=== PATIENT | male | born 1985 | race Caucasian/White ===

== ENCOUNTER 2017-03-15 08:56 | Inpatient (IN) | payer OTHER ==
[2017-03-15 09:21] VITALS: BMI 23.6
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
[2017-03-15] MEDS ORDERED: hydrOXYzine PAMOATE 50 MG CAPSULE (FP) PO PRN (11:52)
[2017-03-15] MEDS ORDERED: ACETAMINOPHEN 325 MG TABLET (FP) PO PRN (11:52)
[2017-03-15] MEDS ORDERED: NICOTINE POLACRILEX 2 MG GUM BC PRN (11:52)
[2017-03-15] MEDS ORDERED: P-EPHED 60MG/TRIPROLIDI 2.5MG TABLET PO PRN (11:52)
[2017-03-15] MEDS ORDERED: IBUPROFEN 400 MG TABLET (FP) PO PRN (11:52)
[2017-03-15] MEDS ORDERED: LOPERAMIDE HCL 2 MG CAPSULE PO PRN (11:52)
[2017-03-15] MEDS ORDERED: guaiFENesin/D-METHORPHAN HB 10 ML UNIT-DOSE CUPS PO PRN (11:52)
[2017-03-15] MEDS ORDERED: MAGNESIUM CITRATE 300 ML BOTTLE PO PRN (11:52)
[2017-03-15] MEDS ORDERED: MENTHOL/PHENOL 1 EACH UD MM PRN (11:52)
[2017-03-15] MEDS ORDERED: MAGNESIUM HYDROX 2400MG/30ML ORAL SUSPENSION 30 ML CUP PO PRN (11:52)
[2017-03-15] MEDS ORDERED: chlordiazePOXIDE HCL 25 MG CAPSULE PO ONE (14:15)
[2017-03-15] MEDS: METHYL SALICYLATE/MENTHOL OINT 30 GM TUBE TP SCH ×2 (14:48→23:38)
[2017-03-15] MEDS: PANTOPRAZOLE 40 MG TABLET (FP) PO SCH (14:48)
[2017-03-15] MEDS: NICOTINE 14 MG/24 HOURS TOPICAL PATCH TD SCH (14:48)
[2017-03-15] MEDS: chlordiazePOXIDE HCL 25 MG CAPSULE PO SCH ×2 (17:28→22:38)
[2017-03-15 21:17] LABS: URINE APPEARANCE SLCLOUDY; URINE BILIRUBIN NEGATIVE (NEGATIVE); URINE BLOOD NEGATIVE (NEGATIVE); URINE COLOR AMBER; URINE GLUCOSE (UA) NEGATIVE (NEGATIVE); URINE KETONE NEGATIVE (NEGATIVE); URINE LEUK ESTERASE NEGATIVE (NEGATIVE); URINE NITRITE NEGATIVE (NEGATIVE); URINE PROTEIN NEGATIVE (NEGATIVE)
[2017-03-15] MEDS: diphenhydrAMINE HCL 50 MG CAPSULE PO PRN (22:39)
[2017-03-15] MEDS: THIAMINE HCL 100 MG TABLET (FP) PO SCH (22:39)
[2017-03-16] MEDS: chlordiazePOXIDE HCL 25 MG CAPSULE PO PRN (03:40)
[2017-03-16] MEDS: chlordiazePOXIDE HCL 25 MG CAPSULE PO SCH ×4 (05:18→22:11)
[2017-03-16] MEDS: ONDANSETRON *ODT* 4 MG TABLET SL PRN (09:47)
--- NOTE | 2017-03-16 10:06 | PN ---
S CIWA - CIWA Score Nausea/Vomitin Muscle Tremors: 3 Anxiety: 3 Agitation: 3 Paroxysmal Sweats: 2 Orientation: 0-Oriented Tacttile Disturbances: 1-Very Mild Itch/Numbness Auditory Disturbances: 1-Very Mild Visual Disturbances: 1-Very Mild Sensitivity Headache: 2-Mild CIWA-Ar Total Score: 19 BHS Progress Note (SOAP) Subjective: ALERT,IRRITABLE,ANXIOUS,INTERRUPTED SLEEP,TREMOR,NAUSEA,VOMITING Objective: 03/16/17 10:03 Vital Signs Temperature 98.1 F 03/16/17 06:21 Pulse Rate 70 03/16/17 06:21 Respiratory Rate 18 03/16/17 06:21 Blood Pressure 122/76 03/16/17 06:21 O2 Sat by Pulse Oximetry (%) Laboratory Last Values Urine Color Ashlie 03/15/17 20:59 Urine Appearance Slcloudy 03/15/17 20:59 Urine pH 5.0 (5.0-8.0) 03/15/17 20:59 Urine Protein Negative (NEGATIVE) 03/15/17 20:59 Urine Glucose (UA) Negative (NEGATIVE) 03/15/17 20:59 Urine Ketones Negative (NEGATIVE) 03/15/17 20:59 Urine Blood Negative (NEGATIVE) 03/15/17 20:59 Urine Nitrite Negative (NEGATIVE) 03/15/17 20:59 Urine Bilirubin Negative (NEGATIVE) 03/15/17 20:59 Urine Urobilinogen 2.0 mg/dL (0.2-1.0) 03/15/17 20:59 Ur Leukocyte Esterase Negative (NEGATIVE) 03/15/17 20:59 LABS PENDING Assessment: 03/16/17 10:04 WITHDRAWAL SYMPTOM Plan: CONTINUE DETOX,ZOFRAN 4 MGS SL FOR NAUSEA AND VOMITING PRN Q 6HRS
[2017-03-16 10:19] LABS: MCH 28.1 pg (25.7-33.7); MCHC 32.3 g/dl (32.0-35.9); MEAN CELL VOLUME 87.2 fl (80-96); MEAN PLT VOLUME 8.1 fl (7.5-11.1); PLATELET COUNT 92 K/MM3 (134-434); RDW 21.6 % (11.9-15.9); WHITE BLOOD COUNT 2.6 K/mm3 (4.0-10.0)
[2017-03-16] MEDS: METHYL SALICYLATE/MENTHOL OINT 30 GM TUBE TP SCH ×2 (10:22→22:10)
[2017-03-16] MEDS: NICOTINE 14 MG/24 HOURS TOPICAL PATCH TD SCH (10:23)
[2017-03-16] MEDS: PRENATAL VITAMINS W/ FOLIC ACID TABLET (FP) PO SCH (10:23)
[2017-03-16] MEDS: PANTOPRAZOLE 40 MG TABLET (FP) PO SCH (10:23)
[2017-03-16 10:46] LABS: ALBUMIN 3.2 g/dl (3.4-5.0); ALK PHOS 152 U/L (45-117); ANION GAP 8 (8-16); BILIRUBIN,TOTAL 1.5 mg/dL (0.2-1.0); CALCIUM 8.3 mg/dL (8.5-10.1); CO2 27 mmol/L (21-32); CREATININE 0.9 mg/dL (0.7-1.3); GLUCOSE,RANDOM 111 mg/dL (74-106); SGOT/AST 262 U/L (15-37); SGPT/ALT 95 U/L (12-78); TOT PROT 6.9 g/dl (6.4-8.2)
[2017-03-16] MEDS: MAG HYDROX/AL HYDROX/SIMETH 30 ML UNIT-DOSE CUP PO PRN ×2 (11:09→22:12)
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
[2017-03-16 14:01] LABS: ANISOCYTOSIS 2+; MACROCYTOSIS 1+; MICROCYTOSIS FEW
[2017-03-16] MEDS: CYCLOBENZAPRINE HCL 10 MG TABLET (FP) PO PRN ×2 (17:20→22:11)
[2017-03-16] MEDS: traZODone HCL 100 MG TABLET (FP) PO SCH (22:11)
[2017-03-16] MEDS: THIAMINE HCL 100 MG TABLET (FP) PO SCH (22:11)
[2017-03-17] MEDS: chlordiazePOXIDE HCL 25 MG CAPSULE PO SCH ×2 (05:28→10:29)
[2017-03-17] MEDS: CYCLOBENZAPRINE HCL 10 MG TABLET (FP) PO PRN ×3 (06:08→22:33)
--- NOTE | 2017-03-17 10:06 | PN ---
S CIWA - CIWA Score Nausea/Vomitin Muscle Tremors: 3 Anxiety: 2 Agitation: 3 Paroxysmal Sweats: 1-Minimal Palms Moist Orientation: 0-Oriented Tacttile Disturbances: 1-Very Mild Itch/Numbness Auditory Disturbances: 1-Very Mild Visual Disturbances: 1-Very Mild Sensitivity Headache: 2-Mild CIWA-Ar Total Score: 17 BHS Progress Note (SOAP) Subjective: ALERT,IRRITABLE,ANXIOUS,INTERRUPTED SLEEP,TREMOR Objective: 03/17/17 10:03 Vital Signs Temperature 97.3 F L 03/17/17 06:12 Pulse Rate 60 03/17/17 06:12 Respiratory Rate 16 03/17/17 06:12 Blood Pressure 101/57 03/17/17 06:12 O2 Sat by Pulse Oximetry (%) Laboratory Last Values WBC 2.6 K/mm3 (4.0-10.0) L 03/16/17 05:45 RBC 2.89 M/mm3 (4.00-5.60) L 03/16/17 05:45 Hgb 8.1 GM/dL (11.7-16.9) L 03/16/17 05:45 Hct 25.2 % (35.4-49) L 03/16/17 05:45 MCV 87.2 fl (80-96) 03/16/17 05:45 MCH 28.1 pg (25.7-33.7) 03/16/17 05:45 MCHC 32.3 g/dl (32.0-35.9) 03/16/17 05:45 RDW 21.6 % (11.9-15.9) H 03/16/17 05:45 Plt Count 92 K/MM3 (134-434) L 03/16/17 05:45 MPV 8.1 fl (7.5-11.1) 03/16/17 05:45 Nucleated RBC % No Result Required. 03/16/17 05:45 Toxic Granulation No Result Required. 03/16/17 05:45 [place] Bodies No Result Required. 03/16/17 05:45 [place] Rods No Result Required. 03/16/17 05:45 Platelet Estimate No Result Required. 03/16/17 05:45 Basophilic Stippling 1+ 03/16/17 05:45 Anisocytosis 2+ 03/16/17 05:45 Microcytosis Few 03/16/17 05:45 Macrocytosis 1+ 03/16/17 05:45 Tear Drop Cells No Result Required. 03/16/17 05:45 Ovalocytes No Result Required. 03/16/17 05:45 [place] Bodies No Result Required. 03/16/17 05:45 [place] Rings No Result Required. 03/16/17 05:45 Acanthocytes (Spur) No Result Required. 03/16/17 05:45 Morphology Comment No Result Required. 03/16/17 05:45 Sodium 146 mmol/L (136-145) H 03/16/17 05:45 Potassium 3.6 mmol/L (3.5-5.1) 03/16/17 05:45 Chloride 111 mmol/L (98-107) H 03/16/17 05:45 Carbon Dioxide 27 mmol/L (21-32) 03/16/17 05:45 Anion Gap 8 (8-16) 03/16/17 05:45 BUN 15 mg/dL (7-18) 03/16/17 05:45 Creatinine 0.9 mg/dL (0.7-1.3) 03/16/17 05:45 Creat Clearance w eGFR > 60 (>60) 03/16/17 05:45 Random Glucose 111 mg/dL (74-106) H 03/16/17 05:45 Calcium 8.3 mg/dL (8.5-10.1) L 03/16/17 05:45 Total Bilirubin 1.5 mg/dL (0.2-1.0) H 03/16/17 05:45 AST 262 U/L (15-37) H 03/16/17 05:45 ALT 95 U/L (12-78) H 03/16/17 05:45 Alkaline Phosphatase 152 U/L (45-117) H 03/16/17 05:45 Total Protein 6.9 g/dl (6.4-8.2) 03/16/17 05:45 Albumin 3.2 g/dl (3.4-5.0) L 03/16/17 05:45 Urine Color Ashlie 03/15/17 20:59 Urine Appearance Slcloudy 03/15/17 20:59 Urine pH 5.0 (5.0-8.0) 03/15/17 20:59 Ur Specific [place] 1.025 (1.005-1.025) 03/15/17 20:59 Urine Protein Negative (NEGATIVE) 03/15/17 20:59 Urine Glucose (UA) Negative (NEGATIVE) 03/15/17 20:59 Urine Ketones Negative (NEGATIVE) 03/15/17 20:59 Urine Blood Negative (NEGATIVE) 03/15/17 20:59 Urine Nitrite Negative (NEGATIVE) 03/15/17 20:59 Urine Bilirubin Negative (NEGATIVE) 03/15/17 20:59 Urine Urobilinogen 2.0 mg/dL (0.2-1.0) 03/15/17 20:59 Ur Leukocyte Esterase Negative (NEGATIVE) 03/15/17 20:59 RPR Titer Nonreactive (NONREACTIVE) 03/16/17 05:45 Assessment: 03/17/17 10:04 WITHDRAWAL SYMPTOM Plan: CONTINUE DETOX,PANCYTOPENIA PROBABLY RELATED TO ALCOHOL,START ON FERROUS SLFATE 325 MGS PO TID, PEPEAT CBC,CMP,INR IN AM
[2017-03-17] MEDS: PANTOPRAZOLE 40 MG TABLET (FP) PO SCH (10:29)
[2017-03-17] MEDS: PRENATAL VITAMINS W/ FOLIC ACID TABLET (FP) PO SCH (10:29)
[2017-03-17] MEDS: METHYL SALICYLATE/MENTHOL OINT 30 GM TUBE TP SCH ×2 (10:29→22:45)
[2017-03-17] MEDS: NICOTINE 14 MG/24 HOURS TOPICAL PATCH TD SCH (10:31)
[2017-03-17] MEDS: FERROUS SO4 325 MG TABLET (FP) PO SCH ×2 (16:34→17:25)
[2017-03-17] MEDS: chlordiazePOXIDE 5 MG CAPSULE PO SCH ×2 (17:26→22:33)
--- NOTE | 2017-03-17 20:03 | EKG ---
Test Reason : Blood Pressure : / mmHG Vent. Rate : 065 BPM Atrial Rate : 065 BPM P-R Int : 190 ms QRS Dur : 118 ms QT Int : 452 ms P-R-T Axes : 039 021 043 degrees QTc Int : 470 ms NORMAL SINUS RHYTHM NON-SPECIFIC INTRA-VENTRICULAR CONDUCTION DELAY BORDERLINE ECG NO PREVIOUS ECGS AVAILABLE Confirmed by MIRANDA NEVES MD ([id number]) on 03/17/2017 8:02:46 PM Referred By: Confirmed By:MIRANDA NEVES MD
[2017-03-17] MEDS: THIAMINE HCL 100 MG TABLET (FP) PO SCH (22:32)
[2017-03-17] MEDS: traZODone HCL 100 MG TABLET (FP) PO SCH (22:33)
[2017-03-18] MEDS: diphenhydrAMINE HCL 50 MG CAPSULE PO PRN (01:23)
[2017-03-18] MEDS: chlordiazePOXIDE HCL 25 MG CAPSULE PO PRN (03:23)
[2017-03-18] MEDS: chlordiazePOXIDE 5 MG CAPSULE PO SCH ×2 (06:12→10:42)
[2017-03-18] MEDS: FERROUS SO4 325 MG TABLET (FP) PO SCH ×3 (07:01→18:14)
[2017-03-18 10:18] LABS: ALBUMIN 2.7 g/dl (3.4-5.0); ALK PHOS 123 U/L (45-117); ANION GAP 6 (8-16); BILIRUBIN,TOTAL 1.7 mg/dL (0.2-1.0); CALCIUM 8.3 mg/dL (8.5-10.1); CO2 25 mmol/L (21-32); CREATININE 0.9 mg/dL (0.7-1.3); GLUCOSE,RANDOM 91 mg/dL (74-106); SGOT/AST 106 U/L (15-37); SGPT/ALT 58 U/L (12-78); TOT PROT 5.9 g/dl (6.4-8.2)
[2017-03-18 10:39] LABS: INR 1.37 (0.82-1.09); PROTHROMBIN TIME (PATIENT) 15.2 SEC (9.98-11.88)
[2017-03-18] MEDS: ONDANSETRON *ODT* 4 MG TABLET SL PRN (10:42)
[2017-03-18] MEDS: CYCLOBENZAPRINE HCL 10 MG TABLET (FP) PO PRN (10:42)
[2017-03-18] MEDS: PANTOPRAZOLE 40 MG TABLET (FP) PO SCH (10:42)
[2017-03-18] MEDS: METHYL SALICYLATE/MENTHOL OINT 30 GM TUBE TP SCH ×2 (10:42→23:40)
[2017-03-18] MEDS: PRENATAL VITAMINS W/ FOLIC ACID TABLET (FP) PO SCH (10:42)
[2017-03-18] MEDS: NICOTINE 14 MG/24 HOURS TOPICAL PATCH TD SCH (10:43)
--- NOTE | 2017-03-18 11:46 | PN ---
S Progress Note (SOAP) Subjective: ALERT,IRRITABLE,ANXIOUS,INTERRUPTED SLEEP Objective: 03/18/17 11:44 Vital Signs Temperature 97.8 F 03/18/17 10:19 Pulse Rate 86 03/18/17 10:19 Respiratory Rate 18 03/18/17 10:19 Blood Pressure 109/58 03/18/17 10:19 O2 Sat by Pulse Oximetry (%) Laboratory Results - last 24 hr 03/18/17 03/18/17 07:00 07:00 INR 1.37 H Sodium 140 Potassium 4.4 D Chloride 109 H Carbon Dioxide 25 Anion Gap 6 L BUN 15 Creatinine 0.9 Creat Clearance w eGFR > 60 Random Glucose 91 Calcium 8.3 L Total Bilirubin 1.7 H AST 106 H D ALT 58 D Alkaline Phosphatase 123 H Total Protein 5.9 L Albumin 2.7 L 03/18/17 11:45 REPEAT CBC PENDING Assessment: 03/18/17 11:45 WITHDRAWAL SYMPTOM Plan: CONTINUE DETOX,DISCHARGE IN AM
[2017-03-18] MEDS: chlordiazePOXIDE HCL 10 MG CAPSULE PO SCH ×2 (18:14→22:29)
[2017-03-18] MEDS: traZODone HCL 100 MG TABLET (FP) PO SCH (22:29)
[2017-03-18] MEDS: THIAMINE HCL 100 MG TABLET (FP) PO SCH (22:29)
[2017-03-19] MEDS: diphenhydrAMINE HCL 50 MG CAPSULE PO PRN (01:14)
[2017-03-19] MEDS: chlordiazePOXIDE HCL 10 MG CAPSULE PO SCH (05:19)
[2017-03-19] MEDS: MAG HYDROX/AL HYDROX/SIMETH 30 ML UNIT-DOSE CUP PO PRN (05:35)
[2017-03-19 06:13] VITALS: TEMP 97.7
[2017-03-19] MEDS: FERROUS SO4 325 MG TABLET (FP) PO SCH (07:21)
--- NOTE | 2017-03-19 08:02 | DS ---
[facility] Detox Discharge Summary Admission Date: 03/15/17 Discharge Date: 03/19/17 - History Present History: Alcohol Dependence Pertinent Past History: OLD FRACTURE OF LEFT SHOULDER HISTORY OF ANEMIA - Physical Exam Results Vital Signs: Vital Signs Temperature 97.7 F 03/19/17 06:00 Pulse Rate 62 03/19/17 06:00 Respiratory Rate 18 03/19/17 06:00 Blood Pressure 115/59 03/19/17 06:00 O2 Sat by Pulse Oximetry (%) Pertinent Admission Physical Exam Findings: WITHDRAWAL SYMPTOM - Treatment Hospital Course: Detox Protocol Followed, Detoxed Safely, Responded well, Discharged Condition Good Patient has Accepted a Rehab Referral to: [facility] - Medication Discharge Medications: Ambulatory Orders NK [No Known Home Medication] 03/15/17 - Diagnosis (1) Alcohol dependence with uncomplicated withdrawal Current Visit: Yes Status: Acute (2) Pancytopenia Current Visit: Yes Status: Acute (3) Insomnia Current Visit: Yes Status: Acute (4) Nicotine dependence Current Visit: Yes Status: Acute (5) History of anemia Current Visit: Yes Status: Chronic (6) History of fracture of left shoulder Current Visit: Yes Status: Chronic - AMA Did Patient Leave Against Medical Advice: No
[2017-03-19] MEDS: PRENATAL VITAMINS W/ FOLIC ACID TABLET (FP) PO SCH (09:20)
[2017-03-19] MEDS: PANTOPRAZOLE 40 MG TABLET (FP) PO SCH (09:21)
[2017-03-19 10:15] VITALS: BP 121/63; PULSE 82
== END 2017-03-19 09:25 | disposition home or self-care (01) | DRG 775 ==
LOC: YASAS 08:56 → Y6N 13:17
PROVIDERS: ADMIT Internal Medicine; ATTEND Internal Medicine
PROC: HZ2ZZZZ Detoxification Services for Substance Abuse Treatment (ICD-10-PCS; principal; 2017-03-15)
DX: F10.230 Alcohol dependence with withdrawal, uncomplicated (principal); F17.210 Nicotine dependence, cigarettes, uncomplicated; D61.818 Other pancytopenia; G47.00 Insomnia, unspecified; D64.9 Anemia, unspecified; K21.9 Gastro-esophageal reflux disease without esophagitis; M25.512 Pain in left shoulder; Z87.81 Personal history of (healed) traumatic fracture; Z86.69 Personal history of other diseases of the nervous system and sense organs; Z87.19 Personal history of other diseases of the digestive system; Z91.5 Personal history of self-harm; Z59.0 Homelessness
CPT/HCPCS: 36415; 80053; 81003; 85027; 85610; 86593; 93005; 93010

== ENCOUNTER 2017-07-04 13:21 | Inpatient (IN) | payer OTHER ==
[2017-07-04 13:52] VITALS: BMI 25.7
--- NOTE | 2017-07-04 15:00 | HP ---
CIWA Score - CIWA Score Nausea/Vomitin-Mild Nausea/No Vomiting Muscle Tremors: 3 Anxiety: 4-Mod. Anxious/Guarded Agitation: 3 Paroxysmal Sweats: 3 Orientation: 0-Oriented Tacttile Disturbances: 0-None Auditory Disturbances: 0-None Visual Disturbances: 0-None Headache: 2-Mild CIWA-Ar Total Score: 16 Admission ROS BHS - HPI Chief Complaint: Withdrawal sx. Allergies/Adverse Reactions: Allergies Allergy/AdvReac Type Severity Reaction Status Date / Time No Known Allergies Allergy Verified 07/04/17 13:54 History of Present Illness: 32 y/o man with along hx. of alcoholism is admitted for detox. Pt. has been in previous detox denies significant sobriety. Exam Limitations: No Limitations - Ebola screening Have you traveled outside of the country in the last 21 days: No (N) Have you had contact with anyone from an Ebola affected area: No Have you been sick,other than usual withdrawal symptoms: No Do you have a fever: No - Review of Systems Constitutional: Diaphoresis EENT: reports: Nose Congestion, Other (swollen nose, fracture nasal septum) Respiratory: reports: No Symptoms reported Cardiac: reports: No Symptoms Reported GI: reports: Nausea, Abdominal cramping : reports: No Symptoms Reported Musculoskeletal: reports: Joint Pain, Other (ecchymosis lt. knee) Integumentary: reports: Sweating Neuro: reports: Tremors Endocrine: reports: No Symptoms Reported Hematology: reports: No Symptoms Reported Psychiatric: reports: No Sypmtoms Reported Other Systems: Reviewed and Negative Patient History - Patient Medical History Hx Anemia: Yes (TRANSFUSED in 03/2017) Hx Asthma: No Hx Chronic Obstructive Pulmonary Disease (COPD): No Hx Cancer: No Hx Cardiac Disorders: No Hx Congestive Heart Failure: No Hx Hypertension: No Hx Hypercholesterolemia: No Hx Pacemaker: No HX Cerebrovascular Accident: No Hx Seizures: No Hx Dementia: No Hx Diabetes: No Hx Gastrointestinal Disorders: Yes (acid reflux) Hx Liver Disease: Yes (early cirrhosis) Hx Genitourinary Disorders: No Hx Sexually Transmitted Disorders: No Hx Renal Disease (ESRD): No Hx Thyroid Disease: No Hx Human Immunodeficiency Virus (HIV): No (NEGATIVE HX) Hx Hepatitis C: No Hx Depression: Yes Hx Suicide Attempt: Yes (Pt [place] train [place].) Hx Bipolar Disorder: No Hx Schizophrenia: No - Patient Surgical History Past Surgical History: Yes Hx Neurologic Surgery: No Hx Cataract Extraction: No Hx Cardiac Surgery: No Hx Lung Surgery: No Hx Breast Surgery: No Hx Breast Biopsy: No Hx Abdominal Surgery: No Hx Appendectomy: Yes (2011) Hx Orthopedic Surgery: Yes (L shoulder sx in 2013-METAL PLATE IN SHOULDER) Other Surgical History: Sx L wrist 3 years ago. Anesthesia Reaction: No - PPD History Previous Implant?: Yes Documented Results: Negative w/proof Date: 03/17/17 Results: 0 mm PPD to be Administered?: No - Smoking Cessation Smoking history: Former smoker Have you smoked in the past 12 months: Yes Aproximately how many cigarettes per day: 0 (last smoked 6 months ago) Cigars Per Day: 0 Hx Chewing Tobacco Use: No Initiated information on smoking cessation: No - Substance & Tx. History Hx Alcohol Use: Yes Hx Substance Use: No Substance Use Type: Alcohol Hx Substance Use Treatment: Yes ([facility] detox 03/2017) - Substances Abused Alcohol Route: Oral Frequency: Daily Amount used: Vodka 2 pints, beer- 1 six pack Age of first use: 19 Date of Last Use: 07/04/17 Family Disease History - Family Disease History Family Disease History: Other: Father (heroin addict) Admission Physical Exam [facility] - Vital Signs Vital Signs: Vital Signs - 24 hr 07/04/17 13:50 Temperature 97.8 F Pulse Rate 98 H Respiratory 20 Rate Blood Pressure 106/66 - Physical General Appearance: Yes: Alcohol on Breath, Tremorous, Sweating, Anxious HEENTM: Yes: Nasal Congestion Respiratory: Yes: Chest Non-Tender, Lungs Clear, Normal Breath Sounds Neck: Yes: Supple Breast: Yes: Breast Exam Deferred Cardiology: Yes: Regular Rhythm, Regular Rate, S1, S2 Abdominal: Yes: Normal Bowel Sounds, Non Tender Genitourinary: Yes: Within Normal Limits Back: Yes: Within Normal Limits Musculoskeletal: Yes: Within Normal Limits Extremities: Yes: Tremors Neurological: Yes: Fully Oriented, Alert Integumentary: Yes: Diaphoresis Lymphatic: Yes: Within Normal Limits - Diagnostic (1) Alcohol dependence with uncomplicated withdrawal Current Visit: Yes Status: Acute (2) History of anemia Current Visit: Yes Status: Chronic Comment: LABS PENDING Cleared for Admission [facility] - Detox or Rehab [facility] Level of Care: Medically Managed Detox Regimen/Protocol: Librium S Breath Alcohol Content Breath Alcohol Content: 0.436 Urine Drug Screen - Results Drug Screen Negative: No Urine Drug Screen Results: BZO-Benzodiazepines
[2017-07-04] MEDS ORDERED: hydrOXYzine PAMOATE 50 MG CAPSULE (FP) PO PRN (15:14)
[2017-07-04] MEDS ORDERED: MENTHOL/PHENOL 1 EACH UD MM PRN (15:14)
[2017-07-04] MEDS ORDERED: chlordiazePOXIDE HCL 25 MG CAPSULE PO PRN (15:14)
[2017-07-04] MEDS ORDERED: NICOTINE POLACRILEX 2 MG GUM BC PRN (15:14)
[2017-07-04] MEDS ORDERED: MAGNESIUM CITRATE 300 ML BOTTLE PO PRN (15:14)
[2017-07-04] MEDS ORDERED: IBUPROFEN 400 MG TABLET (FP) PO PRN (15:14)
[2017-07-04] MEDS ORDERED: P-EPHED 60MG/TRIPROLIDI 2.5MG TABLET PO PRN (15:14)
[2017-07-04] MEDS ORDERED: ACETAMINOPHEN 325 MG TABLET (FP) PO PRN (15:14)
[2017-07-04] MEDS ORDERED: chlordiazePOXIDE HCL 25 MG CAPSULE PO ONE (15:14)
[2017-07-04] MEDS ORDERED: LOPERAMIDE HCL 2 MG CAPSULE PO PRN (15:14)
[2017-07-04] MEDS ORDERED: MAG HYDROX/AL HYDROX/SIMETH 30 ML UNIT-DOSE CUP PO PRN (15:14)
[2017-07-04] MEDS ORDERED: guaiFENesin/D-METHORPHAN HB 10 ML UNIT-DOSE CUPS PO PRN (15:14)
[2017-07-04] MEDS ORDERED: MAGNESIUM HYDROX 2400MG/30ML ORAL SUSPENSION 30 ML CUP PO PRN (15:14)
[2017-07-04] MEDS: chlordiazePOXIDE HCL 25 MG CAPSULE PO SCH ×2 (17:56→22:35)
[2017-07-04] MEDS: PANTOPRAZOLE 40 MG TABLET (FP) PO SCH (17:56)
[2017-07-04] MEDS: FERROUS SO4 325 MG TABLET (FP) PO SCH (17:56)
[2017-07-04] MEDS ORDERED: THIAMINE HCL 100 MG TABLET (FP) PO SCH (22:00)
[2017-07-04 22:54] LABS: URINE APPEARANCE CLEAR; URINE BILIRUBIN NEGATIVE (NEGATIVE); URINE BLOOD NEGATIVE (NEGATIVE); URINE COLOR YELLOW; URINE GLUCOSE (UA) NEGATIVE (NEGATIVE); URINE KETONE NEGATIVE (NEGATIVE); URINE NITRITE NEGATIVE (NEGATIVE); URINE PROTEIN NEGATIVE (NEGATIVE)
[2017-07-05] MEDS: chlordiazePOXIDE HCL 25 MG CAPSULE PO SCH ×2 (05:37→10:45)
--- NOTE | 2017-07-05 07:44 | CONSULT ---
[facility] Psychiatric Consult - Data Date of interview: 07/05/17 Admission source: [facility] Identifying data: This is 32 years old female with psychiatric hospitalization history intoxicated with: Alcohol Benzodiazepins Substance Abuse History: - Smoking Cessation. Smoking history: Former smoker. Have you smoked in the past 12 months: Yes. Aproximately how many cigarettes per day: 0 (last smoked 6 months ago). Cigars Per Day: 0. Hx Chewing Tobacco Use: No. Initiated information on smoking cessation: No. - Substance & Tx. History. Hx Alcohol Use: Yes. Hx Substance Use: No. Substance Use Type: Alcohol. Hx Substance Use Treatment: Yes ([facility] detox 03/2017). - Substances Abused. Alcohol. Route: Oral. Frequency: Daily. Amount used: Vodka 2 pints, beer- 1 six pack. Age of first use: 19. Date of Last Use: 07/04/17 Medical History: Anemia history, Psychiatric History: Patoenmt reports history of depression and anxiety, reports recent psychiatric admission at [facility] for [facility], reports taking prior to admission: Lexapro 20mg poqd Physical/Sexual Abuse/Trauma History: Denies Additional Comment: Lexapro 20mg poqd Mental Status Exam - Mental Status Exam Alert and Oriented to: Person Cognitive Function: Fair Patient Appearance: Unkempt Mood: Sad Affect: Flat Patient Behavior: Sedated, Cooperative Speech Pattern: Delayed Voice Loudness: Mildly Soft/Quiet Thought Process: Circumstantial Thought Disorder: Being Controlled Hallucinations: Denies Suicidal Ideation: Denies Homicidal Ideation: Denies Insight/Judgement: Fair Sleep: Difficulty falling asleep Appetite: Weight loss Muscle strength/Tone: Mild Hypotonicity Gait/Station: Shuffling Additional Comments: Lexapro 20mg poqd Psychiatric Findings - Problem List ([place] 1, 2,3) (1) Alcohol dependence with uncomplicated withdrawal Status: Acute (2) Alcoholic liver disease Status: Acute (3) Nicotine dependence Status: Acute (4) Substance induced mood disorder Status: Acute
[2017-07-05] MEDS: FERROUS SO4 325 MG TABLET (FP) PO SCH ×2 (07:56→12:06)
[2017-07-05 09:32] VITALS: BP 120/78; PULSE 89; TEMP 99
[2017-07-05 09:59] LABS: MCH 26.8 pg (25.7-33.7); MCHC 32.8 g/dl (32.0-35.9); MEAN CELL VOLUME 81.6 fl (80-96); MEAN PLT VOLUME 9.8 fl (7.5-11.1); RDW 18.7 % (11.9-15.9)
[2017-07-05] MEDS ORDERED: PRENATAL VITAMINS W/ FOLIC ACID TABLET (FP) PO SCH (10:00)
[2017-07-05] MEDS ORDERED: ESCITALOPRAM OXALATE 20 MG TABLET (FP) PO SCH (10:00)
[2017-07-05 10:06] LABS: PLATELET COUNT 17 K/MM3 (134-434)
[2017-07-05 10:17] LABS: ALBUMIN 2.8 g/dl (3.4-5.0); ALK PHOS 111 U/L (45-117); ANION GAP 7 (8-16); BILIRUBIN,TOTAL 1.4 mg/dL (0.2-1.0); CALCIUM 7.3 mg/dL (8.5-10.1); CO2 28 mmol/L (21-32); CREATININE 0.8 mg/dL (0.7-1.3); GLUCOSE,RANDOM 74 mg/dL (74-106); SGOT/AST 129 U/L (15-37); SGPT/ALT 36 U/L (12-78); TOT PROT 6.3 g/dl (6.4-8.2)
[2017-07-05] MEDS: PANTOPRAZOLE 40 MG TABLET (FP) PO SCH (10:45)
[2017-07-05 11:01] LABS: URINE LEUK ESTERASE Negative (NEGATIVE)
--- NOTE | 2017-07-05 11:14 | PN ---
S Progress Note Note: pt has come back with low critical lab values. pt states "I doesn't feel good:. called [facility] for evaluation report given to Dr. Simeon
[2017-07-05 11:22] LABS: ANISOCYTOSIS 3+; HYPOCHROMIA 2+; MICROCYTOSIS 2+; TOTAL CELLS COUNTED 100
--- NOTE | 2017-07-05 13:32 | EKG ---
Test Reason : Blood Pressure : / mmHG Vent. Rate : 078 BPM Atrial Rate : 078 BPM P-R Int : 186 ms QRS Dur : 110 ms QT Int : 414 ms P-R-T Axes : 038 015 049 degrees QTc Int : 471 ms NORMAL SINUS RHYTHM NORMAL ECG WHEN COMPARED WITH ECG OF 15-MAR-2017 13:56, T WAVE AMPLITUDE HAS DECREASED IN LATERAL LEADS Confirmed by ROSCOE GUIDRY MD ([id number]) on 07/05/2017 1:32:16 PM Referred By: Levy Zamorano Confirmed By:ROSCOE GUIDRY MD
[2017-07-05] MEDS ORDERED: chlordiazePOXIDE HCL 25 MG CAPSULE PO SCH (17:00)
--- NOTE | 2017-07-06 08:31 | DS ---
[facility] Detox Discharge Summary Admission Date: 07/04/17 Discharge Date: 07/05/17 - History Present History: Alcohol Dependence - Physical Exam Results Vital Signs: Vital Signs Temperature 99.0 F 07/05/17 09:31 Pulse Rate 89 07/05/17 09:31 Respiratory Rate 18 07/05/17 09:31 Blood Pressure 120/78 07/05/17 09:31 O2 Sat by Pulse Oximetry (%) - Treatment Hospital Course: Discharged Condition Good - Medication Discharge Medications: Ambulatory Orders Ferrous Sulfate [Feosol] 325 mg PO TIDCM #90 tab 03/19/17 Pantoprazole Sodium [Protonix -] 40 mg PO DAILY #30 tab 03/19/17 Escitalopram Oxalate [Lexapro -] 20 mg PO DAILY #30 tablet 07/05/17 - Diagnosis (1) Alcohol dependence with uncomplicated withdrawal Status: Acute (2) Pancytopenia Status: Acute (3) Insomnia Status: Acute (4) Nicotine dependence Status: Acute (5) Substance induced mood disorder Status: Acute (6) History of anemia Status: Chronic (7) History of fracture of left shoulder Status: Chronic (8) Pain of left shoulder joint on movement Status: Chronic - AMA Did Patient Leave Against Medical Advice: No (pt sent to [place] ED for further tx)
[2017-07-06] MEDS ORDERED: chlordiazePOXIDE 5 MG CAPSULE PO SCH (17:00)
[2017-07-07] MEDS ORDERED: chlordiazePOXIDE HCL 10 MG CAPSULE PO SCH (17:00)
== END 2017-07-05 17:00 | disposition short-term general hospital (02) | DRG 775 ==
LOC: YASAS 13:21 → Y6N 16:44
PROVIDERS: ADMIT Internal Medicine; ATTEND Internal Medicine
PROC: HZ2ZZZZ Detoxification Services for Substance Abuse Treatment (ICD-10-PCS; principal; 2017-07-04)
DX: F10.230 Alcohol dependence with withdrawal, uncomplicated (principal); F17.210 Nicotine dependence, cigarettes, uncomplicated; F19.24 Other psychoactive substance dependence with psychoactive substance-induced mood disorder; D61.818 Other pancytopenia; K70.9 Alcoholic liver disease, unspecified; Z87.81 Personal history of (healed) traumatic fracture; Z86.2 Personal history of diseases of the blood and blood-forming organs and certain disorders involving the immune mechanism; Z59.0 Homelessness
CPT/HCPCS: 36415; 80053; 81003; 85027; 86593; 93005; 93010

== ENCOUNTER 2017-07-05 12:18 | Inpatient (IN) | payer OTHER ==
[2017-07-05] MEDS ORDERED: FOLIC ACID INJECTION - 1 MG, THIAMINE HCL 100 MG, MULTIVIT INJECTION ADULT 10 ML in SOD... IVPB ONE (12:36)
--- NOTE | 2017-07-05 13:12 | EKG ---
Test Reason : Blood Pressure : / mmHG Vent. Rate : 077 BPM Atrial Rate : 077 BPM P-R Int : 178 ms QRS Dur : 108 ms QT Int : 430 ms P-R-T Axes : 031 019 050 degrees QTc Int : 486 ms NORMAL SINUS RHYTHM PROLONGED QT ABNORMAL ECG WHEN COMPARED WITH ECG OF 04-JUL-2017 18:04, NO SIGNIFICANT CHANGE WAS FOUND Confirmed by ROSCOE GUIDRY MD ([id number]) on 07/05/2017 1:12:12 PM Referred By: Confirmed By:ROSCOE GUIDRY MD
[2017-07-05 13:16] LABS: MCH 26.7 pg (25.7-33.7); MCHC 32.6 g/dl (32.0-35.9); MEAN CELL VOLUME 81.8 fl (80-96); MEAN PLT VOLUME 9.3 fl (7.5-11.1); RDW 18.7 % (11.9-15.9)
[2017-07-05 13:23] LABS: WHITE BLOOD COUNT 0.7 K/mm3 (4.0-10.0)
[2017-07-05 13:24] LABS: PLATELET COUNT 16 K/MM3 (134-434)
--- NOTE | 2017-07-05 13:38 | PDOC ---
History of Present Illness - General Chief Complaint: Revisit, Lab Variance Stated Complaint: Revisit, Lab Variance Time Seen by Provider: 07/05/17 12:22 History Source: Patient - History of Present Illness Associated Symptoms: reports: shortness of breath. denies: fever/chills, nausea /vomiting, weakness Past History - Past Medical History Allergies/Adverse Reactions: Allergies Allergy/AdvReac Type Severity Reaction Status Date / Time No Known Allergies Allergy Verified 07/05/17 13:14 Home Medications: Ambulatory Orders Ferrous Sulfate [Feosol] 325 mg PO TIDCM #90 tab 03/19/17 Pantoprazole Sodium [Protonix -] 40 mg PO DAILY #30 tab 03/19/17 Escitalopram Oxalate [Lexapro -] 20 mg PO DAILY #30 tablet 07/05/17 Anemia: Yes (TRANSFUSED in 03/2017) Asthma: No Cancer: No Cardiac Disorders: No CVA: No COPD: No CHF: No Dementia: No Diabetes: No GI Disorders: Yes (acid reflux) Disorders: No HTN: No Hypercholesterolemia: No Kidney Stones: No Liver Disease: Yes (early cirrhosis) Seizures: No Thyroid Disease: No - Surgical History Abdominal Surgery: No Appendectomy: Yes (2011) Cardiac Surgery: No Lung Surgery: No Neurologic Surgery: No Orthopedic Surgery: Yes (L shoulder sx in 2013-METAL PLATE IN SHOULDER) - Reproductive History Testicular Surgery: No - Suicide/Smoking/Psychosocial Hx Smoking History: Former smoker Have you smoked in the past 12 months: Yes Number of Cigarettes Smoked Daily: 0 (last smoked 6 months ago) Cigars Per Day: 0 'Breaking Loose' booklet given: 03/15/17 Hx Alcohol Use: Yes Drug/Substance Use Hx: No Substance Use Type: Alcohol Hx Substance Use Treatment: Yes ([facility] detox 03/2017) Review of Systems - Review of Systems Constitutional: No: Chills, Fever Respiratory: No: Shortness of Breath Cardiac (ROS): No: Chest Pain ABD/GI: No: Nausea, Vomiting, Abdominal cramping *Physical Exam - Physical Exam General Appearance: Yes: Appropriately Dressed. No: Apparent Distress HEENT: positive: Normal Voice Neck: positive: Supple Respiratory/Chest: positive: Lungs Clear, Normal Breath Sounds. negative: Respiratory Distress Cardiovascular: positive: Regular Rate, S1, S2 Gastrointestinal/Abdominal: positive: Soft. negative: Tender Rectal Exam: negative: heme negative stool Musculoskeletal: negative: CVA Tenderness Integumentary: positive: Dry, Warm Neurologic: positive: Fully Oriented, Alert, Normal Mood/Affect ED Treatment Course - LABORATORY CBC & Chemistry Diagram: 07/05/17 13:00 07/05/17 13:00 - ADDITIONAL ORDERS Additional order review: Laboratory Results 07/05/17 12:40 Stool Occult Blood Negative 07/05/17 13:00 RBC 2.47 L MCV 81.8 MCHC 32.6 RDW 18.7 H MPV 9.3 Neutrophils % No Result Required. Lymphocytes % No Result Required. - RADIOLOGY Radiology Studies Ordered: Category Date Time Status CHEST X-RAY PORTABLE* [RAD] Stat Radiology 07/05/17 13:24 Ordered Medical Decision Making - Medical Decision Making 07/05/17 13:34 32-year-old male history of alcohol abuse, currently at detox at [facility] for several days and sent in for multiple lab abnormalities including severe neutropenia to 1 with hemoglobin under 7, on routine lab work this a.m. Patient does states he has a history of anemia, most likely secondary to his alcohol abuse as per patient. Has had multiple transfusions in the past. Only complaint is of shortness of breath at this time. No dizziness, weakness, syncope, melena or bright blood per rectum. Patient denies any fever or chills at this time. States he tested negative for HIV in the past See exam Anemia HGB<7 w/ sob at [facility] today S/p multiple transfusions in past Anemia thought to be 2/2 ETOH abuse per pt Stable in ED Guaiac neg -labs -admit and transfuse Neutropenia No f/c Neg HIV tests in past per pt -will need further w/u while in house, i.e r/o malignancy, will rpt HIV in ED 07/05/17 14:28 07/05/17 14:29 Pancytopenia on labs, white blood count 0.7, hemoglobin less than 6, and platelet 16! No active bleed in ED. Blood transfusion pending. Will need malignancy workup while in-house. Will contact admitting team to arrange admission 07/05/17 14:44 Case d/w Dr Marks and pt admitted. Consult for Dr Jordan of oncology placed *DC/Admit/Observation/Transfer Diagnosis at time of Disposition: Pancytopenia, Alcohol dependence with uncomplicated withdrawal - Discharge Dispostion Condition at time of disposition: Fair Admit: Yes - Referrals - Patient Instructions - Post Discharge Activity
[2017-07-05 13:45] LABS: ALK PHOS 113 U/L (45-117); ANION GAP 9 (8-16); BILIRUBIN,TOTAL 1.4 mg/dL (0.2-1.0); CALCIUM 7.8 mg/dL (8.5-10.1); CO2 29 mmol/L (21-32); CREATININE 0.9 mg/dL (0.7-1.3); GLUCOSE,RANDOM 91 mg/dL (74-106); SGOT/AST 138 U/L (15-37); SGPT/ALT 37 U/L (12-78); TOT PROT 6.6 g/dl (6.4-8.2)
[2017-07-05 13:48] LABS: INR 1.41 (0.82-1.09); PROTHROMBIN TIME (PATIENT) 15.9 SEC (9.98-11.88)
--- NOTE | 2017-07-05 14:30 | PDOC ---
*Physical Exam - Vital Signs Last Vital Signs Temp Pulse Resp BP Pulse Ox 99 F 78 18 124/79 100 07/05/17 12:20 07/05/17 12:20 07/05/17 12:20 07/05/17 12:20 07/05/17 12:20 ED Treatment Course - LABORATORY CBC & Chemistry Diagram: 07/05/17 13:00 07/05/17 13:00 - ADDITIONAL ORDERS Additional order review: Laboratory Results 07/05/17 12:40 Stool Occult Blood Negative 07/05/17 13:00 RBC 2.47 L MCV 81.8 MCHC 32.6 RDW 18.7 H MPV 9.3 Neutrophils % No Result Required. Lymphocytes % No Result Required. Medical Decision Making - Medical Decision Making 07/05/17 14:29 Patient seen and evaluated with the nurse practitioner. I agree with the overall evaluation, assessment, and management with the following summary of visit: 32-year-old male with history of alcoholism sent from [facility] for further evaluation of pancytopenia. Has had multiple transfusions in the past, only complaint is of shortness of breath. Labs show severe therm cytopenia, hemodynamically stable. Labs Transfusion Hematology consult, Admission *DC/Admit/Observation/Transfer Diagnosis at time of Disposition: Pancytopenia, Alcohol dependence with uncomplicated withdrawal - Referrals - Patient Instructions - Post Discharge Activity
[2017-07-05 15:11] LABS: PLATELET ESTIMATE DECREASED; TOTAL CELLS COUNTED 100
[2017-07-05 16:08] LABS: URINE APPEARANCE CLEAR; URINE BILIRUBIN NEGATIVE (NEGATIVE); URINE BLOOD NEGATIVE (NEGATIVE); URINE COLOR LTYELLOW; URINE GLUCOSE (UA) NEGATIVE (NEGATIVE); URINE KETONE NEGATIVE (NEGATIVE); URINE NITRITE NEGATIVE (NEGATIVE); URINE PROTEIN NEGATIVE (NEGATIVE); URINE UROBILINOGEN 4.0 E.U/dl mg/dL (0.2-1.0)
[2017-07-05 16:47] VITALS: BMI 25.0
--- NOTE | 2017-07-05 20:24 | HP ---
Admitting History and Physical - Primary Care Physician PCP: Remigio Marks - Admission History of Present Illness: 32-year-old male history of alcohol abuse, currently at detox at [facility] for several days and sent in for multiple lab abnormalities including severe neutropenia to 1 with hemoglobin under 7, on routine lab work this a.m. Patient does states he has a history of anemia, most likely secondary to his alcohol abuse as per patient. Has had multiple transfusions in the past. Only complaint is of shortness of breath at this time. No dizziness, weakness, syncope, melena or bright blood per rectum. Patient denies any fever or chills at this time. States he tested negative for HIV in the past - Smoking History Smoking history: Former smoker Have you smoked in the past 12 months: Yes Aproximately how many cigarettes per day: 0 (last smoked 6 months ago) - Alcohol/Substance Use Hx Alcohol Use: Yes Home Medications - Allergies Allergies/Adverse Reactions: Allergies Allergy/AdvReac Type Severity Reaction Status Date / Time No Known Allergies Allergy Verified 07/05/17 13:14 - Home Medications Home Medications: Ambulatory Orders Ferrous Sulfate [Feosol] 325 mg PO TIDCM #90 tab 03/19/17 Pantoprazole Sodium [Protonix -] 40 mg PO DAILY #30 tab 03/19/17 Escitalopram Oxalate [Lexapro -] 20 mg PO DAILY #30 tablet 07/05/17 Family Disease History - Family Disease History Family Disease History: Other: Father (heroin addict) Physical Examination Vital Signs: Vital Signs Temperature 99 F 07/05/17 15:39 Pulse Rate 73 07/05/17 15:39 Respiratory Rate 18 07/05/17 15:39 Blood Pressure 101/53 07/05/17 15:39 O2 Sat by Pulse Oximetry (%) 100 07/05/17 15:39 Constitutional: Yes: No Distress HENT: Yes: Atraumatic Neck: Yes: Supple Cardiovascular: Yes: Regular Rate and Rhythm Respiratory: Yes: CTA Bilaterally Gastrointestinal: Yes: Normal Bowel Sounds Extremities: Yes: WNL Neurological: Yes: Alert, Oriented Labs: CBC, BMP 07/05/17 13:00 07/05/17 13:00 Problem List - Problems (1) Alcohol dependence with uncomplicated withdrawal Code(s): F10.230 - ALCOHOL DEPENDENCE WITH WITHDRAWAL, UNCOMPLICATED (2) Pancytopenia Code(s): D61.818 - OTHER PANCYTOPENIA (3) History of anemia Code(s): Z86.2 - PRSNL HISTORY OF DIS OF THE BLD/BLD-FORM ORG/IMMUN [facility] Assessment/Plan Laboratory Tests 07/05/17 07/05/17 07/05/17 12:40 13:00 13:00 WBC 0.7 L* RBC 2.47 L Hgb 6.6 L* Hct 20.2 L MCV 81.8 MCH 26.7 MCHC 32.6 RDW 18.7 H Plt Count 16 L* MPV 9.3 Total Counted 100 Neutrophils % No Result Required. Neutrophils % (Manual) 34.0 L Lymphocytes % No Result Required. Lymphocytes % (Manual) 60.0 H Monocytes % (Manual) 6 Platelet Estimate Decreased PT with INR 15.90 H INR 1.41 H Sodium Potassium Chloride Carbon Dioxide Anion Gap BUN Creatinine Creat Clearance w eGFR Random Glucose Calcium Total Bilirubin AST ALT Alkaline Phosphatase Total Protein Albumin Urine Color Urine Appearance Urine pH Ur Specific [place] Urine Protein Urine Glucose (UA) Urine Ketones Urine Blood Urine Nitrite Urine Bilirubin Urine Urobilinogen Stool Occult Blood Negative Blood Type Antibody Screen Crossmatch 07/05/17 07/05/17 07/05/17 13:00 13:04 15:54 WBC RBC Hgb Hct MCV MCH MCHC RDW Plt Count MPV Total Counted Neutrophils % Neutrophils % (Manual) Lymphocytes % Lymphocytes % (Manual) Monocytes % (Manual) Platelet Estimate PT with INR INR Sodium 140 Potassium 3.7 Chloride 102 Carbon Dioxide 29 Anion Gap 9 BUN 11 Creatinine 0.9 Creat Clearance w eGFR > 60 Random Glucose 91 D Calcium 7.8 L Total Bilirubin 1.4 H AST 138 H ALT 37 Alkaline Phosphatase 113 Total Protein 6.6 Albumin 3.0 L Urine Color Ltyellow Urine Appearance Clear Urine pH 9.0 H D Ur Specific [place] 1.009 Urine Protein Negative Urine Glucose (UA) Negative Urine Ketones Negative Urine Blood Negative Urine Nitrite Negative Urine Bilirubin Negative Urine Urobilinogen 4.0 e.u/dl Stool Occult Blood Blood Type O POSITIVE Antibody Screen Negative Crossmatch See Detail 07/05/17 17:10 WBC RBC Hgb Hct MCV MCH MCHC RDW Plt Count MPV Total Counted Neutrophils % Neutrophils % (Manual) Lymphocytes % Lymphocytes % (Manual) Monocytes % (Manual) Platelet Estimate PT with INR INR Sodium Potassium Chloride Carbon Dioxide Anion Gap BUN Creatinine Creat Clearance w eGFR Random Glucose Calcium Total Bilirubin AST ALT Alkaline Phosphatase Total Protein Albumin Urine Color Urine Appearance Urine pH Ur Specific [place] Urine Protein Urine Glucose (UA) Urine Ketones Urine Blood Urine Nitrite Urine Bilirubin Urine Urobilinogen Stool Occult Blood Blood Type O POSITIVE Antibody Screen Negative Crossmatch Active Medications Generic Name Dose Route Start Last Admin Trade Name Freq PRN Reason Stop Dose Admin Escitalopram Oxalate 20 mg 07/06/17 10:00 Lexapro - PO DAILY [facility] Folic Acid 1 mg/ Thiamine HCl 1,000 mls @ 125 mls/hr 07/05/17 12:36 07/05/17 14:44 100 mg/ Multivitamins/Minerals IVPB 07/05/17 20:35 125 mls/hr 10 ml/ Sodium Chloride ONCE ONE Administration Pantoprazole Sodium 40 mg 07/06/17 10:00 Protonix - PO DAILY [facility]
[2017-07-05 22:27] LABS: INR 1.43 (0.82-1.09); PROTHROMBIN TIME (PATIENT) 16.2 SEC (9.98-11.88)
[2017-07-05 22:42] LABS: URINE LEUK ESTERASE Negative (NEGATIVE)
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
[2017-07-05 22:55] LABS: HIV 1 & 2 AB NEGATIVE; HIV 1 AGp24 NEGATIVE
[2017-07-06] MEDS ORDERED: chlordiazePOXIDE HCL 25 MG CAPSULE PO ONE (06:15)
[2017-07-06 08:27] LABS: MCH 27.6 pg (25.7-33.7); MCHC 33.6 g/dl (32.0-35.9); MEAN CELL VOLUME 82.3 fl (80-96); MEAN PLT VOLUME 6.4 fl (7.5-11.1)
[2017-07-06 08:33] LABS: PLATELET COUNT 18 K/MM3 (134-434); WHITE BLOOD COUNT 1.1 K/mm3 (4.0-10.0)
[2017-07-06 09:01] LABS: ALBUMIN 3.1 g/dl (3.4-5.0); ANION GAP 11 (8-16); CALCIUM 8.2 mg/dL (8.5-10.1); CO2 23 mmol/L (21-32); CREATININE 0.7 mg/dL (0.7-1.3); GLUCOSE,RANDOM 79 mg/dL (74-106); SGOT/AST 101 U/L (15-37)
[2017-07-06 09:04] LABS: ALK PHOS 121 U/L (45-117); BILIRUBIN,TOTAL 2.3 mg/dL (0.2-1.0); LDH 266 U/L (87-241); SGPT/ALT 34 U/L (12-78); TOT PROT 6.7 g/dl (6.4-8.2)
[2017-07-06 09:08] LABS: THYROID STIMULATING HORMONE 2.16 uIU/ml (0.358-3.74)
--- NOTE | 2017-07-06 11:40 | CONSULT ---
Consult Detox [facility] Reason for Current Admission/Consult: evaluate for alcohol use disorder and alcohol detox regimen after transfer from [facility] Referred by:: melodie Hinds - History History of Present Illness: 32 o m known to me from recent admission to [facility] for alcohol detoxifiation - ws transferred to [facility] for evaluation of pancytopenia most likely 2/2 alcohol use and developed alcohol withdrawal sx requriing continuation of detox regimen while hospitalized at [facility] - History Source History Provided By: Patient, Medical Record, Caregiver Limitations to Obtaining History: No Limitations - Alcohol/Substance Use Hx Alcohol Use: Yes Hx Substance Use: Yes Hx Substance Use Treatment: Yes ([facility]) - Current Drug/Alcohol Use Alcohol Route: Oral Frequency: Daily Amount used: vodka 2 pints, beer 6 pack daily Age of first use: 18 Date of Last Use: 07/04/17 CIWA Score - CIWA Score Nausea/Vomitin Muscle Tremors: 3 Anxiety: 3 Agitation: 3 Paroxysmal Sweats: 3 Orientation: 0-Oriented Tacttile Disturbances: 1-Very Mild Itch/Numbness Auditory Disturbances: 0-None Visual Disturbances: 0-None Headache: 1-Very Mild CIWA-Ar Total Score: 17 Assessment Plan - Diagnosis (1) Alcohol dependence with uncomplicated withdrawal Status: Acute (2) Pancytopenia Status: Acute (3) Nicotine dependence Status: Acute (4) Substance induced mood disorder Status: Acute (5) Alcoholic liver disease Status: Acute - Plan Plan: 32 yo m trasnferred from [facility] mid detox for evaluation of pancytopenia no still exhibiting alchol withdrawal necessitating restarting alcohol detoxification regimen with librium. Orders placed. - Medication Detox Regimen/Protocol: Librium
[2017-07-06 11:44] LABS: TOTAL CELLS COUNTED 100
[2017-07-06 11:45] LABS: PLATELET ESTIMATE DECREASED
[2017-07-06] MEDS ORDERED: chlordiazePOXIDE HCL 25 MG CAPSULE PO PRN (11:47)
[2017-07-06] MEDS ORDERED: ZOLPIDEM TARTRATE 5 MG TABLET PO PRN (11:52)
[2017-07-06] MEDS ORDERED: ONDANSETRON *ODT* 4 MG TABLET SL PRN (11:53)
[2017-07-06] MEDS ORDERED: ESCITALOPRAM OXALATE 10 MG TABLET (FP) ONE (11:56)
[2017-07-06] MEDS: chlordiazePOXIDE HCL 25 MG CAPSULE PO SCH ×3 (11:58→23:47)
[2017-07-06] MEDS: ESCITALOPRAM OXALATE 20 MG TABLET (FP) PO SCH (11:58)
[2017-07-06] MEDS: PANTOPRAZOLE 40 MG TABLET (FP) PO SCH (11:58)
[2017-07-06] MEDS: THIAMINE HCL 100 MG TABLET (FP) PO SCH ×2 (11:58→20:59)
[2017-07-06] MEDS: PRENATAL VITAMINS W/ FOLIC ACID TABLET (FP) PO SCH (13:32)
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
[2017-07-06] MEDS: FOLIC ACID 1 MG TABLET (FP) PO SCH (15:42)
--- NOTE | 2017-07-06 16:39 | CON.GI ---
Consult Consult Specialty:: GI Reason for Consultation:: liver enzymes elevation, alcohol - History of Present Illness History of Present Illness: A 32 yom, admitted for evaluation of pancytopenia state that was noted while in acute detox. Hx of alcohol abuse. Was drinking alcohol up until 2 days ago. Tells me he was diagnosed with alcoholic liver cirrhosis 2 months ago while hospitalized in [place]. Had liver biopsy there and discharged on Protonix and Lactulose. An EGD was done there as well, the patient is not sure of the findings. Denies melena, hematochezia, hematemesisi, abdominal pain, nausea, or vomiting. Denies fluctuating abdominal girth, dysphagia, odynopjagia, jaundice , fever, chills. No significant changes in weight. As per records, had bone marrow biopsy recently and multiple blood transfusions in the last few years, however reports ho history of overt bleeding - History Source History Provided By: Patient, Medical Record - Alcohol/Substance Use Hx Alcohol Use: Yes - Smoking History Smoking history: Former smoker Have you smoked in the past 12 months: Yes Aproximately how many cigarettes per day: 0 (last smoked 6 months ago) Home Medications - Allergies Allergies/Adverse Reactions: Allergies Allergy/AdvReac Type Severity Reaction Status Date / Time No Known Allergies Allergy Verified 07/05/17 13:14 - Home Medications Home Medications: Ambulatory Orders Ferrous Sulfate [Feosol] 325 mg PO TIDCM #90 tab 03/19/17 Pantoprazole Sodium [Protonix -] 40 mg PO DAILY #30 tab 03/19/17 Escitalopram Oxalate [Lexapro -] 20 mg PO DAILY #30 tablet 07/05/17 Family Disease History - Family Disease History Family History: Unremarkable Family Disease History: Other: Father (heroin addict) Review of Systems Findings/Remarks: please refer to H&P Physical Exam-GI Vital Signs: Vital Signs Temperature 98.4 F 07/06/17 14:00 Pulse Rate 81 07/06/17 14:00 Respiratory Rate 21 07/06/17 14:00 Blood Pressure 124/78 07/06/17 14:00 O2 Sat by Pulse Oximetry (%) 100 07/06/17 12:00 Constitutional: Yes: Anxious, Pallor Eyes: Yes: Other (periorbital echyomosis). No: Sclera Icterus Neck: No: Supple Cardiovascular: Yes: Regular Rate and Rhythm Respiratory: Yes: Regular Gastrointestinal Inspection: No: Ascites, Distention ...Auscultate: Yes: Normoactive Bowel Sounds ...Palpate: Yes: Soft. No: Firm/Rigid, Guarding, Mass, Tenderness, Tenderness, Rebound ...Percussion: No: Fluid Wave ...Rectal Exam: Yes: WNL. No: Guaiac Positive Edema: No Integumentary: No: Jaundice Neurological: Yes: Alert, Oriented, Asterixis, Tremors Labs: CBC, BMP 07/06/17 07:20 07/06/17 07:20 INR, PTT INR 1.43 (0.82-1.09) H 07/05/17 21:00 Fibrinogen 185.0 mg/dL (238-498) L 07/05/17 21:00 Laboratory Results - last 24 hr 07/05/17 07/05/17 07/05/17 13:04 15:30 15:54 WBC RBC Hgb Hct MCV MCH MCHC RDW Plt Count MPV Total Counted Neutrophils % Neutrophils % (Manual) Lymphocytes % Lymphocytes % (Manual) Monocytes % (Manual) Platelet Estimate Retic Count PT with INR INR PTT (Actin FS) Fibrinogen Sodium Potassium Chloride Carbon Dioxide Anion Gap BUN Creatinine Creat Clearance w eGFR Random Glucose Calcium Total Bilirubin AST ALT Alkaline Phosphatase LD Total Total Protein Albumin Vitamin B12 TSH Free T4 Ur Leukocyte Esterase Negative Rheumatoid Factor HIV 1&2 Antibody Screen Negative HIV P24 Antigen Negative Blood Type O POSITIVE Antibody Screen Negative Crossmatch See Detail 07/05/17 07/05/17 07/05/17 21:00 21:00 21:00 WBC RBC Hgb Hct MCV MCH MCHC RDW Plt Count MPV Total Counted Neutrophils % Neutrophils % (Manual) Lymphocytes % Lymphocytes % (Manual) Monocytes % (Manual) Platelet Estimate Retic Count PT with INR 16.20 H INR 1.43 H PTT (Actin FS) 34.7 H Fibrinogen 185.0 L Sodium Potassium Chloride Carbon Dioxide Anion Gap BUN Creatinine Creat Clearance w eGFR Random Glucose Calcium Total Bilirubin AST ALT Alkaline Phosphatase LD Total Total Protein Albumin Vitamin B12 TSH Free T4 Ur Leukocyte Esterase Rheumatoid Factor HIV 1&2 Antibody Screen HIV P24 Antigen Blood Type Antibody Screen Crossmatch 07/06/17 07/06/17 07/06/17 07:20 07:20 07:20 WBC 1.1 L* D RBC 2.94 L Hgb 8.1 L D Hct 24.2 L D MCV 82.3 MCH 27.6 MCHC 33.6 RDW 18.0 H Plt Count 18 L* MPV 6.4 L D Total Counted 100 Neutrophils % No Result Required. Neutrophils % (Manual) 52.0 D Lymphocytes % No Result Required. Lymphocytes % (Manual) 36.0 D Monocytes % (Manual) 12 H D Platelet Estimate Decreased Retic Count 1.69 H PT with INR INR PTT (Actin FS) Fibrinogen Sodium 138 Potassium 3.6 Chloride 104 Carbon Dioxide 23 D Anion Gap 11 BUN 9 Creatinine 0.7 D Creat Clearance w eGFR > 60 Random Glucose 79 Calcium 8.2 L Total Bilirubin 2.3 H D AST 101 H D ALT 34 Alkaline Phosphatase 121 H LD Total 266 H Total Protein 6.7 Albumin 3.1 L Vitamin B12 TSH Free T4 Ur Leukocyte Esterase Rheumatoid Factor 105.1 H HIV 1&2 Antibody Screen HIV P24 Antigen Blood Type Antibody Screen Crossmatch 07/06/17 07/06/17 07:20 07:20 WBC RBC Hgb Hct MCV MCH MCHC RDW Plt Count MPV Total Counted Neutrophils % Neutrophils % (Manual) Lymphocytes % Lymphocytes % (Manual) Monocytes % (Manual) Platelet Estimate Retic Count PT with INR INR PTT (Actin FS) Fibrinogen Sodium Potassium Chloride Carbon Dioxide Anion Gap BUN Creatinine Creat Clearance w eGFR Random Glucose Calcium Total Bilirubin AST ALT Alkaline Phosphatase LD Total Total Protein Albumin Vitamin B12 843 TSH 2.16 Free T4 1.00 Ur Leukocyte Esterase Rheumatoid Factor HIV 1&2 Antibody Screen HIV P24 Antigen Blood Type Antibody Screen Crossmatch Laboratory Tests 07/05/17 07/05/17 07/05/17 12:40 13:00 13:00 WBC 0.7 L* RBC 2.47 L Hgb 6.6 L* Hct 20.2 L MCV 81.8 MCH 26.7 MCHC 32.6 RDW 18.7 H Plt Count 16 L* MPV 9.3 Total Counted 100 Neutrophils % No Result Required. Neutrophils % (Manual) 34.0 L Lymphocytes % No Result Required. Lymphocytes % (Manual) 60.0 H Monocytes % (Manual) 6 Platelet Estimate Decreased Retic Count PT with INR 15.90 H INR 1.41 H PTT (Actin FS) Fibrinogen Sodium Potassium Chloride Carbon Dioxide Anion Gap BUN Creatinine Creat Clearance w eGFR Random Glucose Calcium Total Bilirubin AST ALT Alkaline Phosphatase LD Total Total Protein Albumin Vitamin B12 TSH Free T4 Urine Color Urine Appearance Urine pH Ur Specific [place] Urine Protein Urine Glucose (UA) Urine Ketones Urine Blood Urine Nitrite Urine Bilirubin Urine Urobilinogen Ur Leukocyte Esterase Stool Occult Blood Negative Rheumatoid Factor HIV 1&2 Antibody Screen HIV P24 Antigen Blood Type Antibody Screen Crossmatch 07/05/17 07/05/17 07/05/17 13:00 13:04 15:30 WBC RBC Hgb Hct MCV MCH MCHC RDW Plt Count MPV Total Counted Neutrophils % Neutrophils % (Manual) Lymphocytes % Lymphocytes % (Manual) Monocytes % (Manual) Platelet Estimate Retic Count PT with INR INR PTT (Actin FS) Fibrinogen Sodium 140 Potassium 3.7 Chloride 102 Carbon Dioxide 29 Anion Gap 9 BUN 11 Creatinine 0.9 Creat Clearance w eGFR > 60 Random Glucose 91 D Calcium 7.8 L Total Bilirubin 1.4 H AST 138 H ALT 37 Alkaline Phosphatase 113 LD Total Total Protein 6.6 Albumin 3.0 L Vitamin B12 TSH Free T4 Urine Color Urine Appearance Urine pH Ur Specific [place] Urine Protein Urine Glucose (UA) Urine Ketones Urine Blood Urine Nitrite Urine Bilirubin Urine Urobilinogen Ur Leukocyte Esterase Stool Occult Blood Rheumatoid Factor HIV 1&2 Antibody Screen Negative HIV P24 Antigen Negative Blood Type O POSITIVE Antibody Screen Negative Crossmatch See Detail 07/05/17 07/05/17 07/05/17 15:54 17:10 21:00 WBC RBC Hgb Hct MCV MCH MCHC RDW Plt Count MPV Total Counted Neutrophils % Neutrophils % (Manual) Lymphocytes % Lymphocytes % (Manual) Monocytes % (Manual) Platelet Estimate Retic Count PT with INR INR PTT (Actin FS) 34.7 H Fibrinogen Sodium Potassium Chloride Carbon Dioxide Anion Gap BUN Creatinine Creat Clearance w eGFR Random Glucose Calcium Total Bilirubin AST ALT Alkaline Phosphatase LD Total Total Protein Albumin Vitamin B12 TSH Free T4 Urine Color Ltyellow Urine Appearance Clear Urine pH 9.0 H D Ur Specific [place] 1.009 Urine Protein Negative Urine Glucose (UA) Negative Urine Ketones Negative Urine Blood Negative Urine Nitrite Negative Urine Bilirubin Negative Urine Urobilinogen 4.0 e.u/dl Ur Leukocyte Esterase Negative Stool Occult Blood Rheumatoid Factor HIV 1&2 Antibody Screen HIV P24 Antigen Blood Type O POSITIVE Antibody Screen Negative Crossmatch 07/05/17 07/05/17 07/06/17 21:00 21:00 07:20 WBC RBC Hgb Hct MCV MCH MCHC RDW Plt Count MPV Total Counted Neutrophils % Neutrophils % (Manual) Lymphocytes % Lymphocytes % (Manual) Monocytes % (Manual) Platelet Estimate Retic Count 1.69 H PT with INR 16.20 H INR 1.43 H PTT (Actin FS) Fibrinogen 185.0 L Sodium Potassium Chloride Carbon Dioxide Anion Gap BUN Creatinine Creat Clearance w eGFR Random Glucose Calcium Total Bilirubin AST ALT Alkaline Phosphatase LD Total Total Protein Albumin Vitamin B12 TSH Free T4 Urine Color Urine Appearance Urine pH Ur Specific [place] Urine Protein Urine Glucose (UA) Urine Ketones Urine Blood Urine Nitrite Urine Bilirubin Urine Urobilinogen Ur Leukocyte Esterase Stool Occult Blood Rheumatoid Factor HIV 1&2 Antibody Screen HIV P24 Antigen Blood Type Antibody Screen Crossmatch 07/06/17 07/06/17 07/06/17 07:20 07:20 07:20 WBC 1.1 L* D RBC 2.94 L Hgb 8.1 L D Hct 24.2 L D MCV 82.3 MCH 27.6 MCHC 33.6 RDW 18.0 H Plt Count 18 L* MPV 6.4 L D Total Counted 100 Neutrophils % No Result Required. Neutrophils % (Manual) 52.0 D Lymphocytes % No Result Required. Lymphocytes % (Manual) 36.0 D Monocytes % (Manual) 12 H D Platelet Estimate Decreased Retic Count PT with INR INR PTT (Actin FS) Fibrinogen Sodium 138 Potassium 3.6 Chloride 104 Carbon Dioxide 23 D Anion Gap 11 BUN 9 Creatinine 0.7 D Creat Clearance w eGFR > 60 Random Glucose 79 Calcium 8.2 L Total Bilirubin 2.3 H D AST 101 H D ALT 34 Alkaline Phosphatase 121 H LD Total 266 H Total Protein 6.7 Albumin 3.1 L Vitamin B12 843 TSH 2.16 Free T4 Urine Color Urine Appearance Urine pH Ur Specific [place] Urine Protein Urine Glucose (UA) Urine Ketones Urine Blood Urine Nitrite Urine Bilirubin Urine Urobilinogen Ur Leukocyte Esterase Stool Occult Blood Rheumatoid Factor 105.1 H HIV 1&2 Antibody Screen HIV P24 Antigen Blood Type Antibody Screen Crossmatch 07/06/17 07:20 WBC RBC Hgb Hct MCV MCH MCHC RDW Plt Count MPV Total Counted Neutrophils % Neutrophils % (Manual) Lymphocytes % Lymphocytes % (Manual) Monocytes % (Manual) Platelet Estimate Retic Count PT with INR INR PTT (Actin FS) Fibrinogen Sodium Potassium Chloride Carbon Dioxide Anion Gap BUN Creatinine Creat Clearance w eGFR Random Glucose Calcium Total Bilirubin AST ALT Alkaline Phosphatase LD Total Total Protein Albumin Vitamin B12 TSH Free T4 1.00 Urine Color Urine Appearance Urine pH Ur Specific [place] Urine Protein Urine Glucose (UA) Urine Ketones Urine Blood Urine Nitrite Urine Bilirubin Urine Urobilinogen Ur Leukocyte Esterase Stool Occult Blood Rheumatoid Factor HIV 1&2 Antibody Screen HIV P24 Antigen Blood Type Antibody Screen Crossmatch Imaging - Results Ultrasound: Report Reviewed (gallstones, possible varices, hepacellular disease) Problem List - Problems (1) Alcoholic liver disease Code(s): K70.9 - ALCOHOLIC LIVER DISEASE, UNSPECIFIED (2) Alcohol dependence with uncomplicated withdrawal Code(s): F10.230 - ALCOHOL DEPENDENCE WITH WITHDRAWAL, UNCOMPLICATED (3) Pancytopenia Code(s): D61.818 - OTHER PANCYTOPENIA Assessment/Plan Pancytopenia and advanced liver disease w/o obvious ascites. Normal electrolytes , BUN, Cr Hematology work up ETOH withdrawal management Plan EGD to assess for varices and contributing to anemia causes such as alcoholic gastritis, GAVE, ulcers, duodenitis, esophagitis, etc. PLT transfusion, prior to EGD, to above ~50K. Continue PPI Lactulose bid Will follow
[2017-07-06] MEDS: ACETAMINOPHEN 325 MG TABLET (FP) PO PRN (17:10)
--- NOTE | 2017-07-06 21:15 | PN ---
Progress Note, Physician History of Present Illness: stable - Current Medication List Current Medications: Active Medications Acetaminophen (Tylenol -) 650 mg PO Q4H PRN PRN Reason: FEVER OR PAIN Last Admin: 07/06/17 17:10 Dose: 650 mg Chlordiazepoxide HCl (Librium -) 50 mg PO [id number] [facility] Stop: 07/07/17 05:01 Last Admin: 07/06/17 17:11 Dose: 50 mg Chlordiazepoxide HCl (Librium -) 25 mg PO [id number] [facility] Stop: 07/08/17 05:01 Chlordiazepoxide HCl (Librium -) 15 mg PO [id number] [facility] Stop: 07/09/17 05:01 Chlordiazepoxide HCl (Librium -) 25 mg PO Q4H PRN PRN Reason: WITHDRAWAL(CONT SUBST) Stop: 07/09/17 11:46 Last Admin: 07/06/17 13:38 Dose: 25 mg Escitalopram Oxalate (Lexapro -) 20 mg PO DAILY [facility] Last Admin: 07/06/17 11:58 Dose: 20 mg Folic Acid (Folic Acid -) 1 mg PO DAILY [facility] Last Admin: 07/06/17 15:42 Dose: 1 mg Lactulose (Cephulac (Oral Use)) 20 gm PO BID [facility] Ondansetron HCl (Zofran Odt -) 8 mg SL Q6H PRN PRN Reason: NAUSEA AND/OR VOMITING Pantoprazole Sodium (Protonix -) 40 mg PO DAILY [facility] Last Admin: 07/06/17 11:58 Dose: 40 mg Multivit/Folic Acid/Iron ( Vitamins (Sjr) -) 1 tab PO DAILY [facility] Last Admin: 07/06/17 13:32 Dose: 1 tab Thiamine HCl (Vitamin B1 -) 100 mg PO HS [facility] Last Admin: 07/06/17 20:59 Dose: 100 mg Zolpidem Tartrate (Ambien -) 10 mg PO HS PRN PRN Reason: INSOMNIA - Objective Vital Signs: Vital Signs Temperature 98.7 F 07/06/17 18:00 Pulse Rate 77 07/06/17 18:00 Respiratory Rate 21 07/06/17 18:00 Blood Pressure 133/77 07/06/17 18:00 O2 Sat by Pulse Oximetry (%) 100 07/06/17 12:00 Constitutional: Yes: No Distress HENT: Yes: Atraumatic Neck: Yes: Supple Cardiovascular: Yes: Regular Rate and Rhythm Respiratory: Yes: CTA Bilaterally Gastrointestinal: Yes: Normal Bowel Sounds Extremities: Yes: WNL Neurological: Yes: Alert, Oriented Labs: CBC, BMP 07/06/17 07:20 07/06/17 07:20 INR, PTT INR 1.43 (0.82-1.09) H 07/05/17 21:00 Fibrinogen 185.0 mg/dL (238-498) L 07/05/17 21:00 Problem List - Problems (1) Alcohol dependence with uncomplicated withdrawal Assessment/Plan: on librium protocol Code(s): F10.230 - ALCOHOL DEPENDENCE WITH WITHDRAWAL, UNCOMPLICATED (2) Pancytopenia Assessment/Plan: due to etoh heme consult Code(s): D61.818 - OTHER PANCYTOPENIA (3) History of anemia Assessment/Plan: s/p blood transfusion gi consult for egd Code(s): Z86.2 - PRSNL HISTORY OF DIS OF THE BLD/BLD-FORM ORG/IMMUN MECHNSM
[2017-07-06] MEDS: LACTULOSE 20 GM/30 ML UDC (FOR ORAL USE ONLY) PO SCH (23:48)
[2017-07-07] MEDS: chlordiazePOXIDE HCL 25 MG CAPSULE PO SCH ×4 (04:52→22:55)
[2017-07-07 08:09] LABS: BASOPHIL 0.9 % (0-2.0); EOSINOPHIL 2.4 % (0-4.5); MCH 27.2 pg (25.7-33.7); MCHC 32.9 g/dl (32.0-35.9); MEAN CELL VOLUME 82.7 fl (80-96); MEAN PLT VOLUME 8.3 fl (7.5-11.1); PLATELET COUNT 43 K/MM3 (134-434); RDW 18.4 % (11.9-15.9); WHITE BLOOD COUNT 2.8 K/mm3 (4.0-10.0)
--- NOTE | 2017-07-07 08:35 | PN ---
Progress Note (short form) - Note Progress Note: platelets 43K today Give One more SDU platelets prior to EGD RN aware order placed
--- NOTE | 2017-07-07 08:36 | PN ---
Progress Note, Physician History of Present Illness: No events. - Current Medication List Current Medications: Active Medications Acetaminophen (Tylenol -) 650 mg PO Q4H PRN PRN Reason: FEVER OR PAIN Last Admin: 07/06/17 17:10 Dose: 650 mg Chlordiazepoxide HCl (Librium -) 25 mg PO [id number] [facility] Stop: 07/08/17 05:01 Chlordiazepoxide HCl (Librium -) 15 mg PO [id number] [facility] Stop: 07/09/17 05:01 Chlordiazepoxide HCl (Librium -) 25 mg PO Q4H PRN PRN Reason: WITHDRAWAL(CONT SUBST) Stop: 07/09/17 11:46 Last Admin: 07/06/17 13:38 Dose: 25 mg Escitalopram Oxalate (Lexapro -) 20 mg PO DAILY [facility] Last Admin: 07/06/17 11:58 Dose: 20 mg Folic Acid (Folic Acid -) 1 mg PO DAILY [facility] Last Admin: 07/06/17 15:42 Dose: 1 mg Lactulose (Cephulac (Oral Use)) 20 gm PO BID [facility] Last Admin: 07/06/17 23:48 Dose: 20 gm Ondansetron HCl (Zofran Odt -) 8 mg SL Q6H PRN PRN Reason: NAUSEA AND/OR VOMITING Pantoprazole Sodium (Protonix -) 40 mg PO DAILY [facility] Last Admin: 07/06/17 11:58 Dose: 40 mg Multivit/Folic Acid/Iron ( Vitamins (Sjr) -) 1 tab PO DAILY [facility] Last Admin: 07/06/17 13:32 Dose: 1 tab Thiamine HCl (Vitamin B1 -) 100 mg PO HS [facility] Last Admin: 07/06/17 20:59 Dose: 100 mg Zolpidem Tartrate (Ambien -) 10 mg PO HS PRN PRN Reason: INSOMNIA - Objective Vital Signs: Vital Signs Temperature 98.5 F 07/07/17 08:07 Pulse Rate 90 07/07/17 08:07 Respiratory Rate 18 07/07/17 08:07 Blood Pressure 114/75 07/07/17 08:07 O2 Sat by Pulse Oximetry (%) 100 07/07/17 04:00 Constitutional: Yes: No Distress, Calm Eyes: Yes: Conjunctiva Clear Cardiovascular: Yes: Regular Rate and Rhythm Respiratory: Yes: Regular Gastrointestinal: Yes: Soft. No: Melena, Rectal Bleeding Neurological: Yes: Alert, Oriented. No: Asterixis Labs: CBC, BMP 07/07/17 07:20 INR, PTT INR 1.43 (0.82-1.09) H 07/05/17 21:00 Fibrinogen 185.0 mg/dL (238-498) L 07/05/17 21:00 Laboratory Results - last 24 hr 07/06/17 07/06/17 07/06/17 07:20 07:20 07:20 WBC 1.1 L* D RBC 2.94 L Hgb 8.1 L D Hct 24.2 L D MCV 82.3 MCH 27.6 MCHC 33.6 RDW 18.0 H Plt Count 18 L* MPV 6.4 L D Total Counted 100 Neutrophils % No Result Required. Neutrophils % (Manual) 52.0 D Lymphocytes % No Result Required. Lymphocytes % (Manual) 36.0 D Monocytes % Monocytes % (Manual) 12 H D Eosinophils % Basophils % Hypersegmented Neuts Toxic Granulation Dohle Bodies Contreras Rods Platelet Estimate Decreased Polychromasia Hypochromic-Microcytic Poikilocytosis Basophilic Stippling Anisocytosis Microcytosis Macrocytosis Spherocytes Siderocytes Sickle Cells Target Cells Tear Drop Cells Ovalocytes Stomatocytes Helmet Cells Castillo-Alexis Bodies [place] Rings María Elena Cells Acanthocytes (Spur) Rouleaux Fragmented RBCs Schistocytes Retic Count 1.69 H Sodium 138 Potassium 3.6 Chloride 104 Carbon Dioxide 23 D Anion Gap 11 BUN 9 Creatinine 0.7 D Creat Clearance w eGFR > 60 Random Glucose 79 Calcium 8.2 L Total Bilirubin 2.3 H D AST 101 H D ALT 34 Alkaline Phosphatase 121 H LD Total 266 H Total Protein 6.7 Albumin 3.1 L Vitamin B12 TSH Free T4 Rheumatoid Factor 105.1 H Hep B Core Ab Interpret Hepatitis C Antibody 07/06/17 07/06/17 07/06/17 07:20 07:20 07:20 WBC RBC Hgb Hct MCV MCH MCHC RDW Plt Count MPV Total Counted Neutrophils % Neutrophils % (Manual) Lymphocytes % Lymphocytes % (Manual) Monocytes % Monocytes % (Manual) Eosinophils % Basophils % Hypersegmented Neuts Toxic Granulation Dohle Bodies Contreras Rods Platelet Estimate Polychromasia Hypochromic-Microcytic Poikilocytosis Basophilic Stippling Anisocytosis Microcytosis Macrocytosis Spherocytes Siderocytes Sickle Cells Target Cells Tear Drop Cells Ovalocytes Stomatocytes Helmet Cells Castillo-Alexis Bodies [place] Rings María Elena Cells Acanthocytes (Spur) Rouleaux Fragmented RBCs Schistocytes Retic Count Sodium Potassium Chloride Carbon Dioxide Anion Gap BUN Creatinine Creat Clearance w eGFR Random Glucose Calcium Total Bilirubin AST ALT Alkaline Phosphatase LD Total Total Protein Albumin Vitamin B12 843 TSH 2.16 Free T4 1.00 Rheumatoid Factor Hep B Core Ab Interpret Negative Hepatitis C Antibody 0.2 07/07/17 07/07/17 07:20 07:20 WBC 2.8 L D RBC 3.54 L D Hgb 9.6 L D Hct 29.2 L D MCV 82.7 MCH 27.2 MCHC 32.9 RDW 18.4 H Plt Count 43 L D MPV 8.3 D Total Counted Neutrophils % 61.0 Neutrophils % (Manual) Lymphocytes % 21.7 Lymphocytes % (Manual) Monocytes % 14.0 H Monocytes % (Manual) Eosinophils % 2.4 Basophils % 0.9 Hypersegmented Neuts Cancelled Toxic Granulation Cancelled Dohle Bodies Cancelled Contreras Rods Cancelled Platelet Estimate Polychromasia Cancelled Hypochromic-Microcytic Cancelled Poikilocytosis Cancelled Basophilic Stippling Cancelled Anisocytosis Cancelled Microcytosis Cancelled Macrocytosis Cancelled Spherocytes Cancelled Siderocytes Cancelled Sickle Cells Cancelled Target Cells Cancelled Tear Drop Cells Cancelled Ovalocytes Cancelled Stomatocytes Cancelled Helmet Cells Cancelled Castillo-Alexis Bodies Cancelled [place] Rings Cancelled María Elena Cells Cancelled Acanthocytes (Spur) Cancelled Rouleaux Cancelled Fragmented RBCs Cancelled Schistocytes Cancelled Retic Count Sodium Potassium Chloride Carbon Dioxide Anion Gap BUN Creatinine Creat Clearance w eGFR Random Glucose Calcium Total Bilirubin AST ALT Alkaline Phosphatase LD Total Total Protein Albumin Vitamin B12 TSH Free T4 Rheumatoid Factor Hep B Core Ab Interpret Hepatitis C Antibody Problem List - Problems (1) Alcoholic liver disease Code(s): K70.9 - ALCOHOLIC LIVER DISEASE, UNSPECIFIED (2) Alcohol dependence with uncomplicated withdrawal Code(s): F10.230 - ALCOHOL DEPENDENCE WITH WITHDRAWAL, UNCOMPLICATED (3) Pancytopenia Code(s): D61.818 - OTHER PANCYTOPENIA Assessment/Plan PLT 40 Hematology work up ETOH withdrawal management Transfuse one more SDU PLT. Plan EGD to assess for varices and contributing to anemia causes such as alcoholic gastritis, GAVE, ulcers, duodenitis, esophagitis , etc. Continue PPI Lactulose bid Will follow
[2017-07-07 08:42] LABS: CALCIUM 8.3 mg/dL (8.5-10.1)
[2017-07-07 08:48] LABS: ALBUMIN 3.5 g/dl (3.4-5.0); ALK PHOS 146 U/L (45-117); ANION GAP 9 (8-16); BILIRUBIN,TOTAL 2.9 mg/dL (0.2-1.0); CO2 22 mmol/L (21-32); CREATININE 0.8 mg/dL (0.7-1.3); GLUCOSE,RANDOM 95 mg/dL (74-106); LDH 286 U/L (87-241); SGOT/AST 86 U/L (15-37); SGPT/ALT 35 U/L (12-78); TOT PROT 7.8 g/dl (6.4-8.2)
[2017-07-07] MEDS ORDERED: ESCITALOPRAM OXALATE 10 MG TABLET (FP) ONE (09:34)
[2017-07-07] MEDS ORDERED: PT OWN MED DRAWER 7, Y5N ONE (09:34)
[2017-07-07] MEDS: FOLIC ACID 1 MG TABLET (FP) PO SCH (09:39)
[2017-07-07] MEDS: LACTULOSE 20 GM/30 ML UDC (FOR ORAL USE ONLY) PO SCH ×2 (09:39→21:07)
[2017-07-07] MEDS: PANTOPRAZOLE 40 MG TABLET (FP) PO SCH (09:39)
[2017-07-07] MEDS: PRENATAL VITAMINS W/ FOLIC ACID TABLET (FP) PO SCH (09:40)
[2017-07-07] MEDS: ESCITALOPRAM OXALATE 20 MG TABLET (FP) PO SCH (09:40)
[2017-07-07] MEDS: MAG HYDROX/AL HYDROX/SIMETH 30 ML UNIT-DOSE CUP PO PRN (11:29)
--- NOTE | 2017-07-07 15:39 | PN ---
Progress Note (short form) - Note Progress Note: Pt seen and examined [facility] records reviewed in chart he feels well. did not get EGD for today Constitutional: Yes: No Distress HENT: Yes: +bruises. Neck: Yes: Supple Cardiovascular: Yes: Regular Rate and Rhythm Respiratory: Yes: CTA Bilaterally Gastrointestinal: Yes: Normal Bowel Sounds Extremities: Yes: WNL Neurological: Yes: Alert, Oriented Last Vital Signs Temp Pulse Resp BP Pulse Ox 98.6 F 80 17 120/80 100 07/07/17 14:00 07/07/17 14:00 07/07/17 14:00 07/07/17 14:00 07/07/17 12:00 CBC, BMP 07/07/17 07:20 07/07/17 07:20 Current Medications Generic Name Dose Route Start Last Admin Trade Name Freq PRN Reason Stop Dose Admin Acetaminophen 650 mg 07/06/17 16:59 07/06/17 17:10 Tylenol - PO 650 mg Q4H PRN Administration FEVER OR PAIN Al Hydroxide/Mg Hydroxide 30 ml 07/07/17 10:22 07/07/17 11:29 Mylanta Oral Suspension - PO 30 ml Q6H PRN Administration DYSPEPSIA Chlordiazepoxide HCl 25 mg 07/07/17 11:00 07/07/17 11:29 Librium - PO 07/08/17 05:01 25 mg [id number] RANDI Administration Chlordiazepoxide HCl 15 mg 07/08/17 11:00 Librium - PO 07/09/17 05:01 [id number] RANDI Chlordiazepoxide HCl 25 mg 07/06/17 11:47 07/06/17 13:38 Librium - PO 07/09/17 11:46 25 mg Q4H PRN Administration WITHDRAWAL(CONT SUBST) Escitalopram Oxalate 20 mg 07/06/17 10:00 07/07/17 09:40 Lexapro - PO 20 mg DAILY RANDI Administration Folic Acid 1 mg 07/06/17 15:30 07/07/17 09:39 Folic Acid - PO 1 mg DAILY RANDI Administration Lactulose 20 gm 07/06/17 22:00 07/07/17 09:39 Cephulac (Oral Use) PO 20 gm BID RANDI Administration Ondansetron HCl 8 mg 07/06/17 11:53 Zofran Odt - SL Q6H PRN NAUSEA AND/OR VOMITING Pantoprazole Sodium 40 mg 07/06/17 10:00 07/07/17 09:39 Protonix - PO 40 mg DAILY RANDI Administration Multivit/Folic Acid/Iron 1 tab 07/06/17 12:00 07/07/17 09:40 Vitamins (Sjr) - PO 1 tab DAILY RANDI Administration Thiamine HCl 100 mg 07/06/17 12:00 07/06/17 20:59 Vitamin B1 - PO 100 mg HS RANDI Administration Zolpidem Tartrate 10 mg 07/06/17 11:52 Ambien - PO HS PRN INSOMNIA Pancytopenia :improving ETOH abuse/WD ETOH detox Elevated RF Pt has been admitted in Numerous other hospitals as per records and also been evaluated for pancytopenia. The etiology is due to chronic ETOH abuse and also a component of cirrhosis and splenomegaly causing splenic sequestration. He also does have a component of hemolysis ( low hapto, in the setting of liver abn). will need to transfuse prn tomorrow am at 5:00am ,transfuse one SDU platelets and repeat the blood at 6: 00am to assess for response and also for the procedure (EGD). Unfortunately than supportive care for now and COMPLETE ETOH cessation, no real role for growth factor/TPO agents/prophylactic abx monitor fever curve negative HIV testing urine tox. appreciate GI/Rheum consults
--- NOTE | 2017-07-07 15:40 | CONSULT ---
Consult Consult Specialty:: Rheumatology - History of Present Illness History of Present Illness: 32-year-old male with history of alcohol abuse, currently at detox at [facility] for several days, admitted with pancytopenia (he had a bone marrow Bx at [place] 1 month ago) and found to have a positive rheumatoid factor. The patient reports he has had multiple echymosis for several months and has shortness of breath. He has history of surgery in the left shoulder and a 3 month history of pain in the left shoulder and left knee. He denies other joint involvement. On admission CBC with WBC of 1.1, Hgb 8.1 and platelets 18. Today WBC 2.8, Hgb 2.7 and platelets 43. Rheumatoid factor 107.1 and HCV negative. HIV negative in the past. - History Source History Provided By: Patient, Medical Record - Alcohol/Substance Use Hx Alcohol Use: Yes - Smoking History Smoking history: Former smoker Have you smoked in the past 12 months: Yes Aproximately how many cigarettes per day: 0 (last smoked 6 months ago) Home Medications - Allergies Allergies/Adverse Reactions: Allergies Allergy/AdvReac Type Severity Reaction Status Date / Time No Known Allergies Allergy Verified 07/05/17 13:14 - Home Medications Home Medications: Ambulatory Orders Ferrous Sulfate [Feosol] 325 mg PO TIDCM #90 tab 03/19/17 Pantoprazole Sodium [Protonix -] 40 mg PO DAILY #30 tab 03/19/17 Escitalopram Oxalate [Lexapro -] 20 mg PO DAILY #30 tablet 07/05/17 Family Disease History - Family Disease History Family Disease History: Other: Father (heroin addict) Review of Systems - Review of Systems Constitutional: reports: Malaise Eyes: reports: No Symptoms HENT: reports: No Symptoms Neck: reports: No Symptoms Cardiovascular: reports: No Symptoms Respiratory: reports: SOB Gastrointestinal: reports: No Symptoms Musculoskeletal: reports: Other (See HPI) Neurological: reports: No Symptoms Physical Exam Vital Signs: Vital Signs Temperature 98.6 F 07/07/17 14:00 Pulse Rate 80 07/07/17 14:00 Respiratory Rate 17 07/07/17 14:00 Blood Pressure 120/80 07/07/17 14:00 O2 Sat by Pulse Oximetry (%) 100 07/07/17 12:00 Constitutional: Yes: Mild Distress Eyes: Yes: WNL HENT: Yes: WNL Neck: Yes: WNL Cardiovascular: Yes: WNL Respiratory: Yes: WNL Gastrointestinal: Yes: WNL Musculoskeletal: Yes: Other (Mild tenderness in the left shoulder. No other tender or swollen joints.) Labs: CBC, BMP 07/07/17 07:20 07/07/17 07:20 Laboratory Tests 07/05/17 07/06/17 07/06/17 15:54 07:20 07:20 Retic Count 1.69 H TSH Urine Color Ltyellow Urine Appearance Clear Urine pH 9.0 H D Ur Specific [place] 1.009 Urine Protein Negative Urine Glucose (UA) Negative Urine Ketones Negative Urine Blood Negative Urine Nitrite Negative Urine Bilirubin Negative Urine Urobilinogen 4.0 e.u/dl Ur Leukocyte Esterase Negative Rheumatoid Factor 105.1 H Hep B Core Ab Interpret Hepatitis C Antibody 07/06/17 07/06/17 07:20 07:20 Retic Count TSH 2.16 Urine Color Urine Appearance Urine pH Ur Specific [place] Urine Protein Urine Glucose (UA) Urine Ketones Urine Blood Urine Nitrite Urine Bilirubin Urine Urobilinogen Ur Leukocyte Esterase Rheumatoid Factor Hep B Core Ab Interpret Negative Hepatitis C Antibody 0.2 Problem List - Problems (1) Raised antibody titer Assessment/Plan: Positive rheumatoid factor and no inflammatory arthritis. The patient does not have hepatitis C. Rule out paraproteinemia. No treatment is needed. Code(s): R76.0 - RAISED ANTIBODY TITER
[2017-07-07 17:45] LABS: URINE MARIJUANA THC NEGATIVE ng/ml (CUTOFF=50)
--- NOTE | 2017-07-07 19:06 | PN ---
Progress Note, Physician - Current Medication List Current Medications: Active Medications Acetaminophen (Tylenol -) 650 mg PO Q4H PRN PRN Reason: FEVER OR PAIN Last Admin: 07/06/17 17:10 Dose: 650 mg Al Hydroxide/Mg Hydroxide (Mylanta Oral Suspension -) 30 ml PO Q6H PRN PRN Reason: DYSPEPSIA Last Admin: 07/07/17 11:29 Dose: 30 ml Chlordiazepoxide HCl (Librium -) 25 mg PO [id number] [facility] Stop: 07/08/17 05:01 Last Admin: 07/07/17 17:03 Dose: 25 mg Chlordiazepoxide HCl (Librium -) 15 mg PO [id number] RANDI Stop: 07/09/17 05:01 Chlordiazepoxide HCl (Librium -) 25 mg PO Q4H PRN PRN Reason: WITHDRAWAL(CONT SUBST) Stop: 07/09/17 11:46 Last Admin: 07/06/17 13:38 Dose: 25 mg Escitalopram Oxalate (Lexapro -) 20 mg PO DAILY [facility] Last Admin: 07/07/17 09:40 Dose: 20 mg Folic Acid (Folic Acid -) 1 mg PO DAILY [facility] Last Admin: 07/07/17 09:39 Dose: 1 mg Lactulose (Cephulac (Oral Use)) 20 gm PO BID [facility] Last Admin: 07/07/17 09:39 Dose: 20 gm Ondansetron HCl (Zofran Odt -) 8 mg SL Q6H PRN PRN Reason: NAUSEA AND/OR VOMITING Pantoprazole Sodium (Protonix -) 40 mg PO DAILY [facility] Last Admin: 07/07/17 09:39 Dose: 40 mg Multivit/Folic Acid/Iron ( Vitamins (Sjr) -) 1 tab PO DAILY [facility] Last Admin: 07/07/17 09:40 Dose: 1 tab Thiamine HCl (Vitamin B1 -) 100 mg PO HS [facility] Last Admin: 07/06/17 20:59 Dose: 100 mg Zolpidem Tartrate (Ambien -) 10 mg PO HS PRN PRN Reason: INSOMNIA - Objective Vital Signs: Vital Signs Temperature 98.6 F 07/07/17 14:00 Pulse Rate 80 07/07/17 14:00 Respiratory Rate 17 07/07/17 14:00 Blood Pressure 120/80 07/07/17 14:00 O2 Sat by Pulse Oximetry (%) 100 07/07/17 12:00 Constitutional: Yes: No Distress HENT: Yes: Atraumatic Neck: Yes: Supple Cardiovascular: Yes: Regular Rate and Rhythm Respiratory: Yes: CTA Bilaterally Gastrointestinal: Yes: Normal Bowel Sounds Extremities: Yes: WNL Neurological: Yes: Alert, Oriented Labs: CBC, BMP 07/07/17 07:20 07/07/17 07:20 INR, PTT INR 1.43 (0.82-1.09) H 07/05/17 21:00 Fibrinogen 185.0 mg/dL (238-498) L 07/05/17 21:00 Problem List - Problems (1) Alcohol dependence with uncomplicated withdrawal Assessment/Plan: on [employer] protocol Code(s): F10.230 - ALCOHOL DEPENDENCE WITH WITHDRAWAL, UNCOMPLICATED (2) Pancytopenia Assessment/Plan: due to etoh heme consult Code(s): D61.818 - OTHER PANCYTOPENIA (3) History of anemia Assessment/Plan: s/p blood transfusion gi consult for egd Code(s): Z86.2 - PRSNL HISTORY OF DIS OF THE BLD/BLD-FORM ORG/IMMUN MECHNSM
[2017-07-07] MEDS: THIAMINE HCL 100 MG TABLET (FP) PO SCH (21:07)
[2017-07-08] MEDS: chlordiazePOXIDE HCL 25 MG CAPSULE PO SCH ×2 (05:41→06:13)
[2017-07-08 06:08] LABS: HAPTOGLOBIN < 10 mg/dL (34-200); SERUM IRON 101 ug/dL (38-169)
[2017-07-08 08:35] LABS: MCH 27.8 pg (25.7-33.7); MCHC 32.9 g/dl (32.0-35.9); MEAN CELL VOLUME 84.4 fl (80-96); MEAN PLT VOLUME 8.4 fl (7.5-11.1); PLATELET COUNT 54 K/MM3 (134-434); RDW 18.1 % (11.9-15.9); WHITE BLOOD COUNT 2.8 K/mm3 (4.0-10.0)
[2017-07-08 10:20] LABS: HEMATOCRIT 24.3 % (37.5-51.0)
[2017-07-08] MEDS ORDERED: PROPOFOL 20 ML ONE ×3 (10:20)
[2017-07-08] MEDS ORDERED: LIDOCAINE HCL/PF 2% SDV 5ML VIAL ONE (10:20)
--- NOTE | 2017-07-08 10:35 | PROC ---
Endoscopy Procedure Endoscopy procedure completed. Please see scanned procedure report. EGD: Gastritis was found in the body, cardia, and fundus. Biopsies taken. Normal proximal small bowel and esophagus. Exam is negative for esophageal, or gastric varices, PHG, GAVE, duodenitis. Resume previous diet No NSAIDs Follow biopsies
--- NOTE | 2017-07-08 10:59 | PN ---
[facility] Progress Note (SOAP) Subjective: Patient is upset over delay in returning to [facility] but has completed detox regimen without incident, feels ready to go to rehab Objective: 07/08/17 11:15 Vital Signs - 24 hr 07/07/17 07/07/17 07/07/17 12:00 14:00 18:00 Temperature 98.6 F 98.6 F 99.2 F Pulse Rate 82 80 78 Respiratory 17 17 20 Rate Blood Pressure 118/70 120/80 125/80 O2 Sat by Pulse 100 Oximetry (%) 07/07/17 07/07/17 07/08/17 20:00 22:00 03:37 Temperature 98.9 F Pulse Rate 72 Respiratory 20 Rate Blood Pressure 126/78 O2 Sat by Pulse 96 99 Oximetry (%) 07/08/17 07/08/17 07/08/17 06:06 08:00 09:00 Temperature 98.4 F 98.2 F Pulse Rate 76 87 Respiratory 18 18 Rate Blood Pressure 112/66 107/70 O2 Sat by Pulse 99 Oximetry (%) 07/08/17 07/08/17 07/08/17 10:36 10:58 11:12 Temperature 98.2 F Pulse Rate 89 89 86 Respiratory 16 18 18 Rate Blood Pressure 119/60 121/80 123/75 O2 Sat by Pulse 100 100 99 Oximetry (%) 07/08/17 11:17 medically stable, slight tremor noted when hand held, a and o x3 Laboratory Results - last 24 hr 07/06/17 07/06/17 07/06/17 07:20 07:20 07:20 WBC RBC Hgb Hct 24.3 L MCV MCH MCHC RDW Plt Count MPV ESR Haptoglobin Iron Ferritin Folate 1825 Folate Hemolysate 443.5 Opiates Screen Methadone Screen Barbiturate Screen Phencyclidine Screen Ur Amphetamines Screen MDMA (Ecstasy) Screen Benzodiazepines Screen Cocaine Screen U Marijuana (THC) Screen CHRISTIANO Screen Positive H CHRISTIANO Homogeneous Pattern TNP CHRISTIANO Nucleolar Pattern TNP CHRISTIANO Midbody Pattern TNP CHRISTIANO Speckled Pattern 1:80 CHRISTIANO Centromere Pattern TNP Free [place] LC, Quant 63.6 H Free Lambda LC, Quant 52.9 H Free [place]/Lambda Ratio 1.20 Hep Bs Antigen Hep Bs Antibody Hepatitis Be Antigen 07/07/17 07/07/17 07/07/17 06:00 07:20 07:20 WBC RBC Hgb Hct MCV MCH MCHC RDW Plt Count MPV ESR Haptoglobin < 10 L Iron 101 Ferritin 70.135 Folate Folate Hemolysate Opiates Screen Methadone Screen Barbiturate Screen Phencyclidine Screen Ur Amphetamines Screen MDMA (Ecstasy) Screen Benzodiazepines Screen Cocaine Screen U Marijuana (THC) Screen CHRISTIANO Screen CHRISTIANO Homogeneous Pattern CHRISTIANO Nucleolar Pattern CHRISTIANO Midbody Pattern CHRISTIANO Speckled Pattern CHRISTIANO Centromere Pattern Free [place] LC, Quant Free Lambda LC, Quant Free [place]/Lambda Ratio Hep Bs Antigen Negative Hep Bs Antibody Reactive Hepatitis Be Antigen Negative 07/07/17 07/08/17 07/08/17 13:45 07:45 07:45 WBC 2.8 L RBC 3.51 L Hgb 9.7 L Hct 29.6 L MCV 84.4 MCH 27.8 MCHC 32.9 RDW 18.1 H Plt Count 54 L D MPV 8.4 ESR 60 H Haptoglobin Iron Ferritin Folate Folate Hemolysate Opiates Screen Negative Methadone Screen Negative Barbiturate Screen Negative Phencyclidine Screen Negative Ur Amphetamines Screen Negative MDMA (Ecstasy) Screen Negative Benzodiazepines Screen Positive Cocaine Screen Negative U Marijuana (THC) Screen Negative CHRISTIANO Screen CHRISTIANO Homogeneous Pattern CHRISTIANO Nucleolar Pattern CHRISTIANO Midbody Pattern CHRISTIANO Speckled Pattern CHRISTIANO Centromere Pattern Free [place] LC, Quant Free Lambda LC, Quant Free [place]/Lambda Ratio Hep Bs Antigen Hep Bs Antibody Hepatitis Be Antigen Assessment: 07/08/17 11:16 chart reveiwd, labs reviewed, care discussed with medical staff on floor. alcohol withdrawal - completed detox, patient remains aggravated but can give libirum 50mg x1 dose now prior to transfer, pancytopenia stable. Rehab bed reserved at [facility] . Patient may be transferred as soon as he is ready to go. 07/08/17 11:17
[2017-07-08] MEDS ORDERED: chlordiazePOXIDE HCL 25 MG CAPSULE PO ONE (11:14)
[2017-07-08] MEDS ORDERED: PT OWN MED DRAWER 7, Y5N ONE (11:26)
[2017-07-08] MEDS ORDERED: ESCITALOPRAM OXALATE 10 MG TABLET (FP) ONE (11:26)
[2017-07-08] MEDS: PANTOPRAZOLE 40 MG TABLET (FP) PO SCH (11:29)
[2017-07-08] MEDS: FOLIC ACID 1 MG TABLET (FP) PO SCH (11:29)
[2017-07-08] MEDS: chlordiazePOXIDE 5 MG CAPSULE PO SCH ×3 (11:30→23:00)
[2017-07-08] MEDS: LACTULOSE 20 GM/30 ML UDC (FOR ORAL USE ONLY) PO SCH ×2 (11:30→21:56)
[2017-07-08] MEDS: PRENATAL VITAMINS W/ FOLIC ACID TABLET (FP) PO SCH (11:30)
[2017-07-08] MEDS: ESCITALOPRAM OXALATE 20 MG TABLET (FP) PO SCH (11:30)
--- NOTE | 2017-07-08 14:24 | PN ---
Progress Note (short form) - Note Progress Note: Pt seen and examined went to see the pt today. Pt visibly in tremors, had vomiting, looked dark and mixed with food contents. Constitutional: Yes: tremulous. HENT: Yes: +bruises. Neck: Yes: Supple Cardiovascular: Yes: Regular Rate and Rhythm Respiratory: Yes: CTA Bilaterally Gastrointestinal: Yes: Normal Bowel Sounds Extremities: Yes: WNL Neurological: Yes: Alert, Oriented Last Vital Signs Temp Pulse Resp BP Pulse Ox 100.3 F H 92 H 20 117/70 99 07/08/17 14:10 07/08/17 14:10 07/08/17 14:10 07/08/17 14:10 07/08/17 11:37 CBC, BMP 07/08/17 07:45 07/07/17 07:20 Current Medications Generic Name Dose Route Start Last Admin Trade Name Freq PRN Reason Stop Dose Admin Acetaminophen 650 mg 07/06/17 16:59 07/06/17 17:10 Tylenol - PO 650 mg Q4H PRN Administration FEVER OR PAIN Al Hydroxide/Mg Hydroxide 30 ml 07/07/17 10:22 07/07/17 11:29 Mylanta Oral Suspension - PO 30 ml Q6H PRN Administration DYSPEPSIA Chlordiazepoxide HCl 15 mg 07/08/17 11:00 07/08/17 11:30 Librium - PO 07/09/17 05:01 Not Given [id number] RANDI Escitalopram Oxalate 20 mg 07/06/17 10:00 07/08/17 11:30 Lexapro - PO 20 mg DAILY RANDI Administration Folic Acid 1 mg 07/06/17 15:30 07/08/17 11:29 Folic Acid - PO 1 mg DAILY RANDI Administration Lactulose 20 gm 07/06/17 22:00 07/08/17 11:30 Cephulac (Oral Use) PO Not Given BID RANDI Lorazepam 1 mg 07/08/17 14:30 Ativan Injection - IVPUSH 07/08/17 14:31 ONCE ONE Ondansetron HCl 8 mg 07/06/17 11:53 Zofran Odt - SL Q6H PRN NAUSEA AND/OR VOMITING Pantoprazole Sodium 40 mg 07/06/17 10:00 07/08/17 11:29 Protonix - PO 40 mg DAILY RANDI Administration Multivit/Folic Acid/Iron 1 tab 12/05/17 12:00 07/08/17 11:30 Vitamins (Sjr) - PO 1 tab DAILY RANDI Administration Sucralfate 1 gm 07/08/17 18:00 Carafate Oral Suspension - PO QID RANDI Thiamine HCl 100 mg 07/06/17 12:00 07/07/17 21:07 Vitamin B1 - PO 100 mg HS RANDI Administration Zolpidem Tartrate 10 mg 07/06/17 11:52 Ambien - PO HS PRN INSOMNIA Pancytopenia :improving/stable ETOH abuse/WD ETOH detox Elevated RF Today at the time of the visit, Pt in active alcohol WD, is tremulous, vomiting , 100.3 of temp: ordered a stat dose of IVP Ativan. also repeat CBC ordered. Pt has been admitted in Numerous other hospitals as per records and also been evaluated for pancytopenia. The etiology is due to chronic ETOH abuse and also a component of cirrhosis and splenomegaly causing splenic sequestration. He also does have a component of hemolysis ( low hapto, in the setting of liver abn). will need to transfuse prn. Unfortunately than supportive care for now and COMPLETE ETOH cessation, no real role for growth factor/TPO agents/prophylactic abx appreciate GI/Rheum consults [facility]
[2017-07-08] MEDS ORDERED: LORazepam 2 MG/ML SDV VIAL IVPUSH ONE (14:30)
[2017-07-08] MEDS: SUCRALFATE 1 GM/10 ML UNIT DOSE CUPS PO SCH ×3 (14:37→21:56)
[2017-07-08 15:38] LABS: BASOPHIL 0.8 % (0-2.0); EOSINOPHIL 0.8 % (0-4.5); MCH 28.7 pg (25.7-33.7); MCHC 34.1 g/dl (32.0-35.9); MEAN CELL VOLUME 84.2 fl (80-96); MEAN PLT VOLUME 8.8 fl (7.5-11.1); NEUTROPHILS 69.8 % (42.8-82.8); PLATELET COUNT 50 K/MM3 (134-434); RDW 19.1 % (11.9-15.9)
[2017-07-08] MEDS ORDERED: CEFEPIME HCL 1 GM VIAL (RESTRICTED TO ID) IVPB ONE (17:14)
[2017-07-08] MEDS ORDERED: CEFEPIME 1 GM in DEXTROSE 5%-WATER - 100 ML IVPB ONE (17:30)
[2017-07-08] MEDS ORDERED: SUCRALFATE 1 GM/10 ML UNIT DOSE CUPS PO SCH (18:00)
[2017-07-08] MEDS ORDERED: VANCOMYCIN 1,000 MG in DEXTROSE 5%-WATER - 250 ML IVPB ONE (18:00)
[2017-07-08] MEDS: ACETAMINOPHEN 325 MG TABLET (FP) PO PRN (18:08)
--- NOTE | 2017-07-08 18:19 | CON.ID ---
Consult Reason for Consultation:: fever - History of Present Illness History of Present Illness: 32 y.o male with history of - Alcohol/Substance Use Hx Alcohol Use: Yes - Smoking History Smoking history: Former smoker Have you smoked in the past 12 months: Yes Aproximately how many cigarettes per day: 0 (last smoked 6 months ago) Home Medications - Allergies Allergies/Adverse Reactions: Allergies Allergy/AdvReac Type Severity Reaction Status Date / Time No Known Allergies Allergy Verified 07/05/17 13:14 - Home Medications Home Medications: Ambulatory Orders Ferrous Sulfate [Feosol] 325 mg PO TIDCM #90 tab 03/19/17 Pantoprazole Sodium [Protonix -] 40 mg PO DAILY #30 tab 03/19/17 Escitalopram Oxalate [Lexapro -] 20 mg PO DAILY #30 tablet 07/05/17 Family Disease History - Family Disease History Family Disease History: Other: Father (heroin addict) Physical Exam Vital Signs: Vital Signs Temperature 100.3 F H 07/08/17 14:10 Pulse Rate 92 H 07/08/17 14:10 Respiratory Rate 20 07/08/17 14:10 Blood Pressure 117/70 07/08/17 14:10 O2 Sat by Pulse Oximetry (%) 99 07/08/17 14:20 Labs: CBC, BMP 07/08/17 14:15 07/07/17 07:20
--- NOTE | 2017-07-08 20:39 | PN ---
Progress Note, Physician History of Present Illness: EVENTS NOTED BETTER NOW - Current Medication List Current Medications: Active Medications Acetaminophen (Tylenol -) 650 mg PO Q4H PRN PRN Reason: FEVER OR PAIN Last Admin: 07/08/17 18:08 Dose: 650 mg Al Hydroxide/Mg Hydroxide (Mylanta Oral Suspension -) 30 ml PO Q6H PRN PRN Reason: DYSPEPSIA Last Admin: 07/07/17 11:29 Dose: 30 ml Chlordiazepoxide HCl (Librium -) 15 mg PO [id number] RANDI Stop: 07/09/17 05:01 Last Admin: 07/08/17 16:28 Dose: 15 mg Escitalopram Oxalate (Lexapro -) 20 mg PO DAILY RANDI Last Admin: 07/08/17 11:30 Dose: 20 mg Folic Acid (Folic Acid -) 1 mg PO DAILY [facility] Last Admin: 07/08/17 11:29 Dose: 1 mg Vancomycin HCl 1,000 mg/ (Dextrose) 250 mls @ 250 mls/hr IVPB BID RANDI PRN Reason: Protocol Stop: 07/09/17 21:59 Cefepime HCl 2 gm/ Dextrose 100 mls @ 200 mls/hr IVPB Q8H-IV RANDI Lactulose (Cephulac (Oral Use)) 20 gm PO BID RANDI Last Admin: 07/08/17 11:30 Dose: Not Given Ondansetron HCl (Zofran Odt -) 8 mg SL Q6H PRN PRN Reason: NAUSEA AND/OR VOMITING Pantoprazole Sodium (Protonix -) 40 mg PO DAILY [facility] Last Admin: 07/08/17 11:29 Dose: 40 mg Multivit/Folic Acid/Iron ( Vitamins (Sjr) -) 1 tab PO DAILY RANDI Last Admin: 07/08/17 11:30 Dose: 1 tab Sucralfate (Carafate Oral Suspension -) 1 gm PO QID RANDI Last Admin: 07/08/17 18:10 Dose: 1 gm Thiamine HCl (Vitamin B1 -) 100 mg PO HS [facility] Last Admin: 07/07/17 21:07 Dose: 100 mg Zolpidem Tartrate (Ambien -) 10 mg PO HS PRN PRN Reason: INSOMNIA - Objective Vital Signs: Vital Signs Temperature 102.3 F H 07/08/17 17:00 Pulse Rate 99 H 07/08/17 17:00 Respiratory Rate 20 07/08/17 17:00 Blood Pressure 107/99 07/08/17 17:00 O2 Sat by Pulse Oximetry (%) 99 07/08/17 14:20 Constitutional: Yes: Anxious HENT: Yes: Atraumatic Neck: Yes: Supple Cardiovascular: Yes: Regular Rate and Rhythm Respiratory: Yes: CTA Bilaterally Gastrointestinal: Yes: Normal Bowel Sounds Extremities: Yes: WNL Neurological: Yes: Alert, Oriented Labs: CBC, BMP 07/08/17 14:15 07/07/17 07:20 INR, PTT INR 1.43 (0.82-1.09) H 07/05/17 21:00 Fibrinogen 185.0 mg/dL (238-498) L 07/05/17 21:00 Problem List - Problems (1) Alcohol dependence with uncomplicated withdrawal Assessment/Plan: on librium protocol Code(s): F10.230 - ALCOHOL DEPENDENCE WITH WITHDRAWAL, UNCOMPLICATED (2) Pancytopenia Assessment/Plan: due to etoh heme consult Code(s): D61.818 - OTHER PANCYTOPENIA (3) History of anemia Assessment/Plan: s/p blood transfusion gi consult egd...done..gastritis Code(s): Z86.2 - PRSNL HISTORY OF DIS OF THE BLD/BLD-FORM ORG/IMMUN MECHNSM (4) Alcoholic liver disease Code(s): K70.9 - ALCOHOLIC LIVER DISEASE, UNSPECIFIED (5) Nicotine dependence Code(s): F17.200 - NICOTINE DEPENDENCE, UNSPECIFIED, UNCOMPLICATED (6) Substance induced mood disorder Code(s): F19.94 - OTH PSYCHOACTIVE SUBSTANCE USE, UNSP W MOOD DISORDER
[2017-07-08] MEDS: THIAMINE HCL 100 MG TABLET (FP) PO SCH (21:57)
[2017-07-09] MEDS: CEFEPIME 2 GM in DEXTROSE 5%-WATER - 100 ML IVPB SCH ×3 (01:06→17:28)
[2017-07-09] MEDS ORDERED: CEFEPIME HCL 2 GM VIAL (RESTRICTED TO ID) IVPB SCH (02:00)
[2017-07-09] MEDS: chlordiazePOXIDE 5 MG CAPSULE PO SCH (06:20)
[2017-07-09 09:14] LABS: BASOPHIL 0.1 % (0-2.0); EOSINOPHIL 0.5 % (0-4.5); MCH 28.3 pg (25.7-33.7); MCHC 33.5 g/dl (32.0-35.9); MEAN CELL VOLUME 84.4 fl (80-96); MEAN PLT VOLUME 8.3 fl (7.5-11.1); NEUTROPHILS 72.9 % (42.8-82.8); PLATELET COUNT 52 K/MM3 (134-434); RDW 19.2 % (11.9-15.9); WHITE BLOOD COUNT 5.4 K/mm3 (4.0-10.0)
[2017-07-09 09:41] LABS: ALBUMIN 3.4 g/dl (3.4-5.0); ANION GAP 9 (8-16); CALCIUM 7.9 mg/dL (8.5-10.1); CO2 23 mmol/L (21-32); CREATININE 0.9 mg/dL (0.7-1.3); GLUCOSE,RANDOM 88 mg/dL (74-106); SGOT/AST 39 U/L (15-37); SGPT/ALT 29 U/L (12-78)
[2017-07-09 09:43] LABS: ALK PHOS 127 U/L (45-117); TOT PROT 7.6 g/dl (6.4-8.2)
--- NOTE | 2017-07-09 09:54 | PN ---
Progress Note (short form) - Note Progress Note: Pt seen and examined Looks much better than yesterday Constitutional: Yes: HENT: Yes: +bruises. Neck: Yes: Supple Cardiovascular: Yes: Regular Rate and Rhythm Respiratory: Yes: CTA Bilaterally Gastrointestinal: Yes: Normal Bowel Sounds Extremities: Yes: WNL, has +bruises in the LLE Neurological: Yes: Alert, Oriented Last Vital Signs Temp Pulse Resp BP Pulse Ox 98.5 F 84 18 112/66 97 07/09/17 06:00 07/09/17 06:00 07/09/17 06:00 07/09/17 06:00 07/08/17 22:00 CBC, BMP 07/09/17 08:00 07/09/17 08:00 Current Medications Generic Name Dose Route Start Last Admin Trade Name Freq PRN Reason Stop Dose Admin Acetaminophen 650 mg 07/06/17 16:59 07/08/17 18:08 Tylenol - PO 650 mg Q4H PRN Administration FEVER OR PAIN Al Hydroxide/Mg Hydroxide 30 ml 07/07/17 10:22 07/07/17 11:29 Mylanta Oral Suspension - PO 30 ml Q6H PRN Administration DYSPEPSIA Escitalopram Oxalate 20 mg 07/06/17 10:00 07/09/17 10:48 Lexapro - PO 20 mg DAILY RANDI Administration Folic Acid 1 mg 07/06/17 15:30 07/09/17 10:48 Folic Acid - PO 1 mg DAILY RANDI Administration Vancomycin HCl 1,000 mg/ 250 mls @ 166.667 mls/hr 07/09/17 11:00 Dextrose IVPB BID [facility] Protocol Cefepime HCl 2 gm/ Dextrose 100 mls @ 200 mls/hr 07/09/17 02:00 07/09/17 10: 48 IVPB 200 mls/hr Q8H-IV RANDI Administration Lactulose 20 gm 07/06/17 22:00 07/09/17 10:47 Cephulac (Oral Use) PO 20 gm BID RANDI Administration Ondansetron HCl 8 mg 07/06/17 11:53 Zofran Odt - SL Q6H PRN NAUSEA AND/OR VOMITING Pantoprazole Sodium 40 mg 07/06/17 10:00 07/09/17 10:48 Protonix - PO 40 mg DAILY RANDI Administration Multivit/Folic Acid/Iron 1 tab 07/06/17 12:00 07/09/17 10:48 Vitamins (Sjr) - PO 1 tab DAILY RANDI Administration Sucralfate 1 gm 07/08/17 14:30 07/09/17 10:47 Carafate Oral Suspension - PO 1 gm QID RANDI Administration Thiamine HCl 100 mg 07/06/17 12:00 07/08/17 21:57 Vitamin B1 - PO 100 mg HS RANDI Administration Zolpidem Tartrate 10 mg 07/06/17 11:52 Ambien - PO HS PRN INSOMNIA Pancytopenia :improving/stable( commbination of chronic acute ETOH/Cirrhosis/ Splenic sequestration),. w/u at other hospitals. ETOH abuse/WD ETOH detox Elevated RF Positive CHRISTIANO Fevers K/L ratio normal Await SPEP Counts stable Abx per ID f/u micro-pending abn LFTS, stable/improving Rheum/GI/ID consults noted will continue to monitor for labs in the am
[2017-07-09] MEDS ORDERED: ESCITALOPRAM OXALATE 10 MG TABLET (FP) ONE (10:20)
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
[2017-07-09] MEDS: SUCRALFATE 1 GM/10 ML UNIT DOSE CUPS PO SCH ×4 (10:47→22:22)
[2017-07-09] MEDS: LACTULOSE 20 GM/30 ML UDC (FOR ORAL USE ONLY) PO SCH ×2 (10:47→22:22)
[2017-07-09] MEDS: ESCITALOPRAM OXALATE 20 MG TABLET (FP) PO SCH (10:48)
[2017-07-09] MEDS: PANTOPRAZOLE 40 MG TABLET (FP) PO SCH (10:48)
[2017-07-09] MEDS: PRENATAL VITAMINS W/ FOLIC ACID TABLET (FP) PO SCH (10:48)
[2017-07-09] MEDS: FOLIC ACID 1 MG TABLET (FP) PO SCH (10:48)
--- NOTE | 2017-07-09 11:43 | PATH ---
Surgical Pathology Report Patient Name: FRANCISCO NUÑEZ [facility]. Rec. #: [id number] /Age/Gender: 1985 (Age: 32) / M Account: [id number] Location: [address] [place] [address] Taken: 07/08/2017 Received: 07/08/2017 Reported: 07/09/2017 Physicians: Elio Turner M.D. Specimen(s) Received BX GASTRIC BODY/FUNDUS Clinical History Preoperative diagnosis: Anemia Postoperative diagnosis: Gastritis, no varices Final Diagnosis STOMACH, BODY/FUNDUS, BIOPSY: GASTRIC BODY MUCOSA WITH MILD CHRONIC GASTRITIS. IMMUNOHISTOCHEMICAL STAIN FOR H. PYLORI IS IS NEGATIVE. Electronically Signed Nay Campos M.D. Gross Description Received in formalin, labeled "biopsy gastric body/fundus" are 2 [place], irregular portions of soft tissue measuring 0.3 and 0.4 cm. in greatest dimension. The specimens are submitted in toto in one cassette. 07/08/201707/08/2017
[2017-07-09] MEDS: VANCOMYCIN 1,000 MG in DEXTROSE 5%-WATER - 250 ML IVPB SCH ×2 (12:04→22:56)
--- NOTE | 2017-07-09 12:27 | PN ---
S Progress Note (SOAP) Subjective: Patient was kept overnight because he spiked fever. has completed detox and awaiting rehab bed at [facility]. no complaints would like sleep medication at night oredered. Objective: 07/09/17 12:26 Vital Signs - 8 hr 07/09/17 07/09/17 06:00 10:00 Temperature 98.5 F Pulse Rate 84 83 Respiratory 18 18 Rate Blood Pressure 112/66 109/66 Laboratory Tests 07/05/17 07/05/17 07/05/17 12:40 13:00 13:00 WBC 0.7 L* RBC 2.47 L Hgb 6.6 L* Hct 20.2 L MCV 81.8 MCH 26.7 MCHC 32.6 RDW 18.7 H Plt Count 16 L* MPV 9.3 Total Counted 100 Neutrophils % No Result Required. Neutrophils % (Manual) 34.0 L Lymphocytes % No Result Required. Lymphocytes % (Manual) 60.0 H Monocytes % Monocytes % (Manual) 6 Eosinophils % Basophils % Hypersegmented Neuts Toxic Granulation Dohle Bodies Contreras Rods Platelet Estimate Decreased Polychromasia Hypochromic-Microcytic Poikilocytosis Basophilic Stippling Anisocytosis Microcytosis Macrocytosis Spherocytes Siderocytes Sickle Cells Target Cells Tear Drop Cells Ovalocytes Stomatocytes Helmet Cells Castillo-Cambria Bodies Tatum Rings [place] Cells Acanthocytes (Spur) Rouleaux Fragmented RBCs Schistocytes ESR Retic Count Haptoglobin PT with INR 15.90 H INR 1.41 H PTT (Actin FS) Fibrinogen Sodium Potassium Chloride Carbon Dioxide Anion Gap BUN Creatinine Creat Clearance w eGFR Random Glucose Calcium Iron Ferritin Total Bilirubin AST ALT Alkaline Phosphatase LD Total Total Protein Albumin Vitamin B12 Folate Folate Hemolysate TSH Free T4 Urine Color Urine Appearance Urine pH Ur Specific [place] Urine Protein Urine Glucose (UA) Urine Ketones Urine Blood Urine Nitrite Urine Bilirubin Urine Urobilinogen Ur Leukocyte Esterase Stool Occult Blood Negative Opiates Screen Methadone Screen Barbiturate Screen Phencyclidine Screen Ur Amphetamines Screen MDMA (Ecstasy) Screen Benzodiazepines Screen Cocaine Screen U Marijuana (THC) Screen Rheumatoid Factor CHRISTIANO Screen CHRISTIANO Homogeneous Pattern CHRISTIANO Nucleolar Pattern CHRISTIANO Midbody Pattern CHRISTIANO Speckled Pattern CHRISTIANO Centromere Pattern Free [place] LC, Quant Free Lambda LC, Quant Free [place]/Lambda Ratio Hep Bs Antigen Hep Bs Antibody Hep B Core Ab Interpret Hepatitis Be Antibody Hepatitis Be Antigen Hepatitis C Antibody HIV 1&2 Antibody Screen HIV P24 Antigen Blood Type Antibody Screen Crossmatch 07/05/17 07/05/17 07/05/17 13:00 13:04 15:30 WBC RBC Hgb Hct MCV MCH MCHC RDW Plt Count MPV Total Counted Neutrophils % Neutrophils % (Manual) Lymphocytes % Lymphocytes % (Manual) Monocytes % Monocytes % (Manual) Eosinophils % Basophils % Hypersegmented Neuts Toxic Granulation Dohle Bodies Contreras Rods Platelet Estimate Polychromasia Hypochromic-Microcytic Poikilocytosis Basophilic Stippling Anisocytosis Microcytosis Macrocytosis Spherocytes Siderocytes Sickle Cells Target Cells Tear Drop Cells Ovalocytes Stomatocytes Helmet Cells Castillo-Cambria Bodies Tatum Rings María Elena Cells Acanthocytes (Spur) Rouleaux Fragmented RBCs Schistocytes ESR Retic Count Haptoglobin PT with INR INR PTT (Actin FS) Fibrinogen Sodium 140 Potassium 3.7 Chloride 102 Carbon Dioxide 29 Anion Gap 9 BUN 11 Creatinine 0.9 Creat Clearance w eGFR > 60 Random Glucose 91 D Calcium 7.8 L Iron Ferritin Total Bilirubin 1.4 H AST 138 H ALT 37 Alkaline Phosphatase 113 LD Total Total Protein 6.6 Albumin 3.0 L Vitamin B12 Folate Folate Hemolysate TSH Free T4 Urine Color Urine Appearance Urine pH Ur Specific [place] Urine Protein Urine Glucose (UA) Urine Ketones Urine Blood Urine Nitrite Urine Bilirubin Urine Urobilinogen Ur Leukocyte Esterase Stool Occult Blood Opiates Screen Methadone Screen Barbiturate Screen Phencyclidine Screen Ur Amphetamines Screen MDMA (Ecstasy) Screen Benzodiazepines Screen Cocaine Screen U Marijuana (THC) Screen Rheumatoid Factor CHRISTIANO Screen CHRISTIANO Homogeneous Pattern CHRISTIANO Nucleolar Pattern CHRISTIANO Midbody Pattern CHRISTIANO Speckled Pattern CHRISTIANO Centromere Pattern Free [place] LC, Quant Free Lambda LC, Quant Free [place]/Lambda Ratio Hep Bs Antigen Hep Bs Antibody Hep B Core Ab Interpret Hepatitis Be Antibody Hepatitis Be Antigen Hepatitis C Antibody HIV 1&2 Antibody Screen Negative HIV P24 Antigen Negative Blood Type O POSITIVE Antibody Screen Negative Crossmatch See Detail 07/05/17 07/05/17 07/05/17 15:54 17:10 21:00 WBC RBC Hgb Hct MCV MCH MCHC RDW Plt Count MPV Total Counted Neutrophils % Neutrophils % (Manual) Lymphocytes % Lymphocytes % (Manual) Monocytes % Monocytes % (Manual) Eosinophils % Basophils % Hypersegmented Neuts Toxic Granulation Dohle Bodies Contreras Rods Platelet Estimate Polychromasia Hypochromic-Microcytic Poikilocytosis Basophilic Stippling Anisocytosis Microcytosis Macrocytosis Spherocytes Siderocytes Sickle Cells Target Cells Tear Drop Cells Ovalocytes Stomatocytes Helmet Cells Castillo-Cambria Bodies Tatum Rings [place] Cells Acanthocytes (Spur) Rouleaux Fragmented RBCs Schistocytes ESR Retic Count Haptoglobin PT with INR INR PTT (Actin FS) 34.7 H Fibrinogen Sodium Potassium Chloride Carbon Dioxide Anion Gap BUN Creatinine Creat Clearance w eGFR Random Glucose Calcium Iron Ferritin Total Bilirubin AST ALT Alkaline Phosphatase LD Total Total Protein Albumin Vitamin B12 Folate Folate Hemolysate TSH Free T4 Urine Color Ltyellow Urine Appearance Clear Urine pH 9.0 H D Ur Specific [place] 1.009 Urine Protein Negative Urine Glucose (UA) Negative Urine Ketones Negative Urine Blood Negative Urine Nitrite Negative Urine Bilirubin Negative Urine Urobilinogen 4.0 e.u/dl Ur Leukocyte Esterase Negative Stool Occult Blood Opiates Screen Methadone Screen Barbiturate Screen Phencyclidine Screen Ur Amphetamines Screen MDMA (Ecstasy) Screen Benzodiazepines Screen Cocaine Screen U Marijuana (THC) Screen Rheumatoid Factor CHRISTIANO Screen CHRISTIANO Homogeneous Pattern CHRISTIANO Nucleolar Pattern CHRISTIANO Midbody Pattern CHRISTIANO Speckled Pattern CHRISTIANO Centromere Pattern Free [place] LC, Quant Free Lambda LC, Quant Free [place]/Lambda Ratio Hep Bs Antigen Hep Bs Antibody Hep B Core Ab Interpret Hepatitis Be Antibody Hepatitis Be Antigen Hepatitis C Antibody HIV 1&2 Antibody Screen HIV P24 Antigen Blood Type O POSITIVE Antibody Screen Negative Crossmatch 07/05/17 07/05/17 07/06/17 21:00 21:00 07:20 WBC RBC Hgb Hct MCV MCH MCHC RDW Plt Count MPV Total Counted Neutrophils % Neutrophils % (Manual) Lymphocytes % Lymphocytes % (Manual) Monocytes % Monocytes % (Manual) Eosinophils % Basophils % Hypersegmented Neuts Toxic Granulation Dohle Bodies Contreras Rods Platelet Estimate Polychromasia Hypochromic-Microcytic Poikilocytosis Basophilic Stippling Anisocytosis Microcytosis Macrocytosis Spherocytes Siderocytes Sickle Cells Target Cells Tear Drop Cells Ovalocytes Stomatocytes Helmet Cells Castillo-Cambria Bodies Tatum Rings María Elena Cells Acanthocytes (Spur) Rouleaux Fragmented RBCs Schistocytes ESR Retic Count 1.69 H Haptoglobin PT with INR 16.20 H INR 1.43 H PTT (Actin FS) Fibrinogen 185.0 L Sodium Potassium Chloride Carbon Dioxide Anion Gap BUN Creatinine Creat Clearance w eGFR Random Glucose Calcium Iron Ferritin Total Bilirubin AST ALT Alkaline Phosphatase LD Total Total Protein Albumin Vitamin B12 Folate Folate Hemolysate TSH Free T4 Urine Color Urine Appearance Urine pH Ur Specific [place] Urine Protein Urine Glucose (UA) Urine Ketones Urine Blood Urine Nitrite Urine Bilirubin Urine Urobilinogen Ur Leukocyte Esterase Stool Occult Blood Opiates Screen Methadone Screen Barbiturate Screen Phencyclidine Screen Ur Amphetamines Screen MDMA (Ecstasy) Screen Benzodiazepines Screen Cocaine Screen U Marijuana (THC) Screen Rheumatoid Factor CHRISTIANO Screen CHRISTIANO Homogeneous Pattern CHRISTIANO Nucleolar Pattern CHRISTIANO Midbody Pattern CHRISTIANO Speckled Pattern CHRISTIANO Centromere Pattern Free [place] LC, Quant Free Lambda LC, Quant Free [place]/Lambda Ratio Hep Bs Antigen Hep Bs Antibody Hep B Core Ab Interpret Hepatitis Be Antibody Hepatitis Be Antigen Hepatitis C Antibody HIV 1&2 Antibody Screen HIV P24 Antigen Blood Type Antibody Screen Crossmatch 07/06/17 07/06/17 07/06/17 07:20 07:20 07:20 WBC 1.1 L* D RBC 2.94 L Hgb 8.1 L D Hct 24.2 L D MCV 82.3 MCH 27.6 MCHC 33.6 RDW 18.0 H Plt Count 18 L* MPV 6.4 L D Total Counted 100 Neutrophils % No Result Required. Neutrophils % (Manual) 52.0 D Lymphocytes % No Result Required. Lymphocytes % (Manual) 36.0 D Monocytes % Monocytes % (Manual) 12 H D Eosinophils % Basophils % Hypersegmented Neuts Toxic Granulation Dohle Bodies Contreras Rods Platelet Estimate Decreased Polychromasia Hypochromic-Microcytic Poikilocytosis Basophilic Stippling Anisocytosis Microcytosis Macrocytosis Spherocytes Siderocytes Sickle Cells Target Cells Tear Drop Cells Ovalocytes Stomatocytes Helmet Cells Castillo-Cambria Bodies Tatum Rings María Elena Cells Acanthocytes (Spur) Rouleaux Fragmented RBCs Schistocytes ESR Retic Count Haptoglobin PT with INR INR PTT (Actin FS) Fibrinogen Sodium 138 Potassium 3.6 Chloride 104 Carbon Dioxide 23 D Anion Gap 11 BUN 9 Creatinine 0.7 D Creat Clearance w eGFR > 60 Random Glucose 79 Calcium 8.2 L Iron Ferritin Total Bilirubin 2.3 H D AST 101 H D ALT 34 Alkaline Phosphatase 121 H LD Total 266 H Total Protein 6.7 Albumin 3.1 L Vitamin B12 Folate Folate Hemolysate TSH Free T4 Urine Color Urine Appearance Urine pH Ur Specific [place] Urine Protein Urine Glucose (UA) Urine Ketones Urine Blood Urine Nitrite Urine Bilirubin Urine Urobilinogen Ur Leukocyte Esterase Stool Occult Blood Opiates Screen Methadone Screen Barbiturate Screen Phencyclidine Screen Ur Amphetamines Screen MDMA (Ecstasy) Screen Benzodiazepines Screen Cocaine Screen U Marijuana (THC) Screen Rheumatoid Factor 105.1 H CHRISTIANO Screen Positive H CHRISTIANO Homogeneous Pattern TNP CHRISTIANO Nucleolar Pattern TNP CHRISTIANO Midbody Pattern TNP CHRISTIANO Speckled Pattern 1:80 CHRISTIANO Centromere Pattern TNP Free [place] LC, Quant Free Lambda LC, Quant Free [place]/Lambda Ratio Hep Bs Antigen Hep Bs Antibody Hep B Core Ab Interpret Hepatitis Be Antibody Hepatitis Be Antigen Hepatitis C Antibody HIV 1&2 Antibody Screen HIV P24 Antigen Blood Type Antibody Screen Crossmatch 07/06/17 07/06/17 07/06/17 07:20 07:20 07:20 WBC RBC Hgb Hct 24.3 L MCV MCH MCHC RDW Plt Count MPV Total Counted Neutrophils % Neutrophils % (Manual) Lymphocytes % Lymphocytes % (Manual) Monocytes % Monocytes % (Manual) Eosinophils % Basophils % Hypersegmented Neuts Toxic Granulation Dohle Bodies Contreras Rods Platelet Estimate Polychromasia Hypochromic-Microcytic Poikilocytosis Basophilic Stippling Anisocytosis Microcytosis Macrocytosis Spherocytes Siderocytes Sickle Cells Target Cells Tear Drop Cells Ovalocytes Stomatocytes Helmet Cells Castillo-Cambria Bodies Tatum Rings [place] Cells Acanthocytes (Spur) Rouleaux Fragmented RBCs Schistocytes ESR Retic Count Haptoglobin PT with INR INR PTT (Actin FS) Fibrinogen Sodium Potassium Chloride Carbon Dioxide Anion Gap BUN Creatinine Creat Clearance w eGFR Random Glucose Calcium Iron Ferritin Total Bilirubin AST ALT Alkaline Phosphatase LD Total Total Protein Albumin Vitamin B12 843 Folate 1825 Folate Hemolysate 443.5 TSH 2.16 Free T4 1.00 Urine Color Urine Appearance Urine pH Ur Specific [place] Urine Protein Urine Glucose (UA) Urine Ketones Urine Blood Urine Nitrite Urine Bilirubin Urine Urobilinogen Ur Leukocyte Esterase Stool Occult Blood Opiates Screen Methadone Screen Barbiturate Screen Phencyclidine Screen Ur Amphetamines Screen MDMA (Ecstasy) Screen Benzodiazepines Screen Cocaine Screen U Marijuana (THC) Screen Rheumatoid Factor CHRISTIANO Screen CHRISTIANO Homogeneous Pattern CHRISTIANO Nucleolar Pattern CHRISTIANO Midbody Pattern CHRISTIANO Speckled Pattern CHRISTIANO Centromere Pattern Free [place] LC, Quant Free Lambda LC, Quant Free [place]/Lambda Ratio Hep Bs Antigen Hep Bs Antibody Hep B Core Ab Interpret Hepatitis Be Antibody Hepatitis Be Antigen Hepatitis C Antibody HIV 1&2 Antibody Screen HIV P24 Antigen Blood Type Antibody Screen Crossmatch 12/12/1607/06/17 07/07/17 07:20 07:20 06:00 WBC RBC Hgb Hct MCV MCH MCHC RDW Plt Count MPV Total Counted Neutrophils % Neutrophils % (Manual) Lymphocytes % Lymphocytes % (Manual) Monocytes % Monocytes % (Manual) Eosinophils % Basophils % Hypersegmented Neuts Toxic Granulation Dohle Bodies Contreras Rods Platelet Estimate Polychromasia Hypochromic-Microcytic Poikilocytosis Basophilic Stippling Anisocytosis Microcytosis Macrocytosis Spherocytes Siderocytes Sickle Cells Target Cells Tear Drop Cells Ovalocytes Stomatocytes Helmet Cells Castillo-Cambria Bodies Tatum Rings María Elena Cells Acanthocytes (Spur) Rouleaux Fragmented RBCs Schistocytes ESR Retic Count Haptoglobin PT with INR INR PTT (Actin FS) Fibrinogen Sodium Potassium Chloride Carbon Dioxide Anion Gap BUN Creatinine Creat Clearance w eGFR Random Glucose Calcium Iron Ferritin 70.135 Total Bilirubin AST ALT Alkaline Phosphatase LD Total Total Protein Albumin Vitamin B12 Folate Folate Hemolysate TSH Free T4 Urine Color Urine Appearance Urine pH Ur Specific [place] Urine Protein Urine Glucose (UA) Urine Ketones Urine Blood Urine Nitrite Urine Bilirubin Urine Urobilinogen Ur Leukocyte Esterase Stool Occult Blood Opiates Screen Methadone Screen Barbiturate Screen Phencyclidine Screen Ur Amphetamines Screen MDMA (Ecstasy) Screen Benzodiazepines Screen Cocaine Screen U Marijuana (THC) Screen Rheumatoid Factor CHRISTIANO Screen CHRISTIANO Homogeneous Pattern CHRISTIANO Nucleolar Pattern CHRISTIANO Midbody Pattern CHRISTIANO Speckled Pattern CHRISTIANO Centromere Pattern Free [place] LC, Quant 63.6 H Free Lambda LC, Quant 52.9 H Free [place]/Lambda Ratio 1.20 Hep Bs Antigen Hep Bs Antibody Hep B Core Ab Interpret Negative Hepatitis Be Antibody Hepatitis Be Antigen Hepatitis C Antibody 0.2 HIV 1&2 Antibody Screen HIV P24 Antigen Blood Type Antibody Screen Crossmatch 07/07/17 07/07/17 07/07/17 07:20 07:20 07:20 WBC 2.8 L D RBC 3.54 L D Hgb 9.6 L D Hct 29.2 L D MCV 82.7 MCH 27.2 MCHC 32.9 RDW 18.4 H Plt Count 43 L D MPV 8.3 D Total Counted Neutrophils % 61.0 Neutrophils % (Manual) Lymphocytes % 21.7 Lymphocytes % (Manual) Monocytes % 14.0 H Monocytes % (Manual) Eosinophils % 2.4 Basophils % 0.9 Hypersegmented Neuts Toxic Granulation Dohle Bodies Contreras Rods Platelet Estimate Polychromasia Hypochromic-Microcytic Poikilocytosis Basophilic Stippling Anisocytosis Microcytosis Macrocytosis Spherocytes Siderocytes Sickle Cells Target Cells Tear Drop Cells Ovalocytes Stomatocytes Helmet Cells Castillo-Cambria Bodies Tatum Rings [place] Cells Acanthocytes (Spur) Rouleaux Fragmented RBCs Schistocytes ESR Retic Count Haptoglobin < 10 L PT with INR INR PTT (Actin FS) Fibrinogen Sodium 135 L Potassium 3.9 Chloride 104 Carbon Dioxide 22 Anion Gap 9 BUN 10 Creatinine 0.8 Creat Clearance w eGFR > 60 Random Glucose 95 D Calcium 8.3 L Iron 101 Ferritin Total Bilirubin 2.9 H D AST 86 H ALT 35 Alkaline Phosphatase 146 H D LD Total 286 H Total Protein 7.8 Albumin 3.5 Vitamin B12 Folate Folate Hemolysate TSH Free T4 Urine Color Urine Appearance Urine pH Ur Specific [place] Urine Protein Urine Glucose (UA) Urine Ketones Urine Blood Urine Nitrite Urine Bilirubin Urine Urobilinogen Ur Leukocyte Esterase Stool Occult Blood Opiates Screen Methadone Screen Barbiturate Screen Phencyclidine Screen Ur Amphetamines Screen MDMA (Ecstasy) Screen Benzodiazepines Screen Cocaine Screen U Marijuana (THC) Screen Rheumatoid Factor CHRISTIANO Screen CHRISTIANO Homogeneous Pattern CHRISTIANO Nucleolar Pattern CHRISTIANO Midbody Pattern CHRISTIANO Speckled Pattern CHRISTIANO Centromere Pattern Free [place] LC, Quant Free Lambda LC, Quant Free [place]/Lambda Ratio Hep Bs Antigen Hep Bs Antibody Hep B Core Ab Interpret Hepatitis Be Antibody Hepatitis Be Antigen Hepatitis C Antibody HIV 1&2 Antibody Screen HIV P24 Antigen Blood Type Antibody Screen Crossmatch 07/07/17 07/07/17 07/07/17 07:20 07:20 13:45 WBC RBC Hgb Hct MCV MCH MCHC RDW Plt Count MPV Total Counted Neutrophils % Neutrophils % (Manual) Lymphocytes % Lymphocytes % (Manual) Monocytes % Monocytes % (Manual) Eosinophils % Basophils % Hypersegmented Neuts Cancelled Toxic Granulation Cancelled Dohle Bodies Cancelled Contreras Rods Cancelled Platelet Estimate Polychromasia Cancelled Hypochromic-Microcytic Cancelled Poikilocytosis Cancelled Basophilic Stippling Cancelled Anisocytosis Cancelled Microcytosis Cancelled Macrocytosis Cancelled Spherocytes Cancelled Siderocytes Cancelled Sickle Cells Cancelled Target Cells Cancelled Tear Drop Cells Cancelled Ovalocytes Cancelled Stomatocytes Cancelled Helmet Cells Cancelled Castillo-Cambria Bodies Cancelled Tatum Rings Cancelled María Elena Cells Cancelled Acanthocytes (Spur) Cancelled Rouleaux Cancelled Fragmented RBCs Cancelled Schistocytes Cancelled ESR Retic Count Haptoglobin PT with INR INR PTT (Actin FS) Fibrinogen Sodium Potassium Chloride Carbon Dioxide Anion Gap BUN Creatinine Creat Clearance w eGFR Random Glucose Calcium Iron Ferritin Total Bilirubin AST ALT Alkaline Phosphatase LD Total Total Protein Albumin Vitamin B12 Folate Folate Hemolysate TSH Free T4 Urine Color Urine Appearance Urine pH Ur Specific [place] Urine Protein Urine Glucose (UA) Urine Ketones Urine Blood Urine Nitrite Urine Bilirubin Urine Urobilinogen Ur Leukocyte Esterase Stool Occult Blood Opiates Screen Negative Methadone Screen Negative Barbiturate Screen Negative Phencyclidine Screen Negative Ur Amphetamines Screen Negative MDMA (Ecstasy) Screen Negative Benzodiazepines Screen Positive Cocaine Screen Negative U Marijuana (THC) Screen Negative Rheumatoid Factor CHRISTIANO Screen CHRISTIANO Homogeneous Pattern CHRISTIANO Nucleolar Pattern CHRISTIANO Midbody Pattern CHRISTIANO Speckled Pattern CHRISTIANO Centromere Pattern Free [place] LC, Quant Free Lambda LC, Quant Free [place]/Lambda Ratio Hep Bs Antigen Negative Hep Bs Antibody Reactive Hep B Core Ab Interpret Hepatitis Be Antibody Negative Hepatitis Be Antigen Negative Hepatitis C Antibody HIV 1&2 Antibody Screen HIV P24 Antigen Blood Type Antibody Screen Crossmatch 07/08/17 07/08/17 07/08/17 07:45 07:45 14:15 WBC 2.8 L 2.0 L RBC 3.51 L 3.21 L Hgb 9.7 L 9.2 L Hct 29.6 L 27.0 L MCV 84.4 84.2 MCH 27.8 28.7 MCHC 32.9 34.1 RDW 18.1 H 19.1 H Plt Count 54 L D 50 L MPV 8.4 8.8 Total Counted Neutrophils % 69.8 Neutrophils % (Manual) Lymphocytes % 18.4 Lymphocytes % (Manual) Monocytes % 10.2 Monocytes % (Manual) Eosinophils % 0.8 Basophils % 0.8 Hypersegmented Neuts Toxic Granulation Dohle Bodies Contreras Rods Platelet Estimate Polychromasia Hypochromic-Microcytic Poikilocytosis Basophilic Stippling Anisocytosis Microcytosis Macrocytosis Spherocytes Siderocytes Sickle Cells Target Cells Tear Drop Cells Ovalocytes Stomatocytes Helmet Cells Castillo-Cambria Bodies Tatum Rings María Elena Cells Acanthocytes (Spur) Rouleaux Fragmented RBCs Schistocytes ESR 60 H Retic Count Haptoglobin PT with INR INR PTT (Actin FS) Fibrinogen Sodium Potassium Chloride Carbon Dioxide Anion Gap BUN Creatinine Creat Clearance w eGFR Random Glucose Calcium Iron Ferritin Total Bilirubin AST ALT Alkaline Phosphatase LD Total Total Protein Albumin Vitamin B12 Folate Folate Hemolysate TSH Free T4 Urine Color Urine Appearance Urine pH Ur Specific [place] Urine Protein Urine Glucose (UA) Urine Ketones Urine Blood Urine Nitrite Urine Bilirubin Urine Urobilinogen Ur Leukocyte Esterase Stool Occult Blood Opiates Screen Methadone Screen Barbiturate Screen Phencyclidine Screen Ur Amphetamines Screen MDMA (Ecstasy) Screen Benzodiazepines Screen Cocaine Screen U Marijuana (THC) Screen Rheumatoid Factor CHRISTIANO Screen CHRISTIANO Homogeneous Pattern CHRISTIANO Nucleolar Pattern CHRISTIANO Midbody Pattern CHRISTIANO Speckled Pattern CHRISTIANO Centromere Pattern Free [place] LC, Quant Free Lambda LC, Quant Free [place]/Lambda Ratio Hep Bs Antigen Hep Bs Antibody Hep B Core Ab Interpret Hepatitis Be Antibody Hepatitis Be Antigen Hepatitis C Antibody HIV 1&2 Antibody Screen HIV P24 Antigen Blood Type Antibody Screen Crossmatch 07/09/17 07/09/17 08:00 08:00 WBC 5.4 D RBC 3.16 L Hgb 8.9 L Hct 26.7 L MCV 84.4 MCH 28.3 MCHC 33.5 RDW 19.2 H Plt Count 52 L MPV 8.3 Total Counted Neutrophils % 72.9 Neutrophils % (Manual) Lymphocytes % 11.3 D Lymphocytes % (Manual) Monocytes % 15.2 H Monocytes % (Manual) Eosinophils % 0.5 Basophils % 0.1 Hypersegmented Neuts Toxic Granulation Dohle Bodies Contreras Rods Platelet Estimate Polychromasia Hypochromic-Microcytic Poikilocytosis Basophilic Stippling Anisocytosis Microcytosis Macrocytosis Spherocytes Siderocytes Sickle Cells Target Cells Tear Drop Cells Ovalocytes Stomatocytes Helmet Cells Castillo-Cambria Bodies Tatum Rings [place] Cells Acanthocytes (Spur) Rouleaux Fragmented RBCs Schistocytes ESR Retic Count Haptoglobin PT with INR INR PTT (Actin FS) Fibrinogen Sodium 135 L Potassium 3.8 Chloride 103 Carbon Dioxide 23 Anion Gap 9 BUN 24 H D Creatinine 0.9 Creat Clearance w eGFR > 60 Random Glucose 88 Calcium 7.9 L Iron Ferritin Total Bilirubin 3.0 H AST 39 H D ALT 29 Alkaline Phosphatase 127 H LD Total Total Protein 7.6 Albumin 3.4 Vitamin B12 Folate Folate Hemolysate TSH Free T4 Urine Color Urine Appearance Urine pH Ur Specific [place] Urine Protein Urine Glucose (UA) Urine Ketones Urine Blood Urine Nitrite Urine Bilirubin Urine Urobilinogen Ur Leukocyte Esterase Stool Occult Blood Opiates Screen Methadone Screen Barbiturate Screen Phencyclidine Screen Ur Amphetamines Screen MDMA (Ecstasy) Screen Benzodiazepines Screen Cocaine Screen U Marijuana (THC) Screen Rheumatoid Factor CHRISTIANO Screen CHRISTIANO Homogeneous Pattern CHRISTIANO Nucleolar Pattern CHRISTIANO Midbody Pattern CHRISTIANO Speckled Pattern CHRISTIANO Centromere Pattern Free [place] LC, Quant Free Lambda LC, Quant Free [place]/Lambda Ratio Hep Bs Antigen Hep Bs Antibody Hep B Core Ab Interpret Hepatitis Be Antibody Hepatitis Be Antigen Hepatitis C Antibody HIV 1&2 Antibody Screen HIV P24 Antigen Blood Type Antibody Screen Crossmatch pancytopenia, afebrile, a and ox3 Assessment: 07/09/17 12:26 completed detox, transfer to rehab at [facility] when medically stable and ebed avaiable.
--- NOTE | 2017-07-09 14:25 | PN ---
Progress Note, Physician - Current Medication List Current Medications: Active Medications Acetaminophen (Tylenol -) 650 mg PO Q4H PRN PRN Reason: FEVER OR PAIN Last Admin: 07/08/17 18:08 Dose: 650 mg Al Hydroxide/Mg Hydroxide (Mylanta Oral Suspension -) 30 ml PO Q6H PRN PRN Reason: DYSPEPSIA Last Admin: 07/07/17 11:29 Dose: 30 ml Chlordiazepoxide HCl (Librium -) 25 mg PO HS [facility] Escitalopram Oxalate (Lexapro -) 20 mg PO DAILY [facility] Last Admin: 07/09/17 10:48 Dose: 20 mg Folic Acid (Folic Acid -) 1 mg PO DAILY [facility] Last Admin: 07/09/17 10:48 Dose: 1 mg Vancomycin HCl 1,000 mg/ (Dextrose) 250 mls @ 166.667 mls/hr IVPB BID RANDI PRN Reason: Protocol Last Admin: 07/09/17 12:04 Dose: 166.667 mls/hr Cefepime HCl 2 gm/ Dextrose 100 mls @ 200 mls/hr IVPB Q8H-IV [facility]ANDI Last Admin: 07/09/17 10:48 Dose: 200 mls/hr Lactulose (Cephulac (Oral Use)) 20 gm PO BID [facility] Last Admin: 07/09/17 10:47 Dose: 20 gm Ondansetron HCl (Zofran Odt -) 8 mg SL Q6H PRN PRN Reason: NAUSEA AND/OR VOMITING Pantoprazole Sodium (Protonix -) 40 mg PO DAILY [facility] Last Admin: 07/09/17 10:48 Dose: 40 mg Multivit/Folic Acid/Iron ( Vitamins (Sjr) -) 1 tab PO DAILY [facility] Last Admin: 07/09/17 10:48 Dose: 1 tab Sucralfate (Carafate Oral Suspension -) 1 gm PO QID [facility] Last Admin: 07/09/17 10:47 Dose: 1 gm Thiamine HCl (Vitamin B1 -) 100 mg PO HS [facility] Last Admin: 07/08/17 21:57 Dose: 100 mg Zolpidem Tartrate (Ambien -) 10 mg PO HS PRN PRN Reason: INSOMNIA - Objective Vital Signs: Vital Signs Temperature 98.5 F 07/09/17 06:00 Pulse Rate 83 07/09/17 10:00 Respiratory Rate 18 07/09/17 10:00 Blood Pressure 109/66 07/09/17 10:00 O2 Sat by Pulse Oximetry (%) 97 07/08/17 22:00 Labs: CBC, BMP 07/09/17 08:00 07/09/17 08:00 INR, PTT INR 1.43 (0.82-1.09) H 07/05/17 21:00 Fibrinogen 185.0 mg/dL (238-498) L 07/05/17 21:00 Problem List - Problems (1) Alcoholic liver disease Code(s): K70.9 - ALCOHOLIC LIVER DISEASE, UNSPECIFIED (2) Alcohol dependence with uncomplicated withdrawal Code(s): F10.230 - ALCOHOL DEPENDENCE WITH WITHDRAWAL, UNCOMPLICATED (3) Pancytopenia Code(s): D61.818 - OTHER PANCYTOPENIA Assessment/Plan ETOH withdrawal management Diet as tolerated Continue PPI Lactulose qd-bid
--- NOTE | 2017-07-09 20:43 | PN ---
Progress Note, Physician History of Present Illness: stable - Current Medication List Current Medications: Active Medications Acetaminophen (Tylenol -) 650 mg PO Q4H PRN PRN Reason: FEVER OR PAIN Last Admin: 07/08/17 18:08 Dose: 650 mg Al Hydroxide/Mg Hydroxide (Mylanta Oral Suspension -) 30 ml PO Q6H PRN PRN Reason: DYSPEPSIA Last Admin: 07/07/17 11:29 Dose: 30 ml Chlordiazepoxide HCl (Librium -) 25 mg PO HS [facility] Escitalopram Oxalate (Lexapro -) 20 mg PO DAILY [facility] Last Admin: 07/09/17 10:48 Dose: 20 mg Folic Acid (Folic Acid -) 1 mg PO DAILY [facility] Last Admin: 07/09/17 10:48 Dose: 1 mg Vancomycin HCl 1,000 mg/ (Dextrose) 250 mls @ 166.667 mls/hr IVPB BID RANDI PRN Reason: Protocol Last Admin: 07/09/17 12:04 Dose: 166.667 mls/hr Cefepime HCl 2 gm/ Dextrose 100 mls @ 200 mls/hr IVPB Q8H-IV [facility]ANDI Last Admin: 07/09/17 17:28 Dose: 200 mls/hr Lactulose (Cephulac (Oral Use)) 20 gm PO BID [facility] Last Admin: 07/09/17 10:47 Dose: 20 gm Ondansetron HCl (Zofran Odt -) 8 mg SL Q6H PRN PRN Reason: NAUSEA AND/OR VOMITING Pantoprazole Sodium (Protonix -) 40 mg PO DAILY [facility] Last Admin: 07/09/17 10:48 Dose: 40 mg Multivit/Folic Acid/Iron ( Vitamins (Sjr) -) 1 tab PO DAILY [facility] Last Admin: 07/09/17 10:48 Dose: 1 tab Sucralfate (Carafate Oral Suspension -) 1 gm PO QID [facility] Last Admin: 07/09/17 17:28 Dose: 1 gm Thiamine HCl (Vitamin B1 -) 100 mg PO HS [facility] Last Admin: 07/08/17 21:57 Dose: 100 mg Zolpidem Tartrate (Ambien -) 10 mg PO HS PRN PRN Reason: INSOMNIA - Objective Vital Signs: Vital Signs Temperature 98.1 F 07/09/17 14:00 Pulse Rate 86 07/09/17 14:00 Respiratory Rate 20 12/08/17 14:00 Blood Pressure 105/67 07/09/17 14:00 O2 Sat by Pulse Oximetry (%) 97 07/08/17 22:00 Constitutional: Yes: No Distress HENT: Yes: Atraumatic Neck: Yes: Supple Cardiovascular: Yes: Regular Rate and Rhythm Respiratory: Yes: CTA Bilaterally Gastrointestinal: Yes: Normal Bowel Sounds Extremities: Yes: WNL Neurological: Yes: Alert, Oriented Labs: CBC, BMP 07/09/17 08:00 07/09/17 08:00 INR, PTT INR 1.43 (0.82-1.09) H 07/05/17 21:00 Fibrinogen 185.0 mg/dL (238-498) L 07/05/17 21:00 Problem List - Problems (1) Alcohol dependence with uncomplicated withdrawal Assessment/Plan: on librium protocol Code(s): F10.230 - ALCOHOL DEPENDENCE WITH WITHDRAWAL, UNCOMPLICATED (2) Pancytopenia Assessment/Plan: due to etoh heme consult Code(s): D61.818 - OTHER PANCYTOPENIA (3) History of anemia Assessment/Plan: s/p blood transfusion gi consult egd...done..gastritis Code(s): Z86.2 - PRSNL HISTORY OF DIS OF THE BLD/BLD-FORM ORG/IMMUN MECHNSM (4) Alcoholic liver disease Code(s): K70.9 - ALCOHOLIC LIVER DISEASE, UNSPECIFIED (5) Nicotine dependence Code(s): F17.200 - NICOTINE DEPENDENCE, UNSPECIFIED, UNCOMPLICATED (6) Substance induced mood disorder Code(s): F19.94 - OTH PSYCHOACTIVE SUBSTANCE USE, UNSP W MOOD DISORDER
[2017-07-09] MEDS ORDERED: PT OWN MED DRAWER 7, Y5N ONE (22:16)
[2017-07-09] MEDS: THIAMINE HCL 100 MG TABLET (FP) PO SCH (22:22)
[2017-07-09] MEDS: chlordiazePOXIDE HCL 25 MG CAPSULE PO SCH (22:22)
[2017-07-10 00:07] LABS: ALBUMIN 3.8 g/dL (2.9-4.4); ALPHA-1-GLOBULIN 0.3 g/dL (0.0-0.4); BETA GLOBULIN 1.2 g/dL (0.7-1.3); GAMMA GLOBULIN 2.2 g/dL (0.4-1.8); GLOBULIN, TOTAL 4.1 g/dL (2.2-3.9); M-SPIKE Not Observed g/dL (Not Observed); TOTAL PROTEIN 7.9 g/dL (6.0-8.5)
[2017-07-10] MEDS ORDERED: PT OWN MED DRAWER 7, Y5N ONE ×4 (01:20→21:40)
[2017-07-10] MEDS: CEFEPIME 2 GM in DEXTROSE 5%-WATER - 100 ML IVPB SCH ×3 (01:22→19:08)
[2017-07-10 07:15] LABS: BASOPHIL 0.3 % (0-2.0); EOSINOPHIL 1.6 % (0-4.5); MCH 28.5 pg (25.7-33.7); MCHC 33.8 g/dl (32.0-35.9); MEAN CELL VOLUME 84.2 fl (80-96); MEAN PLT VOLUME 8.8 fl (7.5-11.1); NEUTROPHILS 59.8 % (42.8-82.8); PLATELET COUNT 54 K/MM3 (134-434); RDW 19.9 % (11.9-15.9); WHITE BLOOD COUNT 3.2 K/mm3 (4.0-10.0)
[2017-07-10 07:36] LABS: INR 1.35 (0.82-1.09); PROTHROMBIN TIME (PATIENT) 15.3 SEC (9.98-11.88)
[2017-07-10 07:38] LABS: ACTIVATED PTT 31.2 SECONDS (26.9-34.4)
[2017-07-10 07:41] LABS: ALBUMIN 3.2 g/dl (3.4-5.0); ANION GAP 7 (8-16); CALCIUM 8.4 mg/dL (8.5-10.1); CO2 27 mmol/L (21-32); CREATININE 0.9 mg/dL (0.7-1.3); GLUCOSE,RANDOM 103 mg/dL (74-106); SGOT/AST 30 U/L (15-37); SGPT/ALT 24 U/L (12-78)
[2017-07-10 07:44] LABS: ALK PHOS 105 U/L (45-117); BILIRUBIN,TOTAL 1.7 mg/dL (0.2-1.0)
[2017-07-10] MEDS: ESCITALOPRAM OXALATE 20 MG TABLET (FP) PO SCH (10:40)
[2017-07-10] MEDS ORDERED: ESCITALOPRAM OXALATE 10 MG TABLET (FP) ONE (11:15)
[2017-07-10] MEDS: LACTULOSE 20 GM/30 ML UDC (FOR ORAL USE ONLY) PO SCH ×2 (11:26→22:49)
[2017-07-10] MEDS: FOLIC ACID 1 MG TABLET (FP) PO SCH (11:26)
[2017-07-10] MEDS: SUCRALFATE 1 GM/10 ML UNIT DOSE CUPS PO SCH ×4 (11:26→22:49)
[2017-07-10] MEDS: PRENATAL VITAMINS W/ FOLIC ACID TABLET (FP) PO SCH (11:28)
[2017-07-10] MEDS: PANTOPRAZOLE 40 MG TABLET (FP) PO SCH (11:29)
--- NOTE | 2017-07-10 13:11 | PN ---
Progress Note, Physician - Current Medication List Current Medications: Active Medications Acetaminophen (Tylenol -) 650 mg PO Q4H PRN PRN Reason: FEVER OR PAIN Last Admin: 07/08/17 18:08 Dose: 650 mg Al Hydroxide/Mg Hydroxide (Mylanta Oral Suspension -) 30 ml PO Q6H PRN PRN Reason: DYSPEPSIA Last Admin: 07/07/17 11:29 Dose: 30 ml Chlordiazepoxide HCl (Librium -) 25 mg PO HS [facility] Last Admin: 07/09/17 22:22 Dose: 25 mg Escitalopram Oxalate (Lexapro -) 20 mg PO DAILY [facility] Last Admin: 07/10/17 10:40 Dose: 20 mg Folic Acid (Folic Acid -) 1 mg PO DAILY [facility] Last Admin: 07/10/17 11:26 Dose: 1 mg Vancomycin HCl 1,000 mg/ (Dextrose) 250 mls @ 166.667 mls/hr IVPB BID RANDI PRN Reason: Protocol Last Admin: 07/09/17 22:56 Dose: 166.667 mls/hr Cefepime HCl 2 gm/ Dextrose 100 mls @ 200 mls/hr IVPB Q8H-IV [facility]ANDI Last Admin: 07/10/17 11:26 Dose: 200 mls/hr Lactulose (Cephulac (Oral Use)) 20 gm PO BID [facility] Last Admin: 07/10/17 11:26 Dose: 20 gm Ondansetron HCl (Zofran Odt -) 8 mg SL Q6H PRN PRN Reason: NAUSEA AND/OR VOMITING Last Admin: 07/10/17 10:40 Dose: 8 mg Pantoprazole Sodium (Protonix -) 40 mg PO DAILY [facility] Last Admin: 07/10/17 11:29 Dose: 40 mg Multivit/Folic Acid/Iron ( Vitamins (Sjr) -) 1 tab PO DAILY [facility] Last Admin: 07/10/17 11:28 Dose: 1 tab Sucralfate (Carafate Oral Suspension -) 1 gm PO QID [facility] Last Admin: 07/10/17 11:26 Dose: 1 gm Thiamine HCl (Vitamin B1 -) 100 mg PO HS [facility] Last Admin: 07/09/17 22:22 Dose: 100 mg Zolpidem Tartrate (Ambien -) 10 mg PO HS PRN PRN Reason: INSOMNIA - Objective Vital Signs: Vital Signs Temperature 99.0 F 07/10/17 06:47 Pulse Rate 85 07/10/17 06:47 Respiratory Rate 20 07/10/17 06:47 Blood Pressure 102/61 07/10/17 06:47 O2 Sat by Pulse Oximetry (%) 96 07/09/17 21:00 Constitutional: Yes: Calm HENT: Yes: Atraumatic Cardiovascular: Yes: Regular Rate and Rhythm Respiratory: Yes: CTA Bilaterally Gastrointestinal: Yes: Normal Bowel Sounds Labs: CBC, BMP 07/10/17 06:30 07/10/17 06:30 INR, PTT INR 1.35 (0.82-1.09) H 07/10/17 06:30 Fibrinogen 254.0 mg/dL (238-498) D 07/10/17 06:30 Problem List - Problems (1) Alcohol dependence with uncomplicated withdrawal Assessment/Plan: on librium protocol Code(s): F10.230 - ALCOHOL DEPENDENCE WITH WITHDRAWAL, UNCOMPLICATED (2) Pancytopenia Assessment/Plan: due to etoh heme consult Code(s): D61.818 - OTHER PANCYTOPENIA (3) History of anemia Assessment/Plan: s/p blood transfusion gi consult egd...done..gastritis on protonix Code(s): Z86.2 - PRSNL HISTORY OF DIS OF THE BLD/BLD-FORM ORG/IMMUN MECHNSM (4) Alcoholic liver disease Code(s): K70.9 - ALCOHOLIC LIVER DISEASE, UNSPECIFIED (5) Nicotine dependence Code(s): F17.200 - NICOTINE DEPENDENCE, UNSPECIFIED, UNCOMPLICATED (6) Substance induced mood disorder Code(s): F19.94 - OTH PSYCHOACTIVE SUBSTANCE USE, UNSP W MOOD DISORDER
[2017-07-10] MEDS: VANCOMYCIN 1,000 MG in DEXTROSE 5%-WATER - 250 ML IVPB SCH ×2 (14:37→22:46)
--- NOTE | 2017-07-10 18:04 | PN ---
Progress Note, Physician History of Present Illness: Pt denies chills, abd pain, dysuria, cough, shortness of breath. Tmax 100F - Current Medication List Current Medications: Active Medications Acetaminophen (Tylenol -) 650 mg PO Q4H PRN PRN Reason: FEVER OR PAIN Last Admin: 07/08/17 18:08 Dose: 650 mg Al Hydroxide/Mg Hydroxide (Mylanta Oral Suspension -) 30 ml PO Q6H PRN PRN Reason: DYSPEPSIA Last Admin: 07/07/17 11:29 Dose: 30 ml Chlordiazepoxide HCl (Librium -) 25 mg PO HS [facility] Last Admin: 07/09/17 22:22 Dose: 25 mg Escitalopram Oxalate (Lexapro -) 20 mg PO DAILY [facility] Last Admin: 07/10/17 10:40 Dose: 20 mg Folic Acid (Folic Acid -) 1 mg PO DAILY [facility] Last Admin: 07/10/17 11:26 Dose: 1 mg Vancomycin HCl 1,000 mg/ (Dextrose) 250 mls @ 166.667 mls/hr IVPB BID RANDI PRN Reason: Protocol Last Admin: 07/10/17 14:37 Dose: 166.667 mls/hr Cefepime HCl 2 gm/ Dextrose 100 mls @ 200 mls/hr IVPB Q8H-IV [facility] Last Admin: 07/10/17 11:26 Dose: 200 mls/hr Lactulose (Cephulac (Oral Use)) 20 gm PO BID [facility] Last Admin: 07/10/17 11:26 Dose: 20 gm Ondansetron HCl (Zofran Odt -) 8 mg SL Q6H PRN PRN Reason: NAUSEA AND/OR VOMITING Last Admin: 07/10/17 10:40 Dose: 8 mg Pantoprazole Sodium (Protonix -) 40 mg PO DAILY [facility] Last Admin: 07/10/17 11:29 Dose: 40 mg Multivit/Folic Acid/Iron ( Vitamins (Sjr) -) 1 tab PO DAILY [facility] Last Admin: 07/10/17 11:28 Dose: 1 tab Sucralfate (Carafate Oral Suspension -) 1 gm PO QID [facility] Last Admin: 07/10/17 11:26 Dose: 1 gm Thiamine HCl (Vitamin B1 -) 100 mg PO HS [facility] Last Admin: 07/09/17 22:22 Dose: 100 mg Zolpidem Tartrate (Ambien -) 10 mg PO HS PRN PRN Reason: INSOMNIA - Objective Vital Signs: Vital Signs Temperature 100 F H 07/10/17 14:48 Pulse Rate 81 07/10/17 14:48 Respiratory Rate 20 07/10/17 14:48 Blood Pressure 107/60 07/10/17 14:48 O2 Sat by Pulse Oximetry (%) 96 07/09/17 21:00 Constitutional: Yes: No Distress, Calm HENT: Yes: Normocephalic Cardiovascular: Yes: Regular Rate and Rhythm Respiratory: Yes: CTA Bilaterally Gastrointestinal: Yes: Normal Bowel Sounds, Soft Labs: CBC, BMP 07/10/17 06:30 07/10/17 06:30 INR, PTT INR 1.35 (0.82-1.09) H 07/10/17 06:30 Fibrinogen 254.0 mg/dL (238-498) D 07/10/17 06:30 Microbiology 07/08/17 17:30 Blood - Peripheral Venous Blood Culture - Preliminary NO GROWTH OBTAINED AFTER 48 HOURS, INCUBATION TO CONTINUE FOR 3 DAYS. 07/08/17 17:30 Blood - Peripheral Venous Blood Culture - Preliminary NO GROWTH OBTAINED AFTER 48 HOURS, INCUBATION TO CONTINUE FOR 3 DAYS. 07/08/17 22:00 Urine - Urine Clean Catch Urine Culture - Final NO GROWTH OBTAINED 07/05/17 21:00 Blood - Peripheral Venous Blood Culture - Preliminary NO GROWTH OBTAINED AFTER 96 HOURS, INCUBATION TO CONTINUE FOR 1 DAYS. 07/05/17 21:00 Blood - Peripheral Venous Blood Culture - Preliminary NO GROWTH OBTAINED AFTER 96 HOURS, INCUBATION TO CONTINUE FOR 1 DAYS. Problem List - Problems (1) Alcohol dependence with uncomplicated withdrawal Code(s): F10.230 - ALCOHOL DEPENDENCE WITH WITHDRAWAL, UNCOMPLICATED (2) Alcoholic liver disease Code(s): K70.9 - ALCOHOLIC LIVER DISEASE, UNSPECIFIED (3) Pancytopenia Code(s): D61.818 - OTHER PANCYTOPENIA Assessment/Plan Fever - etiology unclear, routine cultures neg. - has no specific complaints - started on empiric antibiotics - continue for now, monitor for resolution of fever - cont monitor vitals, stable at this time - maintain precautions will f/u
--- NOTE | 2017-07-10 22:10 | PN ---
Progress Note (short form) - Note Progress Note: Patient seen and examined Denies any complaints Last Vital Signs Temp Pulse Resp BP Pulse Ox 98.8 F 85 20 104/60 96 07/10/17 20:16 07/10/17 20:16 07/10/17 20:16 07/10/17 20:16 07/09/17 21:00 Cor: RSR, No murmurs, No gallops Lungs: Clear to P&A Abd: Soft, Normal bowel sounds, No organomegaly Ext:No significant edema Abnormal Lab Results 07/08/17 07/10/17 07/10/17 07:45 06:30 06:30 WBC 3.2 L D RBC 2.77 L Hgb 7.9 L D Hct 23.3 L RDW 19.9 H Plt Count 54 L Monocytes % 20.3 H PT with INR 15.30 H INR 1.35 H Anion Gap BUN Calcium Total Bilirubin Albumin Globulin 4.1 H Gamma Globulins 2.2 H IgG 2037 H IgA 549 H IgM 332 H Tot Complement (CH50) > 63 H 07/10/17 06:30 WBC RBC Hgb Hct RDW Plt Count Monocytes % PT with INR INR Anion Gap 7 L BUN 30 H D Calcium 8.4 L Total Bilirubin 1.7 H D Albumin 3.2 L Globulin Gamma Globulins IgG IgA IgM Tot Complement (CH50) Active Medications Generic Name Dose Route Start Last Admin Trade Name Freq PRN Reason Stop Dose Admin Acetaminophen 650 mg 07/06/17 16:59 07/08/17 18:08 Tylenol - PO 650 mg Q4H PRN Administration FEVER OR PAIN Al Hydroxide/Mg Hydroxide 30 ml 07/07/17 10:22 07/07/17 11:29 Mylanta Oral Suspension - PO 30 ml Q6H PRN Administration DYSPEPSIA Chlordiazepoxide HCl 25 mg 07/09/17 22:00 07/09/17 22:22 Librium - PO 25 mg HS RANDI Administration Escitalopram Oxalate 20 mg 07/06/17 10:00 07/10/17 10:40 Lexapro - PO 20 mg DAILY RANDI Administration Folic Acid 1 mg 07/06/17 15:30 07/10/17 11:26 Folic Acid - PO 1 mg DAILY RANDI Administration Vancomycin HCl 1,000 mg/ 250 mls @ 166.667 mls/hr 07/09/17 11:00 07/10/17 14: 37 Dextrose IVPB 166.667 mls/hr BID RANDI Administration Protocol Cefepime HCl 2 gm/ Dextrose 100 mls @ 200 mls/hr 07/09/17 02:00 07/10/17 19: 08 IVPB 200 mls/hr Q8H-IV RANDI Administration Lactulose 20 gm 07/06/17 22:00 07/10/17 11:26 Cephulac (Oral Use) PO 20 gm BID RANDI Administration Ondansetron HCl 8 mg 07/06/17 11:53 07/10/17 10:40 Zofran Odt - SL 8 mg Q6H PRN Administration NAUSEA AND/OR VOMITING Pantoprazole Sodium 40 mg 07/06/17 10:00 07/10/17 11:29 Protonix - PO 40 mg DAILY [facility]I Administration Multivit/Folic Acid/Iron 1 tab 07/06/17 12:00 07/10/17 11:28 Vitamins (Sjr) - PO 1 tab DAILY [facility]I Administration Sucralfate 1 gm 07/08/17 14:30 07/10/17 19:09 Carafate Oral Suspension - PO 1 gm QID [facility]ANDI Administration Thiamine HCl 100 mg 07/06/17 12:00 07/09/17 22:22 Vitamin B1 - PO 100 mg HS RANDI Administration Zolpidem Tartrate 10 mg 07/06/17 11:52 Ambien - PO HS PRN INSOMNIA A/P 32 y/o patient with 32 y/o with alcoholic withdrawal/alcoholic liver disease/fevers Pancytopennia--due to marrow suppression + liver disease--improving On empiric vanco/cefepine etiology of fevers? aspiration monitor for now
[2017-07-10] MEDS: chlordiazePOXIDE HCL 25 MG CAPSULE PO SCH (22:49)
[2017-07-10] MEDS: THIAMINE HCL 100 MG TABLET (FP) PO SCH (22:49)
[2017-07-11] MEDS: CEFEPIME 2 GM in DEXTROSE 5%-WATER - 100 ML IVPB SCH ×3 (02:30→17:18)
[2017-07-11] MEDS ORDERED: PT OWN MED DRAWER 7, Y5N ONE ×4 (03:02→22:39)
[2017-07-11] MEDS ORDERED: ESCITALOPRAM OXALATE 10 MG TABLET (FP) ONE (10:17)
[2017-07-11] MEDS: LACTULOSE 20 GM/30 ML UDC (FOR ORAL USE ONLY) PO SCH ×2 (10:45→23:04)
[2017-07-11] MEDS: PANTOPRAZOLE 40 MG TABLET (FP) PO SCH (10:46)
[2017-07-11] MEDS: PRENATAL VITAMINS W/ FOLIC ACID TABLET (FP) PO SCH (10:46)
[2017-07-11] MEDS: FOLIC ACID 1 MG TABLET (FP) PO SCH (10:46)
[2017-07-11] MEDS: SUCRALFATE 1 GM/10 ML UNIT DOSE CUPS PO SCH ×4 (10:46→23:20)
[2017-07-11] MEDS: ESCITALOPRAM OXALATE 20 MG TABLET (FP) PO SCH (10:53)
[2017-07-11] MEDS: VANCOMYCIN 1,000 MG in DEXTROSE 5%-WATER - 250 ML IVPB SCH ×2 (10:54→23:04)
--- NOTE | 2017-07-11 15:42 | PN ---
Progress Note, Physician History of Present Illness: stable - Current Medication List Current Medications: Active Medications Acetaminophen (Tylenol -) 650 mg PO Q4H PRN PRN Reason: FEVER OR PAIN Last Admin: 07/08/17 18:08 Dose: 650 mg Al Hydroxide/Mg Hydroxide (Mylanta Oral Suspension -) 30 ml PO Q6H PRN PRN Reason: DYSPEPSIA Last Admin: 07/07/17 11:29 Dose: 30 ml Chlordiazepoxide HCl (Librium -) 25 mg PO HS [facility] Last Admin: 07/10/17 22:49 Dose: 25 mg Escitalopram Oxalate (Lexapro -) 20 mg PO DAILY [facility] Last Admin: 07/11/17 10:53 Dose: 20 mg Folic Acid (Folic Acid -) 1 mg PO DAILY [facility] Last Admin: 07/11/17 10:46 Dose: 1 mg Vancomycin HCl 1,000 mg/ (Dextrose) 250 mls @ 166.667 mls/hr IVPB BID RANDI PRN Reason: Protocol Last Admin: 07/11/17 10:54 Dose: 166.667 mls/hr Cefepime HCl 2 gm/ Dextrose 100 mls @ 200 mls/hr IVPB Q8H-IV [facility]I Last Admin: 07/11/17 10:25 Dose: 200 mls/hr Lactulose (Cephulac (Oral Use)) 20 gm PO BID [facility] Last Admin: 07/11/17 10:45 Dose: 20 gm Ondansetron HCl (Zofran Odt -) 8 mg SL Q6H PRN PRN Reason: NAUSEA AND/OR VOMITING Last Admin: 07/10/17 10:40 Dose: 8 mg Pantoprazole Sodium (Protonix -) 40 mg PO DAILY [facility] Last Admin: 07/11/17 10:46 Dose: 40 mg Multivit/Folic Acid/Iron ( Vitamins (Sjr) -) 1 tab PO DAILY [facility] Last Admin: 07/11/17 10:46 Dose: 1 tab Sucralfate (Carafate Oral Suspension -) 1 gm PO QID [facility] Last Admin: 07/11/17 14:34 Dose: 1 gm Thiamine HCl (Vitamin B1 -) 100 mg PO HS [facility] Last Admin: 07/10/17 22:49 Dose: 100 mg Zolpidem Tartrate (Ambien -) 10 mg PO HS PRN PRN Reason: INSOMNIA - Objective Vital Signs: Vital Signs Temperature 99.1 F 07/11/17 14:45 Pulse Rate 76 07/11/17 14:45 Respiratory Rate 18 07/11/17 14:45 Blood Pressure 104/52 07/11/17 14:45 O2 Sat by Pulse Oximetry (%) 98 07/11/17 09:00 Constitutional: Yes: No Distress HENT: Yes: Atraumatic Neck: Yes: Supple Cardiovascular: Yes: Regular Rate and Rhythm Respiratory: Yes: CTA Bilaterally Gastrointestinal: Yes: Normal Bowel Sounds Extremities: Yes: WNL Edema: No Neurological: Yes: Alert, Oriented Labs: CBC, BMP 07/10/17 06:30 07/10/17 06:30 INR, PTT INR 1.35 (0.82-1.09) H 07/10/17 06:30 Fibrinogen 254.0 mg/dL (238-498) D 07/10/17 06:30 Problem List - Problems (1) Alcohol dependence with uncomplicated withdrawal Assessment/Plan: on librium protocol Code(s): F10.230 - ALCOHOL DEPENDENCE WITH WITHDRAWAL, UNCOMPLICATED (2) Pancytopenia Assessment/Plan: due to etoh heme consult Code(s): D61.818 - OTHER PANCYTOPENIA (3) History of anemia Assessment/Plan: s/p blood transfusion gi consult egd...done..gastritis on protonix Code(s): Z86.2 - PRSNL HISTORY OF DIS OF THE BLD/BLD-FORM ORG/IMMUN MECHNSM (4) Alcoholic liver disease Code(s): K70.9 - ALCOHOLIC LIVER DISEASE, UNSPECIFIED (5) Nicotine dependence Code(s): F17.200 - NICOTINE DEPENDENCE, UNSPECIFIED, UNCOMPLICATED (6) Substance induced mood disorder Code(s): F19.94 - OTH PSYCHOACTIVE SUBSTANCE USE, UNSP W MOOD DISORDER Assessment/Plan DC PLANNING OFF OF ABX
--- NOTE | 2017-07-11 18:15 | PN ---
Progress Note (short form) - Note Progress Note: Patient seen and examined Denies any complaints Last Vital Signs Temp Pulse Resp BP Pulse Ox 99.1 F 76 18 104/52 98 07/11/17 14:45 07/11/17 14:45 07/11/17 14:45 07/11/17 14:45 07/11/17 09:00 Cor: RSR, No murmurs, No gallops Lungs: Clear to P&A Abd: Soft, Normal bowel sounds, No organomegaly Ext:No significant edema Active Medications Generic Name Dose Route Start Last Admin Trade Name Freq PRN Reason Stop Dose Admin Acetaminophen 650 mg 07/06/17 16:59 07/08/17 18:08 Tylenol - PO 650 mg Q4H PRN Administration FEVER OR PAIN Al Hydroxide/Mg Hydroxide 30 ml 07/07/17 10:22 07/07/17 11:29 Mylanta Oral Suspension - PO 30 ml Q6H PRN Administration DYSPEPSIA Chlordiazepoxide HCl 25 mg 07/09/17 22:00 07/10/17 22:49 Librium - PO 25 mg HS [facility]ANDI Administration Escitalopram Oxalate 20 mg 07/06/17 10:00 07/11/17 10:53 Lexapro - PO 20 mg DAILY [facility] Administration Folic Acid 1 mg 07/06/17 15:30 07/11/17 10:46 Folic Acid - PO 1 mg DAILY [facility] Administration Vancomycin HCl 1,000 mg/ 250 mls @ 166.667 mls/hr 07/09/17 11:00 07/11/17 10: 54 Dextrose IVPB 166.667 mls/hr BID RANDI Administration Protocol Cefepime HCl 2 gm/ Dextrose 100 mls @ 200 mls/hr 07/09/17 02:00 07/11/17 17: 18 IVPB 200 mls/hr Q8H-IV [facility]I Administration Lactulose 20 gm 07/06/17 22:00 07/11/17 10:45 Cephulac (Oral Use) PO 20 gm BID [facility]I Administration Ondansetron HCl 8 mg 07/06/17 11:53 07/10/17 10:40 Zofran Odt - SL 8 mg Q6H PRN Administration NAUSEA AND/OR VOMITING Pantoprazole Sodium 40 mg 07/06/17 10:00 07/11/17 10:46 Protonix - PO 40 mg DAILY [facility] Administration Multivit/Folic Acid/Iron 1 tab 07/06/17 12:00 07/11/17 10:46 Vitamins (Sjr) - PO 1 tab DAILY [facility] Administration Sucralfate 1 gm 07/08/17 14:30 07/11/17 17:18 Carafate Oral Suspension - PO 1 gm QID [facility]I Administration Thiamine HCl 100 mg 07/06/17 12:00 07/10/17 22:49 Vitamin B1 - PO 100 mg HS [facility]I Administration Zolpidem Tartrate 10 mg 07/06/17 11:52 Ambien - PO HS PRN INSOMNIA A/P 32 y/o with alcoholic withdrawal/alcoholic liver disease/fevers Pancytopennia--due to marrow suppression + liver disease--improving On empiric vanco/cefepine etiology of fevers? aspiration monitor for now on antibiotics clinically improved
[2017-07-11] MEDS: THIAMINE HCL 100 MG TABLET (FP) PO SCH (23:04)
[2017-07-11] MEDS: chlordiazePOXIDE HCL 25 MG CAPSULE PO SCH (23:04)
[2017-07-12 08:00] LABS: MCH 28.2 pg (25.7-33.7); MEAN CELL VOLUME 85.7 fl (80-96); MEAN PLT VOLUME 8.7 fl (7.5-11.1)
[2017-07-12 08:02] LABS: WHITE BLOOD COUNT 1.7 K/mm3 (4.0-10.0)
[2017-07-12 08:03] LABS: PLATELET COUNT 59 K/MM3 (134-434)
[2017-07-12 08:47] LABS: ALK PHOS 96 U/L (45-117); ANION GAP 7 (8-16); BILIRUBIN,TOTAL 1.5 mg/dL (0.2-1.0); CALCIUM 8.4 mg/dL (8.5-10.1); CO2 29 mmol/L (21-32); CREATININE 0.8 mg/dL (0.7-1.3); GLUCOSE,RANDOM 94 mg/dL (74-106); SGOT/AST 102 U/L (15-37); SGPT/ALT 62 U/L (12-78); TOT PROT 6.8 g/dl (6.4-8.2)
[2017-07-12] MEDS ORDERED: ESCITALOPRAM OXALATE 10 MG TABLET (FP) ONE (09:01)
[2017-07-12] MEDS: MAG HYDROX/AL HYDROX/SIMETH 30 ML UNIT-DOSE CUP PO PRN (09:08)
[2017-07-12] MEDS: LACTULOSE 20 GM/30 ML UDC (FOR ORAL USE ONLY) PO SCH ×2 (09:09→22:15)
[2017-07-12] MEDS: FOLIC ACID 1 MG TABLET (FP) PO SCH (09:09)
[2017-07-12] MEDS: PANTOPRAZOLE 40 MG TABLET (FP) PO SCH (09:09)
[2017-07-12] MEDS: SUCRALFATE 1 GM/10 ML UNIT DOSE CUPS PO SCH ×4 (09:09→22:15)
[2017-07-12] MEDS: ESCITALOPRAM OXALATE 20 MG TABLET (FP) PO SCH (09:10)
[2017-07-12] MEDS: PRENATAL VITAMINS W/ FOLIC ACID TABLET (FP) PO SCH (09:10)
[2017-07-12 09:57] LABS: ACANTHOCYTES 0; ANISOCYTOSIS 0; BURR CELLS 0; CABBOT RINGS 0; HELMET CELLS 0; HOWELL-JOLLY BODIES 0; HYPOCHROMIA 0; MACROCYTOSIS 0; METAMYELOCYTE 0 % (0-2); MICROCYTOSIS 0; MYELOCYTE 0 % (0-2); OVALOCYTE 0; POIKILOCYTOSIS 0; POLYCHROMASIA 0; REACTIVE LYMPHOCYTES 0 % (0-80); SCHISTOCYTES 0; SPHEROCYTE 0; STOMATOCYTE 0; TARGET CELLS 0; TEAR DROP CELLS 0; TOXIC GRANULATION 0
[2017-07-12] MEDS: VANCOMYCIN 1,000 MG in DEXTROSE 5%-WATER - 250 ML IVPB SCH (10:16)
[2017-07-12 10:26] LABS: PLATELET ESTIMATE DECREASED
[2017-07-12 11:33] LABS: TOTAL CELLS COUNTED 57
--- NOTE | 2017-07-12 12:12 | PN ---
Progress Note, Physician History of Present Illness: No events. Lab results noted no external signs of bleeding. Appears comfortable. - Current Medication List Current Medications: Active Medications Acetaminophen (Tylenol -) 650 mg PO Q4H PRN PRN Reason: FEVER OR PAIN Last Admin: 07/08/17 18:08 Dose: 650 mg Al Hydroxide/Mg Hydroxide (Mylanta Oral Suspension -) 30 ml PO Q6H PRN PRN Reason: DYSPEPSIA Last Admin: 07/12/17 09:08 Dose: 30 ml Chlordiazepoxide HCl (Librium -) 25 mg PO HS [facility] Last Admin: 07/11/17 23:04 Dose: 25 mg Escitalopram Oxalate (Lexapro -) 20 mg PO DAILY [facility] Last Admin: 07/12/17 09:10 Dose: 20 mg Folic Acid (Folic Acid -) 1 mg PO DAILY [facility] Last Admin: 07/12/17 09:09 Dose: 1 mg Lactulose (Cephulac (Oral Use)) 20 gm PO BID [facility] Last Admin: 07/12/17 09:09 Dose: 20 gm Ondansetron HCl (Zofran Odt -) 8 mg SL Q6H PRN PRN Reason: NAUSEA AND/OR VOMITING Last Admin: 07/10/17 10:40 Dose: 8 mg Pantoprazole Sodium (Protonix -) 40 mg PO DAILY [facility] Last Admin: 07/12/17 09:09 Dose: 40 mg Multivit/Folic Acid/Iron ( Vitamins (Sjr) -) 1 tab PO DAILY [facility] Last Admin: 07/12/17 09:10 Dose: 1 tab Sucralfate (Carafate Oral Suspension -) 1 gm PO QID [facility] Last Admin: 07/12/17 09:09 Dose: 1 gm Thiamine HCl (Vitamin B1 -) 100 mg PO HS [facility] Last Admin: 07/11/17 23:04 Dose: 100 mg Zolpidem Tartrate (Ambien -) 10 mg PO HS PRN PRN Reason: INSOMNIA - Objective Vital Signs: Vital Signs Temperature 98.3 F 07/12/17 06:00 Pulse Rate 65 07/12/17 06:00 Respiratory Rate 20 07/12/17 06:00 Blood Pressure 109/63 07/12/17 06:00 O2 Sat by Pulse Oximetry (%) 98 07/11/17 21:00 Constitutional: Yes: No Distress, Calm Eyes: Yes: Conjunctiva Clear Neck: Yes: Supple Respiratory: Yes: Regular Gastrointestinal: Yes: Normal Bowel Sounds, Soft. No: Melena, Rectal Bleeding, Tenderness, Vomiting Neurological: Yes: Alert, Oriented Labs: CBC, BMP 07/12/17 07:30 07/12/17 07:30 INR, PTT INR 1.35 (0.82-1.09) H 07/10/17 06:30 Fibrinogen 254.0 mg/dL (238-498) D 07/10/17 06:30 Laboratory Results - last 24 hr 07/12/17 07/12/17 07/12/17 07:30 07:30 09:30 WBC 1.7 L* D RBC 2.45 L Hgb 6.9 L* D Hct 21.0 L MCV 85.7 MCH 28.2 MCHC 33.0 RDW 20.0 H Plt Count 59 L MPV 8.7 Total Counted 57 Neutrophils % No Result Required. Neutrophils % (Manual) 50.9 Band Neutrophils % 0.0 Lymphocytes % No Result Required. Lymphocytes % (Manual) 17.5 D Monocytes % (Manual) 25 H* D Eosinophils % (Manual) 7.0 H D Basophils % (Manual) 0.0 Myelocytes % (Man) 0 Metamyelocytes 0 Hypochromia 0 Toxic Granulation 0 Dohle Bodies 0 Platelet Estimate Decreased Polychromasia 0 Poikilocytosis 0 Basophilic Stippling 0 Anisocytosis 0 Microcytosis 0 Macrocytosis 0 Spherocytes 0 Sickle Cells 0 Target Cells 0 Tear Drop Cells 0 Ovalocytes 0 Stomatocytes 0 Helmet Cells 0 [place] Bodies 0 [place] Rings 0 [place] Cells 0 Acanthocytes (Spur) 0 Fragmented RBCs 0 Schistocytes 0 Sodium 136 Potassium 3.7 Chloride 100 Carbon Dioxide 29 Anion Gap 7 L BUN 21 H D Creatinine 0.8 Creat Clearance w eGFR > 60 Random Glucose 94 Calcium 8.4 L Total Bilirubin 1.5 H AST 102 H D ALT 62 D Alkaline Phosphatase 96 Total Protein 6.8 Albumin 3.0 L Blood Type O POSITIVE Antibody Screen Negative Crossmatch See Detail Problem List - Problems (1) Alcoholic liver disease Code(s): K70.9 - ALCOHOLIC LIVER DISEASE, UNSPECIFIED (2) Alcohol dependence with uncomplicated withdrawal Code(s): F10.230 - ALCOHOL DEPENDENCE WITH WITHDRAWAL, UNCOMPLICATED (3) Pancytopenia Code(s): D61.818 - OTHER PANCYTOPENIA Assessment/Plan Diet as tolerated Pathology - mild chronic gastritis, negative for H. pylori. Continue PPI Lactulose qd-bid
--- NOTE | 2017-07-12 12:25 | PN ---
S Progress Note (SOAP) Subjective: no complaints, wants to leave - to go to rehab [facility] Objective: 07/12/17 12:23 Vital Signs - 8 hr 07/12/17 06:00 Temperature 98.3 F Pulse Rate 65 Respiratory 20 Rate Blood Pressure 109/63 Laboratory Results - last 24 hr 07/12/17 07/12/17 07/12/17 07:30 07:30 09:30 WBC 1.7 L* D RBC 2.45 L Hgb 6.9 L* D Hct 21.0 L MCV 85.7 MCH 28.2 MCHC 33.0 RDW 20.0 H Plt Count 59 L MPV 8.7 Total Counted 57 Neutrophils % No Result Required. Neutrophils % (Manual) 50.9 Band Neutrophils % 0.0 Lymphocytes % No Result Required. Lymphocytes % (Manual) 17.5 D Monocytes % (Manual) 25 H* D Eosinophils % (Manual) 7.0 H D Basophils % (Manual) 0.0 Myelocytes % (Man) 0 Metamyelocytes 0 Hypochromia 0 Toxic Granulation 0 Dohle Bodies 0 Platelet Estimate Decreased Polychromasia 0 Poikilocytosis 0 Basophilic Stippling 0 Anisocytosis 0 Microcytosis 0 Macrocytosis 0 Spherocytes 0 Sickle Cells 0 Target Cells 0 Tear Drop Cells 0 Ovalocytes 0 Stomatocytes 0 Helmet Cells 0 [place] Bodies 0 [place] Rings 0 [place] Cells 0 Acanthocytes (Spur) 0 Fragmented RBCs 0 Schistocytes 0 Sodium 136 Potassium 3.7 Chloride 100 Carbon Dioxide 29 Anion Gap 7 L BUN 21 H D Creatinine 0.8 Creat Clearance w eGFR > 60 Random Glucose 94 Calcium 8.4 L Total Bilirubin 1.5 H AST 102 H D ALT 62 D Alkaline Phosphatase 96 Total Protein 6.8 Albumin 3.0 L Blood Type O POSITIVE Antibody Screen Negative Crossmatch See Detail still pancytopenic, on antibioitics, bruising on face healing well. Assessment: 07/12/17 12:24 consider transfusion, transfer to [facility] rehab when medicallys table, completed , detox, no further medication requried.
--- NOTE | 2017-07-12 16:33 | PN ---
Progress Note, Physician History of Present Illness: Pt afebrile, alert. Has no specific complaints. Denies fever,chills, shortness of breath, cough, abd pain/n/v/d, dysuria. Receiving blood transfusion. - Current Medication List Current Medications: Active Medications Acetaminophen (Tylenol -) 650 mg PO Q4H PRN PRN Reason: FEVER OR PAIN Last Admin: 07/08/17 18:08 Dose: 650 mg Al Hydroxide/Mg Hydroxide (Mylanta Oral Suspension -) 30 ml PO Q6H PRN PRN Reason: DYSPEPSIA Last Admin: 07/12/17 09:08 Dose: 30 ml Escitalopram Oxalate (Lexapro -) 20 mg PO DAILY [facility] Last Admin: 07/12/17 09:10 Dose: 20 mg Folic Acid (Folic Acid -) 1 mg PO DAILY [facility] Last Admin: 07/12/17 09:09 Dose: 1 mg Lactulose (Cephulac (Oral Use)) 20 gm PO BID [facility] Last Admin: 07/12/17 09:09 Dose: 20 gm Ondansetron HCl (Zofran Odt -) 8 mg SL Q6H PRN PRN Reason: NAUSEA AND/OR VOMITING Last Admin: 07/10/17 10:40 Dose: 8 mg Pantoprazole Sodium (Protonix -) 40 mg PO DAILY [facility] Last Admin: 07/12/17 09:09 Dose: 40 mg Multivit/Folic Acid/Iron ( Vitamins (Sjr) -) 1 tab PO DAILY [facility] Last Admin: 07/12/17 09:10 Dose: 1 tab Sucralfate (Carafate Oral Suspension -) 1 gm PO QID [facility] Last Admin: 07/12/17 14:36 Dose: 1 gm Thiamine HCl (Vitamin B1 -) 100 mg PO HS [facility] Last Admin: 07/11/17 23:04 Dose: 100 mg - Objective Vital Signs: Vital Signs Temperature 98.6 F 07/12/17 15:00 Pulse Rate 74 07/12/17 15:00 Respiratory Rate 20 07/12/17 15:00 Blood Pressure 110/59 07/12/17 15:00 O2 Sat by Pulse Oximetry (%) 98 07/12/17 09:00 Constitutional: Yes: No Distress Cardiovascular: Yes: Regular Rate and Rhythm Respiratory: Yes: CTA Bilaterally Gastrointestinal: Yes: Normal Bowel Sounds, Soft Genitourinary: Yes: WNL Extremities: Yes: WNL Neurological: Yes: Alert, Oriented Labs: CBC, BMP 07/12/17 07:30 07/12/17 07:30 INR, PTT INR 1.35 (0.82-1.09) H 07/10/17 06:30 Fibrinogen 254.0 mg/dL (238-498) D 07/10/17 06:30 Microbiology 07/08/17 17:30 Blood - Peripheral Venous Blood Culture - Preliminary NO GROWTH OBTAINED AFTER 72 HOURS, INCUBATION TO CONTINUE FOR 2 DAYS. 07/08/17 17:30 Blood - Peripheral Venous Blood Culture - Preliminary NO GROWTH OBTAINED AFTER 72 HOURS, INCUBATION TO CONTINUE FOR 2 DAYS. 07/05/17 21:00 Blood - Peripheral Venous Blood Culture - Final NO GROWTH AFTER 5 DAYS INCUBATION 07/05/17 21:00 Blood - Peripheral Venous Blood Culture - Final NO GROWTH AFTER 5 DAYS INCUBATION 07/08/17 22:00 Urine - Urine Clean Catch Urine Culture - Final NO GROWTH OBTAINED Problem List - Problems (1) Alcohol dependence with uncomplicated withdrawal Code(s): F10.230 - ALCOHOL DEPENDENCE WITH WITHDRAWAL, UNCOMPLICATED (2) Alcoholic liver disease Code(s): K70.9 - ALCOHOLIC LIVER DISEASE, UNSPECIFIED (3) Pancytopenia Code(s): D61.818 - OTHER PANCYTOPENIA (4) Fever and neutropenia Code(s): D70.9 - NEUTROPENIA, UNSPECIFIED; R50.81 - FEVER PRESENTING WITH CONDITIONS CLASSIFIED ELSEWHERE Assessment/Plan Fever - pt without specific complaints - afebrile 48hrs - monitor off antibiotics - cont monitor vitals, stable at this time
--- NOTE | 2017-07-12 22:00 | PN ---
Progress Note, Physician - Current Medication List Current Medications: Active Medications Acetaminophen (Tylenol -) 650 mg PO Q4H PRN PRN Reason: FEVER OR PAIN Last Admin: 07/08/17 18:08 Dose: 650 mg Al Hydroxide/Mg Hydroxide (Mylanta Oral Suspension -) 30 ml PO Q6H PRN PRN Reason: DYSPEPSIA Last Admin: 07/12/17 09:08 Dose: 30 ml Escitalopram Oxalate (Lexapro -) 20 mg PO DAILY [facility] Last Admin: 07/12/17 09:10 Dose: 20 mg Folic Acid (Folic Acid -) 1 mg PO DAILY [facility] Last Admin: 07/12/17 09:09 Dose: 1 mg Lactulose (Cephulac (Oral Use)) 20 gm PO BID [facility] Last Admin: 07/12/17 09:09 Dose: 20 gm Ondansetron HCl (Zofran Odt -) 8 mg SL Q6H PRN PRN Reason: NAUSEA AND/OR VOMITING Last Admin: 07/10/17 10:40 Dose: 8 mg Pantoprazole Sodium (Protonix -) 40 mg PO DAILY [facility] Last Admin: 07/12/17 09:09 Dose: 40 mg Multivit/Folic Acid/Iron ( Vitamins (Sjr) -) 1 tab PO DAILY [facility] Last Admin: 07/12/17 09:10 Dose: 1 tab Sucralfate (Carafate Oral Suspension -) 1 gm PO QID [facility] Last Admin: 07/12/17 17:30 Dose: 1 gm Thiamine HCl (Vitamin B1 -) 100 mg PO HS [facility] Last Admin: 07/11/17 23:04 Dose: 100 mg - Objective Vital Signs: Vital Signs Temperature 98.6 F 07/12/17 15:00 Pulse Rate 74 07/12/17 15:00 Respiratory Rate 20 07/12/17 15:00 Blood Pressure 110/59 07/12/17 15:00 O2 Sat by Pulse Oximetry (%) 98 07/12/17 09:00 Constitutional: Yes: No Distress HENT: Yes: Atraumatic Neck: Yes: Supple Cardiovascular: Yes: Regular Rate and Rhythm Respiratory: Yes: CTA Bilaterally Gastrointestinal: Yes: Normal Bowel Sounds Extremities: Yes: WNL Neurological: Yes: Alert, Oriented Labs: CBC, BMP 07/12/17 07:30 07/12/17 07:30 INR, PTT INR 1.35 (0.82-1.09) H 07/10/17 06:30 Fibrinogen 254.0 mg/dL (238-498) D 07/10/17 06:30 Problem List - Problems (1) Alcohol dependence with uncomplicated withdrawal Assessment/Plan: on librium protocol...completed Code(s): F10.230 - ALCOHOL DEPENDENCE WITH WITHDRAWAL, UNCOMPLICATED (2) Pancytopenia Assessment/Plan: due to etoh heme consult much improved Code(s): D61.818 - OTHER PANCYTOPENIA (3) History of anemia Assessment/Plan: s/p blood transfusion gi consult egd...done..gastritis on protonix s/p blood transfusion Code(s): Z86.2 - PRSNL HISTORY OF DIS OF THE BLD/BLD-FORM ORG/IMMUN MECHNSM (4) Alcoholic liver disease Code(s): K70.9 - ALCOHOLIC LIVER DISEASE, UNSPECIFIED (5) Nicotine dependence Code(s): F17.200 - NICOTINE DEPENDENCE, UNSPECIFIED, UNCOMPLICATED (6) Substance induced mood disorder Code(s): F19.94 - OTH PSYCHOACTIVE SUBSTANCE USE, UNSP W MOOD DISORDER
[2017-07-12] MEDS: THIAMINE HCL 100 MG TABLET (FP) PO SCH (22:15)
--- NOTE | 2017-07-12 22:18 | PN ---
Progress Note (short form) - Note Progress Note: Patient seen and examined Denies any complaints Last Vital Signs Temp Pulse Resp BP Pulse Ox 98.2 F 75 18 125/71 98 07/12/17 19:00 07/12/17 19:00 07/12/17 19:00 07/12/17 19:00 07/12/17 09:00 Cor: RSR, No murmurs, No gallops Lungs: Clear to P&A Abd: Soft, Normal bowel sounds, No organomegaly Ext:No significant edema Abnormal Lab Results 07/12/17 07/12/17 07/12/17 07:30 07:30 09:30 WBC 1.7 L* D RBC 2.45 L Hgb 6.9 L* D Hct 21.0 L RDW 20.0 H Plt Count 59 L Monocytes % (Manual) 25 H* D Eosinophils % (Manual) 7.0 H D Anion Gap 7 L BUN 21 H D Calcium 8.4 L Total Bilirubin 1.5 H AST 102 H D Albumin 3.0 L Crossmatch See Detail Active Medications Generic Name Dose Route Start Last Admin Trade Name Freq PRN Reason Stop Dose Admin Acetaminophen 650 mg 07/06/17 16:59 07/08/17 18:08 Tylenol - PO 650 mg Q4H PRN Administration FEVER OR PAIN Al Hydroxide/Mg Hydroxide 30 ml 07/07/17 10:22 07/12/17 09:08 Mylanta Oral Suspension - PO 30 ml Q6H PRN Administration DYSPEPSIA Escitalopram Oxalate 20 mg 07/06/17 10:00 07/12/17 09:10 Lexapro - PO 20 mg DAILY [facility] Administration Folic Acid 1 mg 07/06/17 15:30 07/12/17 09:09 Folic Acid - PO 1 mg DAILY [facility] Administration Lactulose 20 gm 07/06/17 22:00 07/12/17 22:15 Cephulac (Oral Use) PO 20 gm BID [facility] Administration Ondansetron HCl 8 mg 07/06/17 11:53 07/10/17 10:40 Zofran Odt - SL 8 mg Q6H PRN Administration NAUSEA AND/OR VOMITING Pantoprazole Sodium 40 mg 07/06/17 10:00 07/12/17 09:09 Protonix - PO 40 mg DAILY [facility] Administration Multivit/Folic Acid/Iron 1 tab 07/06/17 12:00 12/11/17 09:10 Vitamins (Sjr) - PO 1 tab DAILY [facility] Administration Sucralfate 1 gm 07/08/17 14:30 07/12/17 22:15 Carafate Oral Suspension - PO 1 gm QID [facility] Administration Thiamine HCl 100 mg 07/06/17 12:00 07/12/17 22:15 Vitamin B1 - PO 100 mg HS [facility] Administration A/P 32 y/o with alcoholic withdrawal/alcoholic liver disease/fevers Pancytopennia--due to marrow suppression + liver disease s/p empiric cefepime/vancomycin etiology of fevers? aspiration hgb dropped today. no over bleeding. transfuse 1 unit of PRBCS. suspect component of hemolysis due to liver disease given low haptoglobin. check angel/ LDH Low WBC--check flowytrometry/PNH w/u--resending specimen
[2017-07-13 06:04] VITALS: TEMP 98.3
[2017-07-13] MEDS ORDERED: ESCITALOPRAM OXALATE 10 MG TABLET (FP) ONE (09:08)
[2017-07-13 09:17] LABS: MCHC 33.1 g/dl (32.0-35.9); MEAN CELL VOLUME 84.7 fl (80-96); MEAN PLT VOLUME 8.8 fl (7.5-11.1); PLATELET COUNT 77 K/MM3 (134-434); RDW 20.2 % (11.9-15.9)
[2017-07-13] MEDS: LACTULOSE 20 GM/30 ML UDC (FOR ORAL USE ONLY) PO SCH (09:17)
[2017-07-13] MEDS: MAG HYDROX/AL HYDROX/SIMETH 30 ML UNIT-DOSE CUP PO PRN (09:18)
[2017-07-13] MEDS: SUCRALFATE 1 GM/10 ML UNIT DOSE CUPS PO SCH (09:18)
[2017-07-13] MEDS: PANTOPRAZOLE 40 MG TABLET (FP) PO SCH (09:18)
[2017-07-13] MEDS: FOLIC ACID 1 MG TABLET (FP) PO SCH (09:18)
[2017-07-13] MEDS: ESCITALOPRAM OXALATE 20 MG TABLET (FP) PO SCH (09:18)
[2017-07-13] MEDS: PRENATAL VITAMINS W/ FOLIC ACID TABLET (FP) PO SCH (09:18)
[2017-07-13 09:24] LABS: WHITE BLOOD COUNT 1.6 K/mm3 (4.0-10.0)
[2017-07-13 11:41] VITALS: BP 104/61; PULSE 73
[2017-07-13 14:39] LABS: ANISOCYTOSIS 1+; HYPOCHROMIA 0; MACROCYTOSIS 0; METAMYELOCYTE 0 % (0-2); MICROCYTOSIS 2+; MYELOCYTE 1 % (0-2); POIKILOCYTOSIS 1+; POLYCHROMASIA 0; REACTIVE LYMPHOCYTES 0 % (0-80); TEAR DROP CELLS 1+
[2017-07-13 15:30] LABS: TOTAL CELLS COUNTED 99
--- NOTE | 2017-07-13 23:03 | DS ---
Physical Examination Vital Signs: Vital Signs Temperature 98.3 F 07/13/17 06:00 Pulse Rate 73 07/13/17 10:00 Respiratory Rate 18 07/13/17 10:00 Blood Pressure 104/61 07/13/17 10:00 O2 Sat by Pulse Oximetry (%) 99 07/13/17 09:00 Labs: CBC, BMP 07/13/17 07:45 07/12/17 07:30 Discharge Summary Reason For Visit: PANCYTOPENIA Condition: Fair - Instructions Disposition: [facility] - Home Medications Comprehensive Discharge Medication List: Ambulatory Orders Ferrous Sulfate [Feosol] 325 mg PO TIDCM #90 tab 03/19/17 Pantoprazole Sodium [Protonix -] 40 mg PO DAILY #30 tab 03/19/17 Escitalopram Oxalate [Lexapro -] 20 mg PO DAILY #30 tablet 07/05/17 Folic Acid - 1 mg PO DAILY #30 tablet 07/11/17 Vitamins (Sjr) - 1 tab PO DAILY #30 tablet 07/11/17 dc to [facility]
--- NOTE | 2017-07-14 16:54 | PATH ---
Surgical Pathology Report Patient Name: FRANCISCO NUÑEZ Med. Rec. #: [id number] /Age/Gender: 1985 (Age: 32) / M Account: [id number] Location: [address] [place] [address] Taken: 07/13/2017 Received: 07/13/2017 Reported: 07/14/2017 Physicians: Fabiana Godinez M.D. Specimen(s) Received PERIPHERAL BLOOD 2 GREEN TOPS Clinical History Anemia Final Diagnosis Paroxysmal Nocturnal Hemoglobinuria Assay by Flow performed and reported by [facility], [place], [place] ([id number]) shows the following: RESULTS: No phenotypic evidence of Paroxysmal Nocturnal Hemoglobinuria (PN[facility]). See [facility] report ([id number]) for additional details. Electronically Signed Nay Campos M.D. Addendum Reported: 07/15/2017 Addendum Diagnosis MYELODYSPLASIA [facility] [place] ([id number]) shows the following: INTERPRETATION: No evidence of deletion 5q or monosomy 5 is present. No evidence of deletion 7q or monosomy 7 is present. No evidence of trisomy 8 (+8) is present. No evidence of deletion 13q14 is present. No evidence of rearrangement of 11q23. No evidence of a deletion of the p53 (17p13) locus. No evidence of deletion 20q12 is present See [facility] report ([id number]) for additional details. Cytogenetics studies pending and results will be reported separately. Nay Campos M.D. Gross Description Received are 2 green top tubes of peripheral blood which are sent to [facility]. /07/13/201707/13/2017
== END 2017-07-13 13:50 | disposition other institution (70) | DRG 660 ==
LOC: JER 12:18 → JERBED 14:43 → INTOOBSV 14:43 → J6S 16:24 → OBSVTOIN 07-07 19:00
PROVIDERS: ADMIT Internal Medicine; ATTEND Internal Medicine
PROC: 30233N1 Transfusion of Nonautologous Red Blood Cells into Peripheral Vein, Percutaneous Approach (ICD-10-PCS; 2017-07-05)
PROC: 30233R1 Transfusion of Nonautologous Platelets into Peripheral Vein, Percutaneous Approach (ICD-10-PCS; 2017-07-06)
PROC: 0DD68ZX Extraction of Stomach, Via Natural or Artificial Opening Endoscopic, Diagnostic (ICD-10-PCS; principal; 2017-07-08 09:30)
DX: D61.818 Other pancytopenia (principal); F10.230 Alcohol dependence with withdrawal, uncomplicated; K70.9 Alcoholic liver disease, unspecified; F19.94 Other psychoactive substance use, unspecified with psychoactive substance-induced mood disorder; D70.9 Neutropenia, unspecified; K29.50 Unspecified chronic gastritis without bleeding; D64.9 Anemia, unspecified
CPT/HCPCS: 36415; 36430; 36511; 70450-TC; 71010-TC; 73560-TC-LT; 76700-TC; 80053; 80307; 81003; 82272; 82607; 82728; 82747; 82784; 83010; 83540; 83615; 83883; 84155; 84165; 84439; 84443; 85014; 85025; 85027; 85044; 85384; 85610; 85651; 85730; 86038; 86162; 86334; 86431; 86704; 86707; 86803; 86850; 86880; 86900; 86901; 86922; 87040; 87086; 87340; 87350; 87389; 88300-TC; 88305-TC; 93005; 93010; 99284-25; G0378; P9034; P9038; P9058

== ENCOUNTER 2019-01-18 15:09 | Inpatient (IN) | payer OTHER ==
--- NOTE | 2019-01-18 15:22 | PDOC ---
History of Present Illness - General Stated Complaint: LOW BLOOD COUNT Time Seen by Provider: 01/18/19 15:22 Past History - Past Medical History Allergies/Adverse Reactions: Allergies Allergy/AdvReac Type Severity Reaction Status Date / Time No Known Allergies Allergy Verified 07/05/17 13:14 Home Medications: Ambulatory Orders Ferrous Sulfate [Feosol] 325 mg PO TIDCM #90 tab 03/19/17 Pantoprazole Sodium [Protonix -] 40 mg PO DAILY #30 tab 03/19/17 Escitalopram Oxalate [Lexapro -] 20 mg PO DAILY #30 tablet 07/05/17 Folic Acid - 1 mg PO DAILY #30 tablet 07/11/17 Vitamins (Sjr) - 1 tab PO DAILY #30 tablet 07/11/17 Fluoxetine HCl [Prozac] 40 mg PO DAILY 01/18/19 Quetiapine Fumarate [Seroquel -] 50 mg PO HS 01/18/19 Anemia: Yes (TRANSFUSED in 10/2018) Asthma: No Cancer: No Cardiac Disorders: No CVA: No COPD: No CHF: No Dementia: No Diabetes: No GI Disorders: Yes (GERD) Disorders: No HTN: No Hypercholesterolemia: No Kidney Stones: No 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 (etoh related (2 mos ago)) Thyroid Disease: No - Surgical History Abdominal Surgery: No Appendectomy: Yes (2011) Cardiac Surgery: No Lung Surgery: No Neurologic Surgery: No Orthopedic Surgery: Yes (L shoulder sx in 2013-METAL PLATE IN SHOULDER) - Reproductive History Testicular Surgery: No - Suicide/Smoking/Psychosocial Hx Smoking History: Current every day smoker Have you smoked in the past 12 months: Yes Number of Cigarettes Smoked Daily: 6 Cigars Per Day: 0 'Breaking Loose' booklet given: 01/18/19 Hx Alcohol Use: Yes Drug/Substance Use Hx: Yes Substance Use Type: Alcohol Hx Substance Use Treatment: No
--- NOTE | 2019-01-18 16:17 | PDOC ---
History of Present Illness - General Chief Complaint: Revisit, Lab Variance Stated Complaint: LOW BLOOD COUNT Time Seen by Provider: 01/18/19 15:22 History Source: Patient Exam Limitations: No Limitations - History of Present Illness Initial Comments: 01/18/19 16:12 33YOM with h/o heavy EtOH use (3 pints a day with last drink yesterday, multiple prior detox), prior pancytopenia (previously transfused multiple times , admitted in 2017, had heme consult at that time, thought to be related to heavy EtOH use) who p/w pancytopenia lab abnormality with WBC 0.9 as noted on his [facility]. He checked in to [facility] for EtOH detox early this morning. He notes tiredness and malaise similar to his prior EtOH withdrawal, and also SOB, but otherwise denies any new symptoms. He was given Ativan per [facility] protocol prior to being transported here from [facility]. Past History - Past Medical History Allergies/Adverse Reactions: Allergies Allergy/AdvReac Type Severity Reaction Status Date / Time No Known Allergies Allergy Verified 01/18/19 17:35 Home Medications: Ambulatory Orders Ferrous Sulfate [Feosol] 325 mg PO TIDCM #90 tab 03/19/17 Pantoprazole Sodium [Protonix -] 40 mg PO DAILY #30 tab 03/19/17 Escitalopram Oxalate [Lexapro -] 20 mg PO DAILY #30 tablet 07/05/17 Folic Acid - 1 mg PO DAILY #30 tablet 07/11/17 Vitamins (Sjr) - 1 tab PO DAILY #30 tablet 07/11/17 Fluoxetine HCl [Prozac] 40 mg PO DAILY 01/18/19 Quetiapine Fumarate [Seroquel -] 50 mg PO HS 01/18/19 Anemia: Yes (TRANSFUSED in 10/2018) Asthma: No Cancer: No Cardiac Disorders: No CVA: No COPD: No CHF: No Dementia: No Diabetes: No GI Disorders: Yes (GERD) Disorders: No HTN: No Hypercholesterolemia: No Kidney Stones: No 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 (etoh related (2 mos ago)) Thyroid Disease: No - Surgical History Abdominal Surgery: No Appendectomy: Yes (2011) Cardiac Surgery: No Lung Surgery: No Neurologic Surgery: No Orthopedic Surgery: Yes (L shoulder sx in 2013-METAL PLATE IN SHOULDER) - Reproductive History Testicular Surgery: No - Suicide/Smoking/Psychosocial Hx Smoking History: Former smoker Have you smoked in the past 12 months: No Number of Cigarettes Smoked Daily: 6 Cigars Per Day: 0 Information on smoking cessation initiated: No 'Breaking Loose' booklet given: 01/18/19 Hx Alcohol Use: Yes Drug/Substance Use Hx: Yes Substance Use Type: Alcohol Hx Substance Use Treatment: No Review of Systems - Review of Systems Able to Perform ROS?: Yes Comments:: GEN: fever, chills, malaise, generalized weakness, tiredness no weight change HEENT: no ear pain, sore throat, vision change, or eye pain CV: no chest pain, palpitations, lightheadedness, syncope, or edema RESP: SOB, no cough, or wheezing GI: no abdominal pain, nausea, vomiting, diarrhea, constipation, or white/black/ bloody stool : no dysuria, hematuria, incontinence, retention, bleeding, or discharge MSK: no neck/back pain, muscle weakness/pain, or joint swelling/pain NEURO: no headache, seizure, vertigo, numbness, tingling, or focal weakness PSYCH: substance use, no SI/HI SKIN: no jaundice, no rash ROS otherwise negative except as noted in HPI *Physical Exam - Vital Signs Last Vital Signs Temp Pulse Resp BP Pulse Ox 98.2 F 76 16 113/71 97 01/18/19 15:20 01/18/19 15:20 01/18/19 15:20 01/18/19 15:20 01/18/19 15:20 - Physical Exam Comments: GENERAL: sleepy but arousable, A/Ox4, no distress, answers questions appropriately, hot to the touch HEENT: PERRLA, EOMI, moist mucous membranes NECK/BACK: no midline ttp, no spinal stepoff or deformity, no hematoma, full ROM , neck supple CARDIOVASCULAR: regular rate/rhythm, fixes split S1, no MGR, strong peripheral pulses, capillary refill <2 seconds, extremities wwp, no edema LUNGS/RESPIRATORY: no respiratory distress, CTAB GI/ABDOMEN: symmetric [id number], normoactive BS, soft, no ttp, no midline pulsatile masses : no CVA tenderness EXTREMITIES: no muscle atrophy, no acute deformity SKIN: RLE>LLE abrasions and mild excoriations, skin otherwise warm and dry, a bit pale, no jaundice, no rash, no bruising, no skin breakdown, no cuts, no lesions NEUROLOGICAL: GCS 15, CN II-XII grossly intact, 5/5 strength proximally and distally, no facial droop Heart Score/ECG Review #1 Sinus rhythm, rate of 77, normal axis, CAa=829 and otherwise normal intervals, TWI in V2 and no ischemic ST-T changes ED Treatment Course - LABORATORY CBC & Chemistry Diagram: 01/20/19 06:45 01/20/19 06:45 Medical Decision Making - Medical Decision Making 33YOM with substance use disorder and prior pancytopenia p/w SOB, fever, tiredness, body aches. Initially was sent from [facility] because of leukocytopenia. Initial Vital Signs Temp Pulse Resp BP Pulse Ox 98.2 F 76 16 113/71 97 01/18/19 15:20 01/18/19 15:20 01/18/19 15:20 01/18/19 15:20 01/18/19 15:20 Exam: As noted in Physical Exam section. DDX IBNLT: neutropenic fever, PNA, bronchitis, cellulitis, UTI/pyelonephritis, COPD, asthma, CHF, other lung disease, viral URI (e.g. influenza), laryngitis, tracheitis, meningitis, etc. W/U ordered: CXR EKG labs as noted below TX ordered: Ofirmev IVF EKG: Reviewed; results as noted in ECG Review section. CXR: Nothing acute 01/18/19 17:44 CBCD hemolysed and re-ordered also with Ammonia. Laboratory Tests 01/18/19 01/18/19 01/18/19 16:50 16:55 16:55 WBC Cancelled Corrected WBC (auto) Cancelled RBC Cancelled Hgb Cancelled Hct Cancelled MCV Cancelled MCH Cancelled MCHC Cancelled RDW Cancelled Plt Count Cancelled MPV Cancelled Absolute Neuts (auto) Cancelled Neutrophils % Cancelled Neutrophils % (Manual) Band Neutrophils % Lymphocytes % Cancelled Lymphocytes % (Manual) Monocytes % Cancelled Monocytes % (Manual) Eosinophils % Cancelled Eosinophils % (Manual) Basophils % Cancelled Basophils % (Manual) Nucleated RBC % Cancelled Platelet Estimate Cancelled Platelet Comment Cancelled Anisocytosis PT with INR INR PTT (Actin FS) Sodium Potassium Chloride Carbon Dioxide Anion Gap BUN Creatinine Est GFR (CKD-EPI)AfAm Est GFR (CKD-EPI)NonAf Random Glucose Lactic Acid Calcium Magnesium Total Bilirubin AST ALT Alkaline Phosphatase Ammonia Creatine Kinase Creatine Kinase Index CK-MB (CK-2) Troponin I Total Protein Albumin Lipase TSH Urine Color Yellow Urine Appearance Clear Urine pH >= 9.0 H Ur Specific Procious 1.018 Urine Protein Trace Urine Glucose (UA) Negative Urine Ketones Negative Urine Blood Negative Urine Nitrite Negative Urine Bilirubin Negative Urine Urobilinogen 1.0 Ur Leukocyte Esterase Negative Opiates Screen Methadone Screen Barbiturate Screen Phencyclidine Screen Ur Amphetamines Screen MDMA (Ecstasy) Screen Benzodiazepines Screen Cocaine Screen U Marijuana (THC) Screen Blood Type O POSITIVE Antibody Screen Negative 01/18/19 01/18/19 01/18/19 16:55 16:55 16:55 WBC Corrected WBC (auto) RBC Hgb Hct MCV MCH MCHC RDW Plt Count MPV Absolute Neuts (auto) Neutrophils % Neutrophils % (Manual) Band Neutrophils % Lymphocytes % Lymphocytes % (Manual) Monocytes % Monocytes % (Manual) Eosinophils % Eosinophils % (Manual) Basophils % Basophils % (Manual) Nucleated RBC % Platelet Estimate Platelet Comment Anisocytosis PT with INR 13.50 H INR 1.14 H PTT (Actin FS) 23.2 L Sodium 142 Potassium 4.4 Chloride 106 Carbon Dioxide 29 Anion Gap 6 L BUN 11.6 Creatinine 0.7 Est GFR (CKD-EPI)AfAm 144.72 Est GFR (CKD-EPI)NonAf 124.87 Random Glucose 82 Lactic Acid 1.9 Calcium 8.4 L Magnesium 1.4 L Total Bilirubin 0.7 AST 133 H ALT 50 Alkaline Phosphatase 90 Ammonia Creatine Kinase 254 Creatine Kinase Index 0.6 CK-MB (CK-2) 1.6 Troponin I < 0.02 Total Protein 6.5 Albumin 3.0 L Lipase 220 TSH 1.26 D Urine Color Urine Appearance Urine pH Ur Specific Procious Urine Protein Urine Glucose (UA) Urine Ketones Urine Blood Urine Nitrite Urine Bilirubin Urine Urobilinogen Ur Leukocyte Esterase Opiates Screen Methadone Screen Barbiturate Screen Phencyclidine Screen Ur Amphetamines Screen MDMA (Ecstasy) Screen Benzodiazepines Screen Cocaine Screen U Marijuana (THC) Screen Blood Type Antibody Screen 01/18/19 01/18/19 01/18/19 18:45 18:45 18:45 WBC 1.1 L* Corrected WBC (auto) RBC 3.15 L Hgb 8.8 L Hct 26.7 L MCV 84.9 MCH 28.1 MCHC 33.1 RDW 20.0 H Plt Count 23 L* D MPV 8.4 Absolute Neuts (auto) 0.5 L Neutrophils % 42.5 L D Neutrophils % (Manual) 55.0 D Band Neutrophils % 1.0 Lymphocytes % 39.1 D Lymphocytes % (Manual) 37.0 Monocytes % 15.6 H Monocytes % (Manual) 4 Eosinophils % 2.2 Eosinophils % (Manual) 3.0 D Basophils % 0.6 Basophils % (Manual) 0.0 Nucleated RBC % 0 Platelet Estimate Decreased Platelet Comment No clumping noted Anisocytosis 1+ PT with INR INR PTT (Actin FS) Sodium Potassium Chloride Carbon Dioxide Anion Gap BUN Creatinine Est GFR (CKD-EPI)AfAm Est GFR (CKD-EPI)NonAf Random Glucose Lactic Acid Calcium Magnesium Total Bilirubin AST ALT Alkaline Phosphatase Ammonia 165.60 H Creatine Kinase Creatine Kinase Index CK-MB (CK-2) Troponin I Total Protein Albumin Lipase TSH Urine Color Urine Appearance Urine pH Ur Specific Procious Urine Protein Urine Glucose (UA) Urine Ketones Urine Blood Urine Nitrite Urine Bilirubin Urine Urobilinogen Ur Leukocyte Esterase Opiates Screen Negative Methadone Screen Negative Barbiturate Screen Negative Phencyclidine Screen Negative Ur Amphetamines Screen Negative MDMA (Ecstasy) Screen Negative Benzodiazepines Screen Positive A* Cocaine Screen Negative U Marijuana (THC) Screen Negative Blood Type Antibody Screen 01/18/19 19:26 The Pt is unsafe for discharge at this time. They require further hospital observation, workup, and treatment. [facility] has been contacted for admission and sign-out given. Decision to Admit order was placed to Dr. oBss. Patient has been properly antibiosed with vancomycin and Zosyn. *DC/Admit/Observation/Transfer Diagnosis at time of Disposition: Neutropenic fever, Pancytopenia Alcohol withdrawal Qualifiers: Complication of substance-induced condition: with unspecified complication Qualified Code(s): F10.239 - Alcohol dependence with withdrawal, unspecified - Discharge Dispostion Condition at time of disposition: Guarded Decision to Admit order: Yes - Referrals - Patient Instructions - Post Discharge Activity
[2019-01-18] MEDS ORDERED: FOLIC ACID INJECTION - 1 MG, THIAMINE HCL 100 MG, MULTIVIT INJECTION ADULT 10 ML in SOD... IVPB ONE (16:38)
[2019-01-18] MEDS ORDERED: PIPERACILLIN/TAZOB 4.5 GM 4.5 GM in DEXTROSE 5%-WATER 100 ML IVPB ONE (16:38)
[2019-01-18] MEDS ORDERED: VANCOMYCIN 1 GM in D5W (PRE-DOCKED) 1,000 MG/250 ML IVPB ONE (16:38)
--- NOTE | 2019-01-18 16:49 | PDOC ---
Documentation entered by Brittany Oscar SCRIBE, acting as scribe for Becky Cordero DO. Becky Cordero DO: This documentation has been prepared by the maria doloresibe, Brittany Oscar SCRIBE, under my direction and personally reviewed by me in its entirety. I confirm that the documentation accurately reflects all work, treatment, procedures, and medical decision making performed by me. Attending Attestation - Resident Resident Name: EboniLucita - ED Attending Attestation I have performed the following: I have examined & evaluated the patient, The case was reviewed & discussed with the resident, I agree w/resident's findings & plan, Exceptions are as noted - HPI HPI: 01/18/19 16:33 The patient is a 33-year-old male, with a past medical history of EtOH abuse, who was sent to the ED from [facility] for neutropenia to 1 and a hemoglobin <7. Patient reports having a history of anemia with multiple transfusions in the past. Patient is complaining of shortness of breath. The patient denies fevers, chills, nausea, vomiting, diarrhea, or abdominal pain. Denies any chest pain or palpitations. Denies any weakness, dizziness, or changes in strength or sensation. Allergies: NKA - Physicial Exam PE: 01/18/19 16:35 GENERAL: (+)Warm to touch. Awake, alert, and fully oriented, in no acute distress HEAD: No signs of trauma EYES: PERRLA, EOMI, sclera anicteric, conjunctiva clear ENT: Auricles normal inspection, hearing grossly normal, nares patent, oropharynx clear without exudates. Moist mucosa. Patient does not have poor dentition. No signs oral abscess NECK: Normal ROM, supple, no lymphadenopathy, JVD, or masses LUNGS: Breath sounds equal, clear to auscultation bilaterally. No wheezes, and no crackles HEART: (+)Split S1 on heart exam that is fixed. Regular rate and rhythm, normal S2, no murmurs, rubs or gallops ABDOMEN: Soft, nontender, normoactive bowel sounds. No guarding, no rebound. No masses EXTREMITIES: (+)Scratches noted to RLE but no signs of cellulitis. Normal range of motion, no edema. No clubbing or cyanosis. No cords or tenderness NEUROLOGICAL: Cranial nerves II through XII grossly intact. Normal speech. Neurologically intact. SKIN: Warm, Dry, normal turgor, no rashes or lesions noted - Medical Decision Making 01/18/19 16:42 I, Dr. Becky Cordero, DO, attest that this document has been prepared under my direction and personally reviewed by me in its entirety. I further attest, that it accurately reflects all work, treatment, procedures and medical decision -making performed by me. 01/18/19 16:42 a/p: 33yo male with hx of etoh abuse - last use yesterday, 3 pints/day and remote hx of ivda -heroin/cocaine 13 years ago sent from [facility] for eval of panyctopenia -pt arrives with oral temp 99 -wbc from [facility] shows pancytpenia with severe leukopenia and thrombocytpenia -pt denies recent cough, rhinorrhea, sore throat, no cp/sob, no abd pain, no n/v /d, no dysuria -pt denies rash, but has redness and scratch barclay to RLE -pt denies ivda recently -pt denies palpitations -pt with tongue fasciculations/mild tremors -will consult heme/onc, concern given oral temp of 99 for neutropenic fever, no rectal temp given pt with sever leukopenia -will send cultures -will need admission 01/18/19 16:[address] 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
[2019-01-18] MEDS ORDERED: PIPERACILLIN/TAZOB 4.5 GM 4.5 GM/100 ML BAG IVPB ONE (17:23)
[2019-01-18] MEDS ORDERED: VANCOMYCIN 1 GRAM (PRE-DOCKED) 1,000 MG/250 ML BAG IVPB ONE (17:24)
[2019-01-18 17:34] LABS: PH,URINE >= 9.0 (5.0-8.0); URINE APPEARANCE CLEAR; URINE BILIRUBIN NEGATIVE (NEGATIVE); URINE COLOR YELLOW; URINE GLUCOSE (UA) NEGATIVE (NEGATIVE); URINE KETONE NEGATIVE (NEGATIVE); URINE LEUK ESTERASE NEGATIVE (NEGATIVE); URINE NITRITE NEGATIVE (NEGATIVE); URINE PROTEIN TRACE (NEGATIVE)
[2019-01-18 17:38] LABS: INR 1.14 (0.83-1.09); PROTHROMBIN TIME (PATIENT) 13.5 SEC (9.7-13.0)
[2019-01-18 17:41] LABS: ACTIVATED PTT 23.2 SECONDS (25.2-36.5)
[2019-01-18 18:03] LABS: ALK PHOS 90 U/L (45-117); ANION GAP 6 MMOL/L (8-16); BILIRUBIN,TOTAL 0.7 mg/dL (0.2-1); BLOOD UREA NITROGEN 11.6 mg/dL (7-18); CALCIUM 8.4 mg/dL (8.5-10.1); CHLORIDE 106 mmol/L (98-107); CO2 29 mmol/L (21-32); CREATININE 0.7 mg/dL (0.55-1.3); GLUCOSE,RANDOM 82 mg/dL (74-106); LIPASE 220 U/L (73-393); MAGNESIUM 1.4 mg/dL (1.8-2.4); POTASSIUM 4.4 mmol/L (3.5-5.1); SGOT/AST 133 U/L (15-37); SGPT/ALT 50 U/L (13-61); SODIUM 142 mmol/L (136-145); TOT PROT 6.5 g/dl (6.4-8.2)
[2019-01-18] MEDS ORDERED: MAGNESIUM SULF 50% (8.12 MEQ/2 ML-1 GM VIAL) IVPB ONE (18:27)
[2019-01-18] MEDS ORDERED: MAGNESIUM 1GM/D5W - 2 GM/200 ML IVPB IVPB ONE (18:48)
[2019-01-18 19:07] LABS: BASO % 0.6 % (0-2.0); COCAINE, UR NEGATIVE ng/ml (CUTOFF=300); EOS % 2.2 % (0-4.5); HEMATOCRIT 26.7 % (35.4-49); HEMOGLOBIN 8.8 GM/dL (11.7-16.9); LYMPH % 39.1 % (8-40); MCH 28.1 pg (25.7-33.7); MCHC 33.1 g/dl (32.0-35.9); MEAN CELL VOLUME 84.9 fl (80-96); MEAN PLT VOLUME 8.4 fl (7.5-11.1); METHADONE, UR NEGATIVE ng/ml (CUTOFF=300); MONO % 15.6 % (3.8-10.2); NEUT % 42.5 % (42.8-82.8); OPIATES, URI NEGATIVE ng/ml (CUTOFF=300); PHENCYCLIDINE,URINE NEGATIVE ng/ml (CUTOFF=25); RBC 3.15 M/mm3 (4.00-5.60); URINE AMPHETAMINES NEGATIVE ng/ml (CUTOFF=500); URINE BARBITURATES NEGATIVE ng/ml (CUTOFF=200)
[2019-01-18 19:12] LABS: WHITE BLOOD COUNT 1.1 K/mm3 (4.0-10.0)
[2019-01-18 19:13] LABS: PLATELET COUNT 23 K/MM3 (134-434)
[2019-01-18 19:22] LABS: URINE BENZODIAZEPINES POSITIVE ng/ml (CUTOFF=200)
--- NOTE | 2019-01-18 20:03 | PN ---
Teaching Attending Note Name of Resident: Matt Andino ATTENDING PHYSICIAN STATEMENT I saw and evaluated the patient. I reviewed the resident's note and discussed the case with the resident. I agree with the resident's findings and plan as documented. SUBJECTIVE: Patient is a 33 year old man with PMH of alcoholic liver cirrhosis (had a liver biopsy in [facility] in late 2017), suicide attempts, depression, alcohol abuse (3 pints a day with last drink yesterday, multiple prior detox), pancytopenia (previously transfused multiple times, admitted in 2017, had heme consult at that time, thought to be related to heavy alcohol use) and remote IVDA (heroin, cocaine) who presents with pancytopenia. WBC of "0.9" was noted on his CBC drawn at [facility] this morning. He checked into [facility] for alcohol detox early this morning. He notes tiredness and malaise similar to his prior alcohol withdrawal epsiodes. Also has SOB, but otherwise denies any new symptoms. He denies fevers, chills, nausea, vomiting, diarrhea, abdominal pain, chest pain or palpitations. He denies headache, dizziness, suicidal or homicidal ideations. He was given Ativan per [facility] protocol prior to being transported to the ER from [facility]. OBJECTIVE: Alert Vital Signs Period Temp Pulse Resp BP Sys/Sanchez Pulse Ox Last 24 Hr 98.0 F-98.2 F 63-89 16-19 108-113/71-74 97-100 HEENT: No Jaundice, eye redness or discharge, PERRLA, EOMI. Normocephalic, atraumatic. External ears are normal and hearing is grossly intact. No nasal discharge. Neck: Supple, nontender. No palpable adenopathy or thyromegaly. No JVD Chest: Good effort. Clear to auscultation and percussion. Heart: Regular. No S3, rub or murmur Abdomen: Not distended, soft, nontender and no HSM. No rebound or guarding. Normal bowel sounds. Ext: Peripheral pulses intact. No leg edema. Skin: Warm and dry. No petechiae, rash or ecchymosis. Neuro: Alert. Oriented x3. Tremulous. CN 2-12 grossly intact. Sensation grossly intact in all four extremities and DTR are symmetric. Psych: Appropriate mood and affect. Good insight. Current Medications Generic Name Dose Route Start Last Admin Trade Name Maura PRN Reason Stop Dose Admin Folic Acid 1 mg/ Thiamine HCl 1,000 mls @ 125 mls/hr 01/18/19 16:38 01/18/19 17:33 100 mg/ Multivitamins/Minerals IVPB 01/19/19 00:37 125 mls/hr 10 ml/ Sodium Chloride ONCE ONE Administration Home Medications Medication Instructions Recorded Ferrous Sulfate [Feosol] 325 mg PO TIDCM #90 tab 03/19/17 Pantoprazole Sodium [Protonix -] 40 mg PO DAILY #30 tab 03/19/17 Escitalopram Oxalate [Lexapro -] 20 mg PO DAILY #30 tablet 07/05/17 Folic Acid - 1 mg PO DAILY #30 tablet 07/11/17 Vitamins (Sjr) - 1 tab PO DAILY #30 tablet 07/11/17 Fluoxetine HCl [Prozac] 40 mg PO DAILY 01/18/19 Quetiapine Fumarate [Seroquel -] 50 mg PO HS 01/18/19 Abnormal Lab Results 01/18/19 01/18/19 01/18/19 16:50 16:55 16:55 WBC RBC Hgb Hct RDW Plt Count Absolute Neuts (auto) Neutrophils % Monocytes % PT with INR 13.50 H INR 1.14 H PTT (Actin FS) 23.2 L Anion Gap 6 L Calcium 8.4 L Magnesium 1.4 L AST 133 H Albumin 3.0 L Urine pH >= 9.0 H Benzodiazepines Screen 01/18/19 01/18/19 18:45 18:45 WBC 1.1 L* RBC 3.15 L Hgb 8.8 L Hct 26.7 L RDW 20.0 H Plt Count 23 L* D Absolute Neuts (auto) 0.5 L Neutrophils % 42.5 L D Monocytes % 15.6 H PT with INR INR PTT (Actin FS) Anion Gap Calcium Magnesium AST Albumin Urine pH Benzodiazepines Screen Positive A* ASSESSMENT AND PLAN: 1. Pancytopenia - Likely due to bone marrow suppression by alcohol, but will benefit from a bone marrow biopsy to rule out primary bone marrow disease. During the day will contact the hospital where he had a liver biopsy in [place] to find out if he also had a bone marrow biopsy. No obvious evidence of infection. Sepsis work up done and will continue IV zosyn and vancomycin and implement reverse isolation. Will treat with lactulose and rifaximin and continue comprehensive care of all his comorbid conditions. Getting IV MgSO4 and banana bag. EKG shows NSR with new T wave inversion in V2-3 , but initial troponin is negative - will monitor on telemetry overnight and rule out ACS. CXR shows pulmonary congestion - will get ECHO. Consult ID and hematology. No evidence of active bleeding - will do basic anemia work up including serial stool guaiacs, reticulocyte count and iron studies. Will implement CIWA ativan alcohol withdrawal protocol and do neurochecks. Implement seizure, fall and aspiration precautions. Treat with thiamine and folic acid and monitor electrolytes (Ca,Mg,K,P). Counseled patient about abstaining from alcohol. Will consult test specialist and refer to alcohol detox upon discharge. 2. Tobacco Use Counseled on risks associated with tobacco use. We will provide patient all the necessary assistance to facilitate smoking cessation and prescribe Nicotine patch. 3. Hypoalbuminemia - Possibly due to combined effects of malnutrition and inflammation associated with comorbid chronic conditions. Will ensure adequate dietary protein intake and also consult bods developer. 4. DVT prophylaxis - Lovenox 40 mg SQ q 24 hours. 5. Advance directives - Full code
[2019-01-18 20:10] LABS: PLATELET ESTIMATE DECREASED
[2019-01-18 20:11] LABS: ANISOCYTOSIS 1+
--- NOTE | 2019-01-18 21:32 | CONS ---
DATE OF CONSULTATION: 01/18/2019 This 33-year-old is seen in the emergency room. He is seen with pancytopenia. He has a history of alcohol abuse, drinking 3 pints of vodka and 5 to 6 beers daily. He has a history of smoking. He denies drugs. He has been previously noted to have pancytopenia on July 12, 2017. WBC was 1.7. On January 18, currently 0.9. Hematocrit currently is 26.7, platelets currently 23,000. INR is 1.14, PTT is 23. Patient describes shaking chills upon entering the emergency room, but does not have documented fever. Patient currently is lethargic, having been given Ativan. Patient denies headaches, diplopia, epistaxis and does complain of nausea, abdominal pain. Does complain of vomiting previously. No diarrhea or constipation. No dysuria. Current laboratory reveals WBC 900, hematocrit 28, platelets 32,000. Sodium 143, potassium 3.5, chloride 107, CO2 26, BUN 11, creatinine 0.9, calcium 7.8. AST 88, ALT 45, alkaline phosphatase 92. Protein 7, albumin 3.3, RPR negative. PHYSICAL EXAMINATION: General: Patient is lethargic. Vital Signs: Blood pressure 109/65, pulse 92, temperature 97.3, respiratory rate 18. HEENT: No icterus. No thrush. Lungs: Scattered rhonchi. Poor inspiratory effort. Cardiac: RSR. Abdomen: Soft. No organomegaly. Extremities: No significant edema. LABORATORY: Aforementioned. IMPRESSION: 1. Substance abuse with alcohol; vodka and beer. Three pints of vodka and 5 to 6 beers daily. History of smoke ingestion. 2. History of delirium tremens. 3. History of pancreatitis. 4. Shaking chills on admission despite afebrile. 5. Pancytopenia. 6. Chart suggests history of cirrhosis. PLAN: In view of shaking chills, despite afebrile and in view of low white count, it is not unreasonable to panculture and start the patient on empiric antibiotics pending cultures. Would monitor platelet and white count. May be a candidate for Neupogen and/or platelet transfusions in the future. Suspect etiology of underlying pancytopenia secondary to chronic and acute EtOH with direct effect of alcohol on bone marrow. Cannot exclude currently superimposed infection in view of shaking chills. ZACHARY ARCOS M.D. ZACHARY/[id number]
--- NOTE | 2019-01-18 21:58 | HP ---
CHIEF COMPLAINT: Pancytopenia PCP: None HISTORY OF PRESENT ILLNESS: Pt. is a 33 y.o. M w/ PMHx. of pancytopenia, stage 2 cirrhosis of the liver, GERD, Depression (suicide attempts in 2015 and 2018), and EtOH abuse presents from [facility] for having a WBC count of 0.9k. Pt. states that he is known to have pancytopenia but does not follow with an chief operator reformer/oncologist or a primary care physician because he is homeless. Pt. endorses tiredness and fatigue that he believes is due to receiving Ativan. Pt. denies any other complaints including abdominal pain, chest pain, lightheadedness, dizziness, constipation, diarrhea, numbness tingling, or any suicidal ideation. ER course was notable for: (1) Montague-culture, Neutropenic precautions, Telemetry, (2)Heme/Onc consult, NH4 level, Vanc/Zosyn, CXR (3) Mag Sulfate Recent Travel: No PAST MEDICAL HISTORY: As above PAST SURGICAL HISTORY: L. Shoulder Surgery, Appendectomy, L. Wrist Social History: Smokin PPD x 20 years Alcohol: 3 pints /day ; 5 beers/day Drugs: Denies Family History: Father- from heroin OD, Mother- EtOH abuse Allergies No Known Allergies Allergy (Verified 01/18/19 17:35) HOME MEDICATIONS: Home Medications Medication Instructions Recorded Ferrous Sulfate [Feosol] 325 mg PO TIDCM #90 tab 03/19/17 Pantoprazole Sodium [Protonix -] 40 mg PO DAILY #30 tab 03/19/17 Escitalopram Oxalate [Lexapro -] 20 mg PO DAILY #30 tablet 07/05/17 Folic Acid - 1 mg PO DAILY #30 tablet 07/11/17 Vitamins (Sjr) - 1 tab PO DAILY #30 tablet 07/11/17 Fluoxetine HCl [Prozac] 40 mg PO DAILY 01/18/19 Quetiapine Fumarate [Seroquel -] 50 mg PO HS 01/18/19 REVIEW OF SYSTEMS As above PHYSICAL EXAMINATION Vital Signs - 24 hr 01/18/19 01/18/19 01/18/19 15:20 19:01 19:06 Temperature 98.2 F 98.0 F Pulse Rate 76 Pulse Rate [ 89 63 Apical] Respiratory 16 18 19 Rate Blood Pressure 113/71 Blood Pressure 108/74 [Left Arm] Blood Pressure 108/74 [Right Arm] O2 Sat by Pulse 97 100 Oximetry (%) GENERAL: Awake, alert, and fully oriented, in no acute distress. HEAD: Normal with no signs of trauma. EYES: Extraocular movements intact, sclera anicteric, conjunctiva clear. EARS, NOSE, THROAT: Ears normal, nares patent, oropharynx clear without exudates. Moist mucous membranes. NECK: Normal range of motion, supple without lymphadenopathy, JVD, or masses. LUNGS: Breath sounds equal, clear to auscultation bilaterally. No wheezes, and no crackles. No accessory muscle use. HEART: Regular rate and rhythm, normal S1 and S2 without murmur ABDOMEN: Soft, nontender, not distended, normoactive bowel sounds, no guarding UPPER EXTREMITIES: Warm, well-perfused. No cyanosis. No clubbing. No peripheral edema. LOWER EXTREMITIES: 2+ dorsal pedal pulses, warm, well-perfused. No calf tenderness. No peripheral edema. NEUROLOGICAL: Normal speech. Gait not assessed. Heel to peerz and Dysmetria intact. Tremor with hands extended PSYCHIATRIC: Cooperative. Good eye contact. Appropriate mood and affect. SKIN: Warm, dry, normal turgor, no rashes or lesions noted, normal capillary refill. Laboratory Results - last 24 hr 01/18/19 01/18/19 01/18/19 16:50 16:55 16:55 WBC Cancelled Corrected WBC (auto) Cancelled RBC Cancelled Hgb Cancelled Hct Cancelled MCV Cancelled MCH Cancelled MCHC Cancelled RDW Cancelled Plt Count Cancelled MPV Cancelled Absolute Neuts (auto) Cancelled Neutrophils % Cancelled Neutrophils % (Manual) Band Neutrophils % Lymphocytes % Cancelled Lymphocytes % (Manual) Monocytes % Cancelled Monocytes % (Manual) Eosinophils % Cancelled Eosinophils % (Manual) Basophils % Cancelled Basophils % (Manual) Nucleated RBC % Cancelled Platelet Estimate Cancelled Platelet Comment Cancelled Anisocytosis PT with INR INR PTT (Actin FS) Sodium Potassium Chloride Carbon Dioxide Anion Gap BUN Creatinine Est GFR (CKD-EPI)AfAm Est GFR (CKD-EPI)NonAf Random Glucose Lactic Acid Calcium Magnesium Total Bilirubin AST ALT Alkaline Phosphatase Ammonia Creatine Kinase Creatine Kinase Index CK-MB (CK-2) Troponin I Total Protein Albumin Lipase TSH Urine Color Yellow Urine Appearance Clear Urine pH >= 9.0 H Ur Specific [place] 1.018 Urine Protein Trace Urine Glucose (UA) Negative Urine Ketones Negative Urine Blood Negative Urine Nitrite Negative Urine Bilirubin Negative Urine Urobilinogen 1.0 Ur Leukocyte Esterase Negative Opiates Screen Methadone Screen Barbiturate Screen Phencyclidine Screen Ur Amphetamines Screen MDMA (Ecstasy) Screen Benzodiazepines Screen Cocaine Screen U Marijuana (THC) Screen Blood Type O POSITIVE Antibody Screen Negative 01/18/19 01/18/19 01/18/19 16:55 16:55 16:55 WBC Corrected WBC (auto) RBC Hgb Hct MCV MCH MCHC RDW Plt Count MPV Absolute Neuts (auto) Neutrophils % Neutrophils % (Manual) Band Neutrophils % Lymphocytes % Lymphocytes % (Manual) Monocytes % Monocytes % (Manual) Eosinophils % Eosinophils % (Manual) Basophils % Basophils % (Manual) Nucleated RBC % Platelet Estimate Platelet Comment Anisocytosis PT with INR 13.50 H INR 1.14 H PTT (Actin FS) 23.2 L Sodium 142 Potassium 4.4 Chloride 106 Carbon Dioxide 29 Anion Gap 6 L BUN 11.6 Creatinine 0.7 Est GFR (CKD-EPI)AfAm 144.72 Est GFR (CKD-EPI)NonAf 124.87 Random Glucose 82 Lactic Acid 1.9 Calcium 8.4 L Magnesium 1.4 L Total Bilirubin 0.7 AST 133 H ALT 50 Alkaline Phosphatase 90 Ammonia Creatine Kinase 254 Creatine Kinase Index 0.6 CK-MB (CK-2) 1.6 Troponin I < 0.02 Total Protein 6.5 Albumin 3.0 L Lipase 220 TSH 1.26 D Urine Color Urine Appearance Urine pH Ur Specific [place] Urine Protein Urine Glucose (UA) Urine Ketones Urine Blood Urine Nitrite Urine Bilirubin Urine Urobilinogen Ur Leukocyte Esterase Opiates Screen Methadone Screen Barbiturate Screen Phencyclidine Screen Ur Amphetamines Screen MDMA (Ecstasy) Screen Benzodiazepines Screen Cocaine Screen U Marijuana (THC) Screen Blood Type Antibody Screen 01/18/19 01/18/19 01/18/19 18:45 18:45 18:45 WBC 1.1 L* Corrected WBC (auto) RBC 3.15 L Hgb 8.8 L Hct 26.7 L MCV 84.9 MCH 28.1 MCHC 33.1 RDW 20.0 H Plt Count 23 L* D MPV 8.4 Absolute Neuts (auto) 0.5 L Neutrophils % 42.5 L D Neutrophils % (Manual) 55.0 D Band Neutrophils % 1.0 Lymphocytes % 39.1 D Lymphocytes % (Manual) 37.0 Monocytes % 15.6 H Monocytes % (Manual) 4 Eosinophils % 2.2 Eosinophils % (Manual) 3.0 D Basophils % 0.6 Basophils % (Manual) 0.0 Nucleated RBC % 0 Platelet Estimate Decreased Platelet Comment No clumping noted Anisocytosis 1+ PT with INR INR PTT (Actin FS) Sodium Potassium Chloride Carbon Dioxide Anion Gap BUN Creatinine Est GFR (CKD-EPI)AfAm Est GFR (CKD-EPI)NonAf Random Glucose Lactic Acid Calcium Magnesium Total Bilirubin AST ALT Alkaline Phosphatase Ammonia 165.60 H Creatine Kinase Creatine Kinase Index CK-MB (CK-2) Troponin I Total Protein Albumin Lipase TSH Urine Color Urine Appearance Urine pH Ur Specific [place] Urine Protein Urine Glucose (UA) Urine Ketones Urine Blood Urine Nitrite Urine Bilirubin Urine Urobilinogen Ur Leukocyte Esterase Opiates Screen Negative Methadone Screen Negative Barbiturate Screen Negative Phencyclidine Screen Negative Ur Amphetamines Screen Negative MDMA (Ecstasy) Screen Negative Benzodiazepines Screen Positive A* Cocaine Screen Negative U Marijuana (THC) Screen Negative Blood Type Antibody Screen ASSESSMENT/PLAN: Pt. is a 33 y.o. M w/ PMHx. of pancytopenia, stage 2 cirrhosis of the liver, GERD, Depression (suicide attempts in 2015 and 2018), and EtOH abuse presents from [facility] for having a WBC count of 0.9k. #Pancytopenia likely 2/2 EtOH abuse- however Etoh causes thrombocytosis acutely usually and thrombocytopenia chronically. Heme/Onc consult (Dr. Jordan) appreciated--> would likely benefit form bone marrow biopsy given the severity of pancytopenia and the lack of severity of alcoholism will hold off on transfusion at this time Plts : 23k; Hgb: 8.8; WBC: 1.1k c/w daily CBCs f/u Iron studies, reticuocyte count to assess for proper response from bone marrow and to calculate Reticulocyte production index c/w empiric broad spectrum Abx. for protection against possible infection pending montague-culture results. #EtOH Abuse and Nicotine Dependance CIWA: 16-->5(but had received Ativan prior to my assessment) c/w Ativan protocol as Pt. was initiated on this at [facility] Fall risk precautions Thiamin Folic Acid IVF #FEN LR @ 100ml/hr monitor electrolytes and replete as needed; repleted Mg2+ Regular Diet #DVT Ppx. No AC, given low Plts. TEDs/ SCDs. Visit type - Emergency Visit Emergency Visit: Yes ED Registration Date: 01/18/19 Care time: The patient presented to the Emergency Department on the above date and was hospitalized for further evaluation of their emergent condition. - New Patient This patient is new to me today: Yes Date on this admission: 01/18/19 - Critical Care Critical Care patient: No
[2019-01-18] MEDS: SODIUM CHLORIDE 1,000 ML IV SCH (22:37)
[2019-01-18] MEDS: RIFAXIMIN 550 MG TABLET (UD) PO SCH (23:30)
[2019-01-19 03:25] VITALS: BMI 24.3
[2019-01-19] MEDS ORDERED: LORazepam 1 MG TABLET PO PRN (03:37)
[2019-01-19 08:31] LABS: INR 1.27 (0.83-1.09)
[2019-01-19 08:40] LABS: ALBUMIN 2.9 g/dl (3.4-5.0); ALK PHOS 94 U/L (45-117); ANION GAP 5 MMOL/L (8-16); BILIRUBIN,TOTAL 1.4 mg/dL (0.2-1); CALCIUM 7.8 mg/dL (8.5-10.1); CHLORIDE 108 mmol/L (98-107); CO2 25 mmol/L (21-32); CREATININE 0.7 mg/dL (0.55-1.3); GLUCOSE,RANDOM 82 mg/dL (74-106); MAGNESIUM 1.9 mg/dL (1.8-2.4); PHOSPHOROUS 2.7 mg/dL (2.5-4.9); POTASSIUM 3.9 mmol/L (3.5-5.1); SGOT/AST 86 U/L (15-37); SGPT/ALT 44 U/L (13-61); SODIUM 138 mmol/L (136-145); TOT PROT 6.1 g/dl (6.4-8.2)
[2019-01-19 08:48] LABS: BASO % 0.6 % (0-2.0); EOS % 5.2 % (0-4.5); HEMATOCRIT 28.9 % (35.4-49); HEMOGLOBIN 9.7 GM/dL (11.7-16.9); LYMPH % 40.1 % (8-40); MCH 28.6 pg (25.7-33.7); MCHC 33.6 g/dl (32.0-35.9); MEAN PLT VOLUME 10.1 fl (7.5-11.1); MONO % 12.6 % (3.8-10.2); NEUT % 41.5 % (42.8-82.8); RETICULOCYTES 0.79 % (0.5-1.5)
[2019-01-19 08:55] LABS: PLATELET COUNT 27 K/MM3 (134-434); WHITE BLOOD COUNT 0.9 K/mm3 (4.0-10.0)
[2019-01-19] MEDS: FERROUS SO4 325 MG TABLET (FP) PO SCH ×3 (10:12→16:58)
[2019-01-19] MEDS: FOLIC ACID 1 MG TABLET (FP) PO SCH (10:12)
[2019-01-19] MEDS: PANTOPRAZOLE 40 MG TABLET (FP) PO SCH (10:12)
[2019-01-19] MEDS: RIFAXIMIN 550 MG TABLET (UD) PO SCH ×2 (10:12→21:40)
[2019-01-19] MEDS: THIAMINE HCL 200 MG/2 ML VIAL IVPB SCH (10:13)
[2019-01-19 10:43] LABS: ANISOCYTOSIS 1+; MACROCYTOSIS 0; PLATELET ESTIMATE DECREASED
[2019-01-19] MEDS: SODIUM CHLORIDE 1,000 ML IV SCH ×3 (11:07→21:40)
--- NOTE | 2019-01-19 12:31 | EKG ---
Test Reason : Blood Pressure : / mmHG Vent. Rate : 075 BPM Atrial Rate : 075 BPM P-R Int : 176 ms QRS Dur : 096 ms QT Int : 428 ms P-R-T Axes : 053 020 056 degrees QTc Int : 477 ms NORMAL SINUS RHYTHM SEPTAL INFARCT , AGE UNDETERMINED ABNORMAL ECG WHEN COMPARED WITH ECG OF 18-JAN-2019 08:45, SEPTAL INFARCT IS NOW PRESENT Confirmed by CHRIS HOUSE, JAMES ([id number]) on 01/19/2019 12:30:47 PM Referred By: Confirmed By:JAMES PEREZ MD
--- NOTE | 2019-01-19 13:04 | PN ---
Physical Exam: SUBJECTIVE: Patient seen and examined at bedside. Denies any subjective fever. OBJECTIVE: Vital Signs Period Temp Pulse Resp BP Sys/Sanchez Pulse Ox Last 24 Hr 97.5 F-98.6 F 57-89 14-20 97-128/62-79 97-100 GENERAL: NAD HEAD: Normal with no signs of trauma. EYES: EOMI Sclera Clear ENT: MMM NECK: Trachea midline, full range of motion, supple. LUNGS: CTAB HEART: RRR S1S2 ABDOMEN: NDNT EXTREMITIES: No CCE. Mild hand tremor. NEUROLOGICAL: Cranial nerves II through XII grossly intact. PSYCH: Normal mood, normal affect. SKIN: Warm, dry, normal turgor, no rashes or lesions noted Laboratory Results - last 24 hr 01/18/19 01/18/19 01/18/19 16:50 16:55 16:55 WBC Cancelled Corrected WBC (auto) Cancelled RBC Cancelled Hgb Cancelled Hct Cancelled MCV Cancelled MCH Cancelled MCHC Cancelled RDW Cancelled Plt Count Cancelled MPV Cancelled Absolute Neuts (auto) Cancelled Neutrophils % Cancelled Neutrophils % (Manual) Band Neutrophils % Lymphocytes % Cancelled Lymphocytes % (Manual) Monocytes % Cancelled Monocytes % (Manual) Eosinophils % Cancelled Eosinophils % (Manual) Basophils % Cancelled Basophils % (Manual) Myelocytes % (Man) Promyelocytes % (Man) Blast Cells % (Manual) Nucleated RBC % Cancelled Metamyelocytes Hypochromia Platelet Estimate Cancelled Platelet Comment Cancelled Polychromasia Poikilocytosis Anisocytosis Microcytosis Macrocytosis Schistocytes Retic Count PT with INR INR PTT (Actin FS) Sodium Potassium Chloride Carbon Dioxide Anion Gap BUN Creatinine Est GFR (CKD-EPI)AfAm Est GFR (CKD-EPI)NonAf Random Glucose Lactic Acid Calcium Phosphorus Magnesium Ferritin Total Bilirubin AST ALT Alkaline Phosphatase Ammonia Creatine Kinase Creatine Kinase Index CK-MB (CK-2) Troponin I Total Protein Albumin Lipase TSH Urine Color Yellow Urine Appearance Clear Urine pH >= 9.0 H Ur Specific [place] 1.018 Urine Protein Trace Urine Glucose (UA) Negative Urine Ketones Negative Urine Blood Negative Urine Nitrite Negative Urine Bilirubin Negative Urine Urobilinogen 1.0 Ur Leukocyte Esterase Negative Opiates Screen Methadone Screen Barbiturate Screen Phencyclidine Screen Ur Amphetamines Screen MDMA (Ecstasy) Screen Benzodiazepines Screen Cocaine Screen U Marijuana (THC) Screen Blood Type O POSITIVE Antibody Screen Negative 01/18/19 01/18/19 01/18/19 16:55 16:55 16:55 WBC Corrected WBC (auto) RBC Hgb Hct MCV MCH MCHC RDW Plt Count MPV Absolute Neuts (auto) Neutrophils % Neutrophils % (Manual) Band Neutrophils % Lymphocytes % Lymphocytes % (Manual) Monocytes % Monocytes % (Manual) Eosinophils % Eosinophils % (Manual) Basophils % Basophils % (Manual) Myelocytes % (Man) Promyelocytes % (Man) Blast Cells % (Manual) Nucleated RBC % Metamyelocytes Hypochromia Platelet Estimate Platelet Comment Polychromasia Poikilocytosis Anisocytosis Microcytosis Macrocytosis Schistocytes Retic Count PT with INR 13.50 H INR 1.14 H PTT (Actin FS) 23.2 L Sodium 142 Potassium 4.4 Chloride 106 Carbon Dioxide 29 Anion Gap 6 L BUN 11.6 Creatinine 0.7 Est GFR (CKD-EPI)AfAm 144.72 Est GFR (CKD-EPI)NonAf 124.87 Random Glucose 82 Lactic Acid 1.9 Calcium 8.4 L Phosphorus Magnesium 1.4 L Ferritin Total Bilirubin 0.7 AST 133 H ALT 50 Alkaline Phosphatase 90 Ammonia Creatine Kinase 254 Creatine Kinase Index 0.6 CK-MB (CK-2) 1.6 Troponin I < 0.02 Total Protein 6.5 Albumin 3.0 L Lipase 220 TSH 1.26 D Urine Color Urine Appearance Urine pH Ur Specific [place] Urine Protein Urine Glucose (UA) Urine Ketones Urine Blood Urine Nitrite Urine Bilirubin Urine Urobilinogen Ur Leukocyte Esterase Opiates Screen Methadone Screen Barbiturate Screen Phencyclidine Screen Ur Amphetamines Screen MDMA (Ecstasy) Screen Benzodiazepines Screen Cocaine Screen U Marijuana (THC) Screen Blood Type Antibody Screen 01/18/19 01/18/19 01/18/19 18:45 18:45 18:45 WBC 1.1 L* Corrected WBC (auto) RBC 3.15 L Hgb 8.8 L Hct 26.7 L MCV 84.9 MCH 28.1 MCHC 33.1 RDW 20.0 H Plt Count 23 L* D MPV 8.4 Absolute Neuts (auto) 0.5 L Neutrophils % 42.5 L D Neutrophils % (Manual) 55.0 D Band Neutrophils % 1.0 Lymphocytes % 39.1 D Lymphocytes % (Manual) 37.0 Monocytes % 15.6 H Monocytes % (Manual) 4 Eosinophils % 2.2 Eosinophils % (Manual) 3.0 D Basophils % 0.6 Basophils % (Manual) 0.0 Myelocytes % (Man) Promyelocytes % (Man) Blast Cells % (Manual) Nucleated RBC % 0 Metamyelocytes Hypochromia Platelet Estimate Decreased Platelet Comment No clumping noted Polychromasia Poikilocytosis Anisocytosis 1+ Microcytosis Macrocytosis Schistocytes Retic Count PT with INR INR PTT (Actin FS) Sodium Potassium Chloride Carbon Dioxide Anion Gap BUN Creatinine Est GFR (CKD-EPI)AfAm Est GFR (CKD-EPI)NonAf Random Glucose Lactic Acid Calcium Phosphorus Magnesium Ferritin Total Bilirubin AST ALT Alkaline Phosphatase Ammonia 165.60 H Creatine Kinase Creatine Kinase Index CK-MB (CK-2) Troponin I Total Protein Albumin Lipase TSH Urine Color Urine Appearance Urine pH Ur Specific [place] Urine Protein Urine Glucose (UA) Urine Ketones Urine Blood Urine Nitrite Urine Bilirubin Urine Urobilinogen Ur Leukocyte Esterase Opiates Screen Negative Methadone Screen Negative Barbiturate Screen Negative Phencyclidine Screen Negative Ur Amphetamines Screen Negative MDMA (Ecstasy) Screen Negative Benzodiazepines Screen Positive A* Cocaine Screen Negative U Marijuana (THC) Screen Negative Blood Type Antibody Screen 01/19/19 01/19/19 01/19/19 00:05 00:05 07:09 WBC 0.9 L* Corrected WBC (auto) RBC 3.40 L Hgb 9.7 L Hct 28.9 L MCV 85.0 MCH 28.6 MCHC 33.6 RDW 20.0 H Plt Count 27 L* MPV 10.1 D Absolute Neuts (auto) 0.4 L Neutrophils % 41.5 L Neutrophils % (Manual) 36.7 L D Band Neutrophils % 0.0 Lymphocytes % 40.1 H Lymphocytes % (Manual) 48.6 H D Monocytes % 12.6 H Monocytes % (Manual) 11 H D Eosinophils % 5.2 H D Eosinophils % (Manual) 2.8 Basophils % 0.6 Basophils % (Manual) 0.0 Myelocytes % (Man) 0 D Promyelocytes % (Man) 0 Blast Cells % (Manual) 0 Nucleated RBC % 1 H Metamyelocytes 1 D Hypochromia 0 Platelet Estimate Decreased Platelet Comment Polychromasia 0 Poikilocytosis 1+ Anisocytosis 1+ Microcytosis 1+ Macrocytosis 0 Schistocytes 1+ Retic Count 0.79 D PT with INR INR PTT (Actin FS) Sodium Potassium Chloride Carbon Dioxide Anion Gap BUN Creatinine Est GFR (CKD-EPI)AfAm Est GFR (CKD-EPI)NonAf Random Glucose Lactic Acid Calcium Phosphorus Magnesium Ferritin 22.8 Total Bilirubin AST ALT Alkaline Phosphatase Ammonia Creatine Kinase Creatine Kinase Index CK-MB (CK-2) Troponin I < 0.02 Total Protein Albumin Lipase TSH Urine Color Urine Appearance Urine pH Ur Specific [place] Urine Protein Urine Glucose (UA) Urine Ketones Urine Blood Urine Nitrite Urine Bilirubin Urine Urobilinogen Ur Leukocyte Esterase Opiates Screen Methadone Screen Barbiturate Screen Phencyclidine Screen Ur Amphetamines Screen MDMA (Ecstasy) Screen Benzodiazepines Screen Cocaine Screen U Marijuana (THC) Screen Blood Type Antibody Screen 01/19/19 01/19/19 07:09 07:09 WBC Corrected WBC (auto) RBC Hgb Hct MCV MCH MCHC RDW Plt Count MPV Absolute Neuts (auto) Neutrophils % Neutrophils % (Manual) Band Neutrophils % Lymphocytes % Lymphocytes % (Manual) Monocytes % Monocytes % (Manual) Eosinophils % Eosinophils % (Manual) Basophils % Basophils % (Manual) Myelocytes % (Man) Promyelocytes % (Man) Blast Cells % (Manual) Nucleated RBC % Metamyelocytes Hypochromia Platelet Estimate Platelet Comment Polychromasia Poikilocytosis Anisocytosis Microcytosis Macrocytosis Schistocytes Retic Count PT with INR 15.00 H INR 1.27 H PTT (Actin FS) Sodium 138 Potassium 3.9 Chloride 108 H Carbon Dioxide 25 Anion Gap 5 L BUN 10.0 Creatinine 0.7 Est GFR (CKD-EPI)AfAm 144.72 Est GFR (CKD-EPI)NonAf 124.87 Random Glucose 82 Lactic Acid Calcium 7.8 L Phosphorus 2.7 Magnesium 1.9 Ferritin 25.4 Total Bilirubin 1.4 H AST 86 H ALT 44 Alkaline Phosphatase 94 Ammonia Creatine Kinase Creatine Kinase Index CK-MB (CK-2) Troponin I < 0.02 Total Protein 6.1 L Albumin 2.9 L Lipase TSH Urine Color Urine Appearance Urine pH Ur Specific [place] Urine Protein Urine Glucose (UA) Urine Ketones Urine Blood Urine Nitrite Urine Bilirubin Urine Urobilinogen Ur Leukocyte Esterase Opiates Screen Methadone Screen Barbiturate Screen Phencyclidine Screen Ur Amphetamines Screen MDMA (Ecstasy) Screen Benzodiazepines Screen Cocaine Screen U Marijuana (THC) Screen Blood Type Antibody Screen Active Medications Generic Name Dose Route Start Last Admin Trade Name Freq PRN Reason Stop Dose Admin Ferrous Sulfate 325 mg 01/19/19 08:00 01/19/19 10:12 Feosol - PO 325 mg TIDCM RANDI Administration Folic Acid 1 mg 01/19/19 10:00 01/19/19 10:12 Folic Acid - PO 1 mg DAILY RANDI Administration Sodium Chloride 1,000 mls @ 100 mls/hr 01/18/19 22:00 01/19/19 11:07 Normal Saline - IV 100 mls/hr ASDIR RANDI Administration Lactulose 20 gm 01/18/19 22:04 Cephulac (Oral Use) PO Q8H PRN CONSTIPATION Lorazepam 0.5 mg 01/21/19 05:00 Ativan - PO 01/22/19 05:01 Q6H RANDI Lorazepam 0.5 mg 01/21/19 05:00 Ativan - PO 01/22/19 05:00 Q4H PRN Symptoms of Withdrawal Lorazepam 1 mg 01/20/19 05:00 Ativan - PO 01/20/19 23:01 0500,1100,1700,2300 RANDI Lorazepam 1 mg 01/19/19 03:37 Ativan - PO 01/21/19 05:00 Q4H PRN Symptoms of Withdrawal Pantoprazole Sodium 40 mg 01/19/19 10:00 01/19/19 10:12 Protonix - PO 40 mg DAILY RANDI Administration Rifaximin 550 mg 01/18/19 22:15 01/19/19 10:12 Xifaxan - PO 550 mg BID RANDI Administration Thiamine HCl 200 mg 01/19/19 10:00 01/19/19 10:13 Vitamin B1 Injection - IVPB 200 mg DAILY RANDI Administration ASSESSMENT/PLAN: Pt. is a 33 y.o. M w/ PMHx. of pancytopenia, stage 2 cirrhosis of the liver, GERD, Depression (suicide attempts in 2015 and 2018), and EtOH abuse presents from [facility] for having a WBC count of 0.9k. #Pancytopenia likely 2/2 EtOH abuse Heme/Onc on board------> daily CBCs, f/u Iron studies, reticulocyte count , neutropenic precautions, empiric abx Plts : 23k; Hgb: 8.8; WBC: 1.1k. ID Consult. #EtOH Abuse and Nicotine Dependance c/w Ativan protocol as Pt. was initiated on this at [facility] Fall risk precautions Thiamine Folic Acid IVF #Stage 2 Cirrhosis - Lactulose, Rifaximin #FEN LR @ 100ml/hr monitor electrolytes Regular Diet #DVT Ppx. TEDs/ SCDs. Visit type - Emergency Visit Emergency Visit: Yes ED Registration Date: 01/18/19 Care time: The patient presented to the Emergency Department on the above date and was hospitalized for further evaluation of their emergent condition. - New Patient This patient is new to me today: Yes Date on this admission: 01/19/19 - Critical Care Critical Care patient: No - Discharge Referral Referred to [facility] Med [facility].C[facility] No
--- NOTE | 2019-01-19 14:02 | CONSULT ---
Consultation: REQUESTING PROVIDER: CONSULT REQUEST: We have been asked to medically evaluate this patient for pancytopenia. HISTORY OF PRESENT ILLNESS: The patient is a 33 y/o male with PMHx of pancytopenia, stage 2 liver cirrhosis , s/p biopsy x 2, GERD, depression and EtOH abuse,nicotine dependance, presents from [facility] for having a WBC count of 0.9. He states that he knows about pancytopenia for 5 years, but doesn't f/u with PCP, Hem/Onc. History of multiple blood transfusions, BM biopsy in 2017. Today he is complaining of weakness and fatigue, balance problems. In the past he tried to be on liver transplant list but was not able to be sober for at least 6 months. He denies abdominal pain, chest pain, lightheadedness, dizziness, constipation, diarrhea, dysuria, headaches, numbness tingling. PSH: L. Shoulder Surgery, Appendectomy, L. Wrist Social History: Smokin PPD x 20 years. Alcohol: 3 pints /day ; 5 beers/day. Drugs: Denies. He is homeless. Family History: Father- from heroin OD, Mother- EtOH abuse, brother heroin abuser, sister healthy, lives in [place], has 2 kids. REVIEW OF SYSTEMS: CONSTITUTIONAL: generalized weakness, Absent: fever, chills, diaphoresis, malaise, loss of appetite, weight change HEENT: Absent: rhinorrhea, nasal congestion, throat pain, visual changes CARDIOVASCULAR: Absent: chest pain, syncope, palpitations, irregular heart rate, lightheadedness , peripheral edema RESPIRATORY: Absent: cough, shortness of breath, dyspnea with exertion, orthopnea, wheezing, GASTROINTESTINAL: Absent: abdominal pain, abdominal distension, nausea, vomiting, diarrhea, constipation, GENITOURINARY: Absent: dysuria, frequency, urgency, hesitanc MUSCULOSKELETAL: Absent: myalgia, arthralgia, joint swelling, back pain, SKIN: Absent: rash, itching, pallor HEMATOLOGIC/IMMUNOLOGIC: Absent: easy bleeding, easy bruising, lymphadenopathy, frequent infections ENDOCRINE: Absent: unexplained weight gain, unexplained weight loss, NEUROLOGIC: unsteady gait, Absent: headache, focal weakness or paresthesias, dizziness, seizure PSYCHIATRIC: depression Absent: anxiety, hallucinations PHYSICAL EXAMINATION Vital Signs - 24 hr 01/18/19 01/18/19 01/18/19 15:20 19:01 19:06 Temperature 98.2 F 98.0 F Pulse Rate 76 Pulse Rate [ 89 63 Apical] Respiratory 16 18 19 Rate Blood Pressure 113/71 Blood Pressure 108/74 [Left Arm] Blood Pressure 108/74 [Right Arm] O2 Sat by Pulse 97 100 99 Oximetry (%) 01/18/19 01/18/19 01/18/19 19:10 19:26 21:00 Temperature 98.4 F 97.5 F L Pulse Rate 57 L Pulse Rate [ 67 Apical] Respiratory 20 18 Rate Blood Pressure 119/77 Blood Pressure 115/78 [Left Arm] Blood Pressure [Right Arm] O2 Sat by Pulse 99 98 98 Oximetry (%) 01/19/19 01/19/19 01/19/19 02:56 06:00 09:00 Temperature 97.9 F 98.1 F Pulse Rate 63 Pulse Rate [ 58 L Apical] Respiratory 14 18 18 Rate Blood Pressure 117/79 Blood Pressure 97/62 [Left Arm] Blood Pressure [Right Arm] O2 Sat by Pulse 98 98 Oximetry (%) 01/19/19 10:20 Temperature 98.6 F Pulse Rate 77 Pulse Rate [ Apical] Respiratory 20 Rate Blood Pressure 128/74 Blood Pressure [Left Arm] Blood Pressure [Right Arm] O2 Sat by Pulse Oximetry (%) GENERAL: Awake, alert, and fully oriented, in no acute distress. HEAD: Normal with no signs of trauma. EYES: Extraocular movements intact, sclera anicteric, conjunctiva clear. EARS, NOSE, THROAT: Ears normal, nares patent, oropharynx clear without exudates , missing teeth. Moist mucous membranes. NECK: Normal range of motion, supple without lymphadenopathy, JVD, or masses. LUNGS: Breath sounds equal, clear to auscultation bilaterally. No wheezes, and no crackles. No accessory muscle use. HEART: Regular rate and rhythm, normal S1 and S2 without murmur, rub or gallop. ABDOMEN: Soft, nontender, not distended, normoactive bowel sounds, no guarding, no rebound, no masses. No hepatomegaly. MUSCULOSKELETAL: No bony deformities or tenderness. UPPER EXTREMITIES: No peripheral edema. LOWER EXTREMITIES: 2+ pulses, warm. No peripheral edema. NEUROLOGICAL: Lethargic. Normal speech. PSYCHIATRIC: Cooperative. Good eye contact. SKIN: Warm, dry, normal turgor, no rashes. Laboratory Results - last 24 hr 01/18/19 01/18/19 01/18/19 16:50 16:55 16:55 WBC Cancelled Corrected WBC (auto) Cancelled RBC Cancelled Hgb Cancelled Hct Cancelled MCV Cancelled MCH Cancelled MCHC Cancelled RDW Cancelled Plt Count Cancelled MPV Cancelled Absolute Neuts (auto) Cancelled Neutrophils % Cancelled Neutrophils % (Manual) Band Neutrophils % Lymphocytes % Cancelled Lymphocytes % (Manual) Monocytes % Cancelled Monocytes % (Manual) Eosinophils % Cancelled Eosinophils % (Manual) Basophils % Cancelled Basophils % (Manual) Myelocytes % (Man) Promyelocytes % (Man) Blast Cells % (Manual) Nucleated RBC % Cancelled Metamyelocytes Hypochromia Platelet Estimate Cancelled Platelet Comment Cancelled Polychromasia Poikilocytosis Anisocytosis Microcytosis Macrocytosis Schistocytes Retic Count PT with INR INR PTT (Actin FS) Sodium Potassium Chloride Carbon Dioxide Anion Gap BUN Creatinine Est GFR (CKD-EPI)AfAm Est GFR (CKD-EPI)NonAf Random Glucose Lactic Acid Calcium Phosphorus Magnesium Ferritin Total Bilirubin AST ALT Alkaline Phosphatase Ammonia Creatine Kinase Creatine Kinase Index CK-MB (CK-2) Troponin I Total Protein Albumin Lipase TSH Urine Color Yellow Urine Appearance Clear Urine pH >= 9.0 H Ur Specific [place] 1.018 Urine Protein Trace Urine Glucose (UA) Negative Urine Ketones Negative Urine Blood Negative Urine Nitrite Negative Urine Bilirubin Negative Urine Urobilinogen 1.0 Ur Leukocyte Esterase Negative Opiates Screen Methadone Screen Barbiturate Screen Phencyclidine Screen Ur Amphetamines Screen MDMA (Ecstasy) Screen Benzodiazepines Screen Cocaine Screen U Marijuana (THC) Screen Blood Type O POSITIVE Antibody Screen Negative 01/18/19 01/18/19 01/18/19 16:55 16:55 16:55 WBC Corrected WBC (auto) RBC Hgb Hct MCV MCH MCHC RDW Plt Count MPV Absolute Neuts (auto) Neutrophils % Neutrophils % (Manual) Band Neutrophils % Lymphocytes % Lymphocytes % (Manual) Monocytes % Monocytes % (Manual) Eosinophils % Eosinophils % (Manual) Basophils % Basophils % (Manual) Myelocytes % (Man) Promyelocytes % (Man) Blast Cells % (Manual) Nucleated RBC % Metamyelocytes Hypochromia Platelet Estimate Platelet Comment Polychromasia Poikilocytosis Anisocytosis Microcytosis Macrocytosis Schistocytes Retic Count PT with INR 13.50 H INR 1.14 H PTT (Actin FS) 23.2 L Sodium 142 Potassium 4.4 Chloride 106 Carbon Dioxide 29 Anion Gap 6 L BUN 11.6 Creatinine 0.7 Est GFR (CKD-EPI)AfAm 144.72 Est GFR (CKD-EPI)NonAf 124.87 Random Glucose 82 Lactic Acid 1.9 Calcium 8.4 L Phosphorus Magnesium 1.4 L Ferritin Total Bilirubin 0.7 AST 133 H ALT 50 Alkaline Phosphatase 90 Ammonia Creatine Kinase 254 Creatine Kinase Index 0.6 CK-MB (CK-2) 1.6 Troponin I < 0.02 Total Protein 6.5 Albumin 3.0 L Lipase 220 TSH 1.26 D Urine Color Urine Appearance Urine pH Ur Specific [place] Urine Protein Urine Glucose (UA) Urine Ketones Urine Blood Urine Nitrite Urine Bilirubin Urine Urobilinogen Ur Leukocyte Esterase Opiates Screen Methadone Screen Barbiturate Screen Phencyclidine Screen Ur Amphetamines Screen MDMA (Ecstasy) Screen Benzodiazepines Screen Cocaine Screen U Marijuana (THC) Screen Blood Type Antibody Screen 01/18/19 01/18/19 01/18/19 18:45 18:45 18:45 WBC 1.1 L* Corrected WBC (auto) RBC 3.15 L Hgb 8.8 L Hct 26.7 L MCV 84.9 MCH 28.1 MCHC 33.1 RDW 20.0 H Plt Count 23 L* D MPV 8.4 Absolute Neuts (auto) 0.5 L Neutrophils % 42.5 L D Neutrophils % (Manual) 55.0 D Band Neutrophils % 1.0 Lymphocytes % 39.1 D Lymphocytes % (Manual) 37.0 Monocytes % 15.6 H Monocytes % (Manual) 4 Eosinophils % 2.2 Eosinophils % (Manual) 3.0 D Basophils % 0.6 Basophils % (Manual) 0.0 Myelocytes % (Man) Promyelocytes % (Man) Blast Cells % (Manual) Nucleated RBC % 0 Metamyelocytes Hypochromia Platelet Estimate Decreased Platelet Comment No clumping noted Polychromasia Poikilocytosis Anisocytosis 1+ Microcytosis Macrocytosis Schistocytes Retic Count PT with INR INR PTT (Actin FS) Sodium Potassium Chloride Carbon Dioxide Anion Gap BUN Creatinine Est GFR (CKD-EPI)AfAm Est GFR (CKD-EPI)NonAf Random Glucose Lactic Acid Calcium Phosphorus Magnesium Ferritin Total Bilirubin AST ALT Alkaline Phosphatase Ammonia 165.60 H Creatine Kinase Creatine Kinase Index CK-MB (CK-2) Troponin I Total Protein Albumin Lipase TSH Urine Color Urine Appearance Urine pH Ur Specific [place] Urine Protein Urine Glucose (UA) Urine Ketones Urine Blood Urine Nitrite Urine Bilirubin Urine Urobilinogen Ur Leukocyte Esterase Opiates Screen Negative Methadone Screen Negative Barbiturate Screen Negative Phencyclidine Screen Negative Ur Amphetamines Screen Negative MDMA (Ecstasy) Screen Negative Benzodiazepines Screen Positive A* Cocaine Screen Negative U Marijuana (THC) Screen Negative Blood Type Antibody Screen 01/19/19 01/19/19 01/19/19 00:05 00:05 07:09 WBC 0.9 L* Corrected WBC (auto) RBC 3.40 L Hgb 9.7 L Hct 28.9 L MCV 85.0 MCH 28.6 MCHC 33.6 RDW 20.0 H Plt Count 27 L* MPV 10.1 D Absolute Neuts (auto) 0.4 L Neutrophils % 41.5 L Neutrophils % (Manual) 36.7 L D Band Neutrophils % 0.0 Lymphocytes % 40.1 H Lymphocytes % (Manual) 48.6 H D Monocytes % 12.6 H Monocytes % (Manual) 11 H D Eosinophils % 5.2 H D Eosinophils % (Manual) 2.8 Basophils % 0.6 Basophils % (Manual) 0.0 Myelocytes % (Man) 0 D Promyelocytes % (Man) 0 Blast Cells % (Manual) 0 Nucleated RBC % 1 H Metamyelocytes 1 D Hypochromia 0 Platelet Estimate Decreased Platelet Comment Polychromasia 0 Poikilocytosis 1+ Anisocytosis 1+ Microcytosis 1+ Macrocytosis 0 Schistocytes 1+ Retic Count 0.79 D PT with INR INR PTT (Actin FS) Sodium Potassium Chloride Carbon Dioxide Anion Gap BUN Creatinine Est GFR (CKD-EPI)AfAm Est GFR (CKD-EPI)NonAf Random Glucose Lactic Acid Calcium Phosphorus Magnesium Ferritin 22.8 Total Bilirubin AST ALT Alkaline Phosphatase Ammonia Creatine Kinase Creatine Kinase Index CK-MB (CK-2) Troponin I < 0.02 Total Protein Albumin Lipase TSH Urine Color Urine Appearance Urine pH Ur Specific [place] Urine Protein Urine Glucose (UA) Urine Ketones Urine Blood Urine Nitrite Urine Bilirubin Urine Urobilinogen Ur Leukocyte Esterase Opiates Screen Methadone Screen Barbiturate Screen Phencyclidine Screen Ur Amphetamines Screen MDMA (Ecstasy) Screen Benzodiazepines Screen Cocaine Screen U Marijuana (THC) Screen Blood Type Antibody Screen 01/19/19 01/19/19 07:09 07:09 WBC Corrected WBC (auto) RBC Hgb Hct MCV MCH MCHC RDW Plt Count MPV Absolute Neuts (auto) Neutrophils % Neutrophils % (Manual) Band Neutrophils % Lymphocytes % Lymphocytes % (Manual) Monocytes % Monocytes % (Manual) Eosinophils % Eosinophils % (Manual) Basophils % Basophils % (Manual) Myelocytes % (Man) Promyelocytes % (Man) Blast Cells % (Manual) Nucleated RBC % Metamyelocytes Hypochromia Platelet Estimate Platelet Comment Polychromasia Poikilocytosis Anisocytosis Microcytosis Macrocytosis Schistocytes Retic Count PT with INR 15.00 H INR 1.27 H PTT (Actin FS) Sodium 138 Potassium 3.9 Chloride 108 H Carbon Dioxide 25 Anion Gap 5 L BUN 10.0 Creatinine 0.7 Est GFR (CKD-EPI)AfAm 144.72 Est GFR (CKD-EPI)NonAf 124.87 Random Glucose 82 Lactic Acid Calcium 7.8 L Phosphorus 2.7 Magnesium 1.9 Ferritin 25.4 Total Bilirubin 1.4 H AST 86 H ALT 44 Alkaline Phosphatase 94 Ammonia Creatine Kinase Creatine Kinase Index CK-MB (CK-2) Troponin I < 0.02 Total Protein 6.1 L Albumin 2.9 L Lipase TSH Urine Color Urine Appearance Urine pH Ur Specific [place] Urine Protein Urine Glucose (UA) Urine Ketones Urine Blood Urine Nitrite Urine Bilirubin Urine Urobilinogen Ur Leukocyte Esterase Opiates Screen Methadone Screen Barbiturate Screen Phencyclidine Screen Ur Amphetamines Screen MDMA (Ecstasy) Screen Benzodiazepines Screen Cocaine Screen U Marijuana (THC) Screen Blood Type Antibody Screen Active Medications Generic Name Dose Route Start Last Admin Trade Name Freq PRN Reason Stop Dose Admin Ferrous Sulfate 325 mg 01/19/19 08:00 01/19/19 13:32 Feosol - PO 325 mg TIDCM RANDI Administration Folic Acid 1 mg 01/19/19 10:00 01/19/19 10:12 Folic Acid - PO 1 mg DAILY RANDI Administration Sodium Chloride 1,000 mls @ 100 mls/hr 01/18/19 22:00 01/19/19 11:07 Normal Saline - IV 100 mls/hr ASDIR RANDI Administration Lactulose 20 gm 01/18/19 22:04 Cephulac (Oral Use) PO Q8H PRN CONSTIPATION Lorazepam 0.5 mg 01/21/19 05:00 Ativan - PO 01/22/19 05:01 Q6H RANDI Lorazepam 0.5 mg 01/21/19 05:00 Ativan - PO 01/22/19 05:00 Q4H PRN Symptoms of Withdrawal Lorazepam 1 mg 01/20/19 05:00 Ativan - PO 01/20/19 23:01 0500,1100,1700,2300 RANDI Lorazepam 1 mg 01/19/19 03:37 Ativan - PO 01/21/19 05:00 Q4H PRN Symptoms of Withdrawal Pantoprazole Sodium 40 mg 01/19/19 10:00 01/19/19 10:12 Protonix - PO 40 mg DAILY RANDI Administration Rifaximin 550 mg 01/18/19 22:15 01/19/19 10:12 Xifaxan - PO 550 mg BID RANDI Administration Thiamine HCl 200 mg 01/19/19 10:00 01/19/19 10:13 Vitamin B1 Injection - IVPB 200 mg DAILY RANDI Administration ASSESSMENT/PLAN: The patient is a 33 y/o male with PMHx of pancytopenia, stage 2 liver cirrhosis , s/p biopsy x 2, GERD, depression and EtOH abuse presents from [facility] for pancytopenia. Pancytopenia EtOH Abuse Depression Plan: likely due to liver cirrhosis daily CBCs f/u Iron studies, reticuocyte count neutropenic precautions empiric abx Dispo: We will continue to follow the patient. Thank you for this consultative opportunity. Problem List - Problems (1) Pancytopenia Code(s): D61.818 - OTHER PANCYTOPENIA (2) Anemia Code(s): D64.9 - ANEMIA, UNSPECIFIED (3) Alcohol dependence with uncomplicated withdrawal Code(s): F10.230 - ALCOHOL DEPENDENCE WITH WITHDRAWAL, UNCOMPLICATED (4) Alcoholic liver disease Code(s): K70.9 - ALCOHOLIC LIVER DISEASE, UNSPECIFIED (5) Nicotine dependence Code(s): F17.200 - NICOTINE DEPENDENCE, UNSPECIFIED, UNCOMPLICATED Qualifiers: Nicotine product type: cigarettes Substance use status: uncomplicated Qualified Code(s): F17.210 - Nicotine dependence, cigarettes, uncomplicated Visit type - Emergency Visit Emergency Visit: Yes ED Registration Date: 01/18/19 Care time: The patient presented to the Emergency Department on the above date and was hospitalized for further evaluation of their emergent condition. - New Patient This patient is new to me today: Yes Date on this admission: 01/19/19 - Critical Care Critical Care patient: No
--- NOTE | 2019-01-19 15:21 | CON.ID ---
Consult - Alcohol/Substance Use Hx Alcohol Use: Yes - Smoking History Smoking history: Former smoker Have you smoked in the past 12 months: No Aproximately how many cigarettes per day: 6 Home Medications - Allergies Allergies/Adverse Reactions: Allergies Allergy/AdvReac Type Severity Reaction Status Date / Time No Known Allergies Allergy Verified 01/18/19 17:35 - Home Medications Home Medications: Ambulatory Orders Ferrous Sulfate [Feosol] 325 mg PO TIDCM #90 tab 03/19/17 Pantoprazole Sodium [Protonix -] 40 mg PO DAILY #30 tab 03/19/17 Escitalopram Oxalate [Lexapro -] 20 mg PO DAILY #30 tablet 07/05/17 Folic Acid - 1 mg PO DAILY #30 tablet 07/11/17 Vitamins (Sjr) - 1 tab PO DAILY #30 tablet 07/11/17 Fluoxetine HCl [Prozac] 40 mg PO DAILY 01/18/19 Quetiapine Fumarate [Seroquel -] 50 mg PO HS 01/18/19 Family Disease History - Family Disease History Family Disease History: Other: Father (heroin addict) Physical Exam Vital Signs: Vital Signs Temperature 98.6 F 01/19/19 10:20 Pulse Rate 77 01/19/19 10:20 Respiratory Rate 20 01/19/19 10:20 Blood Pressure 128/74 01/19/19 10:20 O2 Sat by Pulse Oximetry (%) 98 01/19/19 09:00 Labs: CBC, BMP 01/19/19 07:09 01/19/19 07:09
[2019-01-19] MEDS: LACTULOSE 20 GM/30 ML UDC (FOR ORAL USE ONLY) PO PRN (16:58)
--- NOTE | 2019-01-19 18:22 | PN ---
Teaching Attending Note Name of Resident: Keron Scanlon ATTENDING PHYSICIAN STATEMENT I saw and evaluated the patient. I reviewed the resident's note and discussed the case with the resident. I agree with the resident's findings and plan as documented. SUBJECTIVE: Patient is feeling better with no acute distress. OBJECTIVE: Vital Signs Temperature 98.1 F 01/19/19 18:17 Pulse Rate 74 01/19/19 18:17 Respiratory Rate 20 01/19/19 18:17 Blood Pressure 118/64 01/19/19 18:17 O2 Sat by Pulse Oximetry (%) 98 01/19/19 09:00 GENERAL: NAD HEAD: Normal with no signs of trauma. EYES: EOMI Sclera Clear , ENT: MMM NECK: Trachea midline, full range of motion, supple. LUNGS: CTAB, HEART: RRR S1S2 ABDOMEN: ND, NT, positive for BS EXTREMITIES: No CCE. Mild hand tremor. NEUROLOGICAL: Cranial nerves II through XII grossly intact. PSYCH: Normal mood, normal affect. SKIN: Warm, dry, normal turgor, no rashes or lesions noted CBCD WBC 0.9 K/mm3 (4.0-10.0) L* 01/19/19 07:09 RBC 3.40 M/mm3 (4.00-5.60) L 01/19/19 07:09 Hgb 9.7 GM/dL (11.7-16.9) L 01/19/19 07:09 Hct 28.9 % (35.4-49) L 01/19/19 07:09 MCV 85.0 fl (80-96) 01/19/19 07:09 MCHC 33.6 g/dl (32.0-35.9) 01/19/19 07:09 RDW 20.0 % (11.9-15.9) H 01/19/19 07:09 Plt Count 27 K/MM3 (134-434) L* 01/19/19 07:09 MPV 10.1 fl (7.5-11.1) D 01/19/19 07:09 CMP Sodium 138 mmol/L (136-145) 01/19/19 07:09 Potassium 3.9 mmol/L (3.5-5.1) 01/19/19 07:09 Chloride 108 mmol/L (98-107) H 01/19/19 07:09 Carbon Dioxide 25 mmol/L (21-32) 01/19/19 07:09 Anion Gap 5 MMOL/L (8-16) L 01/19/19 07:09 BUN 10.0 mg/dL (7-18) 01/19/19 07:09 Creatinine 0.7 mg/dL (0.55-1.3) 01/19/19 07:09 Random Glucose 82 mg/dL (74-106) 01/19/19 07:09 Calcium 7.8 mg/dL (8.5-10.1) L 01/19/19 07:09 Total Bilirubin 1.4 mg/dL (0.2-1) H 01/19/19 07:09 AST 86 U/L (15-37) H 01/19/19 07:09 ALT 44 U/L (13-61) 01/19/19 07:09 Alkaline Phosphatase 94 U/L (45-117) 01/19/19 07:09 Total Protein 6.1 g/dl (6.4-8.2) L 01/19/19 07:09 Albumin 2.9 g/dl (3.4-5.0) L 01/19/19 07:09 CARDIAC ENZYMES Creatine Kinase 254 U/L (26-308) 01/18/19 16:55 Troponin I < 0.02 ng/ml (0.00-0.05) 01/19/19 07:09 Home Medications Medication Instructions Recorded Ferrous Sulfate [Feosol] 325 mg PO TIDCM #90 tab 03/19/17 Pantoprazole Sodium [Protonix -] 40 mg PO DAILY #30 tab 03/19/17 Escitalopram Oxalate [Lexapro -] 20 mg PO DAILY #30 tablet 07/05/17 Folic Acid - 1 mg PO DAILY #30 tablet 07/11/17 Vitamins (Sjr) - 1 tab PO DAILY #30 tablet 07/11/17 Fluoxetine HCl [Prozac] 40 mg PO DAILY 01/18/19 Quetiapine Fumarate [Seroquel -] 50 mg PO HS 01/18/19 Current Medications Generic Name Dose Route Start Last Admin Trade Name Freq PRN Reason Stop Dose Admin Ferrous Sulfate 325 mg 01/19/19 08:00 01/19/19 16:58 Feosol - PO 325 mg TIDCM RANDI Administration Folic Acid 1 mg 01/19/19 10:00 01/19/19 10:12 Folic Acid - PO 1 mg DAILY RANDI Administration Sodium Chloride 1,000 mls @ 100 mls/hr 01/18/19 22:00 01/19/19 17:00 Normal Saline - IV 100 mls/hr ASDIR RANDI Administration Lactulose 20 gm 01/18/19 22:04 01/19/19 16:58 Cephulac (Oral Use) PO 20 gm Q8H PRN Administration CONSTIPATION Lorazepam 0.5 mg 01/21/19 05:00 Ativan - PO 01/22/19 05:01 Q6H RANDI Lorazepam 0.5 mg 01/21/19 05:00 Ativan - PO 01/22/19 05:00 Q4H PRN Symptoms of Withdrawal Lorazepam 1 mg 01/20/19 05:00 Ativan - PO 01/20/19 23:01 0500,1100,1700,2300 RANDI Lorazepam 1 mg 01/19/19 03:37 Ativan - PO 01/21/19 05:00 Q4H PRN Symptoms of Withdrawal Pantoprazole Sodium 40 mg 01/19/19 10:00 01/19/19 10:12 Protonix - PO 40 mg DAILY RANDI Administration Rifaximin 550 mg 01/18/19 22:15 01/19/19 10:12 Xifaxan - PO 550 mg BID RANDI Administration Thiamine HCl 200 mg 01/19/19 10:00 01/19/19 10:13 Vitamin B1 Injection - IVPB 200 mg DAILY RANDI Administration ASSESSMENT AND PLAN: Pt. is a 33 y.o. M w/ PMHx. of pancytopenia, stage 2 cirrhosis of the liver, GERD, Depression (suicide attempts in 2014 and 2017), and EtOH abuse presents from [facility] for having a WBC count of 0.9k. #Pancytopenia with neutropenia : hem/onc for consult, will continue to monitor #EtOH Abuse and Nicotine Dependance; librium protocol #Stage 2 Cirrhosis : Lactulose, Rifaximin #DVT Ppx.tEDs/ SCDs.no ac since platelets are 27K
--- NOTE | 2019-01-19 23:32 | PN ---
Teaching Attending Note Name of Resident: Radha Alvarenga ATTENDING PHYSICIAN STATEMENT I saw and evaluated the patient. I reviewed the resident's note and discussed the case with the resident. I agree with the resident's findings and plan as documented. ASSESSMENT AND PLAN: 32 y/o with alcoholic withdrawal/alcoholic liver disease/encephalopathy Pancytopennia--due to marrow suppression from alcohol + liver disease--improving monior CBC/Coags Transfuse platelets if bleeding/prior to procedures
[2019-01-20] MEDS: SODIUM CHLORIDE 1,000 ML IV SCH ×2 (03:00→21:50)
[2019-01-20] MEDS: LORazepam 1 MG TABLET PO SCH ×4 (05:05→22:00)
[2019-01-20 07:38] LABS: HEMATOCRIT 29.4 % (35.4-49); HEMOGLOBIN 9.8 GM/dL (11.7-16.9); MCH 28.2 pg (25.7-33.7); MCHC 33.4 g/dl (32.0-35.9); MEAN CELL VOLUME 84.3 fl (80-96); MEAN PLT VOLUME 8.2 fl (7.5-11.1); RBC 3.49 M/mm3 (4.00-5.60); RDW 20.1 % (11.9-15.9)
[2019-01-20 07:56] LABS: BLOOD UREA NITROGEN 9.9 mg/dL (7-18); CREATININE 0.7 mg/dL (0.55-1.3); MAGNESIUM 1.8 mg/dL (1.8-2.4); PHOSPHOROUS 2.9 mg/dL (2.5-4.9)
[2019-01-20 08:12] LABS: PLATELET COUNT 24 K/MM3 (134-434); WHITE BLOOD COUNT 1.4 K/mm3 (4.0-10.0)
[2019-01-20] MEDS ORDERED: PT OWN MED DRAWER 7, Y5N ONE (09:03)
[2019-01-20] MEDS: THIAMINE HCL 200 MG/2 ML VIAL IVPB SCH (09:35)
[2019-01-20] MEDS: PANTOPRAZOLE 40 MG TABLET (FP) PO SCH (09:35)
[2019-01-20] MEDS: RIFAXIMIN 550 MG TABLET (UD) PO SCH ×2 (09:36→21:49)
[2019-01-20] MEDS: FERROUS SO4 325 MG TABLET (FP) PO SCH ×3 (09:36→17:41)
[2019-01-20] MEDS: FOLIC ACID 1 MG TABLET (FP) PO SCH (09:36)
[2019-01-20] MEDS: LACTULOSE 20 GM/30 ML UDC (FOR ORAL USE ONLY) PO PRN (09:37)
--- NOTE | 2019-01-20 12:46 | PN ---
Physical Exam: SUBJECTIVE: Patient seen and examined at bedside. No acute events overnight. OBJECTIVE: Vital Signs Period Temp Pulse Resp BP Sys/Sanchez Pulse Ox Last 24 Hr 98 F-98.8 F 64-74 18-20 115-118/64-72 98 GENERAL: No acute events HEAD: Normal with no signs of trauma. EYES: EOMI Sclera Clear ENT: MMM LUNGS: CTAB HEART: RRR S1S2 ABDOMEN: NDNT EXTREMITIES: No CCE. NEUROLOGICAL: Cranial nerves II through XII grossly intact. PSYCH: Normal mood, normal affect. SKIN: Warm, dry, normal turgor, no rashes or lesions noted Laboratory Results - last 24 hr 01/19/19 01/20/19 01/20/19 00:05 06:45 06:45 WBC 1.4 L* RBC 3.49 L Hgb 9.8 L Hct 29.4 L MCV 84.3 MCH 28.2 MCHC 33.4 RDW 20.1 H Plt Count 24 L* MPV 8.2 D Sodium 138 Potassium 4.0 Chloride 109 H Carbon Dioxide 22 Anion Gap 7 L BUN 9.9 Creatinine 0.7 Est GFR (CKD-EPI)AfAm 144.72 Est GFR (CKD-EPI)NonAf 124.87 Random Glucose 87 Calcium 8.0 L Phosphorus 2.9 Magnesium 1.8 Iron 78 Active Medications Generic Name Dose Route Start Last Admin Trade Name Freq PRN Reason Stop Dose Admin Ferrous Sulfate 325 mg 01/19/19 08:00 01/20/19 09:36 Feosol - PO 325 mg TIDCM RANDI Administration Folic Acid 1 mg 01/19/19 10:00 01/20/19 09:36 Folic Acid - PO 1 mg DAILY RANDI Administration Sodium Chloride 1,000 mls @ 100 mls/hr 01/18/19 22:00 01/20/19 03:00 Normal Saline - IV 100 mls/hr ASDIR RANDI Administration Lactulose 20 gm 01/18/19 22:04 01/20/19 09:37 Cephulac (Oral Use) PO 20 gm Q8H PRN Administration CONSTIPATION Lorazepam 0.5 mg 01/21/19 05:00 Ativan - PO 01/22/19 05:01 Q6H RANDI Lorazepam 0.5 mg 01/21/19 05:00 Ativan - PO 01/22/19 05:00 Q4H PRN Symptoms of Withdrawal Lorazepam 1 mg 01/20/19 05:00 01/20/19 05:05 Ativan - PO 01/20/19 23:01 1 mg 0500,1100,1700,2300 RANDI Administration Lorazepam 1 mg 01/19/19 03:37 Ativan - PO 01/21/19 05:00 Q4H PRN Symptoms of Withdrawal Pantoprazole Sodium 40 mg 01/19/19 10:00 01/20/19 09:35 Protonix - PO 40 mg DAILY RANDI Administration Rifaximin 550 mg 01/18/19 22:15 01/20/19 09:36 Xifaxan - PO 550 mg BID RANDI Administration Thiamine HCl 200 mg 01/19/19 10:00 01/20/19 09:35 Vitamin B1 Injection - IVPB 200 mg DAILY RANDI Administration ASSESSMENT/PLAN: Pt. is a 33 y/o M w/ PMHx. of pancytopenia, stage 2 cirrhosis of the liver, GERD , Depression (suicide attempts in 2014 and 2017), and EtOH abuse presents from [facility] for having a WBC count of 0.9k. #Pancytopenia likely 2/2 EtOH abuse Heme/Onc on board--> Awaiting recommendations Plts : 23k; Hgb: 8.8; WBC: 1.1k, today WBC 1.4, H/H 9.8/21/4 respectively ( 01/20/2019). #EtOH Abuse and Nicotine Dependance c/w Ativan protocol as Pt. was initiated on this at [facility] Fall risk precautions Thiamine Folic Acid IVF #Stage 2 Cirrhosis - Lactulose, Rifaximin #FEN LR @ 100ml/hr monitor electrolytes Regular Diet #DVT Ppx. TEDs/ SCDs. Waiting to get the medical records from [facility] in [place] Visit type - Emergency Visit Emergency Visit: Yes ED Registration Date: 01/18/19 Care time: The patient presented to the Emergency Department on the above date and was hospitalized for further evaluation of their emergent condition. - New Patient This patient is new to me today: No - Critical Care Critical Care patient: No - Discharge Referral Referred to [facility] Med [facility] No
--- NOTE | 2019-01-20 13:05 | PN ---
Progress Note, Physician History of Present Illness: patient stable wbc increasing - Current Medication List Current Medications: Active Medications Ferrous Sulfate (Feosol -) 325 mg PO TIDCM [facility] Last Admin: 01/20/19 12:47 Dose: 325 mg Folic Acid (Folic Acid -) 1 mg PO DAILY [facility] Last Admin: 01/20/19 09:36 Dose: 1 mg Sodium Chloride (Normal Saline -) 1,000 mls @ 100 mls/hr IV ASDIR [facility] Last Admin: 01/20/19 03:00 Dose: 100 mls/hr Lactulose (Cephulac (Oral Use)) 20 gm PO Q8H PRN PRN Reason: CONSTIPATION Last Admin: 01/20/19 09:37 Dose: 20 gm Lorazepam (Ativan -) 0.5 mg PO Q6H [facility] Stop: 01/22/19 05:01 Lorazepam (Ativan -) 0.5 mg PO Q4H PRN PRN Reason: Symptoms of Withdrawal Stop: 01/22/19 05:00 Lorazepam (Ativan -) 1 mg PO 0500,1100,1700,2300 [facility] Stop: 01/20/19 23:01 Last Admin: 01/20/19 12:47 Dose: 1 mg Lorazepam (Ativan -) 1 mg PO Q4H PRN PRN Reason: Symptoms of Withdrawal Stop: 01/21/19 05:00 Pantoprazole Sodium (Protonix -) 40 mg PO DAILY [facility] Last Admin: 01/20/19 09:35 Dose: 40 mg Rifaximin (Xifaxan -) 550 mg PO BID [facility] Last Admin: 01/20/19 09:36 Dose: 550 mg Thiamine HCl (Vitamin B1 Injection -) 200 mg IVPB DAILY [facility] Last Admin: 01/20/19 09:35 Dose: 200 mg - Objective Vital Signs: Vital Signs Temperature 98 F 01/20/19 04:00 Pulse Rate 64 01/20/19 04:00 Respiratory Rate 18 01/20/19 04:00 Blood Pressure 115/72 01/20/19 04:00 O2 Sat by Pulse Oximetry (%) 98 01/19/19 21:00 Constitutional: Yes: No Distress, Calm Cardiovascular: Yes: Regular Rate and Rhythm Respiratory: Yes: Regular, CTA Bilaterally Musculoskeletal: Yes: WNL Extremities: Yes: WNL Neurological: Yes: Alert, Oriented Psychiatric: Yes: Alert, Oriented Labs: CBC, BMP 01/20/19 06:45 01/20/19 06:45 INR, PTT INR 1.27 (0.83-1.09) H 01/19/19 07:09 Assessment/Plan ASSESSMENT/PLAN: Pt. is a 33 y.o. M w/ PMHx. of pancytopenia, stage 2 cirrhosis of the liver, GERD, Depression (suicide attempts in 2014 and 2017), and EtOH abuse presents from [facility] for having a WBC count of 0.9k. Pancytopenia EtOH Abuse Nicotine Dependance weakness plan continue to watch hydration rest as per the team
--- NOTE | 2019-01-20 17:39 | PN ---
Teaching Attending Note Name of Resident: Keron Scanlon ATTENDING PHYSICIAN STATEMENT I saw and evaluated the patient. I reviewed the resident's note and discussed the case with the resident. I agree with the resident's findings and plan as documented. SUBJECTIVE: Patient is comfortable with no acute distress. OBJECTIVE: Vital Signs Temperature 98 F 01/20/19 04:00 Pulse Rate 65 01/20/19 14:05 Respiratory Rate 18 01/20/19 14:05 Blood Pressure 115/65 01/20/19 14:05 O2 Sat by Pulse Oximetry (%) 98 01/20/19 09:00 GENERAL: NAD HEAD: Normal with no signs of trauma. EYES: EOMI Sclera Clear , ENT: MMM NECK: Trachea midline, full range of motion, supple. LUNGS: CTAB, HEART: RRR S1S2 ABDOMEN: ND, NT, positive for BS EXTREMITIES: No CCE. Mild hand tremor. NEUROLOGICAL: Cranial nerves II through XII grossly intact. PSYCH: Normal mood, normal affect. SKIN: Warm, dry, normal turgor, no rashes or lesions noted CBCD WBC 1.4 K/mm3 (4.0-10.0) L* 01/20/19 06:45 RBC 3.49 M/mm3 (4.00-5.60) L 01/20/19 06:45 Hgb 9.8 GM/dL (11.7-16.9) L 01/20/19 06:45 Hct 29.4 % (35.4-49) L 01/20/19 06:45 MCV 84.3 fl (80-96) 01/20/19 06:45 MCHC 33.4 g/dl (32.0-35.9) 01/20/19 06:45 RDW 20.1 % (11.9-15.9) H 01/20/19 06:45 Plt Count 24 K/MM3 (134-434) L* 01/20/19 06:45 MPV 8.2 fl (7.5-11.1) D 01/20/19 06:45 CMP Sodium 138 mmol/L (136-145) 01/20/19 06:45 Potassium 4.0 mmol/L (3.5-5.1) 01/20/19 06:45 Chloride 109 mmol/L (98-107) H 01/20/19 06:45 Carbon Dioxide 22 mmol/L (21-32) 01/20/19 06:45 Anion Gap 7 MMOL/L (8-16) L 01/20/19 06:45 BUN 9.9 mg/dL (7-18) 01/20/19 06:45 Creatinine 0.7 mg/dL (0.55-1.3) 01/20/19 06:45 Random Glucose 87 mg/dL (74-106) 01/20/19 06:45 Calcium 8.0 mg/dL (8.5-10.1) L 01/20/19 06:45 Total Bilirubin 1.4 mg/dL (0.2-1) H 01/19/19 07:09 AST 86 U/L (15-37) H 01/19/19 07:09 ALT 44 U/L (13-61) 01/19/19 07:09 Alkaline Phosphatase 94 U/L (45-117) 01/19/19 07:09 Total Protein 6.1 g/dl (6.4-8.2) L 01/19/19 07:09 Albumin 2.9 g/dl (3.4-5.0) L 01/19/19 07:09 CARDIAC ENZYMES Creatine Kinase 254 U/L (26-308) 01/18/19 16:55 Troponin I < 0.02 ng/ml (0.00-0.05) 01/19/19 07:09 Current Medications Generic Name Dose Route Start Last Admin Trade Name Freq PRN Reason Stop Dose Admin Ferrous Sulfate 325 mg 01/19/19 08:00 01/20/19 12:47 Feosol - PO 325 mg TIDCM RANDI Administration Folic Acid 1 mg 01/19/19 10:00 01/20/19 09:36 Folic Acid - PO 1 mg DAILY RANDI Administration Sodium Chloride 1,000 mls @ 100 mls/hr 01/18/19 22:00 01/20/19 03:00 Normal Saline - IV 100 mls/hr ASDIR RANDI Administration Lactulose 20 gm 01/18/19 22:04 01/20/19 09:37 Cephulac (Oral Use) PO 20 gm Q8H PRN Administration CONSTIPATION Lorazepam 0.5 mg 01/21/19 05:00 Ativan - PO 01/22/19 05:01 Q6H RANDI Lorazepam 0.5 mg 01/21/19 05:00 Ativan - PO 01/22/19 05:00 Q4H PRN Symptoms of Withdrawal Lorazepam 1 mg 01/20/19 05:00 01/20/19 12:47 Ativan - PO 01/20/19 23:01 1 mg 0500,1100,1700,2300 RANDI Administration Lorazepam 1 mg 01/19/19 03:37 Ativan - PO 01/21/19 05:00 Q4H PRN Symptoms of Withdrawal Pantoprazole Sodium 40 mg 01/19/19 10:00 01/20/19 09:35 Protonix - PO 40 mg DAILY RANDI Administration Rifaximin 550 mg 01/18/19 22:15 01/20/19 09:36 Xifaxan - PO 550 mg BID RANDI Administration Thiamine HCl 200 mg 01/19/19 10:00 01/20/19 09:35 Vitamin B1 Injection - IVPB 200 mg DAILY RANDI Administration Home Medications Medication Instructions Recorded Ferrous Sulfate [Feosol] 325 mg PO TIDCM #90 tab 03/19/17 Pantoprazole Sodium [Protonix -] 40 mg PO DAILY #30 tab 03/19/17 Escitalopram Oxalate [Lexapro -] 20 mg PO DAILY #30 tablet 07/05/17 Folic Acid - 1 mg PO DAILY #30 tablet 07/11/17 Vitamins (Sjr) - 1 tab PO DAILY #30 tablet 07/11/17 Fluoxetine HCl [Prozac] 40 mg PO DAILY 01/18/19 Quetiapine Fumarate [Seroquel -] 50 mg PO HS 01/18/19 ASSESSMENT AND PLAN: Pt. is a 33 y.o. M w/ PMHx. of pancytopenia, stage 2 cirrhosis of the liver, GERD, Depression (suicide attempts in 2014 and 2017), and EtOH abuse presents from [facility] for having a WBC count of 0.9k. #Pancytopenia with neutropenia : hem/onc consult appreciated , waiting for recommendation , will continue to monitor #EtOH Abuse and Nicotine Dependance; ativan protocol continue #Stage 2 Cirrhosis : Lactulose, Rifaximin #DVT Ppx: TEDs/ SCDs.no ac since platelets are 27K waiting to get the medical records from [facility] in [place]
[2019-01-20] MEDS: LACTULOSE 20 GM/30 ML UDC (FOR ORAL USE ONLY) PO SCH (21:49)
[2019-01-21] MEDS ORDERED: LORazepam 0.5 MG TABLET PO PRN (05:00)
[2019-01-21] MEDS: LACTULOSE 20 GM/30 ML UDC (FOR ORAL USE ONLY) PO SCH ×3 (05:06→23:48)
[2019-01-21] MEDS: LORazepam 0.5 MG TABLET PO SCH ×4 (05:07→23:48)
[2019-01-21 07:35] LABS: MCH 28.6 pg (25.7-33.7); MCHC 33.4 g/dl (32.0-35.9); MEAN CELL VOLUME 85.8 fl (80-96); MEAN PLT VOLUME 8.8 fl (7.5-11.1); RDW 20.7 % (11.9-15.9)
[2019-01-21 07:48] LABS: PLATELET COUNT 28 K/MM3 (134-434)
[2019-01-21 08:05] LABS: BLOOD UREA NITROGEN 16.2 mg/dL (7-18); CALCIUM 8.4 mg/dL (8.5-10.1); CREATININE 0.8 mg/dL (0.55-1.3); MAGNESIUM 1.7 mg/dL (1.8-2.4); POTASSIUM 4.1 mmol/L (3.5-5.1)
[2019-01-21] MEDS: FERROUS SO4 325 MG TABLET (FP) PO SCH ×3 (09:06→17:35)
[2019-01-21] MEDS: FOLIC ACID 1 MG TABLET (FP) PO SCH (10:58)
[2019-01-21] MEDS: PANTOPRAZOLE 40 MG TABLET (FP) PO SCH (10:58)
[2019-01-21] MEDS: THIAMINE HCL 200 MG/2 ML VIAL IVPB SCH (10:58)
[2019-01-21] MEDS: RIFAXIMIN 550 MG TABLET (UD) PO SCH ×2 (10:58→23:48)
--- NOTE | 2019-01-21 16:50 | PN ---
Progress Note (short form) - Note Progress Note: Patient is feeling better with no acute distress, no nausea or vomiting. Vital Signs Temperature 98 F 01/21/19 07:52 Pulse Rate 72 01/21/19 07:52 Respiratory Rate 20 01/21/19 07:52 Blood Pressure 120/74 01/21/19 07:52 O2 Sat by Pulse Oximetry (%) 98 01/20/19 21:00 GENERAL: NAD HEAD: Normal with no signs of trauma. EYES: EOMI Sclera Clear , ENT: MMM NECK: Trachea midline, full range of motion, supple. LUNGS: CTAB, HEART: RRR S1S2 ABDOMEN: ND, NT, positive for BS EXTREMITIES: No CCE. Mild hand tremor. NEUROLOGICAL: Cranial nerves II through XII grossly intact. PSYCH: Normal mood, normal affect. SKIN: Warm, dry, normal turgor, no rashes or lesions noted CBCD WBC 2.0 K/mm3 (4.0-10.0) L 01/21/19 06:05 RBC 3.50 M/mm3 (4.00-5.60) L 01/21/19 06:05 Hgb 10.0 GM/dL (11.7-16.9) L 01/21/19 06:05 Hct 30.0 % (35.4-49) L 01/21/19 06:05 MCV 85.8 fl (80-96) 01/21/19 06:05 MCHC 33.4 g/dl (32.0-35.9) 01/21/19 06:05 RDW 20.7 % (11.9-15.9) H 01/21/19 06:05 Plt Count 28 K/MM3 (134-434) L* 01/21/19 06:05 MPV 8.8 fl (7.5-11.1) 01/21/19 06:05 CMP Sodium 139 mmol/L (136-145) 01/21/19 06:05 Potassium 4.1 mmol/L (3.5-5.1) 01/21/19 06:05 Chloride 110 mmol/L (98-107) H 01/21/19 06:05 Carbon Dioxide 23 mmol/L (21-32) 01/21/19 06:05 Anion Gap 6 MMOL/L (8-16) L 01/21/19 06:05 BUN 16.2 mg/dL (7-18) 01/21/19 06:05 Creatinine 0.8 mg/dL (0.55-1.3) 01/21/19 06:05 Random Glucose 85 mg/dL (74-106) 01/21/19 06:05 Calcium 8.4 mg/dL (8.5-10.1) L 01/21/19 06:05 Total Bilirubin 1.4 mg/dL (0.2-1) H 01/19/19 07:09 AST 86 U/L (15-37) H 01/19/19 07:09 ALT 44 U/L (13-61) 01/19/19 07:09 Alkaline Phosphatase 94 U/L (45-117) 01/19/19 07:09 Total Protein 6.1 g/dl (6.4-8.2) L 01/19/19 07:09 Albumin 2.9 g/dl (3.4-5.0) L 01/19/19 07:09 CARDIAC ENZYMES Creatine Kinase 254 U/L (26-308) 01/18/19 16:55 Troponin I < 0.02 ng/ml (0.00-0.05) 01/19/19 07:09 Current Medications Generic Name Dose Route Start Last Admin Trade Name Freq PRN Reason Stop Dose Admin Ferrous Sulfate 325 mg 01/19/19 08:00 01/21/19 14:04 Feosol - PO 325 mg TIDCM RANDI Administration Folic Acid 1 mg 01/19/19 10:00 01/21/19 10:58 Folic Acid - PO 1 mg DAILY RANDI Administration Sodium Chloride 1,000 mls @ 100 mls/hr 01/18/19 22:00 01/20/19 21:50 Normal Saline - IV Not Given ASDIR ARNDI Lactulose 20 gm 01/20/19 22:00 01/21/19 14:04 Cephulac (Oral Use) PO 20 gm TID RANDI Administration Lorazepam 0.5 mg 01/21/19 05:00 01/21/19 10:58 Ativan - PO 01/22/19 05:01 0.5 mg Q6H RANDI Administration Lorazepam 0.5 mg 01/21/19 05:00 Ativan - PO 01/22/19 05:00 Q4H PRN Symptoms of Withdrawal Pantoprazole Sodium 40 mg 01/19/19 10:00 01/21/19 10:58 Protonix - PO 40 mg DAILY RANDI Administration Rifaximin 550 mg 01/18/19 22:15 01/21/19 10:58 Xifaxan - PO 550 mg BID RANDI Administration Thiamine HCl 200 mg 01/19/19 10:00 01/21/19 10:58 Vitamin B1 Injection - IVPB 200 mg DAILY RANDI Administration Home Medications Medication Instructions Recorded Ferrous Sulfate [Feosol] 325 mg PO TIDCM #90 tab 03/19/17 Pantoprazole Sodium [Protonix -] 40 mg PO DAILY #30 tab 03/19/17 Escitalopram Oxalate [Lexapro -] 20 mg PO DAILY #30 tablet 07/05/17 Folic Acid - 1 mg PO DAILY #30 tablet 07/11/17 Vitamins (Sjr) - 1 tab PO DAILY #30 tablet 07/11/17 Fluoxetine HCl [Prozac] 40 mg PO DAILY 01/18/19 Quetiapine Fumarate [Seroquel -] 50 mg PO HS 01/18/19 Assessment and plan: Pt. is a 33 y.o. M w/ PMHx. of pancytopenia, stage 2 cirrhosis of the liver, GERD, Depression (suicide attempts in 2014 and 2017), and EtOH abuse presents from [facility] for having a WBC count of 0.9k. #Pancytopenia with neutropenia : IMPROVING , hem/onc consult appreciated , waiting for recommendation , will continue to monitor #EtOH Abuse and Nicotine Dependance; ativan protocol continue , thiamine 100mg po bid continue #Stage 2 Cirrhosis : Lactulose, Rifaximin continue #DVT Ppx: TEDs/ SCDs.no ac since platelets are 27K waiting to get the medical records from [facility] in [place] Visit type - Emergency Visit Emergency Visit: Yes ED Registration Date: 01/18/19 Care time: The patient presented to the Emergency Department on the above date and was hospitalized for further evaluation of their emergent condition. - New Patient This patient is new to me today: No - Critical Care Critical Care patient: No - Discharge Referral Referred to [facility] No
--- NOTE | 2019-01-21 17:49 | PN ---
Progress Note, Physician History of Present Illness: Pt states he feels well. Has no specific complaints. Remains afebrile. - Current Medication List Current Medications: Active Medications Ferrous Sulfate (Feosol -) 325 mg PO TIDCM [facility] Last Admin: 01/21/19 17:35 Dose: 325 mg Folic Acid (Folic Acid -) 1 mg PO DAILY [facility] Last Admin: 01/21/19 10:58 Dose: 1 mg Sodium Chloride (Normal Saline -) 1,000 mls @ 100 mls/hr IV ASDIR [facility] Last Admin: 01/20/19 21:50 Dose: Not Given Lactulose (Cephulac (Oral Use)) 20 gm PO TID [facility] Last Admin: 01/21/19 14:04 Dose: 20 gm Lorazepam (Ativan -) 0.5 mg PO Q6H [facility] Stop: 01/22/19 05:01 Last Admin: 01/21/19 17:35 Dose: 0.5 mg Lorazepam (Ativan -) 0.5 mg PO Q4H PRN PRN Reason: Symptoms of Withdrawal Stop: 01/22/19 05:00 Pantoprazole Sodium (Protonix -) 40 mg PO DAILY [facility] Last Admin: 01/21/19 10:58 Dose: 40 mg Rifaximin (Xifaxan -) 550 mg PO BID [facility] Last Admin: 01/21/19 10:58 Dose: 550 mg Thiamine HCl (Vitamin B1 -) 100 mg PO BID [facility] - Objective Vital Signs: Vital Signs Temperature 97.9 F 01/21/19 15:00 Pulse Rate 70 01/21/19 15:00 Respiratory Rate 20 01/21/19 15:00 Blood Pressure 103/54 L 01/21/19 15:00 O2 Sat by Pulse Oximetry (%) 98 01/21/19 09:00 Constitutional: Yes: No Distress, Calm Cardiovascular: Yes: Regular Rate and Rhythm Respiratory: Yes: CTA Bilaterally Gastrointestinal: Yes: Normal Bowel Sounds, Soft Genitourinary: Yes: WNL Neurological: Yes: Alert, Oriented Labs: CBC, BMP 01/21/19 06:05 01/21/19 06:05 INR, PTT INR 1.27 (0.83-1.09) H 01/19/19 07:09 Microbiology 01/18/19 16:55 Blood - Peripheral Venous Blood Culture - Preliminary NO GROWTH OBTAINED AFTER 72 HOURS, INCUBATION TO CONTINUE FOR 2 DAYS. 01/18/19 16:55 Blood - Peripheral Venous Blood Culture - Preliminary NO GROWTH OBTAINED AFTER 72 HOURS, INCUBATION TO CONTINUE FOR 2 DAYS. 01/18/19 16:50 Urine - Urine Clean Catch Urine Culture - Final NO GROWTH OBTAINED Problem List - Problems (1) Alcohol withdrawal Code(s): F10.239 - ALCOHOL DEPENDENCE WITH WITHDRAWAL, UNSPECIFIED Qualifiers: Complication of substance-induced condition: with unspecified complication Qualified Code(s): F10.239 - Alcohol dependence with withdrawal, unspecified (2) Pancytopenia Code(s): D61.818 - OTHER PANCYTOPENIA (3) Anemia Code(s): D64.9 - ANEMIA, UNSPECIFIED (4) Alcoholic liver disease Code(s): K70.9 - ALCOHOLIC LIVER DISEASE, UNSPECIFIED Assessment/Plan Pancytopenia/Neutropenia ETOH abuse Cirrhosis -- pt remains afebrile, wbc increasing, vitals stable -- states he was tested for HIV/Hepatitis one month ago at [facility] and was negative continue monitor off antibiotics -- Hematology follow up
[2019-01-21] MEDS: SODIUM CHLORIDE 1,000 ML IV SCH (23:47)
[2019-01-21] MEDS: THIAMINE HCL 100 MG TABLET (FP) PO SCH (23:47)
[2019-01-22 00:46] VITALS: TEMP 98.1
[2019-01-22] MEDS ORDERED: MAG HYDROX/AL HYDROX/SIMETH 30 ML UNIT-DOSE CUP PO ONE (01:56)
[2019-01-22] MEDS: LORazepam 0.5 MG TABLET PO SCH (05:38)
[2019-01-22] MEDS: LACTULOSE 20 GM/30 ML UDC (FOR ORAL USE ONLY) PO SCH (05:38)
[2019-01-22 08:12] LABS: BASO % 0.4 % (0-2.0); EOS % 3.4 % (0-4.5); HEMATOCRIT 32.8 % (35.4-49); HEMOGLOBIN 10.8 GM/dL (11.7-16.9); LYMPH % 31.5 % (8-40); MCH 28.1 pg (25.7-33.7); MCHC 32.9 g/dl (32.0-35.9); MEAN CELL VOLUME 85.2 fl (80-96); MEAN PLT VOLUME 9.3 fl (7.5-11.1); NEUT % 51.7 % (42.8-82.8); PLATELET COUNT 45 K/MM3 (134-434); RBC 3.85 M/mm3 (4.00-5.60); RDW 21.1 % (11.9-15.9); WHITE BLOOD COUNT 2.3 K/mm3 (4.0-10.0)
[2019-01-22 08:37] LABS: ALBUMIN 3.5 g/dl (3.4-5.0); BILIRUBIN,TOTAL 1.4 mg/dL (0.2-1); BLOOD UREA NITROGEN 17.8 mg/dL (7-18); CALCIUM 8.7 mg/dL (8.5-10.1); CREATININE 0.8 mg/dL (0.55-1.3); PHOSPHOROUS 3.7 mg/dL (2.5-4.9); POTASSIUM 3.9 mmol/L (3.5-5.1); TOT PROT 7.5 g/dl (6.4-8.2)
[2019-01-22] MEDS: THIAMINE HCL 100 MG TABLET (FP) PO SCH (10:05)
[2019-01-22] MEDS: FOLIC ACID 1 MG TABLET (FP) PO SCH (10:05)
[2019-01-22] MEDS: PANTOPRAZOLE 40 MG TABLET (FP) PO SCH (10:05)
[2019-01-22] MEDS: RIFAXIMIN 550 MG TABLET (UD) PO SCH (10:05)
[2019-01-22] MEDS: FERROUS SO4 325 MG TABLET (FP) PO SCH (10:05)
[2019-01-22 11:31] LABS: ANISOCYTOSIS 2+; MACROCYTOSIS 0; PLATELET ESTIMATE DECREASED
[2019-01-22 13:03] VITALS: BP 112/65; PULSE 64
--- NOTE | 2019-01-22 15:42 | DS ---
Physical Exam: SUBJECTIVE: Patient seen and examined at bedside. No event overnight. no new complaints. WBC improved today. OBJECTIVE: Vital Signs Period Temp Pulse Resp BP Sys/Sanchez Pulse Ox Last 24 Hr 98 F-98.1 F 64-72 20-20 110-112/65-72 99-99 PHYSICAL EXAM GENERAL: The patient is awake, alert, and fully oriented, in no acute distress. HEAD: Normal with no signs of trauma. NECK: Trachea midline, full range of motion, supple. LUNGS: Breath sounds equal, clear to auscultation bilaterally, no wheezes, no crackles, no accessory muscle use. HEART: Regular rate and rhythm, S1, S2 without murmur, rub or gallop. ABDOMEN: Soft, nontender, nondistended, normoactive bowel sounds, no guarding, no rebound, no hepatosplenomegaly, no masses. EXTREMITIES: 2+ pulses, warm, well-perfused, no edema. NEUROLOGICAL: Cranial nerves II through X grossly intact. Normal speech, gait not observed. PSYCH: Normal mood, normal affect. SKIN: Warm, dry, normal turgor, no rashes or lesions noted. LABS Laboratory Results - last 24 hr 01/22/19 01/22/19 07:30 07:30 WBC 2.3 L RBC 3.85 L Hgb 10.8 L Hct 32.8 L MCV 85.2 MCH 28.1 MCHC 32.9 RDW 21.1 H Plt Count 45 L D MPV 9.3 Absolute Neuts (auto) 1.2 L Neutrophils % 51.7 D Lymphocytes % 31.5 D Monocytes % 13.0 H Eosinophils % 3.4 Basophils % 0.4 Nucleated RBC % 0 Hypochromia 0 Platelet Estimate Decreased Polychromasia 0 Poikilocytosis 1+ Anisocytosis 2+ Microcytosis 2+ Macrocytosis 0 Schistocytes 1+ Sodium 137 Potassium 3.9 Chloride 107 Carbon Dioxide 22 Anion Gap 8 BUN 17.8 Creatinine 0.8 Est GFR (CKD-EPI)AfAm 136.99 Est GFR (CKD-EPI)NonAf 118.20 Random Glucose 89 Calcium 8.7 Phosphorus 3.7 Magnesium 2.0 Total Bilirubin 1.4 H AST 63 H ALT 45 Alkaline Phosphatase 107 Total Protein 7.5 Albumin 3.5 HOSPITAL COURSE: Date of Admission:01/18/19 Pt. is a 33 y.o. M w/ PMHx. of pancytopenia, stage 2 cirrhosis of the liver, GERD, Depression (suicide attempts in 2015 and 2018), and EtOH abuse who presented from [facility] for having a WBC count of 0.9k. Pt. stated that he is known to have pancytopenia but does not follow with an technical sales consultant/oncologist or a primary care physician because he is homeless. Pt. endorsed tiredness and fatigue that he believes is due to receiving Ativan. Pt. denies any other complaints including abdominal pain, chest pain, lightheadedness, dizziness, constipation, diarrhea, numbness tingling, or any suicidal ideation. Patient was admitted for neutropenia and alcohol detox. ID was consulted. Hematology was consulted. Patient was detoxed on an ativan protocol. He was treated with thiamine, lactulose, rifaximin, vosyn and vancmycin. He improved on the above treatment and was discharged home without complication. Date of Discharge: 01/22/19 Minutes to complete discharge: 44 Discharge Summary Reason For Visit: FEBRILE NEUTROPENIA Condition: Improved - Instructions Diet, Activity, Other Instructions: You were admitted for your low white blood cell count and your fever. You also had alcohol detox while you were here. We are sending you home with a new medication to help with the ammonia in your body. Please take lactulose 20grams three times per day. You should continue to take the remainder of your medications as prescribed. Please refrain from taking alcohol, as this could lower your white blood cell count again as well as increase the amount of ammonia in your system, and drop your platelet's level. Please follow up with your primary care physician within one week of discharge home. If you do not have one, we have included a referral to our resident clinic in your discharge paperwork. If you begin to experience chest pain, shortness of breath, fevers, or if any of your symptoms get worse, please call your doctor or return to the emergency department. Referrals: [facility] [place] [facility] [place] [Provider Group] Garrett Jordan MD [Staff Physician] - Disposition: HOME - Home Medications Comprehensive Discharge Medication List: Ambulatory Orders Ferrous Sulfate [Feosol] 325 mg PO TIDCM #90 tab 03/19/17 Pantoprazole Sodium [Protonix -] 40 mg PO DAILY #30 tab 03/19/17 Escitalopram Oxalate [Lexapro -] 20 mg PO DAILY #30 tablet 07/05/17 Folic Acid - 1 mg PO DAILY #30 tablet 07/11/17 Vitamins (Sjr) - 1 tab PO DAILY #30 tablet 07/11/17 Fluoxetine HCl [Prozac] 40 mg PO DAILY 01/18/19 Quetiapine Fumarate [Seroquel -] 50 mg PO HS 01/18/19 Lactulose (Oral Use) [Cephulac -] 20 gm PO TID #90 udc 01/22/19 This patient is new to me today: Yes Date on this admission: 01/22/19 Emergency Visit: Yes ED Registration Date: 01/18/19 Care time: The patient presented to the Emergency Department on the above date and was hospitalized for further evaluation of their emergent condition. Critical Care patient: No - Discharge Referral Referred to [facility] Med P.C.: No
--- NOTE | 2019-01-22 19:27 | PN ---
Teaching Attending Note Name of Resident: Brian Ferreira ATTENDING PHYSICIAN STATEMENT I saw and evaluated the patient. I reviewed the resident's note and discussed the case with the resident. I agree with the resident's findings and plan as documented. SUBJECTIVE: Patient is comfortable with no acute distress. OBJECTIVE: Vital Signs Temperature 98.1 F 01/22/19 08:00 Pulse Rate 64 01/22/19 08:00 Respiratory Rate 20 01/22/19 09:00 Blood Pressure 112/65 01/22/19 08:00 O2 Sat by Pulse Oximetry (%) 99 01/22/19 09:00 GENERAL: NAD HEAD: Normal with no signs of trauma. EYES: EOMI Sclera Clear , ENT: MMM NECK: Trachea midline, full range of motion, supple. LUNGS: CTAB, HEART: RRR S1S2 ABDOMEN: ND, NT, positive for BS EXTREMITIES: No CCE. Mild hand tremor. NEUROLOGICAL: Cranial nerves II through XII grossly intact. PSYCH: Normal mood, normal affect. SKIN: Warm, dry, normal turgor, no rashes or lesions noted CBCD WBC 2.3 K/mm3 (4.0-10.0) L 01/22/19 07:30 RBC 3.85 M/mm3 (4.00-5.60) L 01/22/19 07:30 Hgb 10.8 GM/dL (11.7-16.9) L 01/22/19 07:30 Hct 32.8 % (35.4-49) L 01/22/19 07:30 MCV 85.2 fl (80-96) 01/22/19 07:30 MCHC 32.9 g/dl (32.0-35.9) 01/22/19 07:30 RDW 21.1 % (11.9-15.9) H 01/22/19 07:30 Plt Count 45 K/MM3 (134-434) L D 01/22/19 07:30 MPV 9.3 fl (7.5-11.1) 01/22/19 07:30 CMP Sodium 137 mmol/L (136-145) 01/22/19 07:30 Potassium 3.9 mmol/L (3.5-5.1) 01/22/19 07:30 Chloride 107 mmol/L (98-107) 01/22/19 07:30 Carbon Dioxide 22 mmol/L (21-32) 01/22/19 07:30 Anion Gap 8 MMOL/L (8-16) 01/22/19 07:30 BUN 17.8 mg/dL (7-18) 01/22/19 07:30 Creatinine 0.8 mg/dL (0.55-1.3) 01/22/19 07:30 Random Glucose 89 mg/dL (74-106) 01/22/19 07:30 Calcium 8.7 mg/dL (8.5-10.1) 01/22/19 07:30 Total Bilirubin 1.4 mg/dL (0.2-1) H 01/22/19 07:30 AST 63 U/L (15-37) H 01/22/19 07:30 ALT 45 U/L (13-61) 01/22/19 07:30 Alkaline Phosphatase 107 U/L (45-117) 01/22/19 07:30 Total Protein 7.5 g/dl (6.4-8.2) 01/22/19 07:30 Albumin 3.5 g/dl (3.4-5.0) 01/22/19 07:30 CARDIAC ENZYMES Creatine Kinase 254 U/L (26-308) 01/18/19 16:55 Troponin I < 0.02 ng/ml (0.00-0.05) 01/19/19 07:09 Home Medications Medication Instructions Recorded Ferrous Sulfate [Feosol] 325 mg PO TIDCM #90 tab 03/19/17 Pantoprazole Sodium [Protonix -] 40 mg PO DAILY #30 tab 03/19/17 Escitalopram Oxalate [Lexapro -] 20 mg PO DAILY #30 tablet 07/05/17 Folic Acid - 1 mg PO DAILY #30 tablet 07/11/17 Vitamins (Sjr) - 1 tab PO DAILY #30 tablet 07/11/17 Fluoxetine HCl [Prozac] 40 mg PO DAILY 01/18/19 Quetiapine Fumarate [Seroquel -] 50 mg PO HS 01/18/19 Lactulose (Oral Use) [Cephulac -] 20 gm PO TID #90 udc 01/22/19 Laboratory Tests 01/18/19 01/19/19 01/20/19 18:45 07:09 06:45 WBC 1.1 L* 0.9 L* 1.4 L* Plt Count 23 L* D 27 L* 24 L* 01/21/19 01/22/19 06:05 07:30 WBC 2.0 L 2.3 L Plt Count 28 L* 45 L D ASSESSMENT AND PLAN: Pt. is a 33 y.o. M w/ PMHx. of pancytopenia, stage 2 cirrhosis of the liver, GERD, Depression (suicide attempts in 2014 and 2017), and EtOH abuse presents from [facility] for having a WBC count of 0.9k. #Pancytopenia with neutropenia : IMPROVING , hem/onc consult appreciated , patient wants to go home, patient's WBC is1.1--> 2.3 today improved also platelets improved from 23-->45 improved, patient was recommended complete abstinence from alcohol since the cause of his pancytopenia with suppresive effect on Bone marrow. #EtOH Abuse and Nicotine Dependance; ativan protocol completed , thiamine 100mg po bid continue #Stage 2 Cirrhosis : Lactulose, Rifaximin continue dc patient home.
== END 2019-01-22 13:18 | disposition home or self-care (01) | DRG 660 ==
LOC: JER 15:09 → JERBED 19:26 → J8W 01-19 03:05
PROVIDERS: ADMIT Internal Medicine; ATTEND Internal Medicine
DX: D61.818 Other pancytopenia (principal); G93.40 Encephalopathy, unspecified; D70.8 Other neutropenia; R50.81 Fever presenting with conditions classified elsewhere; E88.09 Other disorders of plasma-protein metabolism, not elsewhere classified; F10.230 Alcohol dependence with withdrawal, uncomplicated; K70.30 Alcoholic cirrhosis of liver without ascites; Z91.5 Personal history of self-harm; F32.9 Major depressive disorder, single episode, unspecified; K21.9 Gastro-esophageal reflux disease without esophagitis; R53.1 Weakness; D64.9 Anemia, unspecified; Z59.0 Homelessness
CPT/HCPCS: 36415; 71045-TC-FY; 80048; 80053; 80307; 81003; 82140; 82272; 82550; 82553; 82728; 83540; 83550; 83605; 83690; 83735; 84100; 84443; 84484; 85025; 85027; 85044; 85610; 85730; 86850; 86900; 86901; 87040; 87086; 93005; 93010; 99284-25; J7030

== ENCOUNTER 2019-07-18 14:13 | Inpatient (IN) | payer OTHER ==
[2019-07-18 17:39] VITALS: BMI 22.4
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
[2019-07-18] MEDS ORDERED: hydrOXYzine PAMOATE 25 MG CAPSULE (FP) PO PRN (19:07)
[2019-07-18] MEDS ORDERED: MELATONIN 5 MG TABLETS PO PRN (19:07)
[2019-07-18] MEDS ORDERED: chlordiazePOXIDE HCL 25 MG CAPSULE PO PRN (19:07)
[2019-07-18] MEDS ORDERED: MENTHOL/PHENOL 1 EACH UD MM PRN (19:07)
[2019-07-18] MEDS ORDERED: MAGNESIUM HYDROX 2400MG/30ML ORAL SUSPENSION 30 ML CUP PO PRN (19:07)
[2019-07-18] MEDS ORDERED: METHOCARBAMOL 500 MG TABLET PO PRN (19:07)
[2019-07-18] MEDS ORDERED: IBUPROFEN 400 MG TABLET (FP) PO PRN (19:07)
[2019-07-18] MEDS ORDERED: MAGNESIUM CITRATE 300 ML BOTTLE PO PRN (19:07)
[2019-07-18] MEDS ORDERED: ACETAMINOPHEN 325 MG TABLET (FP) PO PRN ×2 (19:07)
[2019-07-18] MEDS ORDERED: BISMUTH SUBSALICYLATE 524 MG/30 ML UD PO PRN (19:07)
[2019-07-18] MEDS ORDERED: NICOTINE 14 MG/24 HOURS TOPICAL PATCH TD SCH (19:15)
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
[2019-07-18] MEDS: chlordiazePOXIDE HCL 25 MG CAPSULE PO SCH ×2 (20:12→23:17)
[2019-07-18] MEDS: THIAMINE HCL 100 MG TABLET (FP) PO SCH (23:17)
[2019-07-19] MEDS: MAG HYDROX/AL HYDROX/SIMETH 30 ML UNIT-DOSE CUP PO PRN ×2 (03:59→10:45)
[2019-07-19] MEDS: chlordiazePOXIDE HCL 25 MG CAPSULE PO SCH ×4 (05:35→22:48)
[2019-07-19 10:09] LABS: HEMATOCRIT 28.3 % (35.4-49); HEMOGLOBIN 9.5 GM/dL (11.7-16.9); MCH 30.9 pg (25.7-33.7); MCHC 33.6 g/dl (32.0-35.9); MEAN CELL VOLUME 91.7 fl (80-96); RBC 3.09 M/mm3 (4.00-5.60); RDW 16.4 % (11.9-15.9)
[2019-07-19 10:22] LABS: ALBUMIN 2.9 g/dl (3.4-5.0); BILIRUBIN,TOTAL 1.9 mg/dL (0.2-1); BLOOD UREA NITROGEN 12.6 mg/dL (7-18); CALCIUM 8.1 mg/dL (8.5-10.1); CREATININE 0.7 mg/dL (0.55-1.3); POTASSIUM 3.2 mmol/L (3.5-5.1); TOT PROT 6.4 g/dl (6.4-8.2)
[2019-07-19] MEDS: PRENATAL VITAMINS W/ FOLIC ACID TABLET (FP) PO SCH (10:41)
[2019-07-19 11:07] LABS: PLATELET COUNT 21 K/MM3 (134-434); WHITE BLOOD COUNT 0.9 K/mm3 (4.0-10.0)
--- NOTE | 2019-07-19 12:06 | PN ---
S CIWA - CIWA Score Nausea/Vomitin-Mild Nausea/No Vomiting Muscle Tremors: 2 Anxiety: 3 Agitation: 3 Paroxysmal Sweats: No Perspiration Orientation: 0-Oriented Tacttile Disturbances: 1-Very Mild Itch/Numbness Auditory Disturbances: 0-None Visual Disturbances: 0-None Headache: 2-Mild CIWA-Ar Total Score: 12 B[facility] Progress Note (SOAP) Subjective: alert,irritable,anxious,interrupted sleep,ecchymosis of right orbit,right face, no bleeding Objective: 07/19/19 12:04 Vital Signs Temperature 97.9 F 07/19/19 09:57 Pulse Rate 83 07/19/19 09:57 Respiratory Rate 18 07/19/19 09:57 Blood Pressure 127/72 07/19/19 09:57 O2 Sat by Pulse Oximetry (%) Laboratory Last Values WBC 0.9 K/mm3 (4.0-10.0) L* 07/19/19 07:50 RBC 3.09 M/mm3 (4.00-5.60) L 07/19/19 07:50 Hgb 9.5 GM/dL (11.7-16.9) L 07/19/19 07:50 Hct 28.3 % (35.4-49) L 07/19/19 07:50 MCV 91.7 fl (80-96) 07/19/19 07:50 MCH 30.9 pg (25.7-33.7) 07/19/19 07:50 MCHC 33.6 g/dl (32.0-35.9) 07/19/19 07:50 RDW 16.4 % (11.9-15.9) H 07/19/19 07:50 Plt Count 21 K/MM3 (134-434) L* D 07/19/19 07:50 MPV 9.0 fl (7.5-11.1) 07/19/19 07:50 Sodium 139 mmol/L (136-145) 07/19/19 07:50 Potassium 3.2 mmol/L (3.5-5.1) L 07/19/19 07:50 Chloride 102 mmol/L (98-107) 07/19/19 07:50 Carbon Dioxide 32 mmol/L (21-32) 07/19/19 07:50 Anion Gap 5 MMOL/L (8-16) L 07/19/19 07:50 BUN 12.6 mg/dL (7-18) 07/19/19 07:50 Creatinine 0.7 mg/dL (0.55-1.3) 07/19/19 07:50 Est GFR (CKD-EPI)AfAm 143.71 07/19/19 07:50 Est GFR (CKD-EPI)NonAf 123.99 07/19/19 07:50 Random Glucose 91 mg/dL (74-106) 07/19/19 07:50 Calcium 8.1 mg/dL (8.5-10.1) L 07/19/19 07:50 Total Bilirubin 1.9 mg/dL (0.2-1) H 07/19/19 07:50 AST 173 U/L (15-37) H 07/19/19 07:50 ALT 60 U/L (13-61) 07/19/19 07:50 Alkaline Phosphatase 96 U/L (45-117) 07/19/19 07:50 Total Protein 6.4 g/dl (6.4-8.2) 07/19/19 07:50 Albumin 2.9 g/dl (3.4-5.0) L 07/19/19 07:50 RPR Titer Nonreactive (NONREACTIVE) 07/19/19 07:50 pancytopenia probably due to chroinc alcoholism Assessment: 07/19/19 12:05 withdrawal symptom Plan: continue detox librim regimen,repeat cbc,cmp,inr in am
[2019-07-19] MEDS ORDERED: ONDANSETRON *ODT* 4 MG TABLET SL ONE (18:30)
[2019-07-19] MEDS ORDERED: ONDANSETRON 4 MG TABLET PO ONE (18:30)
[2019-07-19] MEDS: THIAMINE HCL 100 MG TABLET (FP) PO SCH (22:48)
[2019-07-20] MEDS: chlordiazePOXIDE HCL 25 MG CAPSULE PO SCH ×2 (05:39→10:17)
[2019-07-20 09:45] VITALS: BP 105/61; PULSE 78; TEMP 97.3
[2019-07-20 09:48] LABS: BASO % 0.9 % (0-2.0); EOS % 3.2 % (0-4.5); HEMATOCRIT 30.2 % (35.4-49); LYMPH % 33.4 % (8-40); MCH 30.6 pg (25.7-33.7); MCHC 33.2 g/dl (32.0-35.9); MEAN CELL VOLUME 92.4 fl (80-96); MEAN PLT VOLUME 8.9 fl (7.5-11.1); MONO % 15.6 % (3.8-10.2); NEUT % 46.9 % (42.8-82.8); RBC 3.27 M/mm3 (4.00-5.60); RDW 16.2 % (11.9-15.9)
[2019-07-20 10:04] LABS: BILIRUBIN,TOTAL 2.1 mg/dL (0.2-1); BLOOD UREA NITROGEN 13.4 mg/dL (7-18); CALCIUM 8.2 mg/dL (8.5-10.1); CREATININE 0.6 mg/dL (0.55-1.3); POTASSIUM 3.8 mmol/L (3.5-5.1); TOT PROT 6.3 g/dl (6.4-8.2)
[2019-07-20 10:14] LABS: PLATELET COUNT 19 K/MM3 (134-434)
[2019-07-20] MEDS: PRENATAL VITAMINS W/ FOLIC ACID TABLET (FP) PO SCH (10:17)
[2019-07-20] MEDS: POTASSIUM CHLORIDE TABS 20 MEQ TABLET.ER (FP) PO SCH ×2 (10:17→23:33)
[2019-07-20 10:27] LABS: INR 1.59 (0.83-1.09); PROTHROMBIN TIME (PATIENT) 18.9 SEC (9.7-13.0)
--- NOTE | 2019-07-20 10:30 | PN ---
S CIWA - CIWA Score Nausea/Vomitin-Mild Nausea/No Vomiting Muscle Tremors: 3 Anxiety: 3 Agitation: 2 Paroxysmal Sweats: No Perspiration Orientation: 0-Oriented Tacttile Disturbances: 1-Very Mild Itch/Numbness Auditory Disturbances: 0-None Visual Disturbances: 0-None Headache: 1-Very Mild CIWA-Ar Total Score: 11 S Progress Note (SOAP) Subjective: alert,irritable,anxious,interrupted sleep,tremor Objective: 07/20/19 10:28 Vital Signs Temperature 97.3 F L 07/20/19 09:45 Pulse Rate 78 07/20/19 09:45 Respiratory Rate 18 07/20/19 09:45 Blood Pressure 105/61 07/20/19 09:45 O2 Sat by Pulse Oximetry (%) Laboratory Last Values WBC 1.0 K/mm3 (4.0-10.0) L* 07/20/19 08:00 RBC 3.27 M/mm3 (4.00-5.60) L 07/20/19 08:00 Hgb 10.0 GM/dL (11.7-16.9) L 07/20/19 08:00 Hct 30.2 % (35.4-49) L 07/20/19 08:00 MCV 92.4 fl (80-96) 07/20/19 08:00 MCH 30.6 pg (25.7-33.7) 07/20/19 08:00 MCHC 33.2 g/dl (32.0-35.9) 07/20/19 08:00 RDW 16.2 % (11.9-15.9) H 07/20/19 08:00 Plt Count 19 K/MM3 (134-434) L* 07/20/19 08:00 MPV 8.9 fl (7.5-11.1) 07/20/19 08:00 Absolute Neuts (auto) 0.5 K/mm3 (1.5-8.0) L 07/20/19 08:00 Neutrophils % 46.9 % (42.8-82.8) 07/20/19 08:00 Lymphocytes % 33.4 % (8-40) 07/20/19 08:00 Monocytes % 15.6 % (3.8-10.2) H 07/20/19 08:00 Eosinophils % 3.2 % (0-4.5) 07/20/19 08:00 Basophils % 0.9 % (0-2.0) 07/20/19 08:00 Nucleated RBC % 0 % (0-0) 07/20/19 08:00 PT with INR 18.90 SEC (9.7-13.0) H 07/20/19 08:00 INR 1.59 (0.83-1.09) H 07/20/19 08:00 Sodium 139 mmol/L (136-145) 07/20/19 08:00 Potassium 3.8 mmol/L (3.5-5.1) 07/20/19 08:00 Chloride 106 mmol/L (98-107) 07/20/19 08:00 Carbon Dioxide 27 mmol/L (21-32) 07/20/19 08:00 Anion Gap 6 MMOL/L (8-16) L 07/20/19 08:00 BUN 13.4 mg/dL (7-18) 07/20/19 08:00 Creatinine 0.6 mg/dL (0.55-1.3) 07/20/19 08:00 Est GFR (CKD-EPI)AfAm 153.11 07/20/19 08:00 Est GFR (CKD-EPI)NonAf 132.10 07/20/19 08:00 Random Glucose 82 mg/dL (74-106) 07/20/19 08:00 Calcium 8.2 mg/dL (8.5-10.1) L 07/20/19 08:00 Total Bilirubin 2.1 mg/dL (0.2-1) H 07/20/19 08:00 AST 152 U/L (15-37) H 07/20/19 08:00 ALT 59 U/L (13-61) 07/20/19 08:00 Alkaline Phosphatase 99 U/L (45-117) 07/20/19 08:00 Total Protein 6.3 g/dl (6.4-8.2) L 07/20/19 08:00 Albumin 3.0 g/dl (3.4-5.0) L 07/20/19 08:00 RPR Titer Nonreactive (NONREACTIVE) 07/19/19 07:50 severe pancytopenia,thrombocytopenia Assessment: 07/20/19 10:29 withdrawal symptom Plan: to er for evaluation and treatment,regimen chage fro librium to ativan
[2019-07-20] MEDS ORDERED: LORazepam 1 MG TABLET PO PRN (10:31)
--- NOTE | 2019-07-20 10:34 | PN ---
[place] Progress Note Note: pancytopenia with severe leukopenia wbc 1000,paltelet count 19,000 to er for evaluation and treatment discussed with Lucita Lyn to be transported by [facility]
[2019-07-20 11:23] LABS: ANISOCYTOSIS 0; MACROCYTOSIS 0; PLATELET ESTIMATE DECREASED
[2019-07-20] MEDS: LORazepam 2 MG TABLET PO SCH ×2 (17:55→23:33)
[2019-07-20] MEDS: THIAMINE HCL 100 MG TABLET (FP) PO SCH (23:34)
[2019-07-21] MEDS ORDERED: chlordiazePOXIDE HCL 10 MG CAPSULE PO PRN
[2019-07-21] MEDS ORDERED: chlordiazePOXIDE HCL 10 MG CAPSULE PO SCH (05:00)
[2019-07-22] MEDS ORDERED: LORazepam 1 MG TABLET PO SCH (05:00)
[2019-07-22] MEDS ORDERED: chlordiazePOXIDE HCL 10 MG CAPSULE PO SCH (05:00)
[2019-07-23] MEDS ORDERED: chlordiazePOXIDE HCL 10 MG CAPSULE PO ONE (05:00)
[2019-07-23] MEDS ORDERED: LORazepam 0.5 MG TABLET PO SCH (05:00)
[2019-07-24] MEDS ORDERED: LORazepam 0.5 MG TABLET PO ONE (05:00)
== END 2019-07-20 12:00 | disposition short-term general hospital (02) | DRG 775 ==
LOC: YASAS 14:13 → Y6N 19:31
PROVIDERS: ADMIT Allergy & Immunology; ATTEND Allergy & Immunology
PROC: HZ2ZZZZ Detoxification Services for Substance Abuse Treatment (ICD-10-PCS; principal; 2019-07-18)
DX: F10.230 Alcohol dependence with withdrawal, uncomplicated (principal); F17.210 Nicotine dependence, cigarettes, uncomplicated; D64.9 Anemia, unspecified; D72.819 Decreased white blood cell count, unspecified; D69.6 Thrombocytopenia, unspecified; K70.30 Alcoholic cirrhosis of liver without ascites; K21.9 Gastro-esophageal reflux disease without esophagitis; Z86.69 Personal history of other diseases of the nervous system and sense organs; Z59.0 Homelessness; Y04.8XXA Assault by other bodily force, initial encounter; Y93.9 Activity, unspecified; Y92.9 Unspecified place or not applicable
CPT/HCPCS: 36415; 80053; 85025; 85027; 85610; 86593; Q0162

== ENCOUNTER 2019-07-18 21:11 | Emergency (ER) | payer OTHER ==
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
[2019-07-18 21:26] VITALS: BP 115/78; PULSE 68; TEMP 98.3; BMI 21.8
[2019-07-18] MEDS ORDERED: chlordiazePOXIDE HCL 25 MG CAPSULE PO ONE (21:33)
[2019-07-18] MEDS ORDERED: LORazepam 2 MG/ML SDV VIAL ONE (21:39)
[2019-07-18] MEDS ORDERED: chlordiazePOXIDE HCL 25 MG CAPSULE ONE ×2 (21:39→22:20)
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
== END 2019-07-18 22:38 | disposition short-term general hospital (02) ==
LOC: JER 21:11
PROC: 3E023NZ Introduction of Analgesics, Hypnotics, Sedatives into Muscle, Percutaneous Approach (ICD-10-PCS; principal; 2019-07-18)
PROC: 2W3KX1Z Immobilization of Left Finger using Splint (ICD-10-PCS; 2019-07-18)
PROC: 2W3KX1Z Immobilization of Left Finger using Splint (ICD-10-PCS; 2019-07-18)
DX: S69.81XD Other specified injuries of right wrist, hand and finger(s), subsequent encounter (principal); S69.82XD Other specified injuries of left wrist, hand and finger(s), subsequent encounter; Y04.0XXD Assault by unarmed brawl or fight, subsequent encounter; Y93.89 Activity, other specified; Y92.89 Other specified places as the place of occurrence of the external cause; Y99.8 Other external cause status; F10.10 Alcohol abuse, uncomplicated; D64.9 Anemia, unspecified; Z87.891 Personal history of nicotine dependence; K21.9 Gastro-esophageal reflux disease without esophagitis; K74.60 Unspecified cirrhosis of liver; G40.509 Epileptic seizures related to external causes, not intractable, without status epilepticus
CPT/HCPCS: 73130-TC-LT-FY; 73130-TC-RT-FY; 99283-25

== ENCOUNTER 2019-07-20 11:36 | Inpatient (IN) | payer OTHER ==
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
--- NOTE | 2019-07-20 13:36 | PDOC ---
Documentation entered by Fara Neumann SCRIBE, acting as scribe for Aniceto Best MD. Aniceto Best MD: This documentation has been prepared by the maria doloresibeThien Lincy, SCRIBE, under my direction and personally reviewed by me in its entirety. I confirm that the documentation accurately reflects all work, treatment, procedures, and medical decision making performed by me. Attending Attestation - Resident Resident Name: Valerie Cassidy - ED Attending Attestation I have performed the following: I have examined & evaluated the patient, The case was reviewed & discussed with the resident, I agree w/resident's findings & plan, Exceptions are as noted - HPI HPI: 07/20/19 13:05 The patient is a 34-year-old male with a past medical history significant for Alcohol cirrhosis and polysubstance abuse who presents to the emergency department via EMS from [facility] for abnormal lab values. Per [facility] records , the patient was noted to be pancytopenia and leukopenia with WBC of 1,000 and platelet count of 19,000. - Physicial Exam PE: 07/20/19 16:54 Vitals: Triage Vital signs reviewed swelling around right eye General Appearance: No acute distress, well nourished well developed, Head: Atraumatic, Eyes: Pupils equal reactive round, extraocular movement intact subconjunctival hemorrhage to right eye visual acuity 20/50 in affected eye Chest Wall: Nontender Cardiac: Regular rate and rhythym, no murmurs, no rubs, no gallops, Lungs: Clear to auscultation bilateral, good air movement bilaterally, Abdomen: Soft, non distended, normal bowel sounds, non tender to palpation Extremities: Full range of motion to all extremities, no cyanosis, clubbing, or edema Skin: Warm and dry, no rashes or lesions, no rash, no petechiae Neuro: AOX3; cranial Nerves 2-12 grossly intact, strength intact to all extremities, sensation intact to all extremities, Psych: Normal mood, normal affect - Medical Decision Making 07/20/19 16:55 Patient with known alcoholic cirrhosis known pancytopenia multiple admissions to multiple hospitals with hematology consultation presents from [facility] for alcohol detox with labs concerning for neutropenia Case discussed with Dr. Fabiana Regalado. We do not have 29-week events did you put this in you just do 1010 M EQ riders right and she is probably getting me 4 hours start probably for to start specimen Dr. Hampton at M side". Hematology recommends infectious work-up including chest x-ray blood cultures urine cultures We will reconsult when results are back Dr. Tate to follow-up labs and dispo.
[2019-07-20 14:30] LABS: MAGNESIUM 1.8 mg/dL (1.8-2.4); PHOSPHOROUS 1.9 mg/dL (2.5-4.9)
[2019-07-20 16:27] LABS: HYALINE CASTS 2 /lpf (0-8); PH,URINE >= 9.0 (5.0-8.0); URINE APPEARANCE CLEAR; URINE BACTERIA 3.8 /hpf (NEGATIVE); URINE BILIRUBIN 1+ (NEGATIVE); URINE COLOR DK YELLOW; URINE GLUCOSE (UA) NEGATIVE (NEGATIVE); URINE KETONE NEGATIVE (NEGATIVE); URINE LEUK ESTERASE NEGATIVE (NEGATIVE); URINE NITRITE NEGATIVE (NEGATIVE); URINE PROTEIN 1+ (NEGATIVE); URINE RBC 4 /hpf (0-4); URINE WBC 3 /hpf (0-5)
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
--- NOTE | 2019-07-20 20:07 | PDOC ---
*Physical Exam - Vital Signs Last Vital Signs Temp Pulse Resp BP Pulse Ox 98.9 F 69 18 102/54 L 99 07/20/19 11:55 07/20/19 11:55 07/20/19 11:55 07/20/19 11:55 07/20/19 11:55 ED Treatment Course - LABORATORY CBC & Chemistry Diagram: 07/23/19 05:40 07/23/19 05:40 - ADDITIONAL ORDERS Additional order review: Laboratory Results 07/20/19 07/20/19 07/20/19 16:00 13:37 13:37 Phosphorus 1.9 L Magnesium 1.8 Ammonia 112.20 H Lipase 207 Urine Color Dk yellow Urine Appearance Clear Urine pH >= 9.0 H Ur Specific [place] 1.020 Urine Protein 1+ H Urine Glucose (UA) Negative Urine Ketones Negative Urine Blood Negative Urine Nitrite Negative Urine Bilirubin 1+ H Urine Urobilinogen 1.0 Ur Leukocyte Esterase Negative Urine WBC (Auto) 3 Urine RBC (Auto) 4 Urine Casts (Auto) 2 U Epithel Cells (Auto) 1.0 Urine Bacteria (Auto) 3.8 Medical Decision Making - Medical Decision Making 07/20/19 20:02 sign out received from Dr. Cassidy 34M chronic pancytopenia, cirrhosis, mdd, polysubstance undomicilied [facility] for detox + epigastric pain + hematoma right orbit; subconjuntival hemorrhage R > L 20/50 R vs 20/20 L; EOMI, PERRLA CT Head and Orbit no acute pathology labs done at [facility] today plt 19 wbc 1 TO DO [x] EKG [x] T&S [x] PLTs per heme [x] protonix [x] Admit to hospitalists (microblog sent) Discharge - Discharge Information Problems reviewed: Yes Clinical Impression/Diagnosis: Pancytopenia Condition: Improved - Follow up/Referral - Patient Discharge Instructions - Post Discharge Activity
[2019-07-20] MEDS ORDERED: PANTOPRAZOLE SODIUM 40 MG VIAL IVPUSH ONE (20:39)
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
[2019-07-20] MEDS ORDERED: PANTOPRAZOLE SODIUM 40 MG VIAL ONE (20:48)
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
[2019-07-20] MEDS ORDERED: SODIUM CHLORIDE 1,000 ML IV SCH (23:30)
[2019-07-20] MEDS ORDERED: LACTULOSE 20 GM/30 ML UDC (FOR ORAL USE ONLY) PO PRN (23:33)
[2019-07-20] MEDS ORDERED: NAPH,MB-DB/K PH,MBDB POWDER PACKET PO ONE (23:55)
[2019-07-21 02:51] VITALS: BMI 22.8
[2019-07-21] MEDS: RIFAXIMIN 200 MG TABLET PO SCH ×3 (05:07→22:41)
[2019-07-21] MEDS ORDERED: LORazepam 1 MG TABLET PO PRN (05:32)
[2019-07-21] MEDS ORDERED: VANCOMYCIN 1,000 MG in DEXTROSE 5%-WATER - 250 ML IVPB SCH (05:45)
[2019-07-21] MEDS ORDERED: VANCOMYCIN 1 GRAM (PRE-DOCKED) 1,000 MG/250 ML BAG IVPB ONE (05:45)
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
[2019-07-21] MEDS ORDERED: FOLIC ACID INJECTION - 1 MG, THIAMINE HCL 100 MG, MULTIVIT INJECTION ADULT 10 ML in SOD... IVPB ONE ×3 (07:45)
[2019-07-21] MEDS ORDERED: NAPH,MB-DB/K PH,MBDB POWDER PACKET PO ONE (07:47)
[2019-07-21 08:13] LABS: BASO % 0.8 % (0-2.0); EOS % 4.5 % (0-4.5); HEMATOCRIT 29.9 % (35.4-49); HEMOGLOBIN 9.9 GM/dL (11.7-16.9); LYMPH % 28.3 % (8-40); MCH 30.8 pg (25.7-33.7); MCHC 33.2 g/dl (32.0-35.9); MEAN CELL VOLUME 92.7 fl (80-96); MEAN PLT VOLUME 8.5 fl (7.5-11.1); MONO % 17.3 % (3.8-10.2); NEUT % 49.1 % (42.8-82.8); PLATELET COUNT 39 K/MM3 (134-434); RBC 3.22 M/mm3 (4.00-5.60); RDW 16.1 % (11.9-15.9)
[2019-07-21 08:26] LABS: INR 1.47 (0.83-1.09); PROTHROMBIN TIME (PATIENT) 17.4 SEC (9.7-13.0)
[2019-07-21 08:29] LABS: ACTIVATED PTT 35.5 SECONDS (25.2-36.5)
[2019-07-21 08:35] LABS: WHITE BLOOD COUNT 1.4 K/mm3 (4.0-10.0)
[2019-07-21 08:43] LABS: BILIRUBIN,TOTAL 1.8 mg/dL (0.2-1); BLOOD UREA NITROGEN 12.1 mg/dL (7-18); CALCIUM 8.2 mg/dL (8.5-10.1); CREATININE 0.7 mg/dL (0.55-1.3); MAGNESIUM 1.7 mg/dL (1.8-2.4); PHOSPHOROUS 2.3 mg/dL (2.5-4.9); TOT PROT 6.4 g/dl (6.4-8.2)
[2019-07-21] MEDS: FOLIC ACID 1 MG TABLET (FP) PO SCH (09:18)
[2019-07-21] MEDS: MULTIVITAMINS (DAILY MVI) TABLET (FP) PO SCH (09:18)
[2019-07-21] MEDS: PANTOPRAZOLE 40 MG TABLET PO SCH (09:19)
[2019-07-21] MEDS: THIAMINE HCL 100 MG TABLET (FP) PO SCH (09:19)
--- NOTE | 2019-07-21 09:28 | PN ---
Physical Exam: SUBJECTIVE: Patient seen and examined at bed side , reports blurry vision but no fever or chills, wbc improving recieved 2 FFP last night Plt 39 today OBJECTIVE: Vital Signs Period Temp Pulse Resp BP Sys/Sanchez Pulse Ox Last 24 Hr 98.2 F-98.9 F 64-72 18-18 102-114/54-69 98-100 GENERAL: Awake, alert, and fully oriented, in no acute distress. HEAD: right raccone eye EYES: Pupils equal, round and reactive to light, extraocular movements intact, EARS, NOSE, THROAT: Moist mucous membranes. NECK: supple LUNGS: Breath sounds equal, clear to auscultation bilaterally. No wheezes, and no crackles. No accessory muscle use. HEART: Regular rate and rhythm, normal S1 and S2 without murmur, rub or gallop. ABDOMEN: Soft, nontender, not distended, normoactive bowel sounds, LOWER EXTREMITIES: 2+ pulses, warm, well-perfused. No calf tenderness. No peripheral edema. NEUROLOGICAL: Cranial nerves II-XII intact. Normal speech. PSYCHIATRIC: Cooperative. left thigh echymosis Laboratory Results - last 24 hr 07/20/19 07/20/19 07/20/19 13:37 13:37 16:00 WBC RBC Hgb Hct MCV MCH MCHC RDW Plt Count MPV Absolute Neuts (auto) Neutrophils % Lymphocytes % Monocytes % Eosinophils % Basophils % Nucleated RBC % Retic Count PT with INR INR PTT (Actin FS) Fibrinogen Sodium Potassium Chloride Carbon Dioxide Anion Gap BUN Creatinine Est GFR (CKD-EPI)AfAm Est GFR (CKD-EPI)NonAf Random Glucose Calcium Phosphorus 1.9 L Magnesium 1.8 Iron TIBC Iron Saturation Unsaturated IBC Total Bilirubin AST ALT Alkaline Phosphatase Ammonia 112.20 H Total Protein Albumin Lipase 207 Urine Color Dk yellow Urine Appearance Clear Urine pH >= 9.0 H Ur Specific [place] 1.020 Urine Protein 1+ H Urine Glucose (UA) Negative Urine Ketones Negative Urine Blood Negative Urine Nitrite Negative Urine Bilirubin 1+ H Urine Urobilinogen 1.0 Ur Leukocyte Esterase Negative Urine WBC (Auto) 3 Urine RBC (Auto) 4 Urine Casts (Auto) 2 U Epithel Cells (Auto) 1.0 Urine Bacteria (Auto) 3.8 Blood Type Antibody Screen 07/20/19 07/21/19 07/21/19 20:08 07:13 07:13 WBC RBC Hgb Hct MCV MCH MCHC RDW Plt Count MPV Absolute Neuts (auto) Neutrophils % Lymphocytes % Monocytes % Eosinophils % Basophils % Nucleated RBC % Retic Count 1.34 D PT with INR INR PTT (Actin FS) Fibrinogen Sodium 136 Potassium 4.0 Chloride 109 H Carbon Dioxide 20 L Anion Gap 7 L BUN 12.1 Creatinine 0.7 Est GFR (CKD-EPI)AfAm 143.71 Est GFR (CKD-EPI)NonAf 123.99 Random Glucose 98 Calcium 8.2 L Phosphorus 2.3 L Magnesium 1.7 L Iron TIBC Iron Saturation Unsaturated IBC Total Bilirubin 1.8 H AST 109 H ALT 53 Alkaline Phosphatase 102 Ammonia Total Protein 6.4 Albumin 3.0 L Lipase Urine Color Urine Appearance Urine pH Ur Specific [place] Urine Protein Urine Glucose (UA) Urine Ketones Urine Blood Urine Nitrite Urine Bilirubin Urine Urobilinogen Ur Leukocyte Esterase Urine WBC (Auto) Urine RBC (Auto) Urine Casts (Auto) U Epithel Cells (Auto) Urine Bacteria (Auto) Blood Type O POSITIVE Antibody Screen Negative 07/21/19 07/21/19 07/21/19 07:13 07:13 07:13 WBC 1.4 L* RBC 3.22 L Hgb 9.9 L Hct 29.9 L MCV 92.7 MCH 30.8 MCHC 33.2 RDW 16.1 H Plt Count 39 L D MPV 8.5 Absolute Neuts (auto) 0.7 L Neutrophils % 49.1 Lymphocytes % 28.3 Monocytes % 17.3 H Eosinophils % 4.5 Basophils % 0.8 Nucleated RBC % 0 Retic Count PT with INR 17.40 H INR 1.47 H PTT (Actin FS) 35.5 Fibrinogen Sodium Potassium Chloride Carbon Dioxide Anion Gap BUN Creatinine Est GFR (CKD-EPI)AfAm Est GFR (CKD-EPI)NonAf Random Glucose Calcium Phosphorus Magnesium Iron 123 TIBC 236 L Iron Saturation 52 H Unsaturated IBC 113 L Total Bilirubin AST ALT Alkaline Phosphatase Ammonia Total Protein Albumin Lipase Urine Color Urine Appearance Urine pH Ur Specific [place] Urine Protein Urine Glucose (UA) Urine Ketones Urine Blood Urine Nitrite Urine Bilirubin Urine Urobilinogen Ur Leukocyte Esterase Urine WBC (Auto) Urine RBC (Auto) Urine Casts (Auto) U Epithel Cells (Auto) Urine Bacteria (Auto) Blood Type Antibody Screen 07/21/19 07:13 WBC RBC Hgb Hct MCV MCH MCHC RDW Plt Count MPV Absolute Neuts (auto) Neutrophils % Lymphocytes % Monocytes % Eosinophils % Basophils % Nucleated RBC % Retic Count PT with INR INR PTT (Actin FS) Fibrinogen 212.0 L Sodium Potassium Chloride Carbon Dioxide Anion Gap BUN Creatinine Est GFR (CKD-EPI)AfAm Est GFR (CKD-EPI)NonAf Random Glucose Calcium Phosphorus Magnesium Iron TIBC Iron Saturation Unsaturated IBC Total Bilirubin AST ALT Alkaline Phosphatase Ammonia Total Protein Albumin Lipase Urine Color Urine Appearance Urine pH Ur Specific [place] Urine Protein Urine Glucose (UA) Urine Ketones Urine Blood Urine Nitrite Urine Bilirubin Urine Urobilinogen Ur Leukocyte Esterase Urine WBC (Auto) Urine RBC (Auto) Urine Casts (Auto) U Epithel Cells (Auto) Urine Bacteria (Auto) Blood Type Antibody Screen Active Medications Generic Name Dose Route Start Last Admin Trade Name Freq PRN Reason Stop Dose Admin Folic Acid 1 mg 07/21/19 10:00 07/21/19 09:18 Folic Acid - PO 1 mg DAILY RANDI Administration Vancomycin HCl 1,000 mg/ 250 mls @ 200 mls/hr 07/21/19 05:45 Dextrose IVPB Q24H RANDI Protocol Piperacillin Sod/Tazobactam 50 mls @ 100 mls/hr 07/21/19 10:00 Sod 3.375 gm/ Dextrose IVPB Q8H-IV RANDI Protocol Folic Acid 1 mg/ Thiamine HCl 1,000 mls @ 125 mls/hr 07/21/19 09:30 100 mg/ Sodium Chloride IVPB 07/21/19 17:29 ONCE ONE Lactulose 20 gm 07/20/19 23:33 Cephulac (Oral Use) PO TID PRN CONSTIPATION Lorazepam 2 mg 07/21/19 05:32 07/21/19 06:30 Ativan - PO 2 mg DAILY PRN Administration ANXIETY Lorazepam 0.5 mg 07/21/19 14:00 Ativan - PO 07/22/19 13:59 ONCE PRN WITHDRAWAL(CONT SUBST) Magnesium Sulfate 2 gm 07/21/19 09:30 Magnesium Sulfate IVPB 07/21/19 09:31 ONCE ONE Multivitamins/Minerals/Vitamin C 1 tab 07/21/19 10:00 07/21/19 09:18 Tab-A-Vit - PO 1 tab DAILY RANDI Administration Pantoprazole Sodium 40 mg 07/21/19 10:00 07/21/19 09:19 Protonix - PO 40 mg DAILY RANDI Administration Rifaximin 200 mg 07/21/19 06:00 07/21/19 05:07 Xifaxan - PO 200 mg TID RANDI Administration Thiamine HCl 100 mg 07/21/19 10:00 07/21/19 09:19 Vitamin B1 - PO 100 mg DAILY RANDI Administration CBC, BMP 07/21/19 07:13 07/21/19 07:13 ASSESSMENT/PLAN: Pt. is a 33 y.o. M w/ PMHx. of pancytopenia, stage 2 cirrhosis of the liver, GERD, Depression (suicide attempts in 2014 and 2017), and EtOH abuse presents from [facility] for having a WBC count of 0.9k. we were consulted for pancytopenia #Pancytopenia, chronic likely 2/2 bone marrow suppresion to alcohol abuse and liver cirrhosis # Neutropenia ANC below 500 # Thromocytopenia Plt 19 today 39 S/P 2 FFP * admit to inpatient sevices * monitor cbc with differential daily * monitor off abx per dr winchester and Dr hines * B12 and folic acid level * b12 and FA treatement * Irone studies , reticulocytes count * Vit K SQ daily for 3 days * US liver #EtOH Abuse and Nicotine Dependance Thiamin Folic Acid IVF per detox LR @ 100ml/hr monitor electrolytes and replete as needed Regular Diet #DVT Proph .no chemical prophylaxis TEDs/ SCDs. Visit type - Emergency Visit Emergency Visit: Yes ED Registration Date: 07/20/19 Care time: The patient presented to the Emergency Department on the above date and was hospitalized for further evaluation of their emergent condition. - New Patient This patient is new to me today: No - Critical Care Critical Care patient: No - Discharge Referral Referred to [facility] Med P.C.: No ATTENDING PHYSICIAN STATEMENT I saw and evaluated the patient. I reviewed the resident's note and discussed the case with the resident. I agree with the resident's findings and plan as documented. SUBJECTIVE: OBJECTIVE: ASSESSMENT AND PLAN:
[2019-07-21] MEDS ORDERED: FOLIC ACID INJECTION - 1 MG, THIAMINE HCL 100 MG in SODIUM CHLORIDE 998.8 ML IVPB ONE (09:30)
[2019-07-21] MEDS ORDERED: MAGNESIUM SULF 50% (8.12 MEQ/2 ML-1 GM VIAL) IVPB ONE (09:30)
[2019-07-21] MEDS ORDERED: PIPERACILLIN/TAZOB 3.375 GM 3.375 GM in DEXTROSE 5%-WATER - 50 ML IVPB SCH (10:00)
[2019-07-21] MEDS ORDERED: PANTOPRAZOLE 40 MG TABLET PO SCH (10:00)
[2019-07-21 10:25] LABS: ANISOCYTOSIS 1+; PLATELET ESTIMATE DECREASED
--- NOTE | 2019-07-21 10:51 | EKG ---
Test Reason : Blood Pressure : / mmHG Vent. Rate : 074 BPM Atrial Rate : 074 BPM P-R Int : 170 ms QRS Dur : 110 ms QT Int : 426 ms P-R-T Axes : 045 011 051 degrees QTc Int : 472 ms NORMAL SINUS RHYTHM POOR R WAVE PROGRESSION NONSPECIFIC ST ABNORMALITY Confirmed by BRENDAN OSBORNE MD ([id number]) on 07/21/2019 10:50:41 AM Referred By: Confirmed By:BRENDAN OSBORNE MD
--- NOTE | 2019-07-21 10:55 | PN ---
Progress Note (short form) - Note Progress Note: ID CONSULT DICTATED CHRONIC PANCYTOPENIA/ NEUTROPENIA AFEBRILE, NO EVIDENCE OF INFECTION CHRONIC ALCOHOLISM AWAIT C/S OBSERVE OFF ANTIBIOTICS HIV TEST
--- NOTE | 2019-07-21 11:52 | PN ---
Teaching Attending Note Name of Resident: Jarett Schreiber ATTENDING PHYSICIAN STATEMENT I saw and evaluated the patient. I reviewed the resident's note and discussed the case with the resident. I agree with the resident's findings and plan as documented. SUBJECTIVE: Patient seen and examined Reviewed with resident - Large ecchymoses right orbit and multiple ecchymoses on skeleton. Complains of blurry vision Last Vital Signs Temp Pulse Resp BP Pulse Ox 98.2 F 72 18 110/62 100 07/21/19 05:51 07/21/19 09:24 07/21/19 09:24 07/21/19 09:24 07/21/19 00:30 HEENT: CHLOE, EOM Intact, right orbital ecchymoses Cor: RSR, No murmurs, No gallops Lungs: Clear to P&A Abd: Soft, Normal bowel sounds, No organomegaly Ext:No significant edema, ecchymoses left lateral thigh Skin: No rashes, Integument intact CBC, BMP 07/21/19 07:13 07/21/19 07:13 Current Medications Generic Name Dose Route Start Last Admin Trade Name Freq PRN Reason Stop Dose Admin Folic Acid 1 mg 07/21/19 10:00 07/21/19 09:18 Folic Acid - PO 1 mg DAILY RANDI Administration Vancomycin HCl 1,000 mg/ 250 mls @ 200 mls/hr 07/21/19 05:45 Dextrose IVPB Q24H RANDI Protocol Piperacillin Sod/Tazobactam 50 mls @ 100 mls/hr 07/21/19 10:00 Sod 3.375 gm/ Dextrose IVPB Q8H-IV RANDI Protocol Folic Acid 1 mg/ Thiamine HCl 1,000 mls @ 125 mls/hr 07/21/19 09:30 07/21/19 10:36 100 mg/ Sodium Chloride IVPB 07/21/19 17:29 125 mls/hr ONCE ONE Administration Lactulose 20 gm 07/20/19 23:33 Cephulac (Oral Use) PO TID PRN CONSTIPATION Lorazepam 2 mg 07/21/19 05:32 07/21/19 06:30 Ativan - PO 2 mg DAILY PRN Administration ANXIETY Lorazepam 0.5 mg 07/21/19 14:00 Ativan - PO 07/22/19 13:59 ONCE PRN WITHDRAWAL(CONT SUBST) Multivitamins/Minerals/Vitamin C 1 tab 07/21/19 10:00 07/21/19 09:18 Tab-A-Vit - PO 1 tab DAILY RANDI Administration Pantoprazole Sodium 40 mg 07/21/19 10:00 07/21/19 09:19 Protonix - PO 40 mg DAILY RANDI Administration Phytonadione 5 mg 07/21/19 11:45 Aqua Mephyton Injection - SQ 07/23/19 11:45 DAILY RANDI Rifaximin 200 mg 07/21/19 06:00 07/21/19 05:07 Xifaxan - PO 200 mg TID RANDI Administration Thiamine HCl 100 mg 07/21/19 10:00 07/21/19 09:19 Vitamin B1 - PO 100 mg DAILY RANDI Administration OBJECTIVE: Impression: Pancytopenia secondary to liver disease and acute toxic efect of alcohol Alcoholic liver disease Right orbital ecchymoses Coagulopathy secondary to liver disease. Plan: Vitamin K - sub q optho consult -called Monitor CBC ASSESSMENT AND PLAN:
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
[2019-07-21] MEDS ORDERED: LORazepam 0.5 MG TABLET PO PRN (14:00)
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
[2019-07-21] MEDS ORDERED: PT OWN MED DRAWER 7, Y5N ONE ×2 (14:15→15:33)
[2019-07-21] MEDS: PHYTONADIONE 10 MG/1 ML AMP SQ SCH (14:20)
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
[2019-07-21] MEDS ORDERED: PHENYLEPHRINE 2.5% OPHTH SOLN 15 ML BOTTLE OD ONE (16:00)
[2019-07-21] MEDS ORDERED: TROPICAMIDE 1% OPHTH SOLN 15 ML BOTTLE OD ONE (16:00)
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
[2019-07-21] MEDS: LORazepam 1 MG TABLET PO SCH ×2 (18:18→22:41)
[2019-07-22] MEDS: LORazepam 1 MG TABLET PO SCH ×2 (05:39→10:49)
[2019-07-22] MEDS: RIFAXIMIN 200 MG TABLET PO SCH ×3 (05:39→22:37)
[2019-07-22 09:06] LABS: BASO % 0.6 % (0-2.0); EOS % 4.6 % (0-4.5); HEMATOCRIT 31.5 % (35.4-49); HEMOGLOBIN 10.4 GM/dL (11.7-16.9); LYMPH % 22.1 % (8-40); MCH 30.5 pg (25.7-33.7); MCHC 33.1 g/dl (32.0-35.9); MEAN CELL VOLUME 92.2 fl (80-96); MEAN PLT VOLUME 8.5 fl (7.5-11.1); MONO % 16.6 % (3.8-10.2); NEUT % 56.1 % (42.8-82.8); PLATELET COUNT 49 K/MM3 (134-434); RBC 3.41 M/mm3 (4.00-5.60); RDW 16.9 % (11.9-15.9)
[2019-07-22 09:14] LABS: WHITE BLOOD COUNT 1.8 K/mm3 (4.0-10.0)
[2019-07-22 09:18] LABS: INR 1.3 (0.83-1.09); PROTHROMBIN TIME (PATIENT) 15.4 SEC (9.7-13.0)
[2019-07-22 09:20] LABS: ACTIVATED PTT 34.2 SECONDS (25.2-36.5)
[2019-07-22] MEDS: PHYTONADIONE 10 MG/1 ML AMP SQ SCH (09:22)
[2019-07-22 09:23] LABS: BILIRUBIN,TOTAL 1.5 mg/dL (0.2-1); BLOOD UREA NITROGEN 12.4 mg/dL (7-18); CALCIUM 8.1 mg/dL (8.5-10.1); CREATININE 0.7 mg/dL (0.55-1.3); MAGNESIUM 1.8 mg/dL (1.8-2.4); POTASSIUM 4.1 mmol/L (3.5-5.1); TOT PROT 6.6 g/dl (6.4-8.2)
[2019-07-22] MEDS: PANTOPRAZOLE 40 MG TABLET PO SCH (09:23)
[2019-07-22] MEDS: FOLIC ACID 1 MG TABLET (FP) PO SCH (09:23)
[2019-07-22] MEDS: THIAMINE HCL 100 MG TABLET (FP) PO SCH (09:23)
[2019-07-22] MEDS: MULTIVITAMINS (DAILY MVI) TABLET (FP) PO SCH (09:23)
[2019-07-22 10:31] LABS: PHOSPHOROUS 2.4 mg/dL (2.5-4.9)
[2019-07-22 11:20] LABS: ANISOCYTOSIS 1+; MACROCYTOSIS 0; PLATELET ESTIMATE DECREASED
[2019-07-22] MEDS ORDERED: NAPH,MB-DB/K PH,MBDB POWDER PACKET PO ONE (11:30)
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
[2019-07-22] MEDS ORDERED: MAGNESIUM SULF 50% (8.12 MEQ/2 ML-1 GM VIAL) IVPB ONE (12:29)
[2019-07-22] MEDS ORDERED: SODIUM PHOSPHATE - 15 MM in SODIUM CHLORIDE 250 ML IVPB ONE (13:00)
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
[2019-07-22] MEDS: LORazepam 0.5 MG TABLET PO SCH ×2 (16:49→22:37)
--- NOTE | 2019-07-22 19:14 | PN ---
Progress Note, Physician History of Present Illness: AWAKE, RESPONSIVE OFFERS NO COMPLAINTS +BC NOTED ONE BOTTLE AFEBRILE REMAINS LEUKOPENIC - Current Medication List Current Medications: Active Medications Folic Acid (Folic Acid -) 1 mg PO DAILY [facility] Last Admin: 07/22/19 09:23 Dose: 1 mg Lactulose (Cephulac (Oral Use)) 20 gm PO TID PRN PRN Reason: CONSTIPATION Lorazepam (Ativan -) 0.5 mg PO Q6H [facility] Stop: 07/23/19 11:01 Last Admin: 07/22/19 16:49 Dose: 0.5 mg Lorazepam (Ativan -) 0.5 mg PO Q4H PRN PRN Reason: Symptoms of Withdrawal Stop: 07/25/19 00:00 Lorazepam (Ativan -) 0.5 mg PO ONCE ONE Stop: 07/23/19 17:01 Multivitamins/Minerals/Vitamin C (Tab-A-Vit -) 1 tab PO DAILY [facility] Last Admin: 07/22/19 09:23 Dose: 1 tab Pantoprazole Sodium (Protonix -) 40 mg PO DAILY [facility] Last Admin: 07/22/19 09:23 Dose: 40 mg Phytonadione (Aqua Mephyton Injection -) 5 mg SQ DAILY [facility] Stop: 07/23/19 11:45 Last Admin: 07/22/19 09:22 Dose: 5 mg Rifaximin (Xifaxan -) 200 mg PO TID [facility] Last Admin: 07/22/19 13:51 Dose: 200 mg Thiamine HCl (Vitamin B1 -) 100 mg PO DAILY [facility] Last Admin: 07/22/19 09:23 Dose: 100 mg - Objective Vital Signs: Vital Signs Temperature 97.4 F L 07/22/19 14:20 Pulse Rate 65 07/22/19 14:20 Respiratory Rate 20 07/22/19 14:20 Blood Pressure 97/51 L 07/22/19 14:20 O2 Sat by Pulse Oximetry (%) 96 07/22/19 09:00 Constitutional: Yes: No Distress Eyes: Yes: Other (+ PERIORBITAL ECCHYMOSIS) Cardiovascular: Yes: Regular Rate and Rhythm, S1, S2 Respiratory: Yes: CTA Bilaterally Gastrointestinal: Yes: Normal Bowel Sounds, Soft Labs: CBC, BMP 07/22/19 06:45 07/22/19 06:45 INR, PTT INR 1.30 (0.83-1.09) H 07/22/19 06:45 Fibrinogen 212.0 mg/dL (238-498) L 07/21/19 07:13 Assessment/Plan +BC ? SIGNIFICANCE CHRONIC LEUKOPENIA/ PANCYTOPENIA AWAIT IDENTIFICATION OF BLOOD ISOLATE OBSERVE OFF ANTIBIOTICS
[2019-07-23] MEDS ORDERED: LORazepam 0.5 MG TABLET PO PRN
[2019-07-23] MEDS ORDERED: LORazepam 1 MG TABLET PO SCH (05:00)
[2019-07-23] MEDS: LORazepam 0.5 MG TABLET PO SCH ×2 (06:01→11:53)
[2019-07-23] MEDS: RIFAXIMIN 200 MG TABLET PO SCH ×3 (06:01→21:20)
[2019-07-23 06:27] LABS: HEMATOCRIT 32.1 % (35.4-49); HEMOGLOBIN 10.8 GM/dL (11.7-16.9); MCH 30.8 pg (25.7-33.7); MCHC 33.5 g/dl (32.0-35.9); MEAN CELL VOLUME 91.9 fl (80-96); MEAN PLT VOLUME 8.8 fl (7.5-11.1); PLATELET COUNT 53 K/MM3 (134-434); RBC 3.49 M/mm3 (4.00-5.60); RDW 16.7 % (11.9-15.9)
[2019-07-23 06:50] LABS: WHITE BLOOD COUNT 1.7 K/mm3 (4.0-10.0)
[2019-07-23 06:58] LABS: ALBUMIN 3.2 g/dl (3.4-5.0); BILIRUBIN,TOTAL 1.4 mg/dL (0.2-1); BLOOD UREA NITROGEN 15.6 mg/dL (7-18); CALCIUM 8.4 mg/dL (8.5-10.1); CREATININE 0.7 mg/dL (0.55-1.3); MAGNESIUM 1.7 mg/dL (1.8-2.4); PHOSPHOROUS 2.8 mg/dL (2.5-4.9); POTASSIUM 4.1 mmol/L (3.5-5.1)
[2019-07-23] MEDS ORDERED: MAGNESIUM SULF 50% (8.12 MEQ/2 ML-1 GM VIAL) IVPB ONE (09:31)
[2019-07-23] MEDS: PANTOPRAZOLE 40 MG TABLET PO SCH (10:35)
[2019-07-23] MEDS: FOLIC ACID 1 MG TABLET (FP) PO SCH (10:35)
[2019-07-23] MEDS: MULTIVITAMINS (DAILY MVI) TABLET (FP) PO SCH (10:35)
[2019-07-23] MEDS: THIAMINE HCL 100 MG TABLET (FP) PO SCH (10:35)
[2019-07-23] MEDS: PHYTONADIONE 10 MG/1 ML AMP SQ SCH (10:35)
--- NOTE | 2019-07-23 14:36 | PN ---
Progress Note, Physician History of Present Illness: AWAKE,LETHARGIC OFFERS NO COMPLAINTS +BC ONE ANAEROBIC BOTTLE SCN, STREP SP AFEBRILE REMAINS LEUKOPENIC - Current Medication List Current Medications: Active Medications Folic Acid (Folic Acid -) 1 mg PO DAILY [facility] Last Admin: 07/23/19 10:35 Dose: 1 mg Lactulose (Cephulac (Oral Use)) 20 gm PO TID PRN PRN Reason: CONSTIPATION Lorazepam (Ativan -) 0.5 mg PO Q4H PRN PRN Reason: Symptoms of Withdrawal Stop: 07/25/19 00:00 Lorazepam (Ativan -) 0.5 mg PO ONCE ONE Stop: 07/23/19 17:01 Multivitamins/Minerals/Vitamin C (Tab-A-Vit -) 1 tab PO DAILY [facility] Last Admin: 07/23/19 10:35 Dose: 1 tab Pantoprazole Sodium (Protonix -) 40 mg PO DAILY [facility] Last Admin: 07/23/19 10:35 Dose: 40 mg Rifaximin (Xifaxan -) 200 mg PO TID [facility] Last Admin: 07/23/19 06:01 Dose: 200 mg Thiamine HCl (Vitamin B1 -) 100 mg PO DAILY [facility] Last Admin: 07/23/19 10:35 Dose: 100 mg - Objective Vital Signs: Vital Signs Temperature 97.9 F 07/22/19 22:00 Pulse Rate 66 07/22/19 22:00 Respiratory Rate 20 07/22/19 22:00 Blood Pressure 109/77 07/22/19 22:00 O2 Sat by Pulse Oximetry (%) 96 07/22/19 21:00 Constitutional: Yes: No Distress Cardiovascular: Yes: Regular Rate and Rhythm, S1, S2 Respiratory: Yes: CTA Bilaterally Gastrointestinal: Yes: Normal Bowel Sounds, Soft. No: Tenderness Peripheral Pulses WNL: No Labs: CBC, BMP 07/23/19 05:40 07/23/19 05:40 INR, PTT INR 1.30 (0.83-1.09) H 07/22/19 06:45 Fibrinogen 212.0 mg/dL (238-498) L 07/21/19 07:13 Assessment/Plan +BC TWO ORGANISMS, ONE ANAEROBIC BOTTLE C/W CONTAMINATION CHRONIC LEUKOPENIA/ PANCYTOPENIA HIV (-) OBSERVE OFF ANTIBIOTICS
[2019-07-23] MEDS ORDERED: LORazepam 0.5 MG TABLET PO ONE (17:00)
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
[2019-07-24] MEDS ORDERED: LORazepam 0.5 MG TABLET PO PRN
[2019-07-24] MEDS ORDERED: LORazepam 0.5 MG TABLET PO SCH (05:00)
[2019-07-24] MEDS: RIFAXIMIN 200 MG TABLET PO SCH ×2 (05:12→13:02)
[2019-07-24 07:50] LABS: BASO % 0.9 % (0-2.0); EOS % 2.5 % (0-4.5); HEMATOCRIT 34.1 % (35.4-49); HEMOGLOBIN 11.2 GM/dL (11.7-16.9); LYMPH % 29.1 % (8-40); MCH 30.8 pg (25.7-33.7); MEAN CELL VOLUME 93.4 fl (80-96); MEAN PLT VOLUME 8.5 fl (7.5-11.1); NEUT % 46.5 % (42.8-82.8); PLATELET COUNT 59 K/MM3 (134-434); RBC 3.65 M/mm3 (4.00-5.60); RDW 17.1 % (11.9-15.9)
[2019-07-24 08:27] LABS: ALBUMIN 3.4 g/dl (3.4-5.0); BILIRUBIN,TOTAL 1.4 mg/dL (0.2-1); BLOOD UREA NITROGEN 18.6 mg/dL (7-18); CALCIUM 8.9 mg/dL (8.5-10.1); CREATININE 0.8 mg/dL (0.55-1.3); PHOSPHOROUS 3.1 mg/dL (2.5-4.9); POTASSIUM 4.2 mmol/L (3.5-5.1); TOT PROT 7.6 g/dl (6.4-8.2)
[2019-07-24] MEDS: FOLIC ACID 1 MG TABLET (FP) PO SCH (09:00)
[2019-07-24] MEDS: PANTOPRAZOLE 40 MG TABLET PO SCH (09:00)
[2019-07-24] MEDS: MULTIVITAMINS (DAILY MVI) TABLET (FP) PO SCH (09:01)
[2019-07-24] MEDS: THIAMINE HCL 100 MG TABLET (FP) PO SCH (09:01)
[2019-07-24] MEDS ORDERED: PT OWN MED DRAWER 7, Y5N ONE (09:48)
[2019-07-24 10:13] VITALS: BP 99/71; PULSE 68; TEMP 98.3
[2019-07-24 10:37] LABS: INR 1.17 (0.83-1.09); PROTHROMBIN TIME (PATIENT) 13.8 SEC (9.7-13.0)
[2019-07-24 11:15] LABS: ANISOCYTOSIS 0; MACROCYTOSIS 0; PLATELET ESTIMATE DECREASED
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
--- NOTE | 2019-07-24 11:37 | PN ---
Physical Exam: SUBJECTIVE: Patient seen and examined at bed side , no acute events over night wbccount improving Blooc cx positive for Gram positive bacilli likley contaminated monitor off abx feeling beeter , tolerating diet , no active bleeding asking to go to rehab OBJECTIVE: Vital Signs Period Temp Pulse Resp BP Sys/Sanchez Pulse Ox Last 24 Hr 97.2 F-98.3 F 61-68 18-20 94-143/58-71 95-98 GENERAL: Awake, alert, and fully oriented, in no acute distress. HEAD: right raccone eye EYES: Pupils equal, round and reactive to light, extraocular movements intact, EARS, NOSE, THROAT: Moist mucous membranes. NECK: supple LUNGS: Breath sounds equal, clear to auscultation bilaterally. No wheezes, and no crackles. No accessory muscle use. HEART: Regular rate and rhythm, normal S1 and S2 without murmur, rub or gallop. ABDOMEN: Soft, nontender, not distended, normoactive bowel sounds, LOWER EXTREMITIES: 2+ pulses, warm, well-perfused. No calf tenderness. No peripheral edema. NEUROLOGICAL: Cranial nerves II-XII intact. Normal speech. PSYCHIATRIC: Cooperative. left thigh echymosis Laboratory Results - last 24 hr 07/24/19 07/24/19 07/24/19 06:39 06:39 10:05 WBC 2.0 L RBC 3.65 L Hgb 11.2 L Hct 34.1 L MCV 93.4 MCH 30.8 MCHC 33.0 RDW 17.1 H Plt Count 59 L MPV 8.5 Absolute Neuts (auto) 0.9 L Neutrophils % 46.5 Lymphocytes % 29.1 D Monocytes % 21.0 H Eosinophils % 2.5 Basophils % 0.9 Nucleated RBC % 0 PT with INR 13.80 H INR 1.17 H Sodium 138 Potassium 4.2 Chloride 107 Carbon Dioxide 23 Anion Gap 8 BUN 18.6 H Creatinine 0.8 Est GFR (CKD-EPI)AfAm 136.03 Est GFR (CKD-EPI)NonAf 117.37 Random Glucose 89 Calcium 8.9 Phosphorus 3.1 Magnesium 2.0 Total Bilirubin 1.4 H AST 163 H ALT 97 H Alkaline Phosphatase 101 Total Protein 7.6 Albumin 3.4 Active Medications Generic Name Dose Route Start Last Admin Trade Name Freq PRN Reason Stop Dose Admin Folic Acid 1 mg 07/21/19 10:00 07/24/19 09:00 Folic Acid - PO 1 mg DAILY RANDI Administration Lactulose 20 gm 07/20/19 23:33 Cephulac (Oral Use) PO TID PRN CONSTIPATION Lorazepam 0.5 mg 07/23/19 00:00 Ativan - PO 07/25/19 00:00 Q4H PRN Symptoms of Withdrawal Multivitamins/Minerals/Vitamin C 1 tab 07/21/19 10:00 07/24/19 09:01 Tab-A-Vit - PO 1 tab DAILY RANDI Administration Pantoprazole Sodium 40 mg 07/21/19 10:00 07/24/19 09:00 Protonix - PO 40 mg DAILY RANDI Administration Rifaximin 200 mg 07/21/19 06:00 07/24/19 05:12 Xifaxan - PO 200 mg TID RANDI Administration Thiamine HCl 100 mg 07/21/19 10:00 07/24/19 09:01 Vitamin B1 - PO 100 mg DAILY RANDI Administration CBC, BMP 07/24/19 06:39 07/24/19 06:39 ASSESSMENT/PLAN: Pt. is a 33 y.o. M w/ PMHx. of pancytopenia, stage 2 cirrhosis of the liver, GERD, Depression (suicide attempts in 2014 and 2017), and EtOH abuse presents from [facility] for having a WBC count of 0.9k. we were consulted for pancytopenia #Pancytopenia, chronic likely 2/2 bone marrow suppresion to alcohol abuse and liver cirrhosis # Neutropenia ANC below 500 , improving 900 today # Thromocytopenia Plt 19 .... 39 S/P 2 FFP .... 59 today * monitor cbc with differential daily, wbc 2 today * monitor off abx per Dr hines * B12 and folic acid level * b12 and FA treatement * Vit K SQ daily for 3 days * US liver * blood cx positive likley contaminated per ID , cont to monitor off abx #EtOH Abuse and Nicotine Dependance Thiamin Folic Acid IVF per detox monitor electrolytes and replete as needed Regular Diet #DVT Proph .no chemical prophylaxis TEDs/ SCDs. Visit type - Emergency Visit Emergency Visit: Yes ED Registration Date: 07/20/19 Care time: The patient presented to the Emergency Department on the above date and was hospitalized for further evaluation of their emergent condition. - New Patient This patient is new to me today: No - Critical Care Critical Care patient: No ATTENDING PHYSICIAN STATEMENT I saw and evaluated the patient. I reviewed the resident's note and discussed the case with the resident. I agree with the resident's findings and plan as documented. SUBJECTIVE: OBJECTIVE: ASSESSMENT AND PLAN:
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
[2019-07-25] MEDS ORDERED: LORazepam 0.5 MG TABLET PO ONE (05:00)
== END 2019-07-24 13:06 | disposition short-term general hospital (02) | DRG 660 ==
LOC: JER 11:36 → JERBED 20:48 → J7W 07-21 00:38
PROVIDERS: ADMIT Internal Medicine; ATTEND Hospitalist
PROC: 30233R1 Transfusion of Nonautologous Platelets into Peripheral Vein, Percutaneous Approach (ICD-10-PCS; principal; 2019-07-20)
DX: D61.818 Other pancytopenia (principal); K21.9 Gastro-esophageal reflux disease without esophagitis; F32.9 Major depressive disorder, single episode, unspecified; F10.239 Alcohol dependence with withdrawal, unspecified; F13.24 Sedative, hypnotic or anxiolytic dependence with sedative, hypnotic or anxiolytic-induced mood disorder; K76.0 Fatty (change of) liver, not elsewhere classified; S00.10XA Contusion of unspecified eyelid and periocular area, initial encounter; H11.31 Conjunctival hemorrhage, right eye; R78.81 Bacteremia; E72.20 Disorder of urea cycle metabolism, unspecified; K70.30 Alcoholic cirrhosis of liver without ascites; E83.39 Other disorders of phosphorus metabolism; D69.6 Thrombocytopenia, unspecified; E83.42 Hypomagnesemia; T14.90XA Injury, unspecified, initial encounter; X58.XXXA Exposure to other specified factors, initial encounter; Y93.9 Activity, unspecified; Y92.89 Other specified places as the place of occurrence of the external cause; D72.819 Decreased white blood cell count, unspecified; D68.9 Coagulation defect, unspecified
CPT/HCPCS: 36415; 36430; 36511; 70450-TC; 70480-TC; 71045-TC-FY; 76700-TC; 80053; 81003; 82140; 82728; 83540; 83550; 83690; 83735; 84100; 85025; 85027; 85044; 85384; 85610; 85730; 86850; 86900; 86901; 87040; 87086; 87186; 87389; 93005; 93010; 97116-GP; 99283-25; J7030; P9034; P9038

== ENCOUNTER 2019-07-24 13:33 | Inpatient (IN) | payer OTHER ==
[2019-07-24 13:50] VITALS: BMI 21.8
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
[2019-07-24] MEDS ORDERED: MAGNESIUM CITRATE 300 ML BOTTLE PO PRN (14:50)
[2019-07-24] MEDS ORDERED: LOPERAMIDE HCL 2 MG CAPSULE PO PRN (14:50)
[2019-07-24] MEDS ORDERED: MAG HYDROX/AL HYDROX/SIMETH 30 ML UNIT-DOSE CUP PO PRN (14:50)
[2019-07-24] MEDS ORDERED: P-EPHED 60MG/TRIPROLIDI 2.5MG TABLET PO PRN (14:50)
[2019-07-24] MEDS ORDERED: MENTHOL/PHENOL 1 EACH UD MM PRN (14:50)
[2019-07-24] MEDS ORDERED: ACETAMINOPHEN 325 MG TABLET (FP) PO PRN (14:50)
[2019-07-24] MEDS ORDERED: IBUPROFEN 400 MG TABLET (FP) PO PRN (14:50)
[2019-07-24] MEDS ORDERED: guaiFENesin 200 MG/10 ML 10 ML UNIT-DOSE CUPS PO PRN (14:50)
[2019-07-24] MEDS ORDERED: MAGNESIUM HYDROX 2400MG/30ML ORAL SUSPENSION 30 ML CUP PO PRN (14:50)
[2019-07-24] MEDS ORDERED: hydrOXYzine PAMOATE 25 MG CAPSULE (FP) PO PRN (14:50)
[2019-07-24] MEDS ORDERED: SUVOREXANT 5 MG TABLET PO PRN (14:52)
[2019-07-24] MEDS: THIAMINE HCL 100 MG TABLET (FP) PO SCH (21:29)
[2019-07-24] MEDS ORDERED: MELATONIN 5 MG TABLETS PO PRN (22:00)
[2019-07-25] MEDS: PRENATAL VITAMINS W/ FOLIC ACID TABLET (FP) PO SCH (09:57)
[2019-07-25] MEDS: FOLIC ACID 1 MG TABLET (FP) PO SCH (09:57)
[2019-07-25] MEDS: LACTULOSE 20 GM/30 ML UDC (FOR ORAL USE ONLY) PO SCH (09:58)
--- NOTE | 2019-07-25 12:24 | PN ---
[facility] Progress Note Note: patient admitted to [address] [place] [address]. previous visits reviewed, no prior safety issues noted; labs reviewed (abnormal white count, Hgb, Hct,- pt w/ hx of pancytopenia/ anemia. low albumin, protein, calcium and slightly elevated random glucose). Home medications reviewed, orders reviewed. rifaxim & lactulose not ordered at this time; will check ammonia level. Vital Signs Period Temp Pulse Resp BP Sys/Sanchez Pulse Ox Last 24 Hr 97.0 F-97.9 F 60-69 18-18 113-113/61-69
[2019-07-25] MEDS: THIAMINE HCL 100 MG TABLET (FP) PO SCH (22:18)
[2019-07-26] MEDS: PRENATAL VITAMINS W/ FOLIC ACID TABLET (FP) PO SCH (09:43)
[2019-07-26] MEDS: LACTULOSE 20 GM/30 ML UDC (FOR ORAL USE ONLY) PO SCH (09:43)
[2019-07-26] MEDS: FOLIC ACID 1 MG TABLET (FP) PO SCH (09:43)
--- NOTE | 2019-07-26 10:25 | PN ---
[facility] Progress Note (SOAP) Subjective: patient requesting increase to his vistaril. States that he feels depressed, needs to be on his psychiatric medications. Crying. Objective: 07/26/19 10:23 Vital Signs Period Temp Pulse Resp BP Sys/Sanchez Pulse Ox Last 24 Hr 98 F 60 18-20 114/61 General: crying, upset HEENTM: normocephalic, ecchymotic area right eye. Neck: supple Lungs: clear Heart: s1 s2 ABD: +BS. Assessment: depressed; anxious 07/26/19 14:51 Plan: Vistaril increased, psychiatric evaluation requested
[2019-07-26] MEDS: hydrOXYzine PAMOATE 25 MG CAPSULE (FP) PO PRN ×2 (10:49→21:08)
[2019-07-26] MEDS: THIAMINE HCL 100 MG TABLET (FP) PO SCH (21:06)
[2019-07-26] MEDS ORDERED: SUVOREXANT 5 MG TABLET PO PRN (22:00)
[2019-07-27 07:06] VITALS: BP 99/58; PULSE 70; TEMP 97.9
--- NOTE | 2019-07-27 10:02 | CONSULT ---
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 This is one of multiple admissions for patient. Patient admitted to for alcohol and benzodiazepine dependence. Substance Abuse History: - Smoking Cessation. Smoking history: Former smoker. Have you smoked in the past 12 months: No. Aproximately how many cigarettes per day: 0. If you are a former smoker, when did you quit?: 2018. Cigars Per Day: 0. Hx Chewing Tobacco Use: No. Initiated information on smoking cessation : Yes. 'Breaking Loose' booklet given: 07/24/19. - Substances abused. Alcohol. Substance route: Oral. Frequency: Daily. Amount used: 1/2 GALLON VODKA, 4 beers (24 OUNCES). Age of first use: 7. Date of last use: 07/18/19. Alprazolam (Xanax). Substance route: Oral. Frequency: 3-6 times per week. Amount used: 2 strips. Age of first use: 31. Date of last use: 07/16/19 Medical History: Anemia, Seizures (alcohol related), GERD, cirrhosis Psychiatric History: Patient's first psychiatric contact was at 14 years of age after the school he attended recommended he see a psychiatrist due to his history of alcohol, cocaine, heroin, and benzodiazepine use. After seeing the psychiatrist in an outpatient setting he was recommended to attend rehab but refused do so. Due to his decision of refusing to attend rehab he was removed from school by his parents. Patient reports history of multiple psychiatric hospitalizations, most recently two months ago at [facility] after an attempted suicide attempt by overdose of seroquel, crystal meth and heroin mix. Mr. Ellis reports additional psychiatric hospitalizations at various hospitals including [facility], [facility], , and [facility]. Diagnosis of MDD and anxiety disorder. He reports past treatment with seroquel, lexapro, depakote, prozac. Reports noncompliance to psychiatric treatment due to his history of drug use. Patient reports history of multiple suicide attempts by overdose, and self mutilation. At present patient denies thoughts or urges to hurt self or others. States that he plans on leaving AMA today as he does not feel comfortable staying [place] due to the population. States that he is planning on going to [employer] ([employer]) to discuss as to why he did not receive $192 of benefit funding for [employer]. In addition, Mr. Ellis has plans to see his son on Wednesday. At present patient reports feeling stable and has decided to leave the rehab program today. Physical/Sexual Abuse/Trauma History: denies. Mental Status Exam - Mental Status Exam Alert and Oriented to: Time, Place, Person Cognitive Function: Good Patient Appearance: Well Groomed Mood: Withdrawn Affect: Mood Congruent Patient Behavior: Appropriate, Cooperative Speech Pattern: Clear, Appropriate Voice Loudness: Normal Thought Process: Goal Oriented Thought Disorder: Not Present Hallucinations: Denies Suicidal Ideation: Denies Homicidal Ideation: Denies Insight/Judgement: Fair Sleep: Fair Appetite: Fair Muscle strength/Tone: Normal Gait/Station: Normal Psychiatric Findings - Problem List ([place] 1, 2,3) (1) Alcohol use disorder Status: Chronic (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 Rehab in progress. Observation.
[2019-07-27] MEDS: LACTULOSE 20 GM/30 ML UDC (FOR ORAL USE ONLY) PO SCH (10:23)
[2019-07-27] MEDS: PRENATAL VITAMINS W/ FOLIC ACID TABLET (FP) PO SCH (10:23)
[2019-07-27] MEDS: hydrOXYzine PAMOATE 25 MG CAPSULE (FP) PO PRN (10:25)
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
[2019-07-27] MEDS: FOLIC ACID 1 MG TABLET (FP) PO SCH (11:00)
== END 2019-07-27 11:35 | disposition left against medical advice (07) | DRG 770 ==
LOC: YASAS 13:33 → Y3W 15:17 → Y5N 15:39
PROVIDERS: ADMIT Neuromusculoskeletal Medicine & OMM; ATTEND Neuromusculoskeletal Medicine & OMM
PROC: HZ42ZZZ Group Counseling for Substance Abuse Treatment, Cognitive-Behavioral (ICD-10-PCS; principal; 2019-07-24)
DX: F10.20 Alcohol dependence, uncomplicated (principal); F14.20 Cocaine dependence, uncomplicated; F13.20 Sedative, hypnotic or anxiolytic dependence, uncomplicated; F19.24 Other psychoactive substance dependence with psychoactive substance-induced mood disorder; F32.9 Major depressive disorder, single episode, unspecified; D61.818 Other pancytopenia; G40.509 Epileptic seizures related to external causes, not intractable, without status epilepticus; K70.30 Alcoholic cirrhosis of liver without ascites; K21.9 Gastro-esophageal reflux disease without esophagitis; Z87.891 Personal history of nicotine dependence; Z59.0 Homelessness
CPT/HCPCS: 82140

== ENCOUNTER 2019-09-25 16:52 | Inpatient (IN) | payer OTHER ==
--- NOTE | 2019-09-25 17:24 | BHS.RME ---
Substance Use & Tx History - Substance Use History Alcohol Substance amount: 1 liter vodka and 3-4 -4-Nebo's Frequency of use: Daily Substance route: Oral Date of Last Use: 09/25/19 ( 3 a.m.) Benzodiazepines Substance amount: 2 mg Frequency of use: Less than 3 times per week Substance route: Oral Date of Last Use: 09/21/19 - Last Treatment Treatment type: Substance Use Disorder (HECTOR) Where was last treatment: ER ([facility] - overnight. Given Ativan in ED. Hospitalized in [facility] - [facility] admission x 5 days) Physical/Psych/Mental Status - Behavior Eye Contact: Decreased - Cooperativeness Cooperativeness: Cooperative - Thinking Thought Processes: Goal Directed Thought content: Future oriented, Suicidal ideation (Last attempt was 1 month ago. Kept in [facility] 5 days and started on lexapro) - Physical Health Problems Is patient presently having any pain?: Yes (Ribs, hands, knees) Does patient presently have any injuries (include location): Yes (Ribs, hand) Does patient currently have a fever: No CIWA Nausea/Vomitin-Mild Nausea/No Vomiting Muscle Tremors: 4-Moderate,w/Arms Extend Anxiety: 3 Agitation: 4-Moderately Restless Paroxysmal Sweats: 3 (Increased facial moisture) Orientation: 1-Uncertain about Date Tacttile Disturbances: 1-Very Mild Itch/Numbness Auditory Disturbances: 0-None Visual Disturbances: 0-None Headache: 0-None Present CIWA-Ar Total Score: 17
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
[2019-09-25] MEDS ORDERED: METHOCARBAMOL 500 MG TABLET PO PRN (19:31)
[2019-09-25] MEDS ORDERED: MENTHOL/PHENOL 1 EACH UD MM PRN (19:31)
[2019-09-25] MEDS ORDERED: hydrOXYzine PAMOATE 25 MG CAPSULE (FP) PO PRN (19:31)
[2019-09-25] MEDS ORDERED: ACETAMINOPHEN 325 MG TABLET (FP) PO PRN ×2 (19:31)
[2019-09-25] MEDS ORDERED: MAGNESIUM CITRATE 300 ML BOTTLE PO PRN (19:31)
[2019-09-25] MEDS ORDERED: MAG HYDROX/AL HYDROX/SIMETH 30 ML UNIT-DOSE CUP PO PRN (19:31)
[2019-09-25] MEDS ORDERED: MAGNESIUM HYDROX 2400MG/30ML ORAL SUSPENSION 30 ML CUP PO PRN (19:31)
[2019-09-25] MEDS ORDERED: MELATONIN 5 MG TABLETS PO PRN (19:31)
[2019-09-25] MEDS ORDERED: LORazepam 1 MG TABLET PO PRN (19:31)
[2019-09-25] MEDS ORDERED: IBUPROFEN 400 MG TABLET (FP) PO PRN (19:31)
[2019-09-25] MEDS ORDERED: BISMUTH SUBSALICYLATE 524 MG/30 ML UD PO PRN (19:31)
[2019-09-25] MEDS ORDERED: LORazepam 2 MG TABLET PO ONE (19:45)
[2019-09-25] MEDS: PANTOPRAZOLE 40 MG TABLET PO SCH (20:12)
[2019-09-25] MEDS: LIDOCAINE 5% TOPICAL PATCH TP SCH (20:12)
[2019-09-25] MEDS: LIDOCAINE PATCH REMOVAL MC SCH (23:49)
[2019-09-25] MEDS: THIAMINE HCL 100 MG TABLET (FP) PO SCH (23:49)
[2019-09-25] MEDS: LORazepam 2 MG TABLET PO SCH (23:50)
[2019-09-25] MEDS: RIFAXIMIN 550 MG TABLET (UD) PO SCH (23:50)
[2019-09-26 02:52] VITALS: BMI 23.7
[2019-09-26] MEDS: LORazepam 2 MG TABLET PO SCH ×4 (06:28→22:24)
[2019-09-26 10:01] LABS: HEMATOCRIT 27.7 % (35.4-49); HEMOGLOBIN 9.3 GM/dL (11.7-16.9); MCH 30.5 pg (25.7-33.7); MCHC 33.5 g/dl (32.0-35.9); MEAN CELL VOLUME 91.2 fl (80-96); MEAN PLT VOLUME 8.4 fl (7.5-11.1); PLATELET COUNT 97 K/MM3 (134-434); RBC 3.03 M/mm3 (4.00-5.60); RDW 17.5 % (11.9-15.9)
[2019-09-26 10:08] LABS: WHITE BLOOD COUNT 1.3 K/mm3 (4.0-10.0)
[2019-09-26] MEDS: LACTULOSE 20 GM/30 ML UDC (FOR ORAL USE ONLY) PO SCH (10:09)
[2019-09-26] MEDS: PRENATAL VITAMINS W/ FOLIC ACID TABLET (FP) PO SCH (10:09)
[2019-09-26] MEDS: PANTOPRAZOLE 40 MG TABLET PO SCH (10:09)
[2019-09-26] MEDS: LIDOCAINE 5% TOPICAL PATCH TP SCH (10:12)
[2019-09-26 10:18] LABS: ALBUMIN 2.8 g/dl (3.4-5.0); BILIRUBIN,TOTAL 0.8 mg/dL (0.2-1); BLOOD UREA NITROGEN 17.9 mg/dL (7-18); CALCIUM 8.6 mg/dL (8.5-10.1); CREATININE 0.7 mg/dL (0.55-1.3); POTASSIUM 3.8 mmol/L (3.5-5.1); TOT PROT 5.9 g/dl (6.4-8.2)
--- NOTE | 2019-09-26 11:04 | PN ---
S CIWA - CIWA Score Nausea/Vomitin Muscle Tremors: 2 Anxiety: 3 Agitation: 2 Paroxysmal Sweats: No Perspiration Orientation: 0-Oriented Tacttile Disturbances: 1-Very Mild Itch/Numbness Auditory Disturbances: 0-None Visual Disturbances: 0-None Headache: 2-Mild CIWA-Ar Total Score: 12 S Progress Note (SOAP) Subjective: alert,irritable,anxious,interrupted sleep,pain in the left ribs,nausea Objective: 09/26/19 11:01 Vital Signs Temperature 98.4 F 09/26/19 09:17 Pulse Rate 71 09/26/19 09:17 Respiratory Rate 18 09/26/19 09:17 Blood Pressure 114/70 09/26/19 09:17 O2 Sat by Pulse Oximetry (%) 09/26/19 11:01 Laboratory Last Values WBC 1.3 K/mm3 (4.0-10.0) L* 09/26/19 07:30 RBC 3.03 M/mm3 (4.00-5.60) L 09/26/19 07:30 Hgb 9.3 GM/dL (11.7-16.9) L 09/26/19 07:30 Hct 27.7 % (35.4-49) L D 09/26/19 07:30 MCV 91.2 fl (80-96) 09/26/19 07:30 MCH 30.5 pg (25.7-33.7) 09/26/19 07:30 MCHC 33.5 g/dl (32.0-35.9) 09/26/19 07:30 RDW 17.5 % (11.9-15.9) H 09/26/19 07:30 Plt Count 97 K/MM3 (134-434) L D 09/26/19 07:30 MPV 8.4 fl (7.5-11.1) 09/26/19 07:30 Sodium 140 mmol/L (136-145) 09/26/19 07:30 Potassium 3.8 mmol/L (3.5-5.1) 09/26/19 07:30 Chloride 106 mmol/L (98-107) 09/26/19 07:30 Carbon Dioxide 28 mmol/L (21-32) 09/26/19 07:30 Anion Gap 5 MMOL/L (8-16) L 09/26/19 07:30 BUN 17.9 mg/dL (7-18) 09/26/19 07:30 Creatinine 0.7 mg/dL (0.55-1.3) 09/26/19 07:30 Est GFR (CKD-EPI)AfAm 143.71 09/26/19 07:30 Est GFR (CKD-EPI)NonAf 123.99 09/26/19 07:30 Random Glucose 87 mg/dL (74-106) 09/26/19 07:30 Calcium 8.6 mg/dL (8.5-10.1) 09/26/19 07:30 Total Bilirubin 0.8 mg/dL (0.2-1) 09/26/19 07:30 AST 45 U/L (15-37) H 09/26/19 07:30 ALT 33 U/L (13-61) 09/26/19 07:30 Alkaline Phosphatase 66 U/L (45-117) 09/26/19 07:30 Total Protein 5.9 g/dl (6.4-8.2) L 09/26/19 07:30 Albumin 2.8 g/dl (3.4-5.0) L 09/26/19 07:30 Assessment: 09/26/19 11:02 withdrawal symptom Plan: continue detox ativan regimen,pancytopenia probably from chronic alcoholism,to repeat cbc,ammonia level in am,serum iron,iron biding capacity,folic acid, reticulocyte count and vit b 12 in am
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
[2019-09-26] MEDS: RIFAXIMIN 550 MG TABLET (UD) PO SCH ×2 (14:53→22:23)
[2019-09-26] MEDS: QUEtiapine FUMARATE 100 MG TABLET (FP) PO SCH (22:23)
[2019-09-26] MEDS: LIDOCAINE PATCH REMOVAL MC SCH (22:23)
[2019-09-26] MEDS: THIAMINE HCL 100 MG TABLET (FP) PO SCH (22:24)
[2019-09-27] MEDS: LORazepam 1 MG TABLET PO SCH ×4 (05:17→22:23)
[2019-09-27] MEDS: LACTULOSE 20 GM/30 ML UDC (FOR ORAL USE ONLY) PO SCH (10:38)
[2019-09-27] MEDS: PRENATAL VITAMINS W/ FOLIC ACID TABLET (FP) PO SCH (10:38)
[2019-09-27] MEDS: PANTOPRAZOLE 40 MG TABLET PO SCH (10:38)
[2019-09-27] MEDS: LIDOCAINE 5% TOPICAL PATCH TP SCH (10:40)
[2019-09-27 12:08] LABS: HEMATOCRIT 29.5 % (35.4-49); HEMOGLOBIN 10.1 GM/dL (11.7-16.9); MCH 30.9 pg (25.7-33.7); MCHC 34.2 g/dl (32.0-35.9); MEAN CELL VOLUME 90.5 fl (80-96); MEAN PLT VOLUME 8.7 fl (7.5-11.1); PLATELET COUNT 100 K/MM3 (134-434); RBC 3.26 M/mm3 (4.00-5.60); RDW 17.1 % (11.9-15.9); RETICULOCYTES 1.01 % (0.5-1.5)
--- NOTE | 2019-09-27 12:17 | PN ---
S CIWA - CIWA Score Nausea/Vomitin-No Nausea/No Vomiting Muscle Tremors: 1-None Visible, but [place] Anxiety: 2 Agitation: 1-Slight > Activity Paroxysmal Sweats: 2 Orientation: 0-Oriented Tacttile Disturbances: 2-Mild Itch/Numbness/Burn Auditory Disturbances: 0-None Visual Disturbances: 0-None Headache: 0-None Present CIWA-Ar Total Score: 8 BHS Progress Note (SOAP) Subjective: interrupted sleep, sweats bodyaches ; no gi bleeds upper or lower Objective: 09/27/19 12:14 Vital Signs Temperature 97.7 F 09/27/19 09:05 Pulse Rate 78 09/27/19 09:05 Respiratory Rate 16 09/27/19 09:05 Blood Pressure 98/57 L 09/27/19 09:05 O2 Sat by Pulse Oximetry (%) Laboratory Tests 09/26/19 09/26/19 09/26/19 07:30 07:30 07:30 WBC 1.3 L* RBC 3.03 L Hgb 9.3 L Hct 27.7 L D MCV 91.2 MCH 30.5 MCHC 33.5 RDW 17.5 H Plt Count 97 L D MPV 8.4 Sodium 140 Potassium 3.8 Chloride 106 Carbon Dioxide 28 Anion Gap 5 L BUN 17.9 Creatinine 0.7 Est GFR (CKD-EPI)AfAm 143.71 Est GFR (CKD-EPI)NonAf 123.99 Random Glucose 87 Calcium 8.6 Total Bilirubin 0.8 AST 45 H ALT 33 Alkaline Phosphatase 66 Ammonia Total Protein 5.9 L Albumin 2.8 L RPR Titer Nonreactive 09/27/19 08:52 WBC RBC Hgb Hct MCV MCH MCHC RDW Plt Count MPV Sodium Potassium Chloride Carbon Dioxide Anion Gap BUN Creatinine Est GFR (CKD-EPI)AfAm Est GFR (CKD-EPI)NonAf Random Glucose Calcium Total Bilirubin AST ALT Alkaline Phosphatase Ammonia 119.10 H Total Protein Albumin RPR Titer pt aox3 eatting in bed in nad . skin pale pending repeated labs Assessment: 09/27/19 12:15 withdrawal sx's pancytopenia cirrhosis- pt has no primary care or gi services. Pt platles are higher than usual - will continue to monitor for gi bleeding d/c tylenol d/c ibuprofen 09/27/19 12:17 Plan: cont detox increase fluids f/up pending labs
[2019-09-27] MEDS: RIFAXIMIN 550 MG TABLET (UD) PO SCH ×2 (12:24→22:23)
[2019-09-27 12:44] LABS: WHITE BLOOD COUNT 1.3 K/mm3 (4.0-10.0)
[2019-09-27 12:48] LABS: IRON SERUM 187 ug/dL (50-175); TOTAL IRON BINDING CAPACITY 285 ug/dL (250-450)
[2019-09-27] MEDS: QUEtiapine FUMARATE 100 MG TABLET (FP) PO SCH (22:23)
[2019-09-27] MEDS: THIAMINE HCL 100 MG TABLET (FP) PO SCH (22:24)
[2019-09-27] MEDS: LIDOCAINE PATCH REMOVAL MC SCH (22:26)
[2019-09-28] MEDS ORDERED: LORazepam 0.5 MG TABLET PO PRN
[2019-09-28] MEDS: LORazepam 0.5 MG TABLET PO SCH ×4 (07:36→22:10)
[2019-09-28] MEDS: PRENATAL VITAMINS W/ FOLIC ACID TABLET (FP) PO SCH (10:28)
[2019-09-28] MEDS: RIFAXIMIN 550 MG TABLET (UD) PO SCH ×2 (10:28→22:11)
[2019-09-28] MEDS: PANTOPRAZOLE 40 MG TABLET PO SCH (10:28)
[2019-09-28] MEDS: LACTULOSE 20 GM/30 ML UDC (FOR ORAL USE ONLY) PO SCH (10:28)
[2019-09-28] MEDS: LIDOCAINE 5% TOPICAL PATCH TP SCH (10:30)
--- NOTE | 2019-09-28 11:02 | PN ---
S CIWA - CIWA Score Nausea/Vomitin-Mild Nausea/No Vomiting Muscle Tremors: 2 Anxiety: 1-Mildly Anxious Agitation: 1-Slight > Activity Paroxysmal Sweats: 1-Minimal Palms Moist Orientation: 1-Uncertain about Date Tacttile Disturbances: 0-None Auditory Disturbances: 0-None Visual Disturbances: 0-None Headache: 1-Very Mild CIWA-Ar Total Score: 8 BHS Progress Note (SOAP) Subjective: pt with h/o cirrhosis, admitted for alcohol detox. h/o pancytopenia O: Vital Signs - 24 hr 09/27/19 09/27/19 09/27/19 12:25 16:50 20:50 Temperature 97.9 F 98.1 F 97.9 F Pulse Rate 79 74 77 Respiratory 16 16 20 Rate Blood Pressure 108/64 111/62 103/62 09/28/19 09/28/19 09/28/19 00:30 03:30 06:30 Temperature Pulse Rate Respiratory 18 18 18 Rate Blood Pressure 09/28/19 07:12 Temperature 97.5 F L Pulse Rate 86 Respiratory 18 Rate Blood Pressure 108/65 Laboratory Tests 09/26/19 09/26/19 09/26/19 07:30 07:30 07:30 WBC 1.3 L* RBC 3.03 L Hgb 9.3 L Hct 27.7 L D MCV 91.2 MCH 30.5 MCHC 33.5 RDW 17.5 H Plt Count 97 L D MPV 8.4 Retic Count Sodium 140 Potassium 3.8 Chloride 106 Carbon Dioxide 28 Anion Gap 5 L BUN 17.9 Creatinine 0.7 Est GFR (CKD-EPI)AfAm 143.71 Est GFR (CKD-EPI)NonAf 123.99 Random Glucose 87 Calcium 8.6 Iron TIBC Iron Saturation Unsaturated IBC Total Bilirubin 0.8 AST 45 H ALT 33 Alkaline Phosphatase 66 Ammonia Total Protein 5.9 L Albumin 2.8 L Vitamin B12 Serum Folate RPR Titer Nonreactive 09/27/19 09/27/19 09/27/19 08:52 08:52 08:52 WBC 1.3 L* RBC 3.26 L Hgb 10.1 L Hct 29.5 L MCV 90.5 MCH 30.9 MCHC 34.2 RDW 17.1 H Plt Count 100 L MPV 8.7 Retic Count 1.01 D Sodium Potassium Chloride Carbon Dioxide Anion Gap BUN Creatinine Est GFR (CKD-EPI)AfAm Est GFR (CKD-EPI)NonAf Random Glucose Calcium Iron 187 H TIBC 285 Iron Saturation 65 H Unsaturated IBC 98 L Total Bilirubin AST ALT Alkaline Phosphatase Ammonia 119.10 H Total Protein Albumin Vitamin B12 440 Serum Folate 20 H RPR Titer a/p: Continue alcohol detox cirrhosis: pt without Sx- monitor pancytopenia, f/u PCP at discharge
[2019-09-28] MEDS: LIDOCAINE PATCH REMOVAL MC SCH (22:11)
[2019-09-28] MEDS: QUEtiapine FUMARATE 100 MG TABLET (FP) PO SCH (22:11)
[2019-09-28] MEDS: THIAMINE HCL 100 MG TABLET (FP) PO SCH (22:11)
[2019-09-29] MEDS ORDERED: LORazepam 0.5 MG TABLET PO ONE (05:00)
[2019-09-29 10:09] VITALS: BP 103/57; PULSE 92; TEMP 97.6
[2019-09-29] MEDS: PRENATAL VITAMINS W/ FOLIC ACID TABLET (FP) PO SCH (10:49)
[2019-09-29] MEDS: LIDOCAINE 5% TOPICAL PATCH TP SCH (10:50)
[2019-09-29] MEDS: LACTULOSE 20 GM/30 ML UDC (FOR ORAL USE ONLY) PO SCH (10:50)
[2019-09-29] MEDS: PANTOPRAZOLE 40 MG TABLET PO SCH (10:50)
[2019-09-29] MEDS: RIFAXIMIN 550 MG TABLET (UD) PO SCH (10:50)
[2019-09-29 11:26] LABS: BASO % 0.6 % (0-2.0); EOS % 4.2 % (0-4.5); HEMATOCRIT 31.7 % (35.4-49); HEMOGLOBIN 10.7 GM/dL (11.7-16.9); LYMPH % 36.2 % (8-40); MCHC 33.8 g/dl (32.0-35.9); MEAN CELL VOLUME 91.7 fl (80-96); MONO % 13.2 % (3.8-10.2); NEUT % 45.8 % (42.8-82.8); PLATELET COUNT 110 K/MM3 (134-434); RBC 3.46 M/mm3 (4.00-5.60); RDW 17.4 % (11.9-15.9); WHITE BLOOD COUNT 2.2 K/mm3 (4.0-10.0)
--- NOTE | 2019-09-29 11:42 | DS ---
[facility] Detox Discharge Summary Admission Date: 09/25/19 Discharge Date: 09/29/19 - History Present History: Alcohol Dependence, Cocaine Dependence, Sedative Dependence - Physical Exam Results Vital Signs: Vital Signs Temperature 97.6 F 09/29/19 08:53 Pulse Rate 92 H 09/29/19 08:53 Respiratory Rate 19 09/29/19 08:53 Blood Pressure 103/57 L 09/29/19 08:53 O2 Sat by Pulse Oximetry (%) pt aox3 lying in bed in nad skin pale lungs clear to a/p no GI blleding neuro intact time spent on d/c 35 minutes - Treatment Hospital Course: Detox Protocol Followed, Detoxed Safely, Responded well, Discharged Condition Good - Medication Discharge Medications: Ambulatory Orders Multivitamin [Multiple Vitamins] 1 each PO DAILY #30 tablet 07/24/19 Folic Acid - 1 mg PO DAILY #30 tablet 07/27/19 Lactulose (Oral Use) [Cephulac -] 20 gm PO DAILY #30 udc 07/27/19 Escitalopram Oxalate [Lexapro -] 10 mg PO DAILY 09/25/19 Pantoprazole Sodium [Protonix -] 40 mg PO DAILY 09/25/19 Quetiapine Fumarate [Seroquel -] 100 mg PO HS 09/25/19 - Diagnosis (1) Alcohol related disorder Current Visit: Yes Status: Acute (2) Cocaine abuse Current Visit: Yes Status: Acute (3) MDD (major depressive disorder) Current Visit: Yes Status: Chronic (4) PTSD (post-traumatic stress disorder) Current Visit: Yes Status: Chronic (5) Cirrhosis of liver Current Visit: Yes Status: Resolved (6) Alcohol dependence with uncomplicated withdrawal Current Visit: Yes Status: Chronic (7) Sedative hypnotic or anxiolytic dependence Current Visit: No Status: Chronic (8) Nicotine dependence Current Visit: No Status: Chronic Qualifiers: Nicotine product type: cigarettes Substance use status: uncomplicated Qualified Code(s): F17.210 - Nicotine dependence, cigarettes, uncomplicated (9) Pancytopenia Current Visit: Yes Status: Chronic - AMA Did Patient Leave Against Medical Advice: No
== END 2019-09-29 12:30 | disposition home or self-care (01) | DRG 774 ==
LOC: YASAS 16:52 → Y6N 19:03
PROVIDERS: ADMIT Allergy & Immunology; ATTEND Allergy & Immunology
PROC: HZ2ZZZZ Detoxification Services for Substance Abuse Treatment (ICD-10-PCS; principal; 2019-09-25)
DX: F10.230 Alcohol dependence with withdrawal, uncomplicated (principal); F13.20 Sedative, hypnotic or anxiolytic dependence, uncomplicated; F14.20 Cocaine dependence, uncomplicated; F17.210 Nicotine dependence, cigarettes, uncomplicated; F19.282 Other psychoactive substance dependence with psychoactive substance-induced sleep disorder; F19.24 Other psychoactive substance dependence with psychoactive substance-induced mood disorder; F32.9 Major depressive disorder, single episode, unspecified; F41.9 Anxiety disorder, unspecified; F43.10 Post-traumatic stress disorder, unspecified; D61.818 Other pancytopenia; D64.9 Anemia, unspecified; K74.60 Unspecified cirrhosis of liver; K21.9 Gastro-esophageal reflux disease without esophagitis; Z87.828 Personal history of other (healed) physical injury and trauma; Z59.0 Homelessness
CPT/HCPCS: 36415; 80053; 82140; 82607; 82746; 83540; 83550; 85025; 85027; 85044; 86593

== ENCOUNTER 2019-09-25 20:43 | Emergency (ER) | payer OTHER ==
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
[2019-09-25 20:53] VITALS: BP 106/62; PULSE 75; TEMP 98.3; BMI 25.0
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
[2019-09-25] MEDS ORDERED: chlordiazePOXIDE HCL 25 MG CAPSULE PO ONE (23:29)
[2019-09-25] MEDS ORDERED: chlordiazePOXIDE HCL 25 MG CAPSULE ONE (23:31)
--- NOTE | 2019-09-26 02:47 | PN ---
DRU Progress Note Note: Received patient from emergency room alert and oriented to person, place and time. Patient was sent to ER for evaluation of his right wrist pain. Patient reports that he was earlier evaluated at [facility] and was told that he has left rib fractures and a right wrist sprain with x-ray of the right wrist done Vital Signs Temperature 98.3 F 09/25/19 20:51 Pulse Rate 75 09/25/19 20:51 Respiratory Rate 18 09/25/19 20:51 Blood Pressure 106/62 09/25/19 20:51 O2 Sat by Pulse Oximetry (%) 99 09/25/19 20:51 Action: Continue Iburofen 400mg tablet oral Q6H as needed Maitain wrist splint given REST, ICE, elevate right upper extremity
== END 2019-09-25 23:44 | disposition home or self-care (01) ==
LOC: JERFT 20:43
DX: F10.230 Alcohol dependence with withdrawal, uncomplicated (principal); S69.81XD Other specified injuries of right wrist, hand and finger(s), subsequent encounter; S22.42XD Multiple fractures of ribs, left side, subsequent encounter for fracture with routine healing; Y04.2XXD Assault by strike against or bumped into by another person, subsequent encounter; D64.9 Anemia, unspecified; R56.9 Unspecified convulsions; K21.9 Gastro-esophageal reflux disease without esophagitis; K74.60 Unspecified cirrhosis of liver
CPT/HCPCS: 73130-TC-RT-FY; 99283-25

== ENCOUNTER 2020-09-16 09:17 | Inpatient (IN) | payer OTHER ==
[2020-09-16] MEDS ORDERED: chlordiazePOXIDE HCL 25 MG CAPSULE PO SCH (11:00)
[2020-09-16 11:17] VITALS: BMI 24.3
[2020-09-16] MEDS ORDERED: ONDANSETRON *ODT* 4 MG TABLET SL PRN (11:17)
[2020-09-16] MEDS ORDERED: chlordiazePOXIDE HCL 25 MG CAPSULE PO PRN (11:17)
[2020-09-16] MEDS ORDERED: BISMUTH SUBSALICYLATE 524 MG/30 ML UD PO PRN (11:17)
[2020-09-16] MEDS ORDERED: METHOCARBAMOL 500 MG TABLET PO PRN (11:17)
[2020-09-16] MEDS ORDERED: NICOTINE POLACRILEX 2 MG GUM BUC PRN (11:17)
[2020-09-16] MEDS ORDERED: MAGNESIUM HYDROX 2400MG/30ML ORAL SUSPENSION 30 ML CUP PO PRN (11:17)
[2020-09-16] MEDS ORDERED: MENTHOL/PHENOL 1 EACH UD MM PRN (11:17)
[2020-09-16] MEDS ORDERED: MAG HYDROX/AL HYDROX/SIMETH 30 ML UNIT-DOSE CUP PO PRN (11:17)
[2020-09-16] MEDS ORDERED: ACETAMINOPHEN 325 MG TABLET (FP) PO PRN ×2 (11:17)
[2020-09-16] MEDS ORDERED: IBUPROFEN 400 MG TABLET (FP) PO PRN (11:17)
[2020-09-16] MEDS ORDERED: MAGNESIUM CITRATE 300 ML BOTTLE PO PRN (11:17)
[2020-09-16] MEDS ORDERED: LORazepam 1 MG TABLET PO PRN (11:38)
[2020-09-16] MEDS ORDERED: LORazepam 2 MG TABLET ONE (11:53)
[2020-09-16] MEDS: LORazepam 2 MG TABLET PO SCH ×3 (12:03→22:38)
[2020-09-16] MEDS: hydrOXYzine PAMOATE 25 MG CAPSULE (FP) PO SCH ×3 (14:44→22:38)
[2020-09-16] MEDS: PRENATAL VITAMINS W/ FOLIC ACID TABLET (FP) PO SCH (14:44)
[2020-09-16] MEDS: NICOTINE 21 MG/24 HOURS TOPICAL PATCH TD SCH (14:44)
[2020-09-16] MEDS: MELATONIN 5 MG TABLETS PO SCH (22:38)
[2020-09-16] MEDS: THIAMINE HCL 100 MG TABLET (FP) PO SCH (22:38)
[2020-09-16] MEDS: RIFAXIMIN 550 MG TABLET (UD) PO SCH (23:23)
[2020-09-17] MEDS: LORazepam 2 MG TABLET PO SCH ×4 (06:27→22:41)
[2020-09-17] MEDS: hydrOXYzine PAMOATE 25 MG CAPSULE (FP) PO SCH ×5 (06:30→22:42)
[2020-09-17] MEDS: LACTULOSE 20 GM/30 ML UDC (FOR ORAL USE ONLY) PO SCH (10:26)
[2020-09-17] MEDS: PRENATAL VITAMINS W/ FOLIC ACID TABLET (FP) PO SCH (10:27)
[2020-09-17] MEDS: NICOTINE 21 MG/24 HOURS TOPICAL PATCH TD SCH (10:27)
[2020-09-17] MEDS: PANTOPRAZOLE 40 MG TABLET PO SCH (10:27)
[2020-09-17] MEDS: RIFAXIMIN 550 MG TABLET (UD) PO SCH ×2 (13:21→22:41)
[2020-09-17 13:54] LABS: HEMATOCRIT 31.3 % (35.4-49); HEMOGLOBIN 10.7 GM/dL (11.7-16.9); MCH 31.8 pg (25.7-33.7); MCHC 34.3 g/dl (32.0-35.9); MEAN CELL VOLUME 92.8 fl (80-96); MEAN PLT VOLUME 8.4 fl (7.5-11.1); PLATELET COUNT 58 K/MM3 (134-434); RBC 3.38 M/mm3 (4.00-5.60); RDW 16.8 % (11.9-15.9)
[2020-09-17 14:08] LABS: WHITE BLOOD COUNT 1.3 K/mm3 (4.0-10.0)
[2020-09-17 14:19] LABS: POTASSIUM 3.7 mmol/L (3.5-5.1)
[2020-09-17 14:27] LABS: CALCIUM 8.3 mg/dL (8.5-10.1)
[2020-09-17 14:28] LABS: ALBUMIN 2.6 g/dl (3.4-5.0); BLOOD UREA NITROGEN 11.7 mg/dL (7-18)
[2020-09-17 14:31] LABS: CREATININE 0.7 mg/dL (0.55-1.3)
[2020-09-17 14:32] LABS: TOT PROT 6.1 g/dl (6.4-8.2)
[2020-09-17 14:34] LABS: BILIRUBIN,TOTAL 0.9 mg/dL (0.2-1)
[2020-09-17] MEDS: FERROUS SO4 325 MG TABLET (FP) PO SCH (17:23)
[2020-09-17] MEDS: MELATONIN 5 MG TABLETS PO SCH (22:41)
[2020-09-17] MEDS: THIAMINE HCL 100 MG TABLET (FP) PO SCH (22:41)
[2020-09-18] MEDS ORDERED: chlordiazePOXIDE HCL 25 MG CAPSULE PO SCH (05:00)
[2020-09-18] MEDS: hydrOXYzine PAMOATE 25 MG CAPSULE (FP) PO SCH ×3 (06:56→13:06)
[2020-09-18] MEDS: LORazepam 1 MG TABLET PO SCH ×4 (06:57→22:38)
[2020-09-18] MEDS: FERROUS SO4 325 MG TABLET (FP) PO SCH ×3 (07:08→18:10)
[2020-09-18] MEDS: RIFAXIMIN 550 MG TABLET (UD) PO SCH ×2 (10:30→22:37)
[2020-09-18] MEDS: LACTULOSE 20 GM/30 ML UDC (FOR ORAL USE ONLY) PO SCH (10:30)
[2020-09-18] MEDS: PANTOPRAZOLE 40 MG TABLET PO SCH (10:31)
[2020-09-18] MEDS: PRENATAL VITAMINS W/ FOLIC ACID TABLET (FP) PO SCH (10:31)
[2020-09-18] MEDS: NICOTINE 21 MG/24 HOURS TOPICAL PATCH TD SCH (10:32)
[2020-09-18 11:24] LABS: POTASSIUM 3.9 mmol/L (3.5-5.1)
[2020-09-18 11:27] LABS: BASO % 0.2 % (0-2.0); EOS % 4.2 % (0-4.5); HEMATOCRIT 34.5 % (35.4-49); HEMOGLOBIN 11.8 GM/dL (11.7-16.9); LYMPH % 32.7 % (8-40); MCH 31.6 pg (25.7-33.7); MCHC 34.1 g/dl (32.0-35.9); MEAN CELL VOLUME 92.5 fl (80-96); MEAN PLT VOLUME 8.6 fl (7.5-11.1); MONO % 9.5 % (3.8-10.2); NEUT % 53.4 % (42.8-82.8); PLATELET COUNT 59 K/MM3 (134-434); RBC 3.73 M/mm3 (4.00-5.60); RDW 16.2 % (11.9-15.9)
[2020-09-18 11:36] LABS: WHITE BLOOD COUNT 1.6 K/mm3 (4.0-10.0)
[2020-09-18 11:41] LABS: CALCIUM 8.7 mg/dL (8.5-10.1)
[2020-09-18 11:42] LABS: ALBUMIN 2.9 g/dl (3.4-5.0); BLOOD UREA NITROGEN 11.9 mg/dL (7-18)
[2020-09-18 11:45] LABS: CREATININE 0.7 mg/dL (0.55-1.3)
[2020-09-18 11:46] LABS: BILIRUBIN,TOTAL 1.5 mg/dL (0.2-1); TOT PROT 6.9 g/dl (6.4-8.2)
[2020-09-18] MEDS ORDERED: hydrOXYzine PAMOATE 25 MG CAPSULE (FP) PO PRN (13:27)
[2020-09-18 13:55] LABS: ANISOCYTOSIS 0; MACROCYTOSIS 0; PLATELET ESTIMATE DECREASED
[2020-09-18] MEDS: MELATONIN 5 MG TABLETS PO SCH (22:37)
[2020-09-18] MEDS: THIAMINE HCL 100 MG TABLET (FP) PO SCH (22:37)
[2020-09-19] MEDS ORDERED: LORazepam 0.5 MG TABLET PO PRN
[2020-09-19] MEDS ORDERED: chlordiazePOXIDE HCL 10 MG CAPSULE PO PRN
[2020-09-19] MEDS ORDERED: chlordiazePOXIDE HCL 10 MG CAPSULE PO SCH (05:00)
[2020-09-19] MEDS: LORazepam 0.5 MG TABLET PO SCH ×2 (07:49→10:28)
[2020-09-19] MEDS: FERROUS SO4 325 MG TABLET (FP) PO SCH ×2 (07:50→11:56)
[2020-09-19] MEDS: LACTULOSE 20 GM/30 ML UDC (FOR ORAL USE ONLY) PO SCH (10:27)
[2020-09-19] MEDS: PANTOPRAZOLE 40 MG TABLET PO SCH (10:27)
[2020-09-19] MEDS: RIFAXIMIN 550 MG TABLET (UD) PO SCH (10:27)
[2020-09-19] MEDS: PRENATAL VITAMINS W/ FOLIC ACID TABLET (FP) PO SCH (10:27)
[2020-09-19] MEDS: NICOTINE 21 MG/24 HOURS TOPICAL PATCH TD SCH (10:27)
[2020-09-19 14:09] VITALS: BP 110/64; PULSE 78; TEMP 97.6
[2020-09-20] MEDS ORDERED: LORazepam 0.5 MG TABLET PO ONE (05:00)
[2020-09-20] MEDS ORDERED: chlordiazePOXIDE HCL 10 MG CAPSULE PO SCH (05:00)
[2020-09-21] MEDS ORDERED: chlordiazePOXIDE HCL 10 MG CAPSULE PO ONE (05:00)
== END 2020-09-19 16:22 | disposition left against medical advice (07) | DRG 770 ==
LOC: YASAS 09:17 → Y3N 13:20
PROVIDERS: ADMIT Allergy & Immunology; ATTEND Allergy & Immunology
PROC: HZ2ZZZZ Detoxification Services for Substance Abuse Treatment (ICD-10-PCS; principal; 2020-09-16)
DX: F10.230 Alcohol dependence with withdrawal, uncomplicated (principal); F14.20 Cocaine dependence, uncomplicated; F17.210 Nicotine dependence, cigarettes, uncomplicated; F43.10 Post-traumatic stress disorder, unspecified; F32.9 Major depressive disorder, single episode, unspecified; U07.1 COVID-19; D64.9 Anemia, unspecified; D72.819 Decreased white blood cell count, unspecified; K70.30 Alcoholic cirrhosis of liver without ascites; K21.9 Gastro-esophageal reflux disease without esophagitis; Z87.19 Personal history of other diseases of the digestive system; Z87.81 Personal history of (healed) traumatic fracture; Z85.528 Personal history of other malignant neoplasm of kidney; Z90.5 Acquired absence of kidney; Z90.49 Acquired absence of other specified parts of digestive tract; Z59.0 Homelessness
CPT/HCPCS: 36415; 80053; 85025; 85027; 86780; C9803; Q0162; U0003